=== PATIENT | female | born 1965 | race Caucasian/White ===

== ENCOUNTER → 2017-03-12 | Outpatient (CLI) | payer MEDICARE, OTHER ==
--- NOTE | 2017-03-12 10:53 | MR ---
EXAMINATION TYPE: MR brain wo con DATE OF EXAM: 03/12/2017 10:22 AM COMPARISON: NONE HISTORY: Lt side bells palsy, migraine, seizure hx FINDINGS: The ventricles, basal cisterns and sulci overlying the cerebral convexities are mildly enlarged. There is evidence of minimal periventricular white matter ischemic demyelination. Remote deep white matter insults are also noted. No acute edema is seen on diffusion weighted imaging. There is no evidence for midline shift or mass effect. Acute intracranial hemorrhage or extra-axial collection is not evident. The mastoid air cells are well-aerated. Small mucous retention cyst left ethmoid air cells. IMPRESSION: Age-related atrophic and chronic small vessel ischemic change. No acute intracranial process at this time.
== END | disposition home or self-care (01) ==
LOC: RADMRIMAIN 08:58
PROVIDERS: ATTEND Psychiatry & Neurology Neurology
DX: G31.1 Senile degeneration of brain, not elsewhere classified (principal); I67.82 Cerebral ischemia
CPT/HCPCS: 70551

== ENCOUNTER → 2017-06-10 | Outpatient (CLI) | payer MEDICARE, OTHER ==
[2017-06-10 13:16] VITALS: BP 125/81; PULSE 87; RESP 16; TEMP 98.1; BMI 20.9
--- NOTE | 2017-07-04 19:16 | P.PN ---
Progress Note - Text DATE OF SERVICE: 06/10/2017 CHIEF COMPLAINT: Bariatric assessment. HISTORY OF PRESENT ILLNESS: Jen Nobles is a 52-year-old female who had a gastric bypass by Dr. Stormy gordon in 2011. Her postoperative course was consistent with a leak following a gastric bypass given her active smoking. In the last 5 years, she has lost 154 pounds. Her initial weight was 258 pounds with a body mass index of 47.2. Today she comes in weighing 104 pounds. Her body mass index today is 21.0. She reports increase troubles with dysphagia as well swallowing in the last 6 months. She reports epigastric and left upper quadrant abdominal pain worse with deep inspiration. Again, she is still smoking. Her voice has become more hoarse. She is now trying to quit smoking as her father of lung cancer. She has developed many strokes in the past. She reports new numbness and tingling of her legs feet and hands. She had developed coldness along her feet and hands as well. She has severe constipation. She is on chronic pain medications. She reports chronic bloating as well. She is not eating much food and her protein intake is low. Her ideal body weight is 123 pounds. Body mass index is reduced from 52.2 down to 21.0. Total BMI is reduced by 31.2. PAST MEDICAL HISTORY: 1. Morbid obesity, now resolved. 2. Insulin-dependent type 2, poorly controlled, resolved. 3. Chronic pain syndrome. 4. Gastroesophageal reflux disease, resolved. 5. Hypertension. 6. Chronic pain syndrome. 7. Osteoarthritis of the lower back. 8. Hypercholesterolemia, resolved. 9. Neuropathy. 10. Chronic constipation. 11. Seizure disorder. 12. Myocardial infraction. 13. Kidney neoplasm. 14. Anxiety. 15. Depression. PAST SURGICAL HISTORY: 1. Gastric bypass. 2. Nephrectomy. 3. Cataract surgery. MEDICATIONS: 1. Clonidine. 2. Norvasc 3. Ambien. 4. Inderal 5. Nitroglycerin. 6. Morphine sulfate 7. Ciprofloxacin 8. Xanax 9. Aricept. 10. Miralax 11. Claritin 12. Brintellix. ALLERGIES: Sulfa. SOCIAL HISTORY: Lifelong tobacco user. FAMILY HISTORY: Lung cancer. REVIEW OF SYSTEMS: CONSTITUTIONAL:Her ideal body weight is 123 pounds. Body mass index is reduced from 52.2 down to 21.0. Total BMI is reduced by 31.2 points Her weight has gone down from 258 pounds to 104 pounds. HEENT: Denies any active trouble with vision or hearing. ENDOCRINE: Diabetes type 2, resolved. No reports of thyroid disorders. CARDIOVASCULAR: Hypercholesterolemia, resolved. Has heart attack and chest pain. RESPIRATORY: Sleep apnea resolved. No previous pneumonia. GASTROINTESTINAL: Had moderate to severe gastroesophageal reflux disease, resolved. Has known history of chronic constipation. MUSCULOSKELETAL: Has degenerative joint disease of the lumbar spine. NEUROLOGIC: Has multipe strokes. No seizure disorders. Has neuropathy. PSYCH: Reports of active depression or suicidal ideation. HEMATOLOGIC: Denies any easy bruising or bleeding. Denies any known family history of DVT. GENITOURINARY: Past kidney neoplasm. No current blood in urine. PHYSICAL EXAM: VITAL SIGNS: 4 feet 11 inches, 104 pounds. Body mass index 21.0 Vital Signs Temp 98.1 F 06/10/17 13:11 Pulse 87 06/10/17 13:11 Resp 16 06/10/17 13:11 BP 125/81 06/10/17 13:11 Pulse Ox GENERAL: Well-developed female in no acute distress. HEENT: No scleral icterus. Extraocular movements grossly intact. Moist buccal mucosa. Has hoarse voice. NECK: Supple without lymphadenopathy. CHEST: Nonlabored respirations with equal bilateral excursions. CARDIOVASCULAR: Regular rate and rhythm. Palpable 2+ radial pulses. ABDOMEN: Soft, nontender, distended. Active panniculitis. Palpable incisional hernia. MUSCULOSKELETAL: No clubbing, cyanosis, or edema. NEURO: No focal or lateralizing signs. Cranial nerves II through XII grossly within normal limits. PSYCH: Appropriate affect. Alert and oriented to person, place, and time. SKIN: Tips of fingers are cool and poorly perfused. LABS: Pending. ASSESSMENT: 1. Morbid obesity due to excess caloric intake, now resolved 2. Body mass index reduced from 52.1 down to 21.0 3. Dietary surveillance and counseling. 4. Chronic pain syndrome. 5. Chronic tobacco use. 6. Diabetes type 2, insulin-dependent, poorly controlled, resolved. 7. Osteoarthritis of the lower back. 8. Osteoarthritis of the knee. 9. History of kidney neoplasm. 10. Familial history of lung cancer. 11. Personal history of panniculitis. 12. Hypercholesterolemia, resolved. 13. History of neuropathy. 14. Dysphagia. 15. Chronic constipation. 16. Hypertensive heart disease. 17. Raynaud phenomenon. PLAN: 1. Recommend bariatric metabolic panel. 2. Recommend upper endoscopy with possible balloon dilatation. 3. Tobacco cessation was advised and discussed with 3-5 minutes with her risks of ulcers and chronic epigastric abdominal pain. 4. Recommend evaluation with bariatric dietitian. 5. Recommend CT of the abdomen and pelvis for further evaluation of abdominal wall hernia. 6. For her neuropathy may have thiamine deficiency. Recommend evaluation of thiamine level.
== END ==
LOC: BARWHC3 12:53
PROVIDERS: ATTEND Surgery Plastic and Reconstructive Surgery
DX: Z48.815 Encounter for surgical aftercare following surgery on the digestive system (principal); G89.4 Chronic pain syndrome; M47.816 Spondylosis without myelopathy or radiculopathy, lumbar region; M17.9 Osteoarthritis of knee, unspecified; I10 Essential (primary) hypertension; K59.00 Constipation, unspecified; I11.9 Hypertensive heart disease without heart failure; I73.00 Raynaud's syndrome without gangrene; F41.9 Anxiety disorder, unspecified; F32.9 Major depressive disorder, single episode, unspecified; E66.01 Morbid (severe) obesity due to excess calories; Z68.21 Body mass index [BMI] 21.0-21.9, adult; Z87.39 Personal history of other diseases of the musculoskeletal system and connective tissue; Z86.69 Personal history of other diseases of the nervous system and sense organs; Z85.828 Personal history of other malignant neoplasm of skin; Z72.0 Tobacco use; Z71.3 Dietary counseling and surveillance; Z88.2 Allergy status to sulfonamides; Z98.84 Bariatric surgery status
CPT/HCPCS: 99211

== ENCOUNTER → 2017-06-22 | Outpatient (CLI) | payer MEDICARE, OTHER ==
[2017-06-22 08:56] LABS: Anisocytosis Slight; CH 26.8; HDW 2.49; HGB 10.9 gm/dL (11.4-16.0); Hypochromasia Slight; MCH 27.8 pg (25.0-35.0); MCV 86.8 fL (80.0-100.0); Mean Platelet Volume 6.6; RBC 3.92 m/uL (3.80-5.40); RDW 16.5 % (11.5-15.5)
[2017-06-22 09:26] LABS: Partial Thromboplastin Time 25.2 sec (22.0-30.0); Prothrombin Time 10.5 sec (9.0-12.0)
[2017-06-22 11:21] LABS: ALT 27 U/L (9-52); AST 18 U/L (14-36); Alkaline Phosphatase 78 U/L (38-126); Anion Gap 9 mmol/L; Blood Urea Nitrogen 10 mg/dL (7-17); Calcium 8.6 mg/dL (8.4-10.2); Carbon Dioxide 28 mmol/L (22-30); Chloride 100 mmol/L (98-107); Cholesterol 142 mg/dL (<200); Glucose 87 mg/dL (74-99); HDL Cholesterol 63 mg/dL (40-60); Iron 64 ug/dL (37-170); Magnesium 2.2 mg/dL (1.6-2.3); Non-African American GFR(MDRD) >60 (>60 ml/min/1.73 sqM); Potassium 4.3 mmol/L (3.5-5.1); Sodium 137 mmol/L (137-145); Total Bilirubin 0.4 mg/dL (0.2-1.3); Total Protein 6.3 g/dL (6.3-8.2); Triglycerides 83 mg/dL (<150)
[2017-06-22 11:31] LABS: % Iron Saturation 16.1 % (20-50); Prealbumin 13 mg/dL (18-36); Total Iron Binding Capacity 397 ug/dL (265-497)
[2017-06-22 12:36] LABS: Vitamin B12 250 pg/mL (239-931)
[2017-06-22 13:19] LABS: Hemoglobin A1C 5.3 % (4.2-6.1)
== END | disposition home or self-care (01) ==
LOC: LABWHC1 08:32
PROVIDERS: ATTEND Surgery Plastic and Reconstructive Surgery
DX: E21.1 Secondary hyperparathyroidism, not elsewhere classified (principal); E89.1 Postprocedural hypoinsulinemia; D50.8 Other iron deficiency anemias; K90.9 Intestinal malabsorption, unspecified; E44.0 Moderate protein-calorie malnutrition; E55.9 Vitamin D deficiency, unspecified; K74.1 Hepatic sclerosis; N19 Unspecified kidney failure; K50.90 Crohn's disease, unspecified, without complications
CPT/HCPCS: 36415; 80053; 80061; 82306; 82525; 82607; 82728; 82746; 83036; 83540; 83550; 83735; 83970; 84100; 84134; 84255; 84425; 84443; 84590; 84630; 85027; 85610; 85730

== ENCOUNTER → 2017-06-22 | Outpatient (CLI) | payer MEDICARE, OTHER ==
--- NOTE | 2017-06-23 09:43 | MM ---
Reason for exam: screening (asymptomatic). Last mammogram was performed 6 years and 9 months ago. History: Patient is postmenopausal. Family history of breast cancer in grandmother. Physical Findings: A clinical breast exam by your physician is recommended on an annual basis and results should be correlated with mammographic findings. MG 3D Screening Mammo W/Cad Bilateral CC and MLO view(s) were taken. Prior study comparison: September 13, 2010, bilateral digital screening mammogram. There are scattered fibroglandular densities. Finding: There are a few typically benign round calcifications in both breasts. There is no discrete abnormality. ASSESSMENT: Benign, BI-RAD 2 RECOMMENDATION: Routine screening mammogram of both breasts in 1 year.
== END | disposition home or self-care (01) ==
LOC: RADMAMWWP 08:46
PROVIDERS: ATTEND Family Medicine
DX: Z12.31 Encounter for screening mammogram for malignant neoplasm of breast (principal)
CPT/HCPCS: 77063; G0202

== ENCOUNTER 2017-07-08 08:57 | Day surgery (SDC) | payer MEDICARE, OTHER ==
[2017-07-06 08:32] VITALS: BMI 21.4
--- NOTE | 2017-07-08 07:35 | P.GSHP ---
History of Present Illness H&P Date: 07/08/17 CHIEF COMPLAINT: GERD and colon screen HISTORY OF PRESENT ILLNESS: The patient is a 52-year-old female who presents reports gastroesophageal reflux disease and need for colon screen. Upper and lower endoscopy were offered for further evaluation and management. PAST MEDICAL HISTORY: Please see list. PAST SURGICAL HISTORY: Please see list. MEDICATIONS: Please see list. ALLERGIES: Please see list. SOCIAL HISTORY: No illicit drug use FAMILY HISTORY: No reports of Crohn disease or ulcerative colitis. REVIEW OF ORGAN SYSTEMS: CONSTITUTIONAL: No reports of fevers or chills. GI: Denies any blood in stools or constipation. PHYSICAL EXAM: VITAL SIGNS: Stable GENERAL: Well-developed pleasant in no acute distress. HEENT: No scleral icterus. Extraocular movements grossly intact. Moist buccal mucosa. NECK: Supple without lymphadenopathy. CHEST: Unlabored respirations. Equal bilateral excursions. CARDIOVASCULAR: Regular rate and rhythm. Distal 2+ pulses. ABDOMEN: Soft, nondistended. MUSCULOSKELETAL: No clubbing, cyanosis, or edema. ASSESSMENT: 1. Gastroesophageal reflux disease 2. Colon screen. PLAN: 1. Recommend proceeding with an upper and lower endoscopy Past Medical History Past Medical History: Chest Pain / Angina, COPD, Hypertension, Myocardial Infarction (ND), Osteoarthritis (OA), Seizure Disorder Additional Past Medical History / Comment(s): dysphagia Last Myocardial Infarction Date:: 2013 History of Any Multi-Drug Resistant Organisms: None Reported Past Surgical History: Bariatric Surgery, Joint Replacement, Tubal Ligation Additional Past Surgical History / Comment(s): calvin knee replacement, rt rotator cuff, rectal prolapse, cataracts removed calvin eyes, 2012 [facility], partial right kidney removed, reversal of tubal ligation Past Anesthesia/Blood Transfusion Reactions: Motion Sickness, Postoperative Nausea & Vomiting (PONV) Smoking Status: Current every day smoker - Past Family History Father Family Medical History: Cancer Additional Family Medical History / Comment(s): lung, AAA Medications and Allergies Home Medications Medication Instructions Recorded Confirmed Type Zolpidem [Ambien] 10 mg PO HS PRN 04/03/14 07/06/17 History Nitroglycerin Sl Tabs [Nitrostat] 0.4 mg SUBLINGUAL Q5M PRN 08/24/14 07/06/17 History Morphine Sulfate [Morphine Sulfate 15 mg PO QID 03/12/16 07/06/17 History ER] ALPRAZolam [Xanax] 1 mg PO TID 07/18/16 07/06/17 History Donepezil [Aricept] 10 mg PO HS 07/18/16 07/06/17 History Fluticasone Nasal [place] [Flonase 2 spr EA NOSTRIL DAILY 07/18/16 07/06/17 History Nasal [place]] Loratadine [Claritin] 10 mg PO DAILY 07/18/16 07/06/17 History Propranolol HCl [Inderal] 60 mg PO BID 07/18/16 07/06/17 History Vortioxetine Hydrobromide 10 mg PO HS 07/18/16 07/06/17 History [Brintellix] Albuterol Nebulized [Ventolin 2.5 mg INHALATION Q4H PRN 07/06/17 07/06/17 History Nebulized] Chantix 1 tab PO BID 07/06/17 History Dextroamphetamine/Amphetamine 20 mg PO DAILY 07/06/17 07/06/17 History [Adderall] Latuda 1 tab PO HS 07/06/17 History Allergies Allergy/AdvReac Type Severity Reaction Status Date / Time Sulfa (Sulfonamide Allergy Unknown Verified 06/10/17 13:42 Antibiotics)
[~2017-07-08 08:57] MED LIST: LIDOCAINE 1% 20 ML VIAL (10MG/ML) FOR IV START INTRADERMA PRN
[2017-07-08 09:22] VITALS: TEMP 98.6
[2017-07-08] MEDS: LACTATED RINGERS 1,000 ML IV SCH ×2 (09:26→09:28)
[2017-07-08] MEDS ORDERED: PROPOFOL 10 MG/ML 20 ML VIAL IV ONE (09:30)
[2017-07-08] MEDS ORDERED: fentaNYL (PF) 50 MCG/ML 2 ML AMP ONE (09:30)
[2017-07-08] MEDS ORDERED: MIDAZOLAM 2 MG/2 ML VIAL ONE (09:30)
--- NOTE | 2017-07-08 09:50 | P.PCN ---
Date of Procedure: 07/08/17 Preoperative Diagnosis: Postoperative Diagnosis: Procedure(s) Performed: Implants: Indications for Procedure: Operative Findings: Description of Procedure: PREOPERATIVE DIAGNOSIS: Dysphagia. s/p Darrell-en-y gastric bypass. Nausea with vomiting. Chronic tobacco use. POSTOPERATIVE DIAGNOSIS: Dysphagia. s/p Darrell-en-y gastric bypass. Nausea with vomiting. Gastrojejunal stricture with chronic ulcer without perforation Esophageal dysmotility. Chronic tobacco use. OPERATION: Esophagogastrojejunoscopy with balloon dilatation from 12 to 20 mm. Esophagogastroduodenoscopy with cold forceps biopsy. SURGEON: Gloria Wilson MD ANESTHESIA: MAC. INDICATIONS: The patient is a 52-year-old female who presents with a history of dysphagia, gastric bypass including nausea and vomiting. Benefits and risks of the procedure were described. Informed consent was obtained. DESCRIPTION: The patient was brought into the endoscopy suite and laid in the left lateral decubitus position. After a timeout was confirmed, the procedure was initiated. An Olympus gastroscope was passed along the posterior oropharynx down to the distal esophagus where the squamocolumnar junction was unremarkable. The gastric pouch was entered. A gastrojejunal stricture of 12 mm was found as the adult gastroscope was 9.5 mm in size. A Six3 balloon dilator was placed through the scope. Final insufflation up to 20 mm was performed with a total of 2 minutes. The scope was advanced up to 60 cm from the incisors into the Darrell limb. The mucosa of the gastrojejunal anastomosis was intact. However chronic gastrojejunal marginal ulcer was encountered. A long persistent blind jejunal limb a 4 cm also identified. No full-thickness injury was encountered. Cold forceps biopsies was obtained along the anastomosis including gastric pouch. The GI tract was desufflated. The patient tolerated the procedure well. FINDINGS: Squamocolumnar junction unremarkable at 36 cm. Stricture of approximately 12 mm encountered. Chronic gastrojejunal ulceration encountered. Successful balloon dilatation to 20 mm. Diaphragmatic hiatus at 40 cm. Gastric pouch 4 cm. Blind jejunal limb of 4 cm. RECOMMENDATIONS: Tobacco cessation immediately to address chronic ulcer. Start combined therapy of Carafate and omeprazole of at least 4 weeks. Plan - Discharge Summary New Discharge Prescriptions: No Action Zolpidem [Ambien] 10 mg PO HS PRN PRN Reason: Insomnia Nitroglycerin Sl Tabs [Nitrostat] 0.4 mg SUBLINGUAL Q5M PRN PRN Reason: Chest Pain Morphine Sulfate [Morphine Sulfate ER] 15 mg PO QID Donepezil [Aricept] 10 mg PO HS Propranolol HCl [Inderal] 60 mg PO BID Vortioxetine Hydrobromide [Brintellix] 10 mg PO HS Loratadine [Claritin] 10 mg PO DAILY Fluticasone Nasal [place] [Flonase Nasal [place]] 2 spr EA NOSTRIL DAILY ALPRAZolam [Xanax] 1 mg PO TID Polyethylene Glycol 3350 [Miralax] 17 gm PO BID #255 gm Dextroamphetamine/Amphetamine [Adderall] 20 mg PO DAILY Albuterol Nebulized [Ventolin Nebulized] 2.5 mg INHALATION Q4H PRN PRN Reason: Shortness Of Breath Latuda 1 tab PO HS Chantix 1 tab PO BID Discharge Medication List Zolpidem [Ambien] 10 mg PO HS PRN 04/03/14 [History] Nitroglycerin Sl Tabs [Nitrostat] 0.4 mg SUBLINGUAL Q5M PRN 08/24/14 [History] Morphine Sulfate [Morphine Sulfate ER] 15 mg PO QID 03/12/16 [History] ALPRAZolam [Xanax] 1 mg PO TID 07/18/16 [History] Donepezil [Aricept] 10 mg PO HS 07/18/16 [History] Fluticasone Nasal [place] [Flonase Nasal [place]] 2 spr EA NOSTRIL DAILY 07/18/16 [ History] Loratadine [Claritin] 10 mg PO DAILY 07/18/16 [History] Propranolol HCl [Inderal] 60 mg PO BID 07/18/16 [History] Vortioxetine Hydrobromide [Brintellix] 10 mg PO HS 07/18/16 [History] Polyethylene Glycol 3350 [Miralax] 17 gm PO BID #255 gm 06/10/17 [Rx] Albuterol Nebulized [Ventolin Nebulized] 2.5 mg INHALATION Q4H PRN 07/06/17 [ History] Chantix 1 tab PO BID 07/06/17 [History] Dextroamphetamine/Amphetamine [Adderall] 20 mg PO DAILY 07/06/17 [History] Latuda 1 tab PO HS 07/06/17 [History]
--- NOTE | 2017-07-08 10:03 | P.PCN ---
Date of Procedure: 07/08/17 Preoperative Diagnosis: Postoperative Diagnosis: Procedure(s) Performed: Implants: Indications for Procedure: Operative Findings: Description of Procedure: PREOPERATIVE DIAGNOSIS: Colonoscopy screening. POSTOPERATIVE DIAGNOSIS: Colonoscopy screening. Anal warts. Poor prep. OPERATION: Colonoscopy to the sigmoid colon secondary to severe stool burden and poor prep. SURGEON: Gloria Wilson MD. ANESTHESIA: MAC. INDICATIONS: The patient is a 52-year-old female who presents for colonoscopy screening. Benefits and risks were described and informed consent was obtained. DESCRIPTION OF PROCEDURE: The patient was brought brought into the operating room and laid in the left lateral decubitus position. After adequate intravenous sedation, the rectum was examined with 2% lidocaine jelly. Multiple anal warts were identified. The rectal tone was within normal limits. No lesions were palpated in the rectal vault. An Olympus colonoscope was advanced where moderate liquid stool was adherent to the colonic and mucosal jarvis. Moderate irrigation of 1 L was used to advance the scope to the sigmoid colon with stool brought on was severe. Given the extremely poor prep, the case was discontinued with advancement of the scope to 60 cm from the anal verge. No large tubular adenoma over centimeter was identified of the sigmoid colon. Again, secondary to the moderate stool burden, limited visualization of the mucosal folds was performed. The colon was desufflated. The patient had tolerated the procedure well. Withdrawal time was over 6 minutes. FINDINGS: Limited colonoscopy to the sigmoid colon secondary to severely poor prep. Multiple anal warts. No external prolapsed hemorrhoids. No large adenomatous polyps involving the sigmoid colon. RECOMMENDATIONS: Repeat colonoscopy in 6 months, otherwise in 2018, with 2 day prep advised.
[2017-07-08 10:15] VITALS: RESP 16
[2017-07-08 10:22] VITALS: PULSE 66
[2017-07-08 10:25] VITALS: BP 160/78
== END 2017-07-08 10:51 | disposition home or self-care (01) ==
LOC: ORWHC2ENDO 08:57
PROVIDERS: ATTEND Surgery Plastic and Reconstructive Surgery
DX: Z12.11 Encounter for screening for malignant neoplasm of colon (principal); A63.0 Anogenital (venereal) warts; K29.50 Unspecified chronic gastritis without bleeding; K31.89 Other diseases of stomach and duodenum; K25.7 Chronic gastric ulcer without hemorrhage or perforation; K22.4 Dyskinesia of esophagus; Z98.84 Bariatric surgery status; J44.9 Chronic obstructive pulmonary disease, unspecified; I10 Essential (primary) hypertension; I25.119 Atherosclerotic heart disease of native coronary artery with unspecified angina pectoris; M19.90 Unspecified osteoarthritis, unspecified site; G40.909 Epilepsy, unspecified, not intractable, without status epilepticus; F41.9 Anxiety disorder, unspecified; F32.9 Major depressive disorder, single episode, unspecified; Z98.51 Tubal ligation status; I25.2 Old myocardial infarction; F17.200 Nicotine dependence, unspecified, uncomplicated; Z79.891 Long term (current) use of opiate analgesic; Z79.899 Other long term (current) drug therapy; Z88.2 Allergy status to sulfonamides
CPT/HCPCS: 88305; 88342; 43239; 43245; J2250; J3010; J2704; C1726; G0104; 44799; 45378

== ENCOUNTER → 2017-07-29 | Outpatient (CLI) | payer MEDICARE, OTHER ==
[2017-07-29 14:05] VITALS: BP 133/99; PULSE 68; TEMP 97.9; BMI 19.5
--- NOTE | 2017-08-22 16:49 | P.PN ---
Progress Note - Text DATE OF SERVICE: 07/29/2017 CHIEF COMPLAINT: Bariatric assessment. HISTORY OF PRESENT ILLNESS: Jen Nobles is a 52-year-old female who had a gastric bypass by Dr. Stormy gordon in 2011. Her postoperative course was consistent with a leak following a gastric bypass given her active smoking. In the last 5 years, she has lost 161 pounds. Her initial weight was 258 pounds with a body mass index of 52.2. Today she comes in weighing 97 pounds. Her body mass index today is 19.6 Her ideal body weight is 123 pounds. Her percent excess weight loss is 119%. She completed both an upper and lower endoscopy. A balloon dilation was performed. She reports improvement of her dysphasia. She had severe constipation which limited her colonoscopy. She still losing weight. Since her last visit 2 months ago, she lost another 9 pounds. She still smoking however 2 cigarettes per day. PAST MEDICAL HISTORY: 1. Morbid obesity, now resolved. 2. Insulin-dependent type 2, poorly controlled, resolved. 3. Chronic pain syndrome. 4. Gastroesophageal reflux disease, resolved. 5. Hypertension. 6. Chronic pain syndrome. 7. Osteoarthritis of the lower back. 8. Hypercholesterolemia, resolved. 9. Neuropathy. 10. Chronic constipation. 11. Seizure disorder. 12. Myocardial infraction. 13. Kidney neoplasm. 14. Anxiety. 15. Depression. PAST SURGICAL HISTORY: 1. Gastric bypass. 2. Nephrectomy. 3. Cataract surgery. 4. EGD. 5. Colonoscopy. MEDICATIONS: 1. Clonidine. 2. Norvasc 3. Ambien. 4. Inderal 5. Nitroglycerin. 6. Morphine sulfate 7. Ciprofloxacin 8. Xanax 9. Aricept. 10. Miralax 11. Claritin 12. Brintellix. ALLERGIES: Sulfa. SOCIAL HISTORY: Lifelong tobacco user. FAMILY HISTORY: Lung cancer. REVIEW OF SYSTEMS: CONSTITUTIONAL:Her ideal body weight is 123 pounds. Body mass index is reduced from 52.2 down to 19.6. Her weight has gone down from 258 pounds to 97 pounds. Total weight loss of 161 pounds. Percent excess weight loss 119%. HEENT: Denies any active trouble with vision or hearing. ENDOCRINE: Diabetes type 2, resolved. No reports of thyroid disorders. CARDIOVASCULAR: Hypercholesterolemia, resolved. Has heart attack and chest pain. RESPIRATORY: Sleep apnea resolved. No previous pneumonia. GASTROINTESTINAL: Had moderate to severe gastroesophageal reflux disease, resolved. Has known history of chronic constipation. MUSCULOSKELETAL: Has degenerative joint disease of the lumbar spine. NEUROLOGIC: Has multipe strokes. No seizure disorders. Has neuropathy. PSYCH: Reports of active depression or suicidal ideation. HEMATOLOGIC: Denies any easy bruising or bleeding. Denies any known family history of DVT. GENITOURINARY: Past kidney neoplasm. No current blood in urine. PHYSICAL EXAM: VITAL SIGNS: 4 feet 11 inches, 97 pounds. Body mass index 19.6. Vital Signs Temp 97.9 F 07/29/17 14:30 Pulse 68 07/29/17 14:30 Resp BP 133/99 07/29/17 14:30 Pulse Ox GENERAL: Well-developed female in no acute distress. HEENT: No scleral icterus. Extraocular movements grossly intact. Moist buccal mucosa. Has hoarse voice. NECK: Supple without lymphadenopathy. CHEST: Nonlabored respirations with equal bilateral excursions. CARDIOVASCULAR: Regular rate and rhythm. Palpable 2+ radial pulses. ABDOMEN: Soft, nontender, mildly distended. MUSCULOSKELETAL: No clubbing, cyanosis, or edema. NEURO: No focal or lateralizing signs. Cranial nerves II through XII grossly within normal limits. PSYCH: Appropriate affect. Alert and oriented to person, place, and time. SKIN: Tips of fingers are cool and poorly perfused. LABS: Reviewed. She has vitamin A deficiency. Prealbumin was low consistent with low protein intake. Hemoglobin was less than 11. Hemoglobin A1c was normal at 5.3. EGD FINDINGS: Squamocolumnar junction unremarkable at 36 cm. Stricture of approximately 12 mm encountered. Chronic gastrojejunal ulceration encountered. Successful balloon dilatation to 20 mm. Diaphragmatic hiatus at 40 cm. Gastric pouch 4 cm. Blind jejunal limb of 4 cm. ASSESSMENT: 1. Morbid obesity due to excess caloric intake, now resolved 2. Body mass index reduced from 52.1 down to 19.6 3. Dietary surveillance and counseling. 4. Chronic pain syndrome. 5. Chronic tobacco use. 6. Diabetes type 2, insulin-dependent, poorly controlled, resolved. 7. Osteoarthritis of the lower back. 8. Osteoarthritis of the knee. 9. History of kidney neoplasm. 10. Familial history of lung cancer. 11. Personal history of panniculitis. 12. Hypercholesterolemia, resolved. 13. History of neuropathy. 14. Dysphagia. 15. Chronic constipation. 16. Hypertensive heart disease. 17. Raynaud phenomenon. 18. Chronic constipation. 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 PLAN: 1. Recommend repeat colonoscopy in one year with today liquid prep. 2. Complete tobacco cessation was advised with history of persistent ulcer. 3. She has anal condylomas and referral to dermatology is advised. 4. Correction of vitamin A deficiency advised. 5. Protein intake of at least 60 g advised. Recommend adding fats to her diet for weight gain. 6. Upper endoscopy is needed.
== END | disposition home or self-care (01) ==
LOC: BARWHC3 13:36
PROVIDERS: ATTEND Surgery Plastic and Reconstructive Surgery
DX: Z48.815 Encounter for surgical aftercare following surgery on the digestive system (principal); E66.01 Morbid (severe) obesity due to excess calories; Z68.1 Body mass index [BMI] 19.9 or less, adult; G89.4 Chronic pain syndrome; M47.816 Spondylosis without myelopathy or radiculopathy, lumbar region; M17.0 Bilateral primary osteoarthritis of knee; K59.09 Other constipation; I11.9 Hypertensive heart disease without heart failure; K25.7 Chronic gastric ulcer without hemorrhage or perforation; F32.9 Major depressive disorder, single episode, unspecified; F41.9 Anxiety disorder, unspecified; I73.00 Raynaud's syndrome without gangrene; A63.0 Anogenital (venereal) warts; Z85.528 Personal history of other malignant neoplasm of kidney; Z80.1 Family history of malignant neoplasm of trachea, bronchus and lung; Z87.39 Personal history of other diseases of the musculoskeletal system and connective tissue; Z86.69 Personal history of other diseases of the nervous system and sense organs; Z72.0 Tobacco use; Z71.3 Dietary counseling and surveillance; Z88.2 Allergy status to sulfonamides; Z79.899 Other long term (current) drug therapy; Z98.84 Bariatric surgery status
CPT/HCPCS: 99211

== ENCOUNTER → 2017-11-18 | Outpatient (CLI) | payer MEDICARE, OTHER ==
--- NOTE | 2017-11-19 10:54 | MR ---
MR abdomen with and without contrast HISTORY: Intra-abdominal and pelvic swelling, left adrenal mass, partial right nephrectomy Multiplanar multisequence and postcontrast images through the abdomen following 5.5 cc Gadavist IV Correlation to previous exam MR abdomen 02/20/2016 FINDINGS: The liver shows a stable appearance. Gallbladder is unchanged. Spleen is normal. The kidney s show a stable appearance, there is a cortical cyst at the upper pole with exophytic appearance ryan uring approximately 2.7 cm similar to prior exam. Right adrenal gland stable. The heart is enlarged. The left adrenal mass shows signal drop on out of phase imaging as on prior exam and measures approxi mately 3.7 x 2.5 x 3.7 cm, similar to prior exam and shows a similar T1, T2, postcontrast appearance to prior exam. IMPRESSION: There is no significant interval change. Findings are compatible with adrenal adenoma. Ca rdiomegaly.
== END | disposition home or self-care (01) ==
LOC: RADMRIMAIN 15:16
PROVIDERS: ATTEND Family Medicine
DX: R19.09 Other intra-abdominal and pelvic swelling, mass and lump (principal)
CPT/HCPCS: 82565; 74183; A9581

== ENCOUNTER 2018-01-25 13:23 | Inpatient (IN) | payer MEDICARE, OTHER ==
[2018-01-25] MEDS ORDERED: HYDROcodone/APAP 5-325MG 1 EACH TAB PO STA (14:27)
[2018-01-25] MEDS ORDERED: KETOROLAC 30 MG/ML 1 ML VIAL IM STA (14:27)
--- NOTE | 2018-01-25 14:58 | XR ---
EXAMINATION TYPE: XR Hip LT and AP Pelvis DATE OF EXAM: 01/25/2018 COMPARISON: Abdominal x-ray November 24, 2014 HISTORY: Pelvic and left hip pain after fall injury TECHNIQUE: A single AP view of the pelvis is obtained. Two views of the left hip are obtained. FINDINGS: There is acute intertrochanteric fracture through the left proximal femur. No hip joint di slocation is evident. There is mild to moderate axial joint space loss in both hips redemonstrated. S acroiliac joints are maintained. A few scattered pelvic phleboliths are redemonstrated. IMPRESSION: There is acute comminuted minimally displaced intertrochanteric fracture left proximal f emur. (Initial encounter closed type post traumatic fracture)
--- NOTE | 2018-01-25 15:00 | XR ---
EXAMINATION TYPE: XR ribs LT w pa chest xray DATE OF EXAM: 01/25/2018 CLINICAL HISTORY: Chest and left-sided rib pain after fall injury TECHNIQUE: Single frontal view of the chest is obtained. A frontal and oblique images the left-sided ribs are acquired. COMPARISON: Prior chest x-ray August 24, 2014 FINDINGS: There is no focal air space opacity, pleural effusion, or pneumothorax seen. The cardiac silhouette size is within normal limits. The osseous structures are intact. Surgical clips and sutu res epigastric region are redemonstrated. Dedicated images of the left-sided ribs show no acute displaced fracture. Overlying soft tissue is un remarkable. IMPRESSION: 1. No acute cardiopulmonary process. 2. No acute displaced left-sided rib fractures are seen.
--- NOTE | 2018-01-25 15:20 | ED ---
Lower Extremity Injury HPI - General Chief Complaint: Extremity Injury, Lower Stated Complaint: Fell Time Seen by Provider: 01/25/18 14:20 Source: patient Mode of arrival: wheelchair Limitations: no limitations - History of Present Illness Initial Comments: 52-year-old female patient presents to emergency department today for complaints of left hip and rib pain. Patient states that around 11 AM she had a slip and fall accident when she was stepping up onto a curb. States that she fell landing on her left side. States that she has pain radiating down the thigh. She is unable to bear weight. She denies any numbness or tingling to the leg or foot. She states she is also having some left rib pain beneath the left breast. States is very tender to the touch. States it hurts to take a deep breath. She denies any hemoptysis, shortness of breath, nausea, dizziness , or weakness. Patient denies any headache, neck pain, back pain, abdominal pain, nausea, vomiting, or difficulties with bowel movements or urination. - Related Data Previous Rx's Medication Instructions Recorded Pantoprazole [Protonix] 40 mg PO AC-BRKFST tablet. 09/18/17 Armodafinil 150 mg PO QAM #14 tablet 09/21/17 Dextroamphetamine/Amphetamine 20 mg PO DAILY #30 tablet 09/21/17 [Adderall] Escitalopram [Lexapro] 10 mg PO DAILY #14 tab 09/21/17 Metoprolol Tartrate [Lopressor] 12.5 mg PO BID #28 tab 09/21/17 Montelukast [Singulair] 10 mg PO DAILY #14 tab 09/21/17 Nicotine 14Mg/24Hr Patch [Habitrol] 1 patch TRANSDERM DAILY #14 patch 09/21/17 Pantoprazole [Protonix] 40 mg PO AC-BRKFST #14 tablet. 09/21/17 Topiramate [Topamax] 25 mg PO DAILY #14 tab 09/21/17 amLODIPine [Norvasc] 10 mg PO DAILY #14 tab 09/21/17 levETIRAcetam [Keppra] 500 mg PO Q12HR #28 tab 09/21/17 Allergies Allergy/AdvReac Type Severity Reaction Status Date / Time Sulfa (Sulfonamide Allergy Unknown Verified 01/25/18 13:44 Antibiotics) Review of Systems ROS Statement: Those systems with pertinent positive or pertinent negative responses have been documented in the HPI. ROS Other: All systems not noted in ROS Statement are negative. Past Medical History Past Medical History: Chest Pain / Angina, Hypertension, Myocardial Infarction ( [place]), Seizure Disorder Additional Past Medical History / Comment(s): arthritis Pt is now being treated for high BP. Pt stated that she had second heart attack-silent mi unk date. Ulcers. upper teeth pulled and dentures replaced 10/2015 Last Myocardial Infarction Date:: 2013 History of Any Multi-Drug Resistant Organisms: None Reported Past Surgical History: Bariatric Surgery Additional Past Surgical History / Comment(s): cataracts removed RT/Lt eyes, 2011 Darrell-en- y, rt kidney sx-"they took part of my kidney they thought is was cancer but came back not cancer" Past Anesthesia/Blood Transfusion Reactions: Previous Problems w/ Anesthesia, Motion Sickness Past Psychological History: Anxiety, Bipolar, Depression Smoking Status: Current every day smoker Past Alcohol Use History: None Reported Past Drug Use History: None Reported - Past Family History Father Family Medical History: Cancer Additional Family Medical History / Comment(s): lung, AAA Mother Family Medical History: CVA/TIA General Exam Limitations: no limitations General appearance: alert, in no apparent distress, other Eye exam: Present: normal appearance (This is a well-developed, well-nourished adult female patient in no acute distress. Vital signs upon presentation are temperature 98.2F, pulse 90, respirations 18, blood pressure 107/75, pulse ox 95% on room air.), PERRL, EOMI. Absent: scleral icterus, conjunctival injection , periorbital swelling ENT exam: Present: normal exam, normal oropharynx, mucous membranes moist Respiratory exam: Present: normal lung sounds bilaterally, chest wall tenderness (Left anterior chest wall tenderness). Absent: respiratory distress , wheezes, rales, rhonchi, stridor Cardiovascular Exam: Present: regular rate, normal rhythm, normal heart sounds. Absent: systolic murmur, diastolic murmur, rubs, gallop, clicks GI/Abdominal exam: Present: soft, normal bowel sounds. Absent: distended, tenderness, guarding, rebound, rigid Extremities exam: Present: full ROM, tenderness, normal capillary refill, other (Skin to the left lower eduction is pink, warm, and dry. Cap refills less than 3 seconds. Pedal and posttibial pulses are 2+ and equal bilaterally.). Absent : normal inspection (Left leg is shortened. ), pedal edema, joint swelling, calf tenderness Neurological exam: Present: alert, oriented X3, CN II-XII intact Psychiatric exam: Present: normal affect, normal mood Skin exam: Present: warm, dry, intact, normal color. Absent: rash Course Vital Signs 01/25/18 13:41 Temperature 98.2 F Pulse Rate 90 Respiratory 18 Rate Blood Pressure 107/75 O2 Sat by Pulse 95 Oximetry Medical Decision Making - Medical Decision Making 52-year-old female patient presents to the emergency department today for evaluation of left hip pain and left rib pain. Physical examination did reveal some shortening of the left leg. She also had some tenderness over the left lateral hip. Tenderness over the left anterior chest wall. Did perform chest x -ray with ribs, negative for any acute cardiopulmonary or osseous abnormalities at this time. Did perform an x-ray of the left hip and did show an intertrochanteric fracture of the left femur. I did discuss findings and results with the patient. She'll be admitted to orthopedic services. She will have [facility] on for medical management. - Radiology Data Radiology results: report reviewed, image reviewed Single view of the chest and multiple views of the left ribs are obtained. No focal airspace opacity, pleural effusion, or pneumothorax seen. The cardiac silhouette size is within normal limits. The osseous structures are intact. Surgical clips and sutures epigastric region redemonstrated. Dedicated images of the left-sided rib showed no acute displaced fracture. Overlying soft tissues unremarkable. Impression by Dr. Martinez chest shows no acute cardiopulmonary process. No acute displaced left rib fractures are seen. Single view of the pelvis and 2 views of the left hip Artane. There is an acute intertrochanteric fracture to the left proximal femur. No hip joint dislocation is evident. There is mild to moderate axial joint space loss in both hips redemonstrated. Sacroiliac joints are maintained. A few scattered pelvic phleboliths are redemonstrated. Impression by Dr. Martinez shows acute comminuted minimally displaced intertrochanteric fracture of the left proximal femur. Disposition Clinical Impression: Intertrochanteric fracture of left femur Disposition: ADMITTED IP TO THIS HOSP Condition: Serious Referrals: Zana Meade MD [Primary Care Provider] - 1-2 days Decision to Admit Reason: Admit from EC Decision Date: 01/25/18 Decision Time: 15:18
[2018-01-25 15:29] LABS: Anisocytosis Moderate; HCT 27.5 % (34.0-46.0); HGB 8.4 gm/dL (11.4-16.0); Hypochromasia Marked; MCH 24.8 pg (25.0-35.0); MCHC 30.5 g/dL (31.0-37.0); MCV 81.2 fL (80.0-100.0); Mean Platelet Volume 7.8; Microcytosis Slight; Platelet Count 337 k/uL (150-450); RBC 3.39 m/uL (3.80-5.40); RDW 20.4 % (11.5-15.5); WBC 11.1 k/uL (3.8-10.6)
[2018-01-25 15:41] LABS: ALT 20 U/L (9-52); AST 37 U/L (14-36); Albumin 3.4 g/dL (3.5-5.0); Alkaline Phosphatase 82 U/L (38-126); Anion Gap 6 mmol/L; Blood Urea Nitrogen 15 mg/dL (7-17); Calcium 8.3 mg/dL (8.4-10.2); Carbon Dioxide 23 mmol/L (22-30); Chloride 107 mmol/L (98-107); Glucose 72 mg/dL (74-99); Potassium 5.4 mmol/L (3.5-5.1); Sodium 136 mmol/L (137-145); Total Bilirubin 0.4 mg/dL (0.2-1.3); Total Protein 6.1 g/dL (6.3-8.2)
[2018-01-25] MEDS ORDERED: NALOXONE 0.4 MG/ML 1 ML VIAL IV PRN (16:08)
[2018-01-25] MEDS ORDERED: SODIUM CHLORIDE 0.9% 1,000 ML IV SCH (16:15)
[2018-01-25] MEDS ORDERED: CYCLOBENZAPRINE 10 MG TAB PO PRN (18:02)
[2018-01-25] MEDS: MORPHINE SULFATE 4 MG/ML SYRINGE IV PRN (18:11)
[2018-01-25] MEDS ORDERED: ERGOCALCIFEROL 50,000 UNIT CAP PO SCH (18:15)
[2018-01-25 20:01] VITALS: BMI 25.6
[2018-01-25] MEDS ORDERED: NICOTINE 21MG/24HR PATCH TRANSDERM STA (22:16)
[2018-01-25] MEDS: MONTELUKAST 10 MG TAB PO SCH (22:23)
[2018-01-25] MEDS: traZODone HCL 100 MG TAB PO SCH (22:23)
[2018-01-25] MEDS: MAGNESIUM OXIDE 400 MG TAB PO SCH (22:23)
[2018-01-25] MEDS: PROPRANOLOL 10 MG TAB PO SCH (22:23)
[2018-01-25] MEDS: PANTOPRAZOLE 40 MG TABLET PO SCH (22:24)
[2018-01-25] MEDS: levETIRAcetam 500 MG TAB PO SCH (22:24)
[2018-01-25] MEDS: ALPRAZolam 1 MG TAB PO SCH (22:24)
[2018-01-25] MEDS: TOPIRAMATE 25 MG TAB PO SCH (22:24)
[2018-01-25] MEDS: LURASIDONE 40 MG TAB PO SCH (22:24)
[2018-01-25] MEDS: PREGABALIN 50 MG CAP PO SCH (22:24)
[2018-01-25] MEDS: DOXEPIN 10 MG CAP PO SCH (22:24)
[2018-01-25] MEDS: HYDROcodone/APAP 10-325MG 1 EACH TAB PO PRN (22:33)
--- NOTE | 2018-01-26 03:20 | CONS ---
CONSULTATION DATE OF SERVICE: 01/25/18. REASON FOR CONSULTATION: Advice regarding hypertension and multiple other medical issues requested by Orthopedic surgery. HISTORY OF PRESENT ILLNESS: This 52-year-old woman with a past history of hypertension, history of seizure disorder, history of DJD, history of bariatric surgery, anxiety bipolar depression being followed by Dr. Meade in the outpatient setting. The patient apparently slipped and fell in the curb while the patient was rushing to go and the patient was complaining of left-sided chest pain and as well as some left-sided hip pain and acute comminuted minimally displaced intertrochanteric fracture of the left proximal femur was noted and the patient admitted for further evaluation and treatment. There is no history of fever, rigors or chills. No history of headache, loss of consciousness. No chest pain, palpitation at this time. PAST MEDICAL HISTORY: History of hypertension, history of seizure disorder, history of degenerative joint disease. MEDICATIONS: Prior to admission include the home medications are: 1. Lyrica 50 mg p.o. daily. 2. Omeprazole 20 mg p.o. b.i.d. 3. Myrbetriq 25 mg b.i.d. 4. Xanax 1 mg p.o. daily. 5. Magnesium oxide 400 mg b.i.d. 6. Latuda 40 mg q.h.s. 7. Hydrocodone 10 mg p.o. t.i.d. p.r.n. 8. Vitamin D2 50,000 q.7 days. 9. Aricept 20 mg p.o. 10.Desyrel 200 mg q.h.s. 11.Inderal 10 mg q.h.s. 12.Klor-Con 20 mEq b.i.d. 13.Flexeril 10 mg daily p.r.n. 14.Topamax 25 mg q.h.s. 15.Singular 10 mg q.h.s. 16.Senokot 10 mg q.h.s. 17.Keppra 500 mg p.o. b.i.d. 18.Norvasc 10 mg p.o. daily. ALLERGIES: SULFA. FAMILY HISTORY: History of cancer, lung cancer, abdominal aortic aneurysm. SOCIAL HISTORY: History of smoking. No history of alcohol intake. REVIEW OF SYSTEMS: ENT: No diminished hearing or vision. CARDIOVASCULAR: As mentioned earlier. Respirations: As mentioned earlier. GI no nausea or vomiting. : No dysuria. NERVOUS SYSTEM: No numbness or weakness. Allergy/Immunology: No asthma or hayfever. Musculoskeletal as mentioned earlier. HEMATOLOGY/ONCOLOGY: No history of anemia. ENDOCRINE: No history of diabetes or hypothyroidism. Constitutional: As mentioned earlier. Dermatology: Negative. Rheumatology: Negative. Psychiatric: As mentioned earlier. PHYSICAL EXAMINATION: Alert, oriented x3. Pulse 78, blood pressure 140/82, respiration 17, temperature 99.6, pulse ox 94% on room air. HEENT is conjunctivae normal. Oral mucosa moist. Neck is no jugular venous distention. No carotid bruit. No lymph node enlargement. Cardiovascular system: S1, S2 muffled. No S3, no S4. Respiratory: Breath sounds diminished in the bases. No rhonchi. No crackles. ABDOMEN: Soft, nontender. No mass palpable. Legs status post left hip fracture. Nervous system: Higher functions as mentioned earlier. Moves all four limbs. No focal deficits. Lymphatics: No lymph nodes palpable in the neck, axillae or groin. Skin: No ulcer, rash or bleeding. LAB STUDIES: WBC 11.2, hemoglobin is 8.2. Sodium 130, potassium 5.4. X-rays and hip x-ray noted. Rib x-rays reviewed. Chest x-ray shows no acute findings. ASSESSMENT: 1. Status post left hip fracture and fall. 2. History of hypertension. 4. History of seizure disorder. 5. History of degenerative joint disease. 6. History of bariatric surgery. 7. History of anxiety, bipolar depression. 8. History of left-sided chest pain. 9. History nicotine dependence. 10.Increased WBC. 11.Anemia normocytic. 12.Hyponatremia. 13.Mild hypokalemia. RECOMMENDATIONS AND DISCUSSION: In this 52-year-old woman who presented with multiple complex medical issues, at this time I recommend to continue current medications, management and symptomatic treatment. Recommend resume the home medications. DVT prophylaxis. The patient is medically stable at this time. The orthopedics is contemplating surgery. Patient will be cleared for surgery. Otherwise we will follow the patient closely with you. Pain management. Closely follow. Recommend close follow up in the outpatient setting. Repeat labs. We will follow the patient closely with you. Thank you for letting us participate in the care of this patient. I would also recommend urine drug screen as well. JUNGL / IJN: [id number] / GLADYS
[2018-01-26] MEDS: MORPHINE SULFATE 4 MG/ML SYRINGE IV PRN ×2 (05:20→09:43)
[2018-01-26 07:12] LABS: Anisocytosis Slight; Basophils % (A) 0 %; Eosinophils # (A) 0.2 k/uL (0-0.7); Eosinophils % (A) 3 %; HCT 23.8 % (34.0-46.0); HGB 7.1 gm/dL (11.4-16.0); Hypochromasia Marked; Lymphocytes # (A) 1.4 k/uL (1.0-4.8); Lymphocytes % (A) 21 %; MCH 24.5 pg (25.0-35.0); MCHC 29.7 g/dL (31.0-37.0); MCV 82.5 fL (80.0-100.0); Mean Platelet Volume 7.5; Microcytosis Slight; Monocytes # (A) 0.5 k/uL (0-1.0); Monocytes % (A) 7 %; Neutrophils # (A) 4.5 k/uL (1.3-7.7); Neutrophils % (A) 67 %; Platelet Count 300 k/uL (150-450); RBC 2.88 m/uL (3.80-5.40); RDW 19.8 % (11.5-15.5); WBC 6.7 k/uL (3.8-10.6)
[2018-01-26 07:32] LABS: ALT 22 U/L (9-52); AST 14 U/L (14-36); Albumin 2.7 g/dL (3.5-5.0); Alkaline Phosphatase 75 U/L (38-126); Anion Gap 6 mmol/L; Blood Urea Nitrogen 16 mg/dL (7-17); Calcium 7.8 mg/dL (8.4-10.2); Carbon Dioxide 25 mmol/L (22-30); Chloride 109 mmol/L (98-107); Glucose 78 mg/dL (74-99); Potassium 4.5 mmol/L (3.5-5.1); Sodium 140 mmol/L (137-145); Total Bilirubin <0.1 mg/dL (0.2-1.3); Total Protein 4.9 g/dL (6.3-8.2)
[2018-01-26] MEDS: HEPARIN SODIUM,PORCINE 5,000 UNIT/ML 1 ML VIAL SQ SCH ×2 (09:02→20:50)
[2018-01-26] MEDS: PANTOPRAZOLE 40 MG TABLET PO SCH ×2 (09:02→17:18)
[2018-01-26] MEDS: POTASSIUM CHLORIDE ER 20 MEQ TAB.ER PO SCH (09:03)
[2018-01-26 09:07] LABS: Appearance,Urine Clear (Clear); Bilirubin,Urine Negative (Negative); Blood,Urine Negative (Negative); Color,Urine Light Yellow; Glucose,Urine (UA) Negative (Negative); Ketones,Urine Negative (Negative); Leukocyte Esterase,Urine Negative (Negative); PH, Urine 5.5 (5.0-8.0); Protein,Urine Negative (Negative); Specific Gravity,Urine 1.006 (1.001-1.035); Urobilinogen,Urine <2.0 mg/dL (<2.0)
--- NOTE | 2018-01-26 09:16 | P.HPOR ---
History of Present Illness H&P Date: 01/26/18 Chief Complaint: Left hip fracture Patient is a 52-year-old female seen at bedside this am. She was admitted through the ED yesterday after a fall at home. Patient states that around 11 AM she had a slip and fall accident when she was stepping up onto a curb. States that she fell landing on her left side. She developed pain radiating down the thigh and unable to bear weight. She denies any numbness or tingling to the leg or foot. She states she also developed some left rib pain due to the fall with pain at times taking a deep breath. She denies other chest pain, hemoptysis, shortness of breath, nausea, dizziness, slurred speech or weakness. Patient denies any headache, neck pain, back pain, abdominal pain, nausea, vomiting, or difficulties with bowel movements or urination Review of Systems All systems: negative Constitutional: Denies chills, Denies fever Eyes: denies blurred vision, denies pain Ears, nose, mouth and throat: Denies headache, Denies sore throat Cardiovascular: Denies chest pain, Denies shortness of breath Respiratory: Denies cough Gastrointestinal: Denies abdominal pain, Denies diarrhea, Denies nausea, Denies vomiting Genitourinary: Denies dysuria, Denies hematuria Musculoskeletal: Denies myalgias Integumentary: Denies pruritus, Denies rash Neurological: Denies numbness, Denies weakness Psychiatric: Denies anxiety, Denies depression Endocrine: Denies fatigue, Denies weight change Past Medical History Past Medical History: Chest Pain / Angina, Hypertension, Myocardial Infarction ( [place]), Seizure Disorder Additional Past Medical History / Comment(s): arthritis Pt is now being treated for high BP. Pt stated that she had second heart attack-silent mi unk date. Ulcers. upper teeth pulled and dentures replaced 10/2015 Last Myocardial Infarction Date:: 2013 History of Any Multi-Drug Resistant Organisms: None Reported Past Surgical History: Bariatric Surgery Additional Past Surgical History / Comment(s): cataracts removed RT/Lt eyes, 2011 Darrell-en- y, rt kidney sx-"they took part of my kidney they thought is was cancer but came back not cancer" Past Anesthesia/Blood Transfusion Reactions: Previous Problems w/ Anesthesia, Motion Sickness Past Psychological History: Anxiety, Bipolar, Depression Additional Psychological History / Comment(s): lives with spouse and son. uses a walker when up hx of falls Smoking Status: Current every day smoker Past Alcohol Use History: None Reported Additional Past Alcohol Use History / Comment(s): Trying to quit smoking, was smoking 3ppd, down to 5 cigarettes daily. has smoked since age 10 Past Drug Use History: None Reported - Past Family History Father Family Medical History: Cancer Additional Family Medical History / Comment(s): lung, AAA Mother Family Medical History: CVA/TIA Medications and Allergies Home Medications Medication Instructions Recorded Confirmed Type amLODIPine [Norvasc] 10 mg PO DAILY #14 tab 09/21/17 01/25/18 Rx levETIRAcetam [Keppra] 500 mg PO Q12HR #28 tab 09/21/17 01/25/18 Rx ALPRAZolam [Xanax] 1 mg PO TID 01/25/18 01/25/18 History Cyclobenzaprine [Flexeril] 10 mg PO DAILY PRN 01/25/18 01/25/18 History Donepezil [Aricept] 20 mg PO DAILY 01/25/18 01/25/18 History Doxepin [SINEquan] 10 mg PO HS 01/25/18 01/25/18 History Ergocalciferol [Vitamin D2] 50,000 unit PO Q7D 01/25/18 01/25/18 History HYDROcodone/APAP 10-325MG [Marcellus 1 tab PO AC-TID PRN 01/25/18 01/25/18 History 10-325] Lurasidone [Latuda] 40 mg PO HS 01/25/18 01/25/18 History Magnesium Oxide 400 mg PO BID 01/25/18 01/25/18 History Mirabegron [Myrbetriq] 25 mg PO DAILY 01/25/18 01/25/18 History Montelukast [Singulair] 10 mg PO HS 01/25/18 01/25/18 History Omeprazole 20 mg PO BID 01/25/18 01/25/18 History Potassium Chloride [Klor-Con 20] 20 meq PO DAILY 01/25/18 01/25/18 History Pregabalin [Lyrica] 50 mg PO TID 01/25/18 01/25/18 History Propranolol [Inderal] 10 mg PO HS 01/25/18 01/25/18 History Topiramate [Topamax] 25 mg PO HS 01/25/18 01/25/18 History traZODone HCL [Desyrel] 200 mg PO HS 01/25/18 01/25/18 History Allergies Allergy/AdvReac Type Severity Reaction Status Date / Time Sulfa (Sulfonamide Allergy Unknown Verified 01/25/18 17:47 Antibiotics) Physical Examination Inspection of the left lower extremity shows no open wounds or lacerations. There is no bony deformity. Range of motion of the left hip is not tested due to the fracture. Neurovascular status is grossly intact with motor and sensation throughout the left lower extremity. Calf is soft and nontender. 2+ dorsalis pedis pulse and less than 2 second capillary refill is present. Results - Labs Labs: Abnormal Lab Results - Last 24 Hours (Table) 01/25/18 01/25/18 01/26/18 Range/Units 15:15 15:15 06:40 WBC 11.1 H (3.8-10.6) k/uL RBC 3.39 L 2.88 L (3.80-5.40) m/uL Hgb 8.4 L 7.1 L (11.4-16.0) gm/dL Hct 27.5 L 23.8 L (34.0-46.0) % MCH 24.8 L 24.5 L (25.0-35.0) pg MCHC 30.5 L 29.7 L (31.0-37.0) g/dL RDW 20.4 H 19.8 H (11.5-15.5) % Sodium 136 L (137-145) mmol/L Potassium 5.4 H (3.5-5.1) mmol/L Chloride (98-107) mmol/L Glucose 72 L (74-99) mg/dL Calcium 8.3 L (8.4-10.2) mg/dL Total Bilirubin (0.2-1.3) mg/dL AST 37 H (14-36) U/L Total Protein 6.1 L (6.3-8.2) g/dL Albumin 3.4 L (3.5-5.0) g/dL 01/26/18 Range/Units 06:40 WBC (3.8-10.6) k/uL RBC (3.80-5.40) m/uL Hgb (11.4-16.0) gm/dL Hct (34.0-46.0) % MCH (25.0-35.0) pg MCHC (31.0-37.0) g/dL RDW (11.5-15.5) % Sodium (137-145) mmol/L Potassium (3.5-5.1) mmol/L Chloride 109 H (98-107) mmol/L Glucose (74-99) mg/dL Calcium 7.8 L (8.4-10.2) mg/dL Total Bilirubin <0.1 L (0.2-1.3) mg/dL AST (14-36) U/L Total Protein 4.9 L (6.3-8.2) g/dL Albumin 2.7 L (3.5-5.0) g/dL H & H 01/25/18 01/26/18 Range/Units 15:15 06:40 Hgb 8.4 L 7.1 L (11.4-16.0) gm/dL Hct 27.5 L 23.8 L (34.0-46.0) % Coagulation 01/25/18 Range/Units 16:21 INR 1.0 (<1.2) Result Diagrams: 01/26/18 06:40 01/26/18 06:40 - Diagnostic results Hip x-ray: report reviewed, image reviewed Assessment and Plan (1) Intertrochanteric fracture of left femur Narrative/Plan: Patient has been reviewed with Dr. Quintero. She has suffered a subtrochanteric/ intertrochanteric left femur fracture. Plan is to proceed with surgical intervention this afternoon, 01/26/2018 which would include insertion and stabilization with a left gamma nail/IT nail. She has been nothing by mouth after midnight. The procedure and consent has been scheduled and boarded. Internal medicine has seen the patient and has cleared her for surgery. She is pending cardiology clearance. We will proceed if she is cleared from cardiology. She may need placement postoperatively. She'll continue with pain management, DVT prophylaxis and medical management. Current Visit: Yes Status: Acute Code(s): S72.142A - DISPLACED INTERTROCHANTERIC FRACTURE OF LEFT FEMUR, INIT SNOMED Code(s): 284946909 Time with Patient: Less than 30
[2018-01-26] MEDS: ALPRAZolam 1 MG TAB PO SCH ×4 (09:17→20:49)
[2018-01-26 09:18] LABS: Amphetamine Screen,Urine Detected (NotDetected); Barbiturate Screen,Urine Not Detected (NotDetected); Benzodiazepines Screen,Urine Detected (NotDetected); Cocaine Screen,Urine Not Detected (NotDetected); Methadone Screen, Urine Not Detected (NotDetected); Opiate Screen,Urine Detected (NotDetected); Oxycodone Screen, Urine Not Detected (NotDetected); Phencyclidine Screen,Urine Not Detected (NotDetected); Tricyclic Antidepressant,Urine Detected (NotDetected); Urn Cannabinoid Scrn Not Detected (NotDetected)
[2018-01-26] MEDS: levETIRAcetam 500 MG TAB PO SCH ×2 (09:40→20:50)
[2018-01-26] MEDS: amLODIPine 10 MG TAB PO SCH (09:40)
[2018-01-26] MEDS: DONEPEZIL 10 MG TAB PO SCH (09:40)
--- NOTE | 2018-01-26 10:43 | XR ---
EXAMINATION TYPE: XR knee complete 3 views LT, XR femur 2 views LT DATE OF EXAM: 01/26/2018 COMPARISON: 01/25/2018 HISTORY: 52-year-old female fall status post TKA, knee pain FINDINGS: Femur: Redemonstrated minimally displaced, mildly comminuted intertrochanteric fracture of the proximal left femur. Knee: There is a revision left total knee arthroplasty with femoral and tibial stem components. There is so me unusual lateral positioning of the patella which could be projectional which should be correlated for patellar dislocation. No periprosthetic fracture or significant loosening is seen. IMPRESSION: 1. Femur: Comminuted intertrochanteric fracture proximal left femur redemonstrated. 2. Knee: Revision total knee arthroplasty shows no gross complication. 3. Knee: HOWEVER, THERE MAY BE A LATERAL PATELLAR DISLOCATION. CORRELATE WITH PHYSICAL EXAM FINDINGS.
[2018-01-26] MEDS ORDERED: ONDANSETRON 4 MG/2 ML VIAL IVP ONE (11:00)
[2018-01-26] MEDS ORDERED: DEXAMETHASONE SOD PHOSPHATE 10 MG/ML 1 ML VIAL IV ONE (11:00)
[2018-01-26] MEDS ORDERED: MIDAZOLAM 2 MG/2 ML VIAL IV PRN (11:00)
[2018-01-26] MEDS ORDERED: SCOPOLAMINE 1.5MG/72HR PATCH TRANSDERM ONE (11:00)
--- NOTE | 2018-01-26 11:10 | ECHOF ---
Referral Reason:pa MEASUREMENTS -------- HEIGHT: 149.9 cm WEIGHT: 57.6 kg BP: 115/74 RVIDd: 2.9 cm (< 3.3) IVSd: 1.0 cm (0.6 - 1.1) LVIDd: 4.7 cm (3.9 - 5.3) LVPWd: 1.1 cm (0.6 - 1.1) IVSs: 1.7 cm LVIDs: 2.7 cm LVPWs: 1.6 cm LA Diam: 2.9 cm (2.7 - 3.8) LAESV Index (A-L): 16.13 ml/m Ao Diam: 3.3 cm (2.0 - 3.7) AV Cusp: 2.3 cm (1.5 - 2.6) MV EXCURSION: 18.872 mm (> 18.000) MV EF SLOPE: 41 mm/s (70 - 150) EPSS: 0.4 cm MV E Augie: 0.86 m/s MV DecT: 275 ms MV A Augie: 0.88 m/s MV E/A Ratio: 0.97 RAP: 5.00 mmHg RVSP: 22.92 mmHg FINDINGS -------- Sinus rhythm. This was a technically good study. The left ventricular size is normal. Left ventricular wall thickness is normal. Overall left vent ricular systolic function is normal with, an EF between 55 - 60 %. The right ventricle is normal in size. Normal LA size by volume 22+/-6 ml/m2. The right atrium is normal in size. The aortic valve is trileaflet and appears structurally normal. Mild mitral annular calcification present. There is trace to mild mitral regurgitation. Mild tricuspid regurgitation present. Right ventricular systolic pressure is normal at < 35 mmHg. The pulmonic valve was not well visualized. The aortic root size is normal. Normal inferior vena cava with normal inspiratory collapse consistent with estimated right atrial pre ssure of 5 mmHg. The inferior vena cava is mildly dilated. There is no pericardial effusion. CONCLUSIONS -------- 1. Sinus rhythm. 2. This was a technically good study. 3. The left ventricular size is normal. 4. Left ventricular wall thickness is normal. 5. Overall left ventricular systolic function is normal with, an EF between 55 - 60 %. 6. The right ventricle is normal in size. 7. Normal LA size by volume 22+/-6 ml/m2. 8. The right atrium is normal in size. 9. The aortic valve is trileaflet and appears structurally normal. 10. Mild mitral annular calcification present. 11. There is trace to mild mitral regurgitation. 12. Mild tricuspid regurgitation present. 13. Right ventricular systolic pressure is normal at < 35 mmHg. 14. The pulmonic valve was not well visualized. 15. The aortic root size is normal. 16. Normal inferior vena cava with normal inspiratory collapse consistent with estimated right atrial pressure of 5 mmHg. 17. The inferior vena cava is mildly dilated. 18. There is no pericardial effusion. [employer] MANAGER: Anamika Styles RDCS
--- NOTE | 2018-01-26 11:27 | P.CRDCN ---
History of Present Illness Consult date: 01/26/18 Consult reason: pre-op evaluation History of present illness: Mrs. Nobles is a pleasant 52-year-old female past medical history significant for hypertension, anxiety, depression, arthritis and chronic tobacco use. She smokes 2+ packs/day. She sees Dr. VC Wyatt in the office. We have been asked to see her in consultation s/p fall with left intertrochanteric femur fracture requiring surgical intervention. Apparently she had a trip and fall yesterday while trying to ambulate up a curb. She denies symptoms of chest pain, shortness of breath, dizziness, palpitations, nausea, vomiting or diaphoresis prior to falling. She states she was walking up the curb, lost her footing and fell backwards onto her left side. She was unable to bear weight immediately after falling and was brought to the hospital for evaluation. Surgery is planned for today. She denies any symptoms of chest pain, shortness of breath, dizziness, palpitations, nausea, vomiting or diaphoresis. She is scheduled for an outpatient stress test next week just for preventative measures. She states she does have chest pain sometimes but hasn't had any in over a year. She is, however, complaining of pain to the left thoracic region since falling. The pain is reproducible on palpation and worse with movement. She complains of pain all down her left side. Echocardiogram performed reveals preserved left ventricular systolic function with ejection fraction 55-60%, trace to mild MR and mild TR. 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 No acute ST or T-wave abnormalities. Chest xray negative for an acute cardiopulmonary process. Laboratory data reviewed, hemoglobin 7.1, platelets 300 and, potassium 4.5, creatinine 0.61. Current cardiac medications include Norvasc 10 mg daily. . Review of Systems At the time of my exam: CONSTITUTIONAL: Denies fever. Denies chills. EYES: Denies blurred vision. Denies vision changes. Denies eye pain. EARS, NOSE, MOUTH & THROAT: Denies headache. Denies sore throat. Denies ear pain. CARDIOVASCULAR: Denies chest pain. Denies shortness of breath. Denies orthopnea. Denies PND. Denies palpitations. RESPIRATORY: Denies cough. GASTROINTESTINAL: Denies abdominal pain. Denies diarrhea. Denies constipation. Denies nausea. Denies vomiting. MUSCULOSKELETAL: Complains of pain to the left leg, hip, thoracic region and shoulder. INTEGUMENTARY: Denies pruitis. Denies rash. NEUROLOGIC: Denies numbness. Denies tingling. Denies weakness. PSYCHIATRIC: Denies anxiety. Denies depression. ENDOCRINE: Denies fatigue. Denies weight change. Denies polydipsia. Denies polyurina. GENITOURINARY: Denies burning, hematuria or urgency with micturation. HEMATOLOGIC: Denies history of anemia. Denies bleeding. Past Medical History Past Medical History: Chest Pain / Angina, Hypertension, Myocardial Infarction ( [place]), Seizure Disorder Additional Past Medical History / Comment(s): arthritis Pt is now being treated for high BP. Pt stated that she had second heart attack-silent mi unk date. Ulcers. upper teeth pulled and dentures replaced 10/2015 Last Myocardial Infarction Date:: 2013 History of Any Multi-Drug Resistant Organisms: None Reported Past Surgical History: Bariatric Surgery Additional Past Surgical History / Comment(s): cataracts removed RT/Lt eyes, 2011 Darrell-en- y, rt kidney sx-"they took part of my kidney they thought is was cancer but came back not cancer" Past Anesthesia/Blood Transfusion Reactions: Previous Problems w/ Anesthesia, Motion Sickness Past Psychological History: Anxiety, Bipolar, Depression Additional Psychological History / Comment(s): lives with spouse and son. uses a walker when up hx of falls Smoking Status: Current every day smoker Past Alcohol Use History: None Reported Additional Past Alcohol Use History / Comment(s): Trying to quit smoking, was smoking 3ppd, down to 5 cigarettes daily. has smoked since age 10 Past Drug Use History: None Reported - Past Family History Father Family Medical History: Cancer Additional Family Medical History / Comment(s): lung, AAA Mother Family Medical History: CVA/TIA Medications and Allergies Home Medications Medication Instructions Recorded Confirmed Type amLODIPine [Norvasc] 10 mg PO DAILY #14 tab 09/21/17 01/25/18 Rx levETIRAcetam [Keppra] 500 mg PO Q12HR #28 tab 09/21/17 01/25/18 Rx ALPRAZolam [Xanax] 1 mg PO TID 01/25/18 01/25/18 History Cyclobenzaprine [Flexeril] 10 mg PO DAILY PRN 01/25/18 01/25/18 History Donepezil [Aricept] 20 mg PO DAILY 01/25/18 01/25/18 History Doxepin [SINEquan] 10 mg PO HS 01/25/18 01/25/18 History Ergocalciferol [Vitamin D2] 50,000 unit PO Q7D 01/25/18 01/25/18 History HYDROcodone/APAP 10-325MG [Shoals 1 tab PO AC-TID PRN 01/25/18 01/25/18 History 10-325] Lurasidone [Latuda] 40 mg PO HS 01/25/18 01/25/18 History Magnesium Oxide 400 mg PO BID 01/25/18 01/25/18 History Mirabegron [Myrbetriq] 25 mg PO DAILY 01/25/18 01/25/18 History Montelukast [Singulair] 10 mg PO HS 01/25/18 01/25/18 History Omeprazole 20 mg PO BID 01/25/18 01/25/18 History Potassium Chloride [Klor-Con 20] 20 meq PO DAILY 01/25/18 01/25/18 History Pregabalin [Lyrica] 50 mg PO TID 01/25/18 01/25/18 History Propranolol [Inderal] 10 mg PO HS 01/25/18 01/25/18 History Topiramate [Topamax] 25 mg PO HS 01/25/18 01/25/18 History traZODone HCL [Desyrel] 200 mg PO HS 01/25/18 01/25/18 History Allergies Allergy/AdvReac Type Severity Reaction Status Date / Time Sulfa (Sulfonamide Allergy Unknown Verified 01/25/18 17:47 Antibiotics) Physical Exam Vitals: Vital Signs Temp Pulse Pulse Resp BP BP Pulse Ox 01/26/18 08:41 98.7 F 80 16 111/76 94 L 01/26/18 00:57 97.9 F 81 17 115/74 95 01/26/18 00:00 17 01/25/18 20:57 98.8 F 82 16 113/79 97 01/25/18 16:31 99.6 F 78 17 122/80 95 01/25/18 13:41 98.2 F 90 18 107/75 95 Intake and Output 01/25/18 01/26/18 01/26/18 22:59 06:59 14:59 Intake Total 553 Balance 553 Intake: Intake, IV Titration 553 Amount Sodium Chloride 0.9% 1, 553 000 ml @ 20 mls/hr IV . Q24H [facility] Rx#:[id number] Other: Voiding Method Bedside Commode # Voids 2 3 1 # Bowel Movements 1 1 Weight 57.606 kg Blood pressure 111/76 heart rate 88 afebrile maintaining oxygen saturations on room air. GENERAL: This is a 52-year-old female in no apparent distress at the time of my examination. Appears older than stated age. HEENT: Head is atraumatic, normocephalic. Pupils are equal, round. Sclerae anicteric. Conjunctivae are clear. Mucous membranes of the mouth are moist. Neck is supple. There is no jugular venous distention. No carotid bruit is heard. LUNGS: Clear to auscultation no wheezes, rales or rhonchi. No chest wall tenderness is noted on palpation or with deep breathing. Diminished bilaterally. HEART: Regular rate and rhythm without murmurs, rubs or gallops. S1 and S2 heard. ABDOMEN: Soft, non-tender. Bowel sounds are heard. No organomegaly noted. EXTREMITIES: No evidence of peripheral edema and no calf tenderness noted. VASCULAR: Radial and dorsalis pedis pulses palpated, no evidence of clubbing. NEUROLOGIC: Patient is awake, alert and oriented x3. Results 01/26/18 06:40 01/26/18 06:40 Cardiac Enzymes 01/25/18 01/26/18 Range/Units 15:15 06:40 AST 37 H 14 (14-36) U/L Coagulation 01/25/18 Range/Units 16:21 PT 10.0 (9.0-12.0) sec APTT 23.0 (22.0-30.0) sec CBC 01/25/18 01/26/18 Range/Units 15:15 06:40 WBC 11.1 H 6.7 (3.8-10.6) k/uL RBC 3.39 L 2.88 L (3.80-5.40) m/uL Hgb 8.4 L 7.1 L (11.4-16.0) gm/dL Hct 27.5 L 23.8 L (34.0-46.0) % Plt Count 337 300 (150-450) k/uL Comprehensive Metabolic Panel 01/25/18 01/26/18 Range/Units 15:15 06:40 Sodium 136 L 140 (137-145) mmol/L Potassium 5.4 H 4.5 (3.5-5.1) mmol/L Chloride 107 109 H (98-107) mmol/L Carbon Dioxide 23 25 (22-30) mmol/L BUN 15 16 (7-17) mg/dL Creatinine 0.60 0.61 (0.52-1.04) mg/dL Glucose 72 L 78 (74-99) mg/dL Calcium 8.3 L 7.8 L (8.4-10.2) mg/dL AST 37 H 14 (14-36) U/L ALT 20 22 (9-52) U/L Alkaline Phosphatase 82 75 (38-126) U/L Total Protein 6.1 L 4.9 L (6.3-8.2) g/dL Albumin 3.4 L 2.7 L (3.5-5.0) g/dL Current Medications Generic Name Dose Route Start Last Admin Trade Name Freq PRN Reason Stop Dose Admin Hydrocodone Bitart/Acetaminophen 1 each 01/25/18 18:02 01/25/18 22:33 Shoals 10 PO 1 each AC-TID PRN Administration Pain Alprazolam 1 mg 01/25/18 22:00 01/26/18 10:53 Xanax PO 1 mg TID [facility] Administration Amlodipine Besylate 10 mg 01/26/18 09:00 01/26/18 09:40 Norvasc PO 10 mg DAILY [facility]I Administration Cyclobenzaprine HCl 10 mg 01/25/18 18:02 Flexeril PO DAILY PRN Pain Donepezil HCl 20 mg 01/26/18 09:00 01/26/18 09:40 Aricept PO 20 mg DAILY [facility]I Administration Doxepin HCl 10 mg 01/25/18 21:00 01/25/18 22:24 Sinequan PO 10 mg HS LANI Administration Ergocalciferol 50,000 unit 01/25/18 18:15 01/25/18 22:24 Vitamin D2 PO 50,000 unit Q7D [facility] Administration Heparin Sodium (Porcine) 5,000 unit 01/26/18 09:00 01/26/18 09:02 Heparin SQ Not Given Q12HR [facility]I Lactated Ringer's 1,000 mls @ 20 mls/hr 01/26/18 11:00 Lactated Ringers IV .Q24H [facility] Levetiracetam 500 mg 01/25/18 21:00 01/26/18 09:40 Keppra PO 500 mg Q12HR [facility] Administration Lurasidone HCl 40 mg 01/25/18 21:00 01/25/18 22:24 Latuda PO 40 mg HS LANI Administration Magnesium Oxide 400 mg 01/25/18 21:00 01/25/18 22:23 Mag-Ox PO 400 mg BID [facility]I Administration Montelukast Sodium 10 mg 01/25/18 21:00 01/25/18 22:23 Singulair PO 10 mg HS LANI Administration Morphine Sulfate 4 mg 01/25/18 16:08 01/26/18 09:43 Morphine Sulfate (Inj) IV 4 mg Q4HR PRN Administration Severe Pain Naloxone HCl 0.2 mg 01/25/18 16:08 Narcan IV Q2M PRN Opioid Reversal Myrbetriq 25mg 25 mg 01/26/18 09:00 01/26/18 09:39 PO Not Given DAILY [facility] Pantoprazole Sodium 40 mg 01/25/18 21:00 01/26/18 09:02 Protonix PO Not Given AC-BID [facility]I Potassium Chloride 20 meq 01/26/18 09:00 01/26/18 09:03 K-Dur 20 PO Not Given DAILY [facility] Pregabalin 50 mg 01/25/18 22:00 01/25/18 22:24 Lyrica PO 50 mg TID [facility]I Administration Propranolol HCl 10 mg 01/25/18 21:00 01/25/18 22:23 Inderal PO 10 mg HS LANI Administration Sodium Chloride 10 ml 01/25/18 21:00 01/26/18 09:50 Saline Flush IV 10 ml BID LANI Administration Topiramate 25 mg 01/25/18 21:00 01/25/18 22:24 Topamax PO 25 mg HS [facility]I Administration Trazodone HCl 200 mg 01/25/18 21:00 01/25/18 22:23 Desyrel PO 200 mg HS LANI Administration Intake and Output 01/25/18 01/26/18 01/26/18 22:59 06:59 14:59 Intake Total 553 Balance 553 Intake: Intake, IV Titration 553 Amount Sodium Chloride 0.9% 1, 553 000 ml @ 20 mls/hr IV . Q24H [facility] Rx#:[id number] Other: Voiding Method Bedside Commode # Voids 2 3 1 # Bowel Movements 1 1 Weight 57.606 kg 01/26/18 06:40 01/26/18 06:40 Assessment and Plan Assessment: ASSESSMENT 1. Left intertrochanteric femur fracture requiring surgical intervention 2. Hypertension 3. Normocytic, hypochromic anemia 4. Chronic tobacco use PLAN Echocardiogram has been reviewed and reveals preserved LV systolic function. There are no signs of heart failure or arrhythmia. There are no overt contraindication to surgery. We recommend maintaining optimal blood pressure intraoperatively for adequate perfusion. Smoking cessation has been discussed with the patient. She will follow up with her stress test as an outpatient once recovered from surgery. Thank you kindly for this consultation. Nurse Practitioner note has been reviewed, I agree with a documented findings and plan of care. Patient was seen and examined.
[2018-01-26] MEDS: MAGNESIUM OXIDE 400 MG TAB PO SCH ×2 (12:12→20:50)
[2018-01-26] MEDS: PREGABALIN 50 MG CAP PO SCH ×3 (12:13→20:50)
[2018-01-26] MEDS ORDERED: MORPHINE SULFATE 4 MG/ML SYRINGE IVP PRN ×2 (12:26)
[2018-01-26] MEDS ORDERED: ceFAZolin IN SWFI 2 GM/20 ML SYRINGE IVP STA (12:36)
[2018-01-26] MEDS ORDERED: MIDAZOLAM 2 MG/2 ML VIAL ONE (13:04)
[2018-01-26] MEDS ORDERED: fentaNYL (PF) 50 MCG/ML 2 ML AMP ONE (13:04)
[2018-01-26] MEDS ORDERED: SODIUM CHLORIDE 0.9% 1,000 ML IV ONE (13:04)
[2018-01-26] MEDS ORDERED: PROPOFOL 10 MG/ML 20 ML VIAL IV ONE (13:04)
--- NOTE | 2018-01-26 15:05 | XR ---
EXAMINATION TYPE: XR Hip Limited LT, FL guidance operating room DATE OF EXAM: 01/26/2018 COMPARISON: NONE HISTORY: 52 year-old female left hip ORIF FINDINGS: 2 images demonstrating dynamic hip screw fixation of the proximal left femur across the known intertr ochanteric fracture. FLUOROSCOPY Fluoroscopy time of 39 seconds was used during left intertrochanteric fracture ORIF. 2 image/s docum ent/s the procedure. IMPRESSION: Intraoperative fluoroscopy as above.
--- NOTE | 2018-01-26 15:21 | OP ---
OPERATIVE REPORT DATE OF PROCEDURE: 01/26/2018 PREOPERATIVE DIAGNOSIS: Left intertrochanteric hip fracture. POSTOPERATIVE DIAGNOSIS: Left intertrochanteric hip fracture PROCEDURE: Left dynamic hip screw fixation for left intertrochanteric hip fracture. SURGEON: Aleksandr Quintero MD. ANESTHESIA: Spinal with sedation. ESTIMATED BLOOD LOSS: 150 mL. COMPLICATIONS: None apparent. DRAINS: None. DISPOSITION: Postanesthesia care unit. INDICATIONS: Jen is a very pleasant 52-year-old female. She slipped on a curb yesterday evening and had left hip pain. She is brought to [facility] Emergency Department via ambulance. Workup including x-rays revealed a left intertrochanteric hip fracture. Of note, she has had revision left total knee arthroplasty with a long stem. She was admitted to my service. She was worked up by the medical service for preoperative clearance. She is an independent ambulator. She does live independently. The decision was made to go forward with operative fixation of her fracture. The risks of the procedure were discussed with Jen and her brother in detail. The risks include, but are not limited to risk of infection, nerve damage, bleeding, pain, failure of the hardware, failure of the fracture to heal and irritation of the hardware. There is also risk of deep vein thrombosis which could lead to fatal pulmonary embolism. The risks and benefits of the procedure were discussed with Jen. All of her questions were answered and appropriate informed consent was obtained. DESCRIPTION OF PROCEDURE: The patient identified in preoperative holding area. Surgical sites marked by both the patient myself. She was given 2 g of Ancef IV for prophylactic purposes. She was then transferred to the operative suite. She was placed supine on the operative table. Spinal anesthetic was then administered and dosed per the Anesthesia Department without apparent complication. She was then placed onto the fracture table well-padded in preparation for surgery. C-arm was then brought in. The fracture was reduced with longitudinal traction and rotation. The fracture reduced very nicely. Because she has had a longer stem revision implant, I did not feel like that I could proceed with an intramedullary hip screw fixation, so we elected to go with a dynamic hip screw fixation. The lesser trochanter was identified. An approximate 4 cm incision extending from the lesser trochanter distally in line with the shaft of the femur was then made. Dissection was carried down sharply to the tensor fascia. Tensor fascia was then incised in line with the incision. Hemostasis was achieved with electrocautery. The vastus lateralis was then split in line with its fibers. The lateral border of the femur was then cleared. Then the guide pin was then placed. The plan was for 135 degree sideplate. The guide pin was set at 135 degrees and the guide pin was placed into the center of the femoral head on both AP and lateral views. The tip apex distance was appropriate. The pin was then measured and then the reamer was set for 95 mm. This was also done under fluoroscopy. A 2 hole Nara sideplate was chosen. This was impacted over the hip screw and the plate was placed flush on the lateral cortex of the femur. I then placed 2 bicortical 5.0 mm screws. They both had excellent purchase in bone. Fluoroscopy was utilized to ensure that they were of appropriate length. The compression screw was then placed into the threaded hip screw. The fracture was compressed very nicely. At this point in time, no further work was deemed necessary. AP and lateral fluoroscopic images were taken to ensure that the plate was appropriately placed. The hip screw was placed deep in the center of the femoral head on both AP and lateral views. The tip-apex distance was appropriate. The fracture had been reduced very nicely as well. At this point time, no further work was deemed necessary. The wound was thoroughly irrigated with sterile saline solution with antibiotic added. The tensor fascia was closed with #1 Vicryl interrupted suture. The skin was closed with 2-0 Vicryl interrupted suture and the skin was closed with stainless steel elizabeth. Sterile compressive dressing was then applied. All sponge and needle counts were deemed correct prior to closure. The patient tolerated the procedure without apparent complication. She was transferred to recovery room in stable condition. MMODL / IJN: [id number] /
--- NOTE | 2018-01-26 15:33 | PN ---
PROGRESS NOTE DATE OF SERVICE: 01/26/2018 This 52-year-old woman who was admitted with left hip fracture is being closely monitored. Cardiology is also evaluating the patient. No chest pain. No palpitations. No fever. The patient is being transfused 1 unit, hemoglobin 7.1, surgery is planned today. PHYSICAL EXAM: Alert and oriented x3. The pulse is 70, blood pressure 127/60, respiration 16, temperature 97.2, pulse ox 94% on room air. HEENT: Conjunctivae normal. Oral mucosa moist. Neck: No jugular venous distention. Cardiovascular: S1, S2 muffled. Respiratory: Breath sounds diminished in the bases. ABDOMEN: Soft, nontender. Nervous system: Higher functions as mentioned earlier, moves all 4 limbs. central nervous system: No focal deficits. Legs: Status post fracture. Skin: No ulcers, rashes or bleeding. LAB STUDIES: WBC 6.9, hemoglobin 7.1. ASSESSMENT: 1. Status post left hip fracture and fall. 2. Anemia multifactorial. 3. History of hypertension. 4. History of seizure disorder. 5. History of degenerative joint disease. 6. History of bariatric surgery. 7. History of anxiety/bipolar depression. 8. History of left-sided chest pain. 9. History of silent myocardial infarction. 10.History of nicotine dependence. 11.Increased WBC. 12.Anemia normocytic. 13.Hyponatremia. 14.Mild hypokalemia. RECOMMENDATIONS AND DISCUSSION: Recommend to continue current medications and symptomatic treatment. Cardiology has evaluated the patient. The patient will be cleared for surgery. Transfusion as mentioned earlier. Repeat labs. Will closely monitor with Orthopedic surgery. Further recommendations to follow. MMODL / IJN: [id number] /
[2018-01-26] MEDS: LACTATED RINGERS 1,000 ML IV SCH ×2 (16:03→16:07)
[2018-01-26 17:06] LABS: Anisocytosis Slight; Basophils % (A) 0 %; Eosinophils # (A) 0.2 k/uL (0-0.7); Eosinophils % (A) 2 %; HGB 8.5 gm/dL (11.4-16.0); Hypochromasia Marked; Lymphocytes # (A) 1.5 k/uL (1.0-4.8); Lymphocytes % (A) 19 %; MCH 25.3 pg (25.0-35.0); MCHC 30.3 g/dL (31.0-37.0); MCV 83.6 fL (80.0-100.0); Mean Platelet Volume 7.2; Microcytosis Slight; Monocytes # (A) 0.5 k/uL (0-1.0); Monocytes % (A) 7 %; Neutrophils # (A) 5.8 k/uL (1.3-7.7); Neutrophils % (A) 72 %; Platelet Count 301 k/uL (150-450); Poikilocytosis Slight; RBC 3.34 m/uL (3.80-5.40); RDW 19.7 % (11.5-15.5); WBC 8.1 k/uL (3.8-10.6)
[2018-01-26] MEDS: HYDROcodone/APAP 10-325MG 1 EACH TAB PO PRN (17:20)
[2018-01-26] MEDS: TOPIRAMATE 25 MG TAB PO SCH (20:49)
[2018-01-26] MEDS: traZODone HCL 100 MG TAB PO SCH (20:49)
[2018-01-26] MEDS: MONTELUKAST 10 MG TAB PO SCH (20:49)
[2018-01-26] MEDS: DOXEPIN 10 MG CAP PO SCH (20:50)
[2018-01-26] MEDS: ceFAZolin IN SWFI 2 GM/20 ML SYRINGE IVP SCH (20:50)
[2018-01-26] MEDS: PROPRANOLOL 10 MG TAB PO SCH (20:50)
[2018-01-26] MEDS: LURASIDONE 40 MG TAB PO SCH (20:50)
[2018-01-26] MEDS: MORPHINE SULFATE 4 MG/ML SYRINGE IVP PRN (21:12)
[2018-01-26] MEDS: SENNOSIDES-DOCUSATE SODIUM 1 EACH TAB PO SCH (21:51)
[2018-01-26] MEDS: NICOTINE 21MG/24HR PATCH TRANSDERM SCH (23:14)
[2018-01-27] MEDS: HYDROcodone/APAP 10-325MG 1 EACH TAB PO PRN ×3 (03:16→18:07)
[2018-01-27] MEDS: ceFAZolin IN SWFI 2 GM/20 ML SYRINGE IVP SCH (03:16)
[2018-01-27] MEDS: LACTATED RINGERS 1,000 ML IV SCH ×3 (03:20→22:22)
[2018-01-27] MEDS: MORPHINE SULFATE 4 MG/ML SYRINGE IVP PRN ×2 (07:18→12:55)
[2018-01-27 07:54] LABS: Anisocytosis Slight; Basophils % (A) 0 %; Eosinophils # (A) 0.1 k/uL (0-0.7); Eosinophils % (A) 2 %; HCT 24.4 % (34.0-46.0); HGB 7.4 gm/dL (11.4-16.0); Hypochromasia Marked; Lymphocytes # (A) 1.1 k/uL (1.0-4.8); Lymphocytes % (A) 18 %; MCH 25.1 pg (25.0-35.0); MCHC 30.4 g/dL (31.0-37.0); MCV 82.6 fL (80.0-100.0); Microcytosis Slight; Monocytes # (A) 0.4 k/uL (0-1.0); Monocytes % (A) 7 %; Neutrophils # (A) 4.4 k/uL (1.3-7.7); Neutrophils % (A) 72 %; Platelet Count 267 k/uL (150-450); Poikilocytosis Slight; RBC 2.95 m/uL (3.80-5.40); RDW 19.6 % (11.5-15.5); WBC 6.1 k/uL (3.8-10.6)
[2018-01-27 08:04] LABS: Anion Gap 6 mmol/L; Blood Urea Nitrogen 9 mg/dL (7-17); Calcium 7.9 mg/dL (8.4-10.2); Carbon Dioxide 24 mmol/L (22-30); Chloride 108 mmol/L (98-107); Glucose 78 mg/dL (74-99); Potassium 4.1 mmol/L (3.5-5.1); Sodium 138 mmol/L (137-145)
[2018-01-27] MEDS: levETIRAcetam 500 MG TAB PO SCH ×2 (09:22→22:20)
[2018-01-27] MEDS: ALPRAZolam 1 MG TAB PO SCH ×3 (09:22→22:21)
[2018-01-27] MEDS: PREGABALIN 50 MG CAP PO SCH ×3 (09:22→22:21)
[2018-01-27] MEDS: POTASSIUM CHLORIDE ER 20 MEQ TAB.ER PO SCH (09:22)
[2018-01-27] MEDS: MAGNESIUM OXIDE 400 MG TAB PO SCH ×2 (09:22→22:21)
[2018-01-27] MEDS: HEPARIN SODIUM,PORCINE 5,000 UNIT/ML 1 ML VIAL SQ SCH ×2 (09:22→22:21)
[2018-01-27] MEDS: amLODIPine 10 MG TAB PO SCH (09:22)
[2018-01-27] MEDS: PANTOPRAZOLE 40 MG TABLET PO SCH ×2 (09:22→18:05)
[2018-01-27] MEDS: DONEPEZIL 10 MG TAB PO SCH (09:22)
[2018-01-27] MEDS: NICOTINE 21MG/24HR PATCH TRANSDERM SCH (10:41)
[2018-01-27] MEDS: MODAFINIL 200 MG TAB PO SCH (11:47)
[2018-01-27] MEDS: MULTIVITAMINS, THERA 1 EACH TAB PO SCH (12:52)
[2018-01-27] MEDS ORDERED: HYDROcodone/APAP 10-325MG 1 EACH TAB PO PRN (13:53)
--- NOTE | 2018-01-27 14:02 | P.PN ---
Subjective Progress Note Date: 01/27/18 Principal diagnosis: S/P ORIF left hip fracture Patient is seen at bedside this morning. She is postop day #1 from ORIF of left hip fracture with DHS and plate. She has pain at the surgical site as expected but denies any new complaints. She denies numbness, tingling or calf pain. Review of systems is negative for fever, chills, chest pain, shortness of breath or other Objective - Vital Signs Vital signs: Vital Signs Temp 99.2 F 01/27/18 07:14 Pulse 82 01/27/18 07:14 Resp 20 01/27/18 08:00 BP 106/61 01/27/18 07:14 Pulse Ox 95 01/27/18 07:14 Intake & Output 01/26/18 01/27/18 01/27/18 18:59 06:59 18:59 Intake Total 1795 104 Output Total 150 Balance 1645 104 Weight 57.606 kg Intake: IV 1050 Lactated Ringers 1,000 ml 600 @ 75 mls/hr IV .[id number] [facility] Rx#:[id number] Intake, IV Titration 104 Amount Lactated Ringers 1,000 ml 104 @ 75 mls/hr IV .[id number] [facility] Rx#:[id number] Blood Product 435 Rc Pheresis As-3 Unit 310 [id number] Other 310 Rc Pheresis As-3 Unit 310 [id number] Output: Estimated Blood Loss 150 Other: Voiding Method Indwelling Catheter Bedside Commode Bedside Commode # Voids 2 4 # Bowel Movements 1 2 - Exam Inspection reveals a benign surgical wound. There is no active bleeding or drainage. Neurovascular status is intact throughout the lower extremity with motor and sensation fully intact. Calf is soft and nontender. 2+ dorsalis pedis pulse and less than 2 second cap refill is present - Constitutional General appearance: Present: no acute distress - Psychiatric Psychiatric: Present: A&O x's 3, appropriate affect, intact judgment & insight - Labs CBC & Chem 7: 01/27/18 06:58 01/27/18 06:58 Labs: Abnormal Lab Results - Last 24 Hours (Table) 01/25/18 01/26/18 01/27/18 Range/Units 15:15 16:55 06:58 RBC 3.34 L 2.95 L (3.80-5.40) m/uL Hgb 8.5 L 7.4 L (11.4-16.0) gm/dL Hct 28.0 L 24.4 L (34.0-46.0) % MCHC 30.3 L 30.4 L (31.0-37.0) g/dL RDW 19.7 H 19.6 H (11.5-15.5) % Chloride (98-107) mmol/L Calcium (8.4-10.2) mg/dL Crossmatch See Detail 01/27/18 Range/Units 06:58 RBC (3.80-5.40) m/uL Hgb (11.4-16.0) gm/dL Hct (34.0-46.0) % MCHC (31.0-37.0) g/dL RDW (11.5-15.5) % Chloride 108 H (98-107) mmol/L Calcium 7.9 L (8.4-10.2) mg/dL Crossmatch Assessment and Plan (1) Intertrochanteric fracture of left femur Narrative/Plan: She will continue with routine postop orthopedic protocol including pain management, wound care, physical therapy, DVT prophylaxis and medical management. defer anti-coagulation therapy to IM/Cardiology. She is nonweightbearing LLE. Expect that she will transfer to rehab in the next one to two days. Current Visit: Yes Status: Acute Priority: Medium Code(s): S72.142A - DISPLACED INTERTROCHANTERIC FRACTURE OF LEFT FEMUR, INIT SNOMED Code(s): 992608261 Time with Patient: Less than 30
--- NOTE | 2018-01-27 16:09 | PN ---
PROGRESS NOTE DATE OF SERVICE: 01/27/2018 This 52-year-old woman who was admitted after left hip fracture and fall is being closely monitored. ECF rehab is being planned at this time. The patient underwent left dynamic hip screw fixation for left intertrochanteric fracture by Orthopedic surgery Dr. Quintero yesterday. No chest pain. No palpitations. No fever. PHYSICAL EXAM: Alert and oriented times three. Pulse 82, blood pressure 106/61, respiration 20, temperature 99.2, pulse ox 94% on room air. HEENT is conjunctivae normal. Oral mucosa moist. Neck is no jugular venous distention. No carotid bruit. No lymph node enlargement. Cardiovascular System: S1, S2 muffled. Respirations: Breath sounds diminished at the bases. No rhonchi and no crackles. ABDOMEN: Soft. Nontender. Legs status post surgery. Nervous system: No focal deficits. LABS: WBC 6.1, hemoglobin 7.4. UA noted. ASSESSMENT: 1. Status post left hip fracture and fall and left dynamic hip screw fixation for left intertrochanteric hip fracture. 2. Anemia, multifactorial, status post 1 unit transfusion. 3. History hypertension. 4. Seizure disorder. 5. History of degenerative joint disease. 6. History of bariatric surgery. 7. History anxiety/bipolar depression. 8. Left-sided chest pain. 9. History of silent myocardial infarction. 10.History of nicotine dependence. 11.Increased WBC. 12.Anemia normocytic. 13.Hyponatremia. 14.Mild hypokalemia. RECOMMENDATION AND DISCUSSION: Recommend to continue current medications, management and symptomatic treatment. Incentive spirometry. DVT prophylaxis. Closely follow with Orthopedic surgery. Guarded prognosis. PT, OT evaluation. Further recommendations to follow. DVT prophylaxis. MMODL / IJN: [id number] /
[2018-01-27] MEDS ORDERED: MORPHINE ORAL SOLN 10 MG/5 ML CUP PO PRN ×3 (16:40→16:41)
[2018-01-27] MEDS ORDERED: HYDROmorphone 2 MG TAB PO PRN ×2 (17:06→17:07)
[2018-01-27] MEDS ORDERED: HYDROmorphone 4 MG TABLET PO PRN (17:07)
[2018-01-27] MEDS ORDERED: NICOTINE 21MG/24HR PATCH TRANSDERM SCH (22:15)
[2018-01-27] MEDS: LURASIDONE 40 MG TAB PO SCH (22:20)
[2018-01-27] MEDS: PROPRANOLOL 10 MG TAB PO SCH (22:21)
[2018-01-27] MEDS: traZODone HCL 100 MG TAB PO SCH (22:21)
[2018-01-27] MEDS: MONTELUKAST 10 MG TAB PO SCH (22:21)
[2018-01-27] MEDS: TOPIRAMATE 25 MG TAB PO SCH (22:21)
[2018-01-27] MEDS: DOXEPIN 10 MG CAP PO SCH (22:21)
[2018-01-27] MEDS: SENNOSIDES-DOCUSATE SODIUM 1 EACH TAB PO SCH (22:22)
[2018-01-28 02:18] VITALS: RESP 16
[2018-01-28] MEDS: HYDROcodone/APAP 10-325MG 1 EACH TAB PO PRN ×2 (06:35→12:48)
[2018-01-28] MEDS: MODAFINIL 200 MG TAB PO SCH (07:39)
[2018-01-28] MEDS: PREGABALIN 50 MG CAP PO SCH (07:39)
[2018-01-28] MEDS: ALPRAZolam 1 MG TAB PO SCH (07:39)
[2018-01-28] MEDS: DONEPEZIL 10 MG TAB PO SCH (07:40)
[2018-01-28] MEDS: PANTOPRAZOLE 40 MG TABLET PO SCH (07:40)
[2018-01-28] MEDS: NICOTINE 21MG/24HR PATCH TRANSDERM SCH (07:40)
[2018-01-28] MEDS: MAGNESIUM OXIDE 400 MG TAB PO SCH (07:40)
[2018-01-28] MEDS: amLODIPine 10 MG TAB PO SCH (07:40)
[2018-01-28] MEDS: HEPARIN SODIUM,PORCINE 5,000 UNIT/ML 1 ML VIAL SQ SCH (07:41)
[2018-01-28] MEDS: POTASSIUM CHLORIDE ER 20 MEQ TAB.ER PO SCH (07:41)
[2018-01-28] MEDS: LACTATED RINGERS 1,000 ML IV SCH (07:42)
[2018-01-28] MEDS: levETIRAcetam 500 MG TAB PO SCH (07:42)
--- NOTE | 2018-01-28 09:01 | P.DS ---
Providers Date of admission: 01/25/18 16:06 Expected date of discharge: 01/28/18 Attending physician: Aleksandr Quintero Consults: 01/25/18 16:08 Consult Physician Stat Consulting Provider: [facility] Consult Reason/Comments: Medical clearance for surgery Do you want consulting provider notified?: Yes Consult Physician Stat Consulting Provider: Kike Siddiqui Consult Reason/Comments: medical management Do you want consulting provider notified?: Yes 01/26/18 01:24 Consult Physician Routine Consulting Provider: Jay Navas Consult Reason/Comments: h/o mi Do you want consulting provider notified?: Yes Primary care physician: Zana Meade - Discharge Diagnosis(es) (1) Intertrochanteric fracture of left femur Patient was admitted to the OR on 01/26/2018 to undergo ORIF left HIP IT fracture. She had fallen and was admitted through the ED on 01/25/18 after xrays showed a left intertrochanteric femur fracture. It was recommended to proceed with surgery and she was cleared medically. She underwent the above procedure which she tolerated well without complication. Postoperative hospital course has remained without complication. On day of discharge she is afebrile, vital signs stable, labs within acceptable ranges, tolerating by mouth meds and diet, voiding without difficulty, positive flatus, denies abdominal pain or calf pain , pain is controlled on oral pain medication and has no new complaints. Wound is benign, neurovascular status is intact, calf is soft and nontender, abdomen soft and nontender. Review of systems is negative for numbness, tingling, fever , chills, chest pain, shortness breath, nausea, vomiting, dizziness, headaches, slurred speech or other. Current Visit: Yes Status: Acute Priority: Medium Procedures: ORIF left hip Patient Condition at Discharge: Fair Plan - Discharge Summary New Discharge Prescriptions: New Aspirin 325 mg PO BID #60 tab Docusate [Colace] 100 mg PO BID #60 capsule HYDROcodone/APAP 10-325MG [Mabel 10-325] 1 tab PO Q4HR PRN #60 tab PRN Reason: Pain No Action amLODIPine [Norvasc] 10 mg PO DAILY #14 tab levETIRAcetam [Keppra] 500 mg PO Q12HR #28 tab Pregabalin [Lyrica] 50 mg PO TID Omeprazole 20 mg PO BID Mirabegron [Myrbetriq] 25 mg PO DAILY ALPRAZolam [Xanax] 1 mg PO TID Magnesium Oxide 400 mg PO BID Lurasidone [Latuda] 40 mg PO HS HYDROcodone/APAP 10-325MG [Mabel 10-325] 1 tab PO AC-TID PRN PRN Reason: Pain Ergocalciferol [Vitamin D2] 50,000 unit PO Q7D Donepezil [Aricept] 20 mg PO DAILY traZODone HCL [Desyrel] 200 mg PO HS Propranolol [Inderal] 10 mg PO HS Potassium Chloride [Klor-Con 20] 20 meq PO DAILY Cyclobenzaprine [Flexeril] 10 mg PO DAILY PRN PRN Reason: Pain Topiramate [Topamax] 25 mg PO HS Montelukast [Singulair] 10 mg PO HS Doxepin [SINEquan] 10 mg PO HS Discharge Medication List amLODIPine [Norvasc] 10 mg PO DAILY #14 tab 09/21/17 [Rx] levETIRAcetam [Keppra] 500 mg PO Q12HR #28 tab 09/21/17 [Rx] ALPRAZolam [Xanax] 1 mg PO TID 01/25/18 [History] Cyclobenzaprine [Flexeril] 10 mg PO DAILY PRN 01/25/18 [History] Donepezil [Aricept] 20 mg PO DAILY 01/25/18 [History] Doxepin [SINEquan] 10 mg PO HS 01/25/18 [History] Ergocalciferol [Vitamin D2] 50,000 unit PO Q7D 01/25/18 [History] HYDROcodone/APAP 10-325MG [[place]abel 10-325] 1 tab PO AC-TID PRN 01/25/18 [History] Lurasidone [Latuda] 40 mg PO HS 01/25/18 [History] Magnesium Oxide 400 mg PO BID 01/25/18 [History] Mirabegron [Myrbetriq] 25 mg PO DAILY 01/25/18 [History] Montelukast [Singulair] 10 mg PO HS 01/25/18 [History] Omeprazole 20 mg PO BID 01/25/18 [History] Potassium Chloride [Klor-Con 20] 20 meq PO DAILY 01/25/18 [History] Pregabalin [Lyrica] 50 mg PO TID 01/25/18 [History] Propranolol [Inderal] 10 mg PO HS 01/25/18 [History] Topiramate [Topamax] 25 mg PO HS 01/25/18 [History] traZODone HCL [Desyrel] 200 mg PO HS 01/25/18 [History] Aspirin 325 mg PO BID #60 tab 01/28/18 [Rx] Docusate [Colace] 100 mg PO BID #60 capsule 01/28/18 [Rx] HYDROcodone/APAP 10-325MG [Mabel 10-325] 1 tab PO Q4HR PRN #60 tab 01/28/18 [Rx] Follow up Appointment(s)/Referral(s): Zana Meade MD [Primary Care Provider] - 1-2 days Aleksandr Quintero MD [STAFF PHYSICIAN] - 2 Weeks Activity/Diet/Wound Care/Special Instructions: Keep wound clean and dry Take meds as directed Follow-up with Dr. Quintero in office Non weightbearing Discharge Disposition: TRANSFER TO SNF/ECF
[2018-01-28] MEDS: MULTIVITAMINS, THERA 1 EACH TAB PO SCH (12:48)
[2018-01-28 14:05] VITALS: BP 95/66; PULSE 96; TEMP 98.2
--- NOTE | 2018-01-30 18:25 | PN ---
PROGRESS NOTE DATE OF SERVICE: January 28, 2018. PRESENTING COMPLAINT: Left hip surgery. INTERVAL HISTORY: This patient was seen by me on January 28, 2018. Doing better. Pain is controlled. Sitting up on a chair. Did tolerate her diet. Breathing is stable. REVIEW OF SYSTEMS: Done for constitutional, cardiovascular, GI, pulmonary, musculoskeletal and relevant findings as above. CURRENT MEDICATIONS: Reviewed. EXAMINATION: Temperature 98.1, pulse 85, respiration 16, blood pressure 111/68, pulse ox 92% on room air. General appearance: Sitting up in a chair, comfortable. Eyes pupils are equal. Conjunctivae normal. HEENT external appearance of nose and ears normal. Oral cavity normal. Neck JVD not raised. Mass not palpable. Respiratory effort normal. Lungs decreased breath sounds. Cardiovascular 1st and 2nd sounds normal. No edema. ABDOMEN: Soft, nontender. Liver and spleen not palpable. Psychiatry: Alert and oriented times three. Mood and affect slightly anxious-appearing. INVESTIGATIONS: White count 6.1, hemoglobin 7.4, potassium 4.1, BUN and creatinine is normal. ASSESSMENT: 1. Left hip fracture followed by left hip intertrochanteric hip fracture. 2. Anemia multifactorial including multifactorial. 3. Essential hypertension. 4. Seizure disorder. 5. Primary osteoarthritis. 6. Peptic ulcer disease. 7. Bipolar disorder. 8. Chronic nicotine dependence, patient is an active cigarette smoker. PLAN: Continue current medication and treatment plan. Care was discussed with the patient and sister. Questions were answered. The patient will need inpatient rehab. MMODL / IJN: [id number] /
== END 2018-01-28 14:25 | DRG 482 ==
LOC: EC 13:23 → 3SUR 16:06
PROVIDERS: ADMIT Orthopaedic Surgery Sports Medicine; ATTEND Orthopaedic Surgery Sports Medicine
PROC: 30233N1 Transfusion of Nonautologous Red Blood Cells into Peripheral Vein, Percutaneous Approach (ICD-10-PCS; 2018-01-26)
PROC: 0QS734Z Reposition Left Upper Femur with Internal Fixation Device, Percutaneous Approach (ICD-10-PCS; principal; 2018-01-26 12:00)
DX: S72.142A Displaced intertrochanteric fracture of left femur, initial encounter for closed fracture (principal); D50.9 Iron deficiency anemia, unspecified; E87.6 Hypokalemia; F31.9 Bipolar disorder, unspecified; F17.210 Nicotine dependence, cigarettes, uncomplicated; F41.9 Anxiety disorder, unspecified; G40.909 Epilepsy, unspecified, not intractable, without status epilepticus; I25.2 Old myocardial infarction; I10 Essential (primary) hypertension; K27.9 Peptic ulcer, site unspecified, unspecified as acute or chronic, without hemorrhage or perforation; M19.91 Primary osteoarthritis, unspecified site; Z79.899 Other long term (current) drug therapy; Z96.652 Presence of left artificial knee joint; Z91.81 History of falling; Z98.42 Cataract extraction status, left eye; Z98.41 Cataract extraction status, right eye; Z98.84 Bariatric surgery status; Z88.2 Allergy status to sulfonamides; W01.0XXA Fall on same level from slipping, tripping and stumbling without subsequent striking against object, initial encounter
CPT/HCPCS: 36415; 73501; 73502; 80048; 80053; 80306; 81003; 85025; 85027; 85610; 85730; 86850; 86900; 86901; 86920; 93005; 93306; 96372; 99284

== ENCOUNTER → 2018-07-28 | Outpatient (CLI) | payer MEDICARE, OTHER ==
[2018-07-28 15:05] VITALS: BP 122/84; PULSE 63; TEMP 98.4; BMI 24.7
--- NOTE | 2018-07-28 15:50 | P.PN ---
Subjective Progress Note Date: 07/28/18 DATE OF SERVICE: 07/28/2018 CHIEF COMPLAINT: Bariatric assessment. HISTORY OF PRESENT ILLNESS: Jen Nobles is a 53-year-old female who had a gastric bypass by Dr. Stormy gordon in 2011. Her postoperative course was consistent with a leak following a gastric bypass given her active smoking. In the last 6 years, she has lost 136 pounds. Her initial weight was 258 pounds with a body mass index of 52.2. Today she comes in weighing 122 pounds from 97 pounds, 1 year ago. Her body mass index today is 24.8 from 19.6. Her ideal body weight is 123 pounds. Her percent excess weight loss is 100%. She has gained 26 pounds in 1 year. She is still smoking. No reports of abdominal pain as she takes omeprazole. She had broke her hip and got blood transfusions. PAST MEDICAL HISTORY: 1. Morbid obesity, now resolved, BMI 52.2 initial 2. Insulin-dependent type 2, poorly controlled, resolved. 3. Chronic pain syndrome. 4. Gastroesophageal reflux disease, resolved. 5. Hypertension. 6. Chronic pain syndrome. 7. Osteoarthritis of the lower back. 8. Hypercholesterolemia, resolved. 9. Neuropathy. 10. Chronic constipation. 11. Seizure disorder. 12. Myocardial infraction. 13. Kidney neoplasm. 14. Anxiety. 15. Depression. PAST SURGICAL HISTORY: 1. Gastric bypass. 2. Nephrectomy. 3. Cataract surgery. 4. EGD. 5. Colonoscopy. MEDICATIONS: 1. Clonidine. 2. Norvasc 3. Ambien. 4. Inderal 5. Nitroglycerin. 6. Morphine sulfate 7. Ciprofloxacin 8. Xanax 9. Aricept. 10. Miralax 11. Claritin 12. Brintellix. ALLERGIES: Sulfa. SOCIAL HISTORY: Lifelong tobacco user. FAMILY HISTORY: Lung cancer. REVIEW OF SYSTEMS: CONSTITUTIONAL:Her initial weight was 258 pounds with a body mass index of 52.2. Today she comes in weighing 122 pounds from 97 pounds, 1 year ago. Her body mass index today is 24.8 from 19.6. Her ideal body weight is 123 pounds. Her percent excess weight loss is 100%. She has gained 26 pounds in 1 year. HEENT: Denies any active trouble with vision or hearing. ENDOCRINE: Diabetes type 2, resolved. No reports of thyroid disorders. CARDIOVASCULAR: Hypercholesterolemia, resolved. Has heart attack and chest pain. RESPIRATORY: Sleep apnea resolved. No previous pneumonia. GASTROINTESTINAL: Had moderate to severe gastroesophageal reflux disease, resolved. Has known history of chronic constipation. MUSCULOSKELETAL: Has degenerative joint disease of the lumbar spine. NEUROLOGIC: Has multipe strokes. No seizure disorders. Has neuropathy. PSYCH: Reports of active depression or suicidal ideation. HEMATOLOGIC: Denies any easy bruising or bleeding. Denies any known family history of DVT. GENITOURINARY: Past kidney neoplasm. No current blood in urine. PHYSICAL EXAM: VITAL SIGNS: 4 feet 11 inches, 123 pounds. Body mass index 24.8. Vital Signs Temp 98.4 F 07/28/18 15:02 Pulse 63 07/28/18 15:02 Resp BP 122/84 07/28/18 15:02 Pulse Ox GENERAL: Well-developed female in no acute distress. HEENT: No scleral icterus. Extraocular movements grossly intact. Moist buccal mucosa. Has hoarse voice. NECK: Supple without lymphadenopathy. CHEST: Nonlabored respirations with equal bilateral excursions. CARDIOVASCULAR: Regular rate and rhythm. Palpable 2+ radial pulses. ABDOMEN: Soft, nontender, mildly distended. MUSCULOSKELETAL: No clubbing, cyanosis, or edema. NEURO: No focal or lateralizing signs. Cranial nerves II through XII grossly within normal limits. PSYCH: Appropriate affect. Alert and oriented to person, place, and time. SKIN: Good skin turgor. Warm perfused. ASSESSMENT: 1. Morbid obesity due to excess caloric intake, now resolved 2. Body mass index reduced from 52.1 down to 24.8 3. Dietary surveillance and counseling. 4. Chronic pain syndrome. 5. Chronic tobacco use. 6. Diabetes type 2, insulin-dependent, poorly controlled, resolved. 7. Osteoarthritis of the lower back. 8. Osteoarthritis of the knee. 9. History of kidney neoplasm. 10. Familial history of lung cancer. 11. Personal history of panniculitis. 12. Hypercholesterolemia, resolved. 13. History of neuropathy. 14. Dysphagia. 15. Chronic constipation. 16. Hypertensive heart disease. 17. Raynaud phenomenon. 18. Chronic constipation. 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 PLAN: 1. She has maintained her weight lost. 2. Recommend bariatric labs. 3. Recommend adjustment of her multivitamin. Laboratory Last Values WBC 6.7 k/uL (3.8-10.6) 07/28/18 16:13 RBC 3.86 m/uL (3.80-5.40) 07/28/18 16:13 Hgb 13.6 gm/dL (11.4-16.0) 07/28/18 16:13 Hct 41.2 % (34.0-46.0) 07/28/18 16:13 MCV 106.7 fL (80.0-100.0) H 07/28/18 16:13 MCH 35.2 pg (25.0-35.0) H 07/28/18 16:13 MCHC 33.0 g/dL (31.0-37.0) 07/28/18 16:13 RDW 13.5 % (11.5-15.5) 07/28/18 16:13 Plt Count 223 k/uL (150-450) 07/28/18 16:13 Macrocytosis Moderate 07/28/18 16:13 PT 9.7 sec (9.0-12.0) 07/28/18 16:13 INR 1.0 (<1.2) 07/28/18 16:13 APTT 25.5 sec (22.0-30.0) 07/28/18 16:13 Sodium 134 mmol/L (137-145) L 07/28/18 16:13 Potassium 4.9 mmol/L (3.5-5.1) 07/28/18 16:13 Chloride 101 mmol/L (98-107) 07/28/18 16:13 Carbon Dioxide 24 mmol/L (22-30) 07/28/18 16:13 Anion Gap 9 mmol/L 07/28/18 16:13 BUN 16 mg/dL (7-17) 07/28/18 16:13 Creatinine 0.74 mg/dL (0.52-1.04) 07/28/18 16:13 Est GFR (CKD-EPI)AfAm >90 (>60 ml/min/1.73 sqM) 07/28/18 16:13 Est GFR (CKD-EPI)NonAf >90 (>60 ml/min/1.73 sqM) 07/28/18 16:13 Glucose 78 mg/dL (74-99) 07/28/18 16:[address] Glu mg/dL 97 07/28/18 16:13 Hemoglobin A1c 5.0 % (4.0-6.0) 07/28/18 16:13 Calcium 8.6 mg/dL (8.4-10.2) 07/28/18 16:13 Phosphorus 5.9 mg/dL (2.5-4.5) H 07/28/18 16:13 Magnesium 2.0 mg/dL (1.6-2.3) 07/28/18 16:13 Iron 38 ug/dL (50-170) L 07/28/18 16:13 TIBC 319 ug/dL (228-460) 07/28/18 16:13 Iron Saturation 11.91 (12.00-45.00) L 07/28/18 16:13 Ferritin 59.9 ng/mL (10.0-291.0) 07/28/18 16:13 Total Bilirubin 0.2 mg/dL (0.2-1.3) 07/28/18 16:13 AST 19 U/L (14-36) 07/28/18 16:13 ALT 28 U/L (9-52) 07/28/18 16:13 Alkaline Phosphatase 115 U/L (38-126) 07/28/18 16:13 Total Protein 6.5 g/dL (6.3-8.2) 07/28/18 16:13 Albumin 3.9 g/dL (3.5-5.0) 07/28/18 16:13 Prealbumin 18.0 mg/dL (18.0-42.0) 07/28/18 16:13 Triglycerides 154 mg/dL (<150) H 07/28/18 16:13 Cholesterol 164 mg/dL (<200) 07/28/18 16:13 LDL Cholesterol, Calc 66 mg/dL (0-99) 07/28/18 16:13 HDL Cholesterol 67 mg/dL (40-60) H 07/28/18 16:13 Vitamin A 43 ug/dL (38-106) 07/28/18 16:13 Vitamin B1 92 ug/L (38-122) 07/28/18 16:13 Vitamin B12 346.0 pg/mL (200.0-944.0) 07/28/18 16:13 Vitamin D 25-Hydroxy 44.7 ng/mL (30.0-100.0) 07/28/18 16:13 Folate 7.7 ng/mL 07/28/18 16:13 TSH 0.536 mIU/L (0.465-4.680) 07/28/18 16:13 PTH Intact 73.1 pg/mL (14.0-72.0) H 07/28/18 16:13 Copper 933 ug/L (810-1990) 07/28/18 16:13 Selenium 80 mcg/L (63-160) 07/28/18 16:13 Zinc 64 ug/dL (60-130) 07/28/18 16:13 Objective - Vital Signs Vital signs: Vital Signs Temp 98.4 F 07/28/18 15:02 Pulse 63 07/28/18 15:02 Resp BP 122/84 07/28/18 15:02 Pulse Ox Intake & Output 07/27/18 07/28/18 07/28/18 18:59 06:59 18:59 Weight 55.61 kg - Labs CBC & Chem 7: 07/28/18 16:13 07/28/18 16:13
[2018-07-28 16:45] LABS: HCT 41.2 % (34.0-46.0); HGB 13.6 gm/dL (11.4-16.0); MCH 35.2 pg (25.0-35.0); MCV 106.7 fL (80.0-100.0); Macrocytosis Moderate; Mean Platelet Volume 6.5; Platelet Count 223 k/uL (150-450); RBC 3.86 m/uL (3.80-5.40); RDW 13.5 % (11.5-15.5); WBC 6.7 k/uL (3.8-10.6)
[2018-07-28 16:52] LABS: Partial Thromboplastin Time 25.5 sec (22.0-30.0); Prothrombin Time 9.7 sec (9.0-12.0)
[2018-07-28 17:09] LABS: ALT 28 U/L (9-52); AST 19 U/L (14-36); Albumin 3.9 g/dL (3.5-5.0); Alkaline Phosphatase 115 U/L (38-126); Anion Gap 9 mmol/L; Blood Urea Nitrogen 16 mg/dL (7-17); Calcium 8.6 mg/dL (8.4-10.2); Carbon Dioxide 24 mmol/L (22-30); Chloride 101 mmol/L (98-107); Cholesterol 164 mg/dL (<200); Glucose 78 mg/dL (74-99); HDL Cholesterol 67 mg/dL (40-60); LDL Cholesterol,Calculated 66 mg/dL (0-99); Phosphorus 5.9 mg/dL (2.5-4.5); Potassium 4.9 mmol/L (3.5-5.1); Sodium 134 mmol/L (137-145); Total Bilirubin 0.2 mg/dL (0.2-1.3); Total Protein 6.5 g/dL (6.3-8.2); Triglycerides 154 mg/dL (<150)
[2018-07-29 06:39] LABS: Folate, Serum 7.7 ng/mL; Iron Saturation 11.91 (12.00-45.00); Vitamin D 25 Hydroxy 44.7 ng/mL (30.0-100.0)
[2018-07-29 06:42] LABS: Parathyroid Hormone Intact 73.1 pg/mL (14.0-72.0)
[2018-07-29 13:20] LABS: Zinc, Serum 64 ug/dL (60-130)
[2018-07-30 06:05] LABS: Vitamin A 43 ug/dL (38-106)
[2018-07-30 08:04] LABS: Vitamin B1 92 ug/L (38-122)
[2018-07-30 17:19] LABS: Selenium 80 mcg/L (63-160)
== END | disposition home or self-care (01) ==
LOC: BARWHC3 13:48
PROVIDERS: ATTEND Surgery Plastic and Reconstructive Surgery
DX: Z48.815 Encounter for surgical aftercare following surgery on the digestive system (principal); G89.4 Chronic pain syndrome; M47.816 Spondylosis without myelopathy or radiculopathy, lumbar region; M17.0 Bilateral primary osteoarthritis of knee; I11.9 Hypertensive heart disease without heart failure; I73.00 Raynaud's syndrome without gangrene; K25.7 Chronic gastric ulcer without hemorrhage or perforation; A63.0 Anogenital (venereal) warts; E21.1 Secondary hyperparathyroidism, not elsewhere classified; E89.1 Postprocedural hypoinsulinemia; D50.9 Iron deficiency anemia, unspecified; K90.9 Intestinal malabsorption, unspecified; E55.9 Vitamin D deficiency, unspecified; K76.9 Liver disease, unspecified; N19 Unspecified kidney failure; K50.90 Crohn's disease, unspecified, without complications; F17.200 Nicotine dependence, unspecified, uncomplicated; Z71.3 Dietary counseling and surveillance; Z85.528 Personal history of other malignant neoplasm of kidney; Z87.2 Personal history of diseases of the skin and subcutaneous tissue; Z86.69 Personal history of other diseases of the nervous system and sense organs; Z88.2 Allergy status to sulfonamides; Z79.899 Other long term (current) drug therapy; Z79.891 Long term (current) use of opiate analgesic; Z98.84 Bariatric surgery status; Z90.5 Acquired absence of kidney; Z98.49 Cataract extraction status, unspecified eye; Z98.890 Other specified postprocedural states
CPT/HCPCS: 84255; 84134; 84425; 80061; 80053; 82607; 82728; 82525; 82746; 83540; 83550; 83735; 84100; 84443; 84590; 84630; 85027; 85610; 85730; 82306; 83970; 83036; 36415; G0463; 99211

== ENCOUNTER 2019-04-30 20:38 | Observation (INO) | payer MEDICARE, OTHER ==
[2019-04-30] MEDS ORDERED: diphenhydrAMINE 50 MG/ML 1 ML VIAL IVP STA ×2 (21:22→23:44)
[2019-04-30] MEDS ORDERED: methylPREDNISolone SOD SUCCI 125 MG/2 ML VIAL IV STA (21:22)
[2019-04-30] MEDS ORDERED: HYDROmorphone 1 MG/ML 1 ML SYRINGE IVP STA ×2 (21:22→23:44)
[2019-04-30] MEDS ORDERED: FAMOTIDINE 20 MG/2 ML VIAL IV STA ×2 (21:22→23:44)
[2019-04-30 22:05] LABS: Appearance,Urine Clear (Clear); Bilirubin,Urine Negative (Negative); Blood,Urine Negative (Negative); Color,Urine Colorless; Glucose,Urine (UA) Negative (Negative); Ketones,Urine Negative (Negative); Leukocyte Esterase,Urine Negative (Negative); Nitrite,Urine Negative (Negative); Protein,Urine Negative (Negative); Specific Gravity,Urine 1.003 (1.001-1.035); Urobilinogen,Urine <2.0 mg/dL (<2.0)
--- NOTE | 2019-04-30 22:11 | ED ---
Allergic Reaction HPI - General Chief complaint: Allergic Reaction Stated complaint: Allergic reaction Time Seen by Provider: 04/30/19 21:11 Source: patient, RN notes reviewed Mode of arrival: ambulatory Limitations: no limitations - History of Present Illness Initial Comments: This is a 53-year-old female who thought she was coming down with a urinary tract infection which she took this overdose antibiotics which she was offered. He was not aware that it was sulfa. She took only one dose he started developing erythema and bruising to the palms of both hands also a to the medial aspect of the right thigh also left medial foot with some ecchymosis. This is identical to her last reaction. MD Complaint: allergic reaction - Related Data Home Medications Medication Instructions Recorded Confirmed Cyclobenzaprine [Flexeril] 10 mg PO HS 01/25/18 04/30/19 Ergocalciferol [Vitamin D2 50,000 unit PO TU 01/25/18 04/30/19 (DRISDOL)] Lurasidone [Latuda] 40 mg PO HS 01/25/18 04/30/19 Omeprazole 20 mg PO BID 01/25/18 04/30/19 ALPRAZolam [Xanax] 1 mg PO TID PRN 04/30/19 04/30/19 Dextroamphetamine/Amphetamine 20 mg PO DAILY 04/30/19 04/30/19 [Adderall] Doxepin [SINEquan] 10 mg PO HS 04/30/19 04/30/19 Ferrous Sulfate [Feosol] 325 mg PO TID 04/30/19 04/30/19 HYDROcodone/APAP 10-325MG [[place] 1 tab PO TID PRN 04/30/19 04/30/19 10-325] Pregabalin [Lyrica] 50 mg PO TID 04/30/19 04/30/19 Vortioxetine Hydrobromide 20 mg PO HS 04/30/19 04/30/19 [Trintellix] Zolpidem [Ambien] 5 mg PO HS 04/30/19 04/30/19 rOPINIRole HCL [Requip] 0.5 mg PO HS 04/30/19 04/30/19 traZODone HCL 200 mg PO HS 04/30/19 04/30/19 Allergies Allergy/AdvReac Type Severity Reaction Status Date / Time Sulfa (Sulfonamide Allergy Unknown Verified 04/30/19 21:34 Antibiotics) Review of Systems ROS Statement: Those systems with pertinent positive or pertinent negative responses have been documented in the HPI. ROS Other: All systems not noted in ROS Statement are negative. Past Medical History Past Medical History: Chest Pain / Angina, Hypertension, Myocardial Infarction (HI), Seizure Disorder Additional Past Medical History / Comment(s): arthritis Pt is now being treated for high BP. Pt stated that she had second heart attack-silent mi unk date. Ulcers. upper teeth pulled and dentures replaced 10/2015 Last Myocardial Infarction Date:: 2013 History of Any Multi-Drug Resistant Organisms: None Reported Past Surgical History: Bariatric Surgery Additional Past Surgical History / Comment(s): cataracts removed RT/Lt eyes, 2011 Darrell-en- y, rt kidney sx-"they took part of my kidney they thought is was cancer but came back not cancer" Past Anesthesia/Blood Transfusion Reactions: Previous Problems w/ Anesthesia, Motion Sickness Past Psychological History: Anxiety, Bipolar, Depression Smoking Status: Current every day smoker Past Alcohol Use History: None Reported Past Drug Use History: None Reported - Past Family History Father Family Medical History: Cancer Additional Family Medical History / Comment(s): lung, AAA Mother Family Medical History: CVA/TIA General Exam - General Exam Comments Initial Comments: This is a well-developed asthenic female who is awake alert oriented 3 Limitations: no limitations General appearance: alert, in no apparent distress Head exam: Present: atraumatic, normocephalic, normal inspection Eye exam: Present: normal appearance, PERRL, EOMI. Absent: scleral icterus, conjunctival injection, periorbital swelling ENT exam: Present: mucous membranes dry Neck exam: Present: normal inspection. Absent: tenderness, meningismus, lymphadenopathy Respiratory exam: Present: normal lung sounds bilaterally. Absent: respiratory distress, wheezes, rales, rhonchi, stridor Cardiovascular Exam: Present: regular rate, normal rhythm, normal heart sounds. Absent: systolic murmur, diastolic murmur, rubs, gallop, clicks GI/Abdominal exam: Present: soft, normal bowel sounds. Absent: distended, tenderness, guarding, rebound, rigid Extremities exam: Present: normal inspection, full ROM, normal capillary refill. Absent: tenderness, pedal edema, joint swelling, calf tenderness Back exam: Present: normal inspection Neurological exam: Present: alert, oriented X3, CN II-XII intact Psychiatric exam: Present: normal affect, normal mood Skin exam: Present: warm, dry, intact. Absent: normal color (With some erythema additionally the described area of ecchymosis seen over the right medial mid thigh and over the foot. Also the right second toe demonstrates similar findings.), rash Course Vital Signs 04/30/19 04/30/19 05/01/19 21:00 23:02 00:04 Temperature 98.7 F Pulse Rate 82 76 74 Respiratory 18 18 16 Rate Blood Pressure 161/92 152/93 156/92 O2 Sat by Pulse 95 95 92 L Oximetry Medical Decision Making - Medical Decision Making I did reevaluate the patient multiple occasions he feels that in some respects she is getting better but the areas involved are improving is facets she believes that should be. She again reiterates that this is identical to her previous encounter with salt blood. Mentation consistent with a vasculitis. Patient will be admitted for continued IV medication treatment fluids. Dr. Siddiqui disease main physician - Lab Data Result diagrams: 04/30/19 21:40 Lab Results 04/30/19 04/30/19 04/30/19 Range/Units 21:40 21:40 21:40 Sodium 136 L (137-145) mmol/L Potassium 4.3 (3.5-5.1) mmol/L Chloride 104 (98-107) mmol/L Carbon Dioxide 25 (22-30) mmol/L Anion Gap 7 mmol/L BUN 10 (7-17) mg/dL Creatinine 0.66 (0.52-1.04) mg/dL Est GFR (CKD-EPI)AfAm >90 (>60 ml/min/1.73 sqM) Est GFR (CKD-EPI)NonAf >90 (>60 ml/min/1.73 sqM) Glucose 85 (74-99) mg/dL Calcium 8.7 (8.4-10.2) mg/dL Total Bilirubin 0.6 (0.2-1.3) mg/dL AST 17 (14-36) U/L ALT 13 (9-52) U/L Alkaline Phosphatase 74 (38-126) U/L Total Creatine Kinase 49 (30-135) U/L CK-MB (CK-2) 0.4 (0.0-2.4) ng/mL CK-MB (CK-2) Rel Index 0.8 Total Protein 6.5 (6.3-8.2) g/dL Albumin 4.2 (3.5-5.0) g/dL Urine Color Colorless Urine Appearance Clear (Clear) Urine pH 7.0 (5.0-8.0) Ur Specific [place] 1.003 (1.001-1.035) Urine Protein Negative (Negative) Urine Glucose (UA) Negative (Negative) Urine Ketones Negative (Negative) Urine Blood Negative (Negative) Urine Nitrite Negative (Negative) Urine Bilirubin Negative (Negative) Urine Urobilinogen <2.0 (<2.0) mg/dL Ur Leukocyte Esterase Negative (Negative) Disposition Clinical Impression: Allergic reaction, Adverse reaction to drug, Vasculitis 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
[2019-04-30 22:13] LABS: ALT 13 U/L (9-52); AST 17 U/L (14-36); African American GFR (CKD) >90 (>60 ml/min/1.73 sqM); Albumin 4.2 g/dL (3.5-5.0); Alkaline Phosphatase 74 U/L (38-126); Anion Gap 7 mmol/L; Blood Urea Nitrogen 10 mg/dL (7-17); Calcium 8.7 mg/dL (8.4-10.2); Carbon Dioxide 25 mmol/L (22-30); Chloride 104 mmol/L (98-107); Glucose 85 mg/dL (74-99); Potassium 4.3 mmol/L (3.5-5.1); Sodium 136 mmol/L (137-145); Total Bilirubin 0.6 mg/dL (0.2-1.3); Total Protein 6.5 g/dL (6.3-8.2)
[2019-04-30 22:22] LABS: Creatine Kinase MB 0.4 ng/mL (0.0-2.4)
[2019-05-01] MEDS ORDERED: NALOXONE 0.4 MG/ML 1 ML VIAL IV PRN (00:56)
[2019-05-01] MEDS ORDERED: ACETAMINOPHEN TAB 325 MG TAB PO PRN (00:56)
[2019-05-01 01:08] LABS: Basophils % (A) 0 %; Eosinophils # (A) 0.1 k/uL (0-0.7); Eosinophils % (A) 2 %; HCT 43.2 % (34.0-46.0); HGB 14.4 gm/dL (11.4-16.0); Lymphocytes # (A) 0.9 k/uL (1.0-4.8); Lymphocytes % (A) 12 %; MCHC 33.3 g/dL (31.0-37.0); Mean Platelet Volume 7.6; Monocytes # (A) 0.3 k/uL (0-1.0); Monocytes % (A) 4 %; Neutrophils # (A) 6.2 k/uL (1.3-7.7); Neutrophils % (A) 81 %; Platelet Count 179 k/uL (150-450); RBC 4.51 m/uL (3.80-5.40); RDW 13.8 % (11.5-15.5); WBC 7.6 k/uL (3.8-10.6)
[2019-05-01 01:17] LABS: C Reactive Protein 14.5 mg/L (<10.0)
[2019-05-01 02:52] VITALS: BMI 27.2
[2019-05-01] MEDS: SODIUM CHLORIDE 0.9% 1,000 ML IV SCH ×2 (02:59→12:50)
[2019-05-01] MEDS: LURASIDONE 40 MG TAB PO SCH ×2 (02:59→20:22)
[2019-05-01] MEDS: CYCLOBENZAPRINE 10 MG TAB PO SCH ×2 (02:59→20:22)
[2019-05-01] MEDS: VORTIOXETINE HYDROBROMIDE 20 MG TABLET PO SCH ×2 (03:00→20:22)
[2019-05-01] MEDS: ZOLPIDEM 5 MG TAB PO SCH ×2 (03:00→21:21)
[2019-05-01] MEDS: ALPRAZolam 1 MG TAB PO PRN (03:04)
[2019-05-01] MEDS: PREGABALIN 50 MG CAP PO SCH ×4 (03:07→21:21)
[2019-05-01] MEDS: methylPREDNISolone SOD SUCCI 125 MG/2 ML VIAL IV SCH ×2 (06:10→12:51)
[2019-05-01] MEDS: diphenhydrAMINE 25 MG CAP PO SCH ×2 (06:11→12:51)
[2019-05-01] MEDS: HYDROmorphone 0.5 MG/0.5 ML SYRINGE IVP PRN ×3 (06:11→12:54)
[2019-05-01] MEDS ORDERED: HEPARIN SODIUM,PORCINE 5,000 UNIT/ML 1 ML VIAL SQ SCH (08:00)
[2019-05-01] MEDS ORDERED: FAMOTIDINE 20 MG TAB PO SCH (09:00)
[2019-05-01] MEDS ORDERED: PREGABALIN 50 MG CAP PO SCH (09:00)
[2019-05-01] MEDS: FERROUS SULFATE 325 MG TAB PO SCH ×3 (09:41→21:21)
[2019-05-01] MEDS: PANTOPRAZOLE 40 MG TABLET PO SCH (09:41)
[2019-05-01] MEDS: AMPHETAMINE PO SCH (09:42)
[2019-05-01] MEDS: DEXTROAMPHETAMINE PO SCH (09:42)
--- NOTE | 2019-05-01 14:48 | HP ---
HISTORY AND PHYSICAL DATE OF ADMISSION: May 01, 2019. DATE OF SERVICE: May 01, 2019. PRESENTING COMPLAINT: Allergic reaction. HISTORY OF PRESENTING COMPLAINT: This is a pleasant 53-year-old patient who follows with Dr. Meade. Chronic stable medical conditions include hypertension, coronary artery disease with prior ID, seizure disorder, arthritis, peptic ulcer disease, fibromyalgia, osteoporosis. The patient is an active smoker. The patient has Known Allergies To Sulfa. Has been worked up by Dr. Valentino in the past. She was told never to take sulfur again. The patient, for last 4 days, was having urinary frequency. No dysuria. No obvious fevers, decided to take a family members Bactrim DS 1 tablet. Developed purple lesions both in the hands and feet that were painful. Also one on the thigh and one below the breast came in. The patient is started on IV Solu-Medrol, Pepcid and Benadryl. These purple lesions were swollen and by this afternoon, they have spread, but actually less swollen. There is no bronchospasm. No trouble in breathing. The patient's sister at the bedside. REVIEW OF SYSTEMS: CONSTITUTIONAL: None. HEENT: None. RESPIRATORY: None. GASTROINTESTINAL none. GENITOURINARY as above. MUSCULOSKELETAL some pain in joints. DERMATOLOGICAL: As above. LYMPHATICS none. PSYCHIATRY a bit anxious. NEUROLOGICAL none. PAST MEDICAL HISTORY: Of hypertension, coronary artery disease with sudden ID, seizure disorder, arthritis, ulcers, fibromyalgia, osteoporosis, bipolar disorder. PAST SURGICAL HISTORY: Bariatric surgery, cataract removed in the right and left eye 2011, Darrell-en-Y gastric bypass surgery, partial nephrectomy bilateral knee replacement, prolapsed rectum repair. PSYCH HISTORY: Bipolar. SOCIAL HISTORY: . Smoking a few cigarettes a day. Smoked up to 3 packs a day, smoking for over 40 years. The patient does take prescribed morphine for pain. She had a fibromyalgia. FAMILY HISTORY: Lung cancer and AAA. HOME MEDICATIONS: 1. Vitamin D2 36785 units on Thursday. 2. Xanax 1 mg p.o. t.i.d. p.r.n. 3. Lyrica 50 mg t.i.d. 4. [place] 10 1 tablet t.i.d. p.r.n. 5. Iron 325 p.o. t.i.d. 6. Trent[place] X 20 mg q.h.s. 7. Omeprazole 20 mg b.i.d. 8. Requip 0.5 mg q.h.s. 9. Latuda 40. 10.Inderal 20 mg p.o. daily. 11.Ambien 5 mg q.h.s. 12.Flexeril 10 mg p.o. q.h.s. ALLERGIES: SULFA. PHYSICAL EXAMINATION: VITAL SIGNS: Vital signs on presentation: Temperature 98.7, pulse 72, respiratory 18, blood pressure 116/92, pulse ox 95% on room air. GENERAL APPEARANCE: Average built, sitting up, awake. EYES: Pupils are equal. Conjunctivae normal. HEENT: External appearance of nose and ears normal. Oral cavity normal. NECK JVD not raised. Mass not palpable. RESPIRATORY effort normal. LUNGS fair entry. CARDIOVASCULAR: First and second sounds no edema. ABDOMEN: Soft, nontender. Liver and spleen not palpable. LYMPHATICS: No lymph nodes palpable in the neck and axilla. PSYCHIATRY: Alert and oriented x3. Mood and affect a bit anxious. NEUROLOGICAL: Pupils equal. Cranial nerves grossly intact. Power and sensation grossly intact. DERMATOLOGICAL: There are purple patches both on the palmar surface of the hand and also some on the feet. There is also purple patch in the right upper thigh and one below the right breast, fairly circumscribed and mainly macular. There are no splinter hemorrhages. Oral cavity does not show any lesions. LABORATORY DATA: White count 7.6, hemoglobin 14.4, lymphocytes 0.9, potassium 4.3 BUN creatinine is normal. UA is negative. ASSESSMENT: 1. ALLERGIC REACTION TO SULFA for which the patient has known prior allergy tested by networking engineer, Dr. Valentino. This is the same site as before. This could be a fixed drug reaction, expected to settle down. 2. Essential hypertension. 3. Coronary artery disease, prior myocardial infarction. 4. Primary osteoarthritis. 5. Peptic ulcer disease. 6. Bipolar disorder. 7. Chronic nicotine dependence, patient is a cigarette smoker. PLAN: The patient will be kept on IV Solu-Medrol, IV Benadryl and also will put the patient on p.o. Pepcid. Watch for at least another 24 hours. DVT prophylaxis. Other home medications are resumed. Care was discussed with the patient's sister at the bedside. Questions were answered. Copy to Dr. Meade. MMODL / IJN: [id number] /
[2019-05-01] MEDS: NICOTINE 7MG/24HR PATCH TRANSDERM SCH (15:08)
[2019-05-01] MEDS: diphenhydrAMINE 50 MG/ML 1 ML VIAL IVP SCH ×2 (15:09→17:42)
[2019-05-01] MEDS: HYDROcodone/APAP 10-325MG 1 EACH TAB PO PRN (15:41)
[2019-05-01] MEDS ORDERED: methylPREDNISolone SOD SUCCI 40 MG/ML 1 ML VIAL IV SCH (16:00)
[2019-05-01] MEDS: methylPREDNISolone SOD SUCCI 40 MG/ML 1 ML VIAL IV SCH (20:22)
[2019-05-01] MEDS ORDERED: ENOXAPARIN 40 MG/0.4 ML SYRINGE SQ SCH (21:00)
[2019-05-01] MEDS ORDERED: LURASIDONE 40 MG TAB PO SCH (21:00)
[2019-05-01] MEDS ORDERED: CYCLOBENZAPRINE 10 MG TAB PO SCH (21:00)
[2019-05-01] MEDS ORDERED: DOXEPIN 10 MG CAP PO SCH (21:00)
[2019-05-01] MEDS ORDERED: ZOLPIDEM 5 MG TAB PO SCH (21:00)
[2019-05-01] MEDS ORDERED: traZODone HCL 100 MG TAB PO SCH (21:00)
[2019-05-01] MEDS ORDERED: VORTIOXETINE HYDROBROMIDE 20 MG TABLET PO SCH (21:00)
[2019-05-02] MEDS: diphenhydrAMINE 50 MG/ML 1 ML VIAL IVP SCH ×3 (00:15→11:10)
[2019-05-02] MEDS: ALPRAZolam 1 MG TAB PO PRN ×2 (00:34→08:42)
[2019-05-02] MEDS: HYDROcodone/APAP 10-325MG 1 EACH TAB PO PRN ×2 (00:35→08:46)
[2019-05-02] MEDS: methylPREDNISolone SOD SUCCI 40 MG/ML 1 ML VIAL IV SCH ×2 (04:23→11:10)
[2019-05-02] MEDS: PANTOPRAZOLE 40 MG TABLET PO SCH (06:50)
[2019-05-02] MEDS: PREGABALIN 50 MG CAP PO SCH (08:42)
[2019-05-02] MEDS: AMPHETAMINE PO SCH (08:42)
[2019-05-02] MEDS: FERROUS SULFATE 325 MG TAB PO SCH (08:42)
[2019-05-02] MEDS: DEXTROAMPHETAMINE PO SCH (08:42)
[2019-05-02] MEDS: NICOTINE 7MG/24HR PATCH TRANSDERM SCH (08:43)
[2019-05-02 08:49] VITALS: RESP 16
[2019-05-02 12:24] VITALS: BP 163/97; PULSE 64; TEMP 98.4
[2019-05-03] MEDS ORDERED: ERGOCALCIFEROL 50,000 UNIT CAP PO SCH (09:00)
--- NOTE | 2019-05-05 16:10 | DS ---
DISCHARGE SUMMARY DATE OF ADMISSION: 05/01/2019 DATE OF DISCHARGE: 05/02/2019 FINAL DIAGNOSES: 1. 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 2. Essential hypertension. 3. Coronary artery disease, prior myocardial infarction. 4. Primary osteoarthritis. 5. Peptic ulcer disease. 6. Bipolar disorder. 7. Chronic nicotine dependence, patient is a cigarette smoker. HOSPITAL COURSE: This patient who had some urine symptoms decided to take the daughter's Bactrim. Within a few hours she developed round purple lesions both in the hands and feet that became painful and somewhat swollen. The patient was admitted to the hospital, given steroids, H2 blockers and H1 will. By the following day lesions were improved, became more macular. I did explain to her that these will eventually settled down. I advised her not to do this in the future. The patient has had a fixed drug eruption in the past and did follow with Dr. Valentino and she was told not to take sulfur but she did not know that when she took her daughter's tablet it contained sulfur. On examination, temperature 98.4, pulse 64, respirations 16, blood pressure 134/87, pulse ox 95% on room air. Purple macular patches on hands and feet, nontender, improving. A couple on the torso, improving. DISCHARGE MEDICATIONS: 1. Flexeril 10 mg q.h.s. 2. Vitamin D2 50,000 units on Thursday. 3. Latuda 40 mg p.o. q.h.s. 4. Omeprazole 20 mg b.i.d. 5. Xanax 1 mg p.o. t.i.d. p.r.n. 6. Adderall 20 mg p.o. daily. 7. Iron 325 mg p.o. t.i.d. 8. [place] 10, 1 tablet p.o. t.i.d. p.r.n. 9. Lyrica 50 mg t.i.d. 10.Trintellix 20 mg q.h.s. 11.Ambien 5 mg p.o. q.h.s. 12.Requip 0.5 mg q.h.s. 13.Nicotine 7 mg patch. 14.Benadryl short taper. 15.Prednisone taper. FOLLOWUP: Follow up with Dr. Valentino on 2018. Follow up with Dr. Zana Meade in [place] on 05/05/2019. MMODL / IJN: [id number] /
== END 2019-05-02 15:32 | disposition home or self-care (01) ==
LOC: EC 20:38 → 6PED 05-01 00:56 → UNDOADMIN 05-01 00:56
PROVIDERS: ADMIT Hospitalist; ATTEND Hospitalist
DX: L27.0 Generalized skin eruption due to drugs and medicaments taken internally (principal); L95.9 Vasculitis limited to the skin, unspecified; I25.10 Atherosclerotic heart disease of native coronary artery without angina pectoris; I25.2 Old myocardial infarction; M19.91 Primary osteoarthritis, unspecified site; K27.9 Peptic ulcer, site unspecified, unspecified as acute or chronic, without hemorrhage or perforation; F31.9 Bipolar disorder, unspecified; F41.9 Anxiety disorder, unspecified; F17.210 Nicotine dependence, cigarettes, uncomplicated; I10 Essential (primary) hypertension; M81.0 Age-related osteoporosis without current pathological fracture; M79.7 Fibromyalgia; G40.909 Epilepsy, unspecified, not intractable, without status epilepticus; R35.0 Frequency of micturition; Z98.84 Bariatric surgery status; Z98.0 Intestinal bypass and anastomosis status; Z90.5 Acquired absence of kidney; Z79.899 Other long term (current) drug therapy; Z79.891 Long term (current) use of opiate analgesic; Z88.2 Allergy status to sulfonamides; Z80.1 Family history of malignant neoplasm of trachea, bronchus and lung; Z82.49 Family history of ischemic heart disease and other diseases of the circulatory system; Z82.3 Family history of stroke
CPT/HCPCS: 36415; 80053; 81003; 82550; 82553; 85025; 86140; 96361; 96372; 96374; 96375; 96376; 99284

== ENCOUNTER 2019-06-08 15:40 | Inpatient (IN) | payer MEDICARE, OTHER ==
--- NOTE | 2019-06-08 15:51 | ED ---
Abdominal Pain HPI - General Source: EMS Mode of arrival: EMS Limitations: no limitations <DanielcarolynArdendina Tang - Last Filed: 06/08/19 15:50> <Jovan Farooq - Last Filed: 06/08/19 17:33> - General Chief Complaint: Abdominal Pain Stated Complaint: Abdominal Pain Time Seen by Provider: 06/08/19 15:47 - History of Present Illness Initial Comments: Dictation was produced using [employer] dictation software. please excuse any grammatical, word or spelling errors. Chief Complaint: 54-year-old female presents with acute onset abdominal pain. History of Present Illness: Patient's 54-year-old female she is brought in by EMS for acute onset abdominal pain. Patient's history of area checked surgery several years ago. States that approximately 11 AM she began having acute intense diffuse abdominal pain. Patient states that it reminds her of when she had a perforated peptic ulcer. Patient had bariatric surgery several years ago which was complicated by a perforated ulcer couple days later. Patient states she woke this morning in her usual state of health. Patient reports that this pain is very intense causing her to sweat. Patient denies any nausea or vomiting. The ROS documented in this emergency department record has been reviewed and confirmed by me. Those systems with pertinent positive or negative responses have been documented in the HPI. All other systems are other negative and/or noncontributory. PHYSICAL EXAM: General Impression: Alert and oriented x3, acute distress secondary to pain, pale HEENT: Normocephalic atraumatic, extra-ocular movements intact, pupils equal and reactive to light bilaterally, mucous membranes moist. Cardiovascular: Heart regular rate and rhythm, S1&S2 audible, no murmurs, rubs or gallops Chest: Lungs clear to auscultation bilaterally, no rhonchi, no wheeze, no rales Abdomen: Bowel sounds present, abdomen soft, diffusely tender exquisitely, mildly distended, no organomegaly Musculoskeletal: Pulses present and equal in all extremities, no peripheral edema Motor: no focal deficits noted Neurological: CN II-XII grossly intact, no focal motor or sensory deficits noted Skin: Intact with no visualized rashes Psych: Normal affect and mood ED course: 54-year-old female presents with acute abdominal pain. Patient has c omplex abdominal history including bariatric surgery and history of perforated peptic ulcer. Signs upon arrival are within acceptable limits. Return evaluation obtained. Mild leukocytosis of 11.1, coag panel unremarkable. Metabolic panel shows potassium 3.3. Patient also has some mild hyperglycemia 1:15. Rest of labs are grossly unremarkable. Computed tomography scan of the abdomen and pelvis shows pneumoperitoneum and intravenous abdominal fluid. There is also on isn't inflammation at the jejunum. Given clinical presentation and there is concern for perforated viscus organ. General surgery was contacted immediately. Recommended patient be nothing by mouth for morning in the operat ing room. She is continued on Zosyn. Patient given IV analgesia. Patient disposition to operating room. EKG interpretation: Ventricular rate 76, normal sinus rhythm, NV interval 114, QS 82, QTc 454. No NV prolongation, no QTC prolongation, no ST or T-wave changes noted. EKG compared to 01/25/2018 showing no changes. Overall, this EKG is unremarkable (Jovan Farooq) - Related Data Home Medications Medication Instructions Recorded Confirmed Cyclobenzaprine [Flexeril] 10 mg PO HS 01/25/18 06/08/19 Ergocalciferol [Vitamin D2 50,000 unit PO TU 01/25/18 06/08/19 (DRISDOL)] Lurasidone [Latuda] 40 mg PO HS 01/25/18 06/08/19 Omeprazole 20 mg PO BID 01/25/18 06/08/19 ALPRAZolam [Xanax] 1 mg PO TID PRN 04/30/19 06/08/19 Dextroamphetamine/Amphetamine 20 mg PO DAILY 04/30/19 06/08/19 [Adderall] HYDROcodone/APAP 10-325MG [[place] 1 tab PO TID PRN 04/30/19 06/08/19 10-325] Pregabalin [Lyrica] 50 mg PO TID 04/30/19 06/08/19 Vortioxetine Hydrobromide 20 mg PO HS 04/30/19 06/08/19 [Trintellix] Zolpidem [Ambien] 5 mg PO HS 04/30/19 06/08/19 rOPINIRole HCL [Requip] 0.5 mg PO HS 04/30/19 06/08/19 Alendronate Sodium [Fosamax] 70 mg PO TU 05/25/19 06/08/19 Donepezil [Aricept] 20 mg PO HS 05/25/19 06/08/19 Montelukast [Singulair] 10 mg PO DAILY 05/25/19 06/08/19 Prochlorperazine [Compazine] 10 mg PO TID 05/25/19 06/08/19 Allergies Allergy/AdvReac Type Severity Reaction Status Date / Time Sulfa (Sulfonamide Allergy Unknown Verified 06/08/19 16:44 Antibiotics) sulfamethoxazole Allergy vasculitis, Verified 06/08/19 16:44 [From Bactrim] swelling trimethoprim [From Bactrim] Allergy vasculitis, Verified 06/08/19 16:44 swelling Review of Systems ROS Other: All systems not noted in ROS Statement are negative. <Jose D Jay - Last Filed: 06/08/19 15:50> ROS Other: All systems not noted in ROS Statement are negative. <Jovan Farooq - Last Filed: 06/08/19 17:33> ROS Statement: Those systems with pertinent positive or pertinent negative responses have been documented in the HPI. Past Medical History Past Medical History: Chest Pain / Angina, Hypertension, Myocardial Infarction (ME), Seizure Disorder Additional Past Medical History / Comment(s): arthritis Pt is now being treated for high BP. Pt stated that she had second heart attack-silent mi unk date. Ulcers. upper teeth pulled and dentures replaced 10/2015, fibromyalgia. ost eoporosis Last Myocardial Infarction Date:: 2013 History of Any Multi-Drug Resistant Organisms: None Reported Past Surgical History: Bariatric Surgery Additional Past Surgical History / Comment(s): cataracts removed RT/Lt eyes, 2011 Darrell-en- y, rt kidney sx-"they took part of my kidney they thought is was cancer but came back not cancer", bilateral knee replacements prolapsed rectum repair Past Anesthesia/Blood Transfusion Reactions: Previous Problems w/ Anesthesia, Motion Sickness Past Psychological History: Anxiety, Bipolar, Depression Smoking Status: Current every day smoker Past Alcohol Use History: None Reported Past Drug Use History: None Reported - Past Family History Father Family Medical History: Cancer Additional Family Medical History / Comment(s): lung, AAA Mother Family Medical History: CVA/TIA <Jose D Jay - Last Filed: 06/08/19 15:50> General Exam Limitations: no limitations <Jose D Jay - Last Filed: 06/08/19 15:50> Course Vital Signs 06/08/19 15:44 Temperature 97.7 F Pulse Rate 76 Respiratory 22 Rate Blood Pressure 119/88 O2 Sat by Pulse 97 Oximetry Medical Decision Making - Lab Data Result diagrams: 06/08/19 16:00 06/08/19 16:00 <Jovan Farooq - Last Filed: 06/08/19 17:33> - Lab Data Lab Results 06/08/19 06/08/19 06/08/19 Range/Units 15:55 16:00 16:00 WBC 11.1 H (3.8-10.6) k/uL RBC 4.41 (3.80-5.40) m/uL Hgb 14.7 (11.4-16.0) gm/dL Hct 43.6 (34.0-46.0) % MCV 98.9 (80.0-100.0) fL MCH 33.3 (25.0-35.0) pg MCHC 33.6 (31.0-37.0) g/dL RDW 14.8 (11.5-15.5) % Plt Count 388 D (150-450) k/uL PT (9.0-12.0) sec INR (<1.2) APTT (22.0-30.0) sec Sodium 140 (137-145) mmol/L Potassium 3.3 L (3.5-5.1) mmol/L Chloride 111 H (98-107) mmol/L Carbon Dioxide 22 (22-30) mmol/L Anion Gap 7 mmol/L BUN 24 H (7-17) mg/dL Creatinine 0.92 (0.52-1.04) mg/dL Est GFR (CKD-EPI)AfAm 82 (>60 ml/min/1.73 sqM) Est GFR (CKD-EPI)NonAf 71 (>60 ml/min/1.73 sqM) Glucose 115 H (74-99) mg/dL POC Glucose (mg/dL) 115 H (75-99) mg/dL POC Glu [employer] Worker ID Jeanne Levin Plasma Lactic Acid Edil (0.7-2.0) mmol/L Calcium 8.5 (8.4-10.2) mg/dL Total Bilirubin 0.5 (0.2-1.3) mg/dL AST 13 L (14-36) U/L ALT 14 (9-52) U/L Alkaline Phosphatase 63 (38-126) U/L Creatine Kinase <20 L (30-135) U/L Troponin I (0.000-0.034) ng/mL Total Protein 5.5 L (6.3-8.2) g/dL Albumin 3.2 L (3.5-5.0) g/dL Lipase 25 (23-300) U/L 06/08/19 06/08/19 06/08/19 Range/Units 16:00 16:00 16:00 WBC (3.8-10.6) k/uL RBC (3.80-5.40) m/uL Hgb (11.4-16.0) gm/dL Hct (34.0-46.0) % MCV (80.0-100.0) fL MCH (25.0-35.0) pg MCHC (31.0-37.0) g/dL RDW (11.5-15.5) % Plt Count (150-450) k/uL PT 10.2 (9.0-12.0) sec INR 0.9 (<1.2) APTT 22.2 (22.0-30.0) sec Sodium (137-145) mmol/L Potassium (3.5-5.1) mmol/L Chloride (98-107) mmol/L Carbon Dioxide (22-30) mmol/L Anion Gap mmol/L BUN (7-17) mg/dL Creatinine (0.52-1.04) mg/dL Est GFR (CKD-EPI)AfAm (>60 ml/min/1.73 sqM) Est GFR (CKD-EPI)NonAf (>60 ml/min/1.73 sqM) Glucose (74-99) mg/dL POC Glucose (mg/dL) (75-99) mg/dL POC Glu [employer] Maintenance Worker ID Plasma Lactic Acid Edil 1.8 (0.7-2.0) mmol/L Calcium (8.4-10.2) mg/dL Total Bilirubin (0.2-1.3) mg/dL AST (14-36) U/L ALT (9-52) U/L Alkaline Phosphatase (38-126) U/L Creatine Kinase (30-135) U/L Troponin I <0.012 (0.000-0.034) ng/mL Total Protein (6.3-8.2) g/dL Albumin (3.5-5.0) g/dL Lipase (23-300) U/L Disposition <Jose D Jay - Last Filed: 06/08/19 15:50> Decision Time: 17:33 <Jovan Farooq - Last Filed: 06/08/19 17:33> Clinical Impression: Perforated bowel Disposition: ADMITTED IP TO THIS HOSP Condition: Critical Referrals: Zana Meade MD [Primary Care Provider] - 1-2 days
[2019-06-08] MEDS ORDERED: PANTOPRAZOLE 40 MG/10 ML VIAL IVP STA (15:52)
[2019-06-08] MEDS ORDERED: MORPHINE SULFATE 4 MG/ML SYRINGE IV STA (15:52)
[2019-06-08] MEDS ORDERED: SODIUM CHLORIDE 0.9% 1,000 ML IV STA (15:52)
[2019-06-08 16:15] LABS: Glucose,Whole Blood 115 mg/dL (75-99)
--- NOTE | 2019-06-08 16:22 | XR ---
EXAMINATION TYPE: XR abdomen acute w cxr DATE OF EXAM: 06/08/2019 COMPARISON: NONE HISTORY: Pain TECHNIQUE: Single view of the chest and 2 views of the abdomen are submitted. FINDINGS: Single view of the chest fails demonstrate evidence for acute pulmonary disease. There is no evidence for pneumoperitoneum. The bowel gas pattern is unremarkable as there is air throughout nondilated small and large bowel. P ostoperative changes about the region of the stomach. No sizeable air fluid levels.No mass effects are seen. No unusual calcifications. IMPRESSION: 1. Unremarkable study.
[2019-06-08 16:23] LABS: ALT 14 U/L (9-52); AST 13 U/L (14-36); African American GFR (CKD) 82 (>60 ml/min/1.73 sqM); Albumin 3.2 g/dL (3.5-5.0); Alkaline Phosphatase 63 U/L (38-126); Anion Gap 7 mmol/L; Blood Urea Nitrogen 24 mg/dL (7-17); Calcium 8.5 mg/dL (8.4-10.2); Carbon Dioxide 22 mmol/L (22-30); Chloride 111 mmol/L (98-107); Creatine Kinase <20 U/L (30-135); Glucose 115 mg/dL (74-99); INR 0.9 (<1.2); Non-African American GFR(CKD) 71 (>60 ml/min/1.73 sqM); Partial Thromboplastin Time 22.2 sec (22.0-30.0); Potassium 3.3 mmol/L (3.5-5.1); Prothrombin Time 10.2 sec (9.0-12.0); Sodium 140 mmol/L (137-145); Total Bilirubin 0.5 mg/dL (0.2-1.3); Total Protein 5.5 g/dL (6.3-8.2)
[2019-06-08 16:29] LABS: HCT 43.6 % (34.0-46.0); HGB 14.7 gm/dL (11.4-16.0); MCH 33.3 pg (25.0-35.0); MCHC 33.6 g/dL (31.0-37.0); MCV 98.9 fL (80.0-100.0); Mean Platelet Volume 6.9; RBC 4.41 m/uL (3.80-5.40); RDW 14.8 % (11.5-15.5); WBC 11.1 k/uL (3.8-10.6)
[2019-06-08 16:35] LABS: Platelet Count 388 k/uL (150-450)
[2019-06-08] MEDS ORDERED: PIPERACILLIN-TAZOBACTAM 3.375 GM in SODIUM CHLORIDE 0.9% 100 ML IVPB STA (16:42)
--- NOTE | 2019-06-08 17:19 | CT ---
EXAMINATION TYPE: CT abdomen pelvis w con DATE OF EXAM: 06/08/2019 COMPARISON: 06/04/2012 HISTORY: epigastric pain CT DLP: 643.4 mGycm Automated exposure control for dose reduction was used. TECHNIQUE: Helical acquisition of images was performed from the lung bases through the pelvis. CONTRAST: Performed without Oral Contrast and with IV Contrast, patient injected with 100 mL of Isovue 300. FINDINGS: Lung bases are clear. There is no pleural effusion. Heart is enlarged. There is no pericardial effusi on. There is hiatal hernia. There are surgical clips on the stomach with gastrojejunal bypass. Gallbl adder is mildly dilated. Gallbladder measures 3.7 cm. There is mild dilation of the pancreatic duct t hat measures 5 mm. There is no evidence of pancreatic mass. There is a left hip nailing. Bladder distends smoothly. There is no inguinal hernia. Kidneys show sat isfactory contrast opacification. There is no hydronephrosis. There is 2 cm cortical cyst upper pole left kidney. There is bilateral enlarged adrenal glands. The left side measures 3.5 x 2.2 cm with low -attenuation consistent with myelolipoma. There is wall thickening of multiple loops of small bowel in the upper abdomen. There is no evidence of a bowel obstruction.. There is mild pneumoperitoneum. There is ascites fluid in the paracolic gutters. There is mild compre ssion fracture of L3 and L2 likely related to osteoporosis. There is small linear channel defect in the anterior wall of the stomach best seen on axial image 18. IMPRESSION: THERE IS PNEUMOPERITONEUM. THERE IS MILD ASCITES. THERE IS PROBABLY PERFORATION OF THE ANTERIOR WALL OF THE RESIDUAL STOMACH SUPERIOR TO THE GASTROJEJUNAL BYPASS. There are multiple thick-walled loops of proximal small bowel there is nonspecific and consistent wit h gastroenteritis. Mildly dilated biliary tree and enlarged gallbladder. No obstructing mass seen. Mildly enlarged pancr eatic duct. Low-density adrenal masses consistent with benign disease. Multiple abnormalities appear new compared to old exam. Mild compression fractures of L2 and L3 appear new compared to old exam. This exam was discussed with ER physician at 5:15 PM.
[2019-06-08] MEDS ORDERED: MORPHINE SULFATE 4 MG/ML SYRINGE IVP PRN (17:30)
[2019-06-08] MEDS ORDERED: NALOXONE 0.4 MG/ML 1 ML VIAL IV PRN ×2 (17:30→19:48)
[2019-06-08 17:31] LABS: Band Neutrophils % 19 %; Lymphocytes # (M) 0.89 k/uL (1.0-4.8); Monocytes # (M) 0.56 k/uL (0-1.0); Neutrophils % (M) 69 %; Nucleated Red Blood Cells 0 /100 WBC (0-0); Total Cells Counted 200; Toxic Vacuolation Present
[2019-06-08 17:32] LABS: Large Platelets Present; Toxic Granulation Present
[2019-06-08] MEDS ORDERED: SUCCINYLCHOLINE CHLORIDE 100 MG/5 ML SYR IV ONE (17:37)
[2019-06-08] MEDS ORDERED: GLYCOPYRROLATE 0.2 MG/ML 2 ML VIAL ONE (17:37)
[2019-06-08] MEDS ORDERED: LIDOCAINE 1% INJ 10MG/ML (20 ML MDV) ONE (17:37)
[2019-06-08] MEDS ORDERED: NEOSTIGMINE 1 MG/ML 10 ML VIAL ONE (17:37)
[2019-06-08] MEDS ORDERED: ELECTROLYTE-R (PH 7.4) 1,000 ML IV.SOLN IV ONE (17:37)
[2019-06-08] MEDS ORDERED: PROPOFOL 10 MG/ML 20 ML VIAL IV ONE (17:37)
--- NOTE | 2019-06-08 18:31 | P.GSHP ---
History of Present Illness H&P Date: 06/08/19 DATE OF SERVICE: 06/08/2019 CHIEF COMPLAINT: Perforated gastric ulcer HISTORY OF PRESENT ILLNESS: Jen Nobles is a 54-year-old female who presents with 2 day history of acute onset abdominal pain with abdominal distention. She reports also having ongoing lumbar radicular pain and assumed that it was chronic back pain. She has personal history of similar event 7 years ago. 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 She has history of gastric bypass by Dr. Stormy gordon in 2011 where her postoperative course was consistent with a leak following a gastric bypass given her active smoking. Despite persistent medical education and counseling for complete tob acco cessation including risk for ulcer perforation, she persisted to smoke. "I have a lot of stress in my life and have to smoke." She now presents with free air including acute abdomen from perforated ulcer per computed tomography scan. She has gained 14 pounds since her last visit in the bariatric center over 1 year ago. In the last 7 years, she has lost 121 pounds. Her initial weight was 258 pounds with a body mass index of 52.2. Today she comes in weighing 137 pounds. Her body mass index today is 27.7. Her ideal body weight is 123 pounds. Her lifetime percent excess weight loss is 90%. She has gained from 97 pounds to 137 pounds in 2 years. PAST MEDICAL HISTORY: 1. Morbid obesity, now resolved, BMI 52.2 initial 2. Insulin-dependent type 2, poorly controlled, resolved. 3. Chronic pain syndrome. 4. Gastroesophageal reflux disease, resolved. 5. Hypertension. 6. Chronic pain syndrome. 7. Osteoarthritis of the lower back. 8. Hypercholesterolemia, resolved. 9. Neuropathy. 10. Chronic constipation. 11. Seizure disorder. 12. Myocardial infraction. 13. Kidney neoplasm. 14. Anxiety. 15. Depression. PAST SURGICAL HISTORY: 1. Gastric bypass. 2. Nephrectomy. 3. Cataract surgery. 4. EGD. 5. Colonoscopy. MEDICATIONS: [place] ALLERGIES: Sulfa. SOCIAL HISTORY: Lifelong tobacco user. FAMILY HISTORY: Lung cancer. REVIEW OF SYSTEMS: CONSTITUTIONAL:Her initial weight was 258 pounds with a body mass index of 52.2. Her ideal body weight is 123 pounds. Lowest weight of 97 pounds. HEENT: Denies any active trouble with vision or hearing. ENDOCRINE: Diabetes type 2, resolved. No reports of thyroid disorders. CARDIOVASCULAR: Hypercholesterolemia, resolved. Has heart attack and chest pain. RESPIRATORY: Sleep apnea resolved. No previous pneumonia. GASTROINTESTINAL: History of chronic gastrojejunal ulcer with smoking and history of chronic constipation MUSCULOSKELETAL: Has degenerative joint disease of the lumbar spine. NEUROLOGIC: Has multipe strokes. No seizure disorders. Has neuropathy. PSYCH: Reports of active depression or suicidal ideation. HEMATOLOGIC: Denies any easy bruising or bleeding. Denies any known family history of DVT. GENITOURINARY: Past kidney neoplasm. No current blood in urine. SKIN: No skin cancer or rash. PHYSICAL EXAM: VITAL SIGNS: 4 feet 11 inches, 137 pounds. Body mass index 27.7 Vital Signs Temp 97.7 F 06/08/19 15:44 Pulse 76 06/08/19 15:44 Resp 22 06/08/19 15:44 BP 119/88 06/08/19 15:44 Pulse Ox 97 06/08/19 15:44 Intake & Output 06/07/19 06/08/19 06/08/19 18:59 06:59 18:59 Weight 62.142 kg GENERAL: Well-developed female in no acute distress. HEENT: No scleral icterus. Extraocular movements grossly intact. Moist buccal mucosa. Has hoarse voice. NECK: Supple without lymphadenopathy. CHEST: Nonlabored respirations with equal bilateral excursions. CARDIOVASCULAR: Regular rate and rhythm. Palpable 2+ radial pulses. ABDOMEN: Soft, distended. Peritonitis on exam. MUSCULOSKELETAL: No clubbing, cyanosis, or edema. NEURO: No focal or lateralizing signs. Cranial nerves II through XII grossly within normal limits. PSYCH: Appropriate affect. Alert and oriented to person, place, and time. SKIN: Good skin turgor. Warm perfused. LABS: White blood cell elevated 11,000 RADIOLOGICAL REPORT: CT of the abdomen reviewed with free air underneath the diaphragm MEDICAL REPORT: Upper endoscopy report from 2017 demonstrated acute on chronic gastrojejunal ulcer STUDIES: I personally reviewed her computed tomography scan with free air air about her gastric pouch ASSESSMENT: 1. Perforated acute on chronic gastrojejunal ulceration with peritonitis 2. Noncompliance to bariatric medical care 3. Tobacco abuse 4. Tobacco cessation and counseling 5. Morbid obesity due to excess caloric intake, now resolved 6. Diabetes type 2, insulin-dependent, poorly controlled, resolved. 7. Osteoarthritis of the lower back. 8. Osteoarthritis of the knee. 9. History of kidney neoplasm. 10. Familial history of lung cancer. 11. Personal history of panniculitis. 12. Hypercholesterolemia, resolved. 13. History of neuropathy. 14. Dysphagia. 15. Chronic constipation. 16. Hypertensive heart disease. 17. Raynaud phenomenon. 18. Chronic constipation. 19. Chronic pain syndrome. 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 21. Body mass index reduced from 52.1 down to 27.7 PLAN: 1. Exploratory laparotomy with placement of nasogastric tube, potential gastrostomy tube were described in detail 2. Inpatient hospitalization described. As patient is in critical condition, intensive care unit admission advised 3. IV fluid hydration 4. Broad-spectrum antibiotics 5. Tobacco cessation and counseling 6. Medical management per hospitalist 7. DVT prophylaxis Critical care time 34 minutes Past Medical History Past Medical History: Chest Pain / Angina, Hypertension, Myocardial Infarction ([place]), Seizure Disorder Additional Past Medical History / Comment(s): arthritis Pt is now being treated for high BP. Pt stated that she had second heart attack-silent mi unk date. Ulcers. upper teeth pulled and dentures replaced 10/2015, fibromyalgia. osteoporosis Last Myocardial Infarction Date:: 2013 History of Any Multi-Drug Resistant Organisms: None Reported Past Surgical History: Bariatric Surgery Additional Past Surgical History / Comment(s): cataracts removed RT/Lt eyes, 2011 Darrell-en- y, rt kidney sx-"they took part of my kidney they thought is was cancer but came back not cancer", bilateral knee replacements prolapsed rectum repair Past Anesthesia/Blood Transfusion Reactions: Previous Problems w/ Anesthesia, Motion Sickness Past Psychological History: Anxiety, Bipolar, Depression Smoking Status: Current every day smoker Past Alcohol Use History: None Reported Past Drug Use History: None Reported - Past Family History Father Family Medical History: Cancer Additional Family Medical History / Comment(s): lung, AAA Mother Family Medical History: CVA/TIA Medications and Allergies Home Medications Medication Instructions Recorded Confirmed Type Cyclobenzaprine [Flexeril] 10 mg PO HS 01/25/18 06/08/19 History Ergocalciferol [Vitamin D2 50,000 unit PO TU 01/25/18 06/08/19 History (DRISDOL)] Lurasidone [Latuda] 40 mg PO HS 01/25/18 06/08/19 History Omeprazole 20 mg PO BID 01/25/18 06/08/19 History ALPRAZolam [Xanax] 1 mg PO TID PRN 04/30/19 06/08/19 History Dextroamphetamine/Amphetamine 20 mg PO DAILY 04/30/19 06/08/19 History [Adderall] HYDROcodone/APAP 10-325MG [Lee 1 tab PO TID PRN 04/30/19 06/08/19 History 10-325] Pregabalin [Lyrica] 50 mg PO TID 04/30/19 06/08/19 History Vortioxetine Hydrobromide 20 mg PO HS 04/30/19 06/08/19 History [Trintellix] Zolpidem [Ambien] 5 mg PO HS 04/30/19 06/08/19 History rOPINIRole HCL [Requip] 0.5 mg PO HS 04/30/19 06/08/19 History Alendronate Sodium [Fosamax] 70 mg PO TU 05/25/19 06/08/19 History Donepezil [Aricept] 20 mg PO HS 05/25/19 06/08/19 History Montelukast [Singulair] 10 mg PO DAILY 05/25/19 06/08/19 History Prochlorperazine [Compazine] 10 mg PO TID 05/25/19 06/08/19 History Allergies Allergy/AdvReac Type Severity Reaction Status Date / Time Sulfa (Sulfonamide Allergy Unknown Verified 06/08/19 16:44 Antibiotics) sulfamethoxazole Allergy vasculitis, Verified 06/08/19 16:44 [From Bactrim] swelling trimethoprim [From Bactrim] Allergy vasculitis, Verified 06/08/19 16:44 swelling Surgical - Exam Vital Signs Temp Pulse Resp BP Pulse Ox 97.7 F 76 22 119/88 97 06/08/19 15:44 06/08/19 15:44 06/08/19 15:44 06/08/19 15:44 06/08/19 15:44 Results - Labs 06/08/19 16:00 06/08/19 16:00 Abnormal Lab Results - Last 24 Hours (Table) 06/08/19 06/08/19 06/08/19 Range/Units 15:55 16:00 16:00 WBC 11.1 H (3.8-10.6) k/uL Neutrophils # (Manual) 9.70 H (1.3-7.7) k/uL Lymphocytes # (Manual) 0.89 L (1.0-4.8) k/uL Potassium 3.3 L (3.5-5.1) mmol/L Chloride 111 H (98-107) mmol/L BUN 24 H (7-17) mg/dL Glucose 115 H (74-99) mg/dL POC Glucose (mg/dL) 115 H (75-99) mg/dL AST 13 L (14-36) U/L Creatine Kinase <20 L (30-135) U/L Total Protein 5.5 L (6.3-8.2) g/dL Albumin 3.2 L (3.5-5.0) g/dL Diabetes panel 06/08/19 Range/Units 16:00 Sodium 140 (137-145) mmol/L Potassium 3.3 L (3.5-5.1) mmol/L Chloride 111 H (98-107) mmol/L Carbon Dioxide 22 (22-30) mmol/L BUN 24 H (7-17) mg/dL Creatinine 0.92 (0.52-1.04) mg/dL Glucose 115 H (74-99) mg/dL Calcium 8.5 (8.4-10.2) mg/dL AST 13 L (14-36) U/L ALT 14 (9-52) U/L Alkaline Phosphatase 63 (38-126) U/L Total Protein 5.5 L (6.3-8.2) g/dL Albumin 3.2 L (3.5-5.0) g/dL Calcium panel 06/08/19 Range/Units 16:00 Calcium 8.5 (8.4-10.2) mg/dL Albumin 3.2 L (3.5-5.0) g/dL Pituitary panel 06/08/19 Range/Units 16:00 Sodium 140 (137-145) mmol/L Potassium 3.3 L (3.5-5.1) mmol/L Chloride 111 H (98-107) mmol/L Carbon Dioxide 22 (22-30) mmol/L BUN 24 H (7-17) mg/dL Creatinine 0.92 (0.52-1.04) mg/dL Glucose 115 H (74-99) mg/dL Calcium 8.5 (8.4-10.2) mg/dL Adrenal panel 06/08/19 Range/Units 16:00 Sodium 140 (137-145) mmol/L Potassium 3.3 L (3.5-5.1) mmol/L Chloride 111 H (98-107) mmol/L Carbon Dioxide 22 (22-30) mmol/L BUN 24 H (7-17) mg/dL Creatinine 0.92 (0.52-1.04) mg/dL Glucose 115 H (74-99) mg/dL Calcium 8.5 (8.4-10.2) mg/dL Total Bilirubin 0.5 (0.2-1.3) mg/dL AST 13 L (14-36) U/L ALT 14 (9-52) U/L Alkaline Phosphatase 63 (38-126) U/L Total Protein 5.5 L (6.3-8.2) g/dL Albumin 3.2 L (3.5-5.0) g/dL - Imaging CT scan - abdomen: report reviewed, image reviewed (Free air at gastric pouch with free fluid identified) CT scan - pelvis: report reviewed, image reviewed Assessment and Plan (1) Tobacco abuse disorder Current Visit: Yes Status: Acute Code(s): Z72.0 - TOBACCO USE SNOMED Code(s): 734202122 (2) Tobacco abuse counseling Current Visit: Yes Status: Acute Code(s): Z71.6 - TOBACCO ABUSE COUNSELING SNOMED Code(s): 204495957 (3) Gastrojejunal ulcer with perforation Current Visit: Yes Status: Acute Code(s): K28.5 - CHRONIC OR UNSPECIFIED GASTROJEJUNAL ULCER WITH PERFORATION SNOMED Code(s): 41261820 (4) H/O noncompliance with medical treatment, presenting hazards to health Current Visit: Yes Status: Acute Code(s): Z91.19 - PATIENT'S NONCOMPLIANCE W OTH MEDICAL TREATMENT AND REGIMEN SNOMED Code(s): 634553605 (5) Peritonitis (acute) generalized Current Visit: Yes Status: Acute Code(s): K65.0 - GENERALIZED (ACUTE) PERITONITIS SNOMED Code(s): 45889828 (6) Perforated bowel Current Visit: Yes Status: Acute Code(s): K63.1 - PERFORATION OF INTESTINE (NONTRAUMATIC) SNOMED Code(s): 14727065 (7) Chronic pain disorder Current Visit: Yes Status: Acute Code(s): G89.4 - CHRONIC PAIN SYNDROME SNOMED Code(s): 748484949
[2019-06-08] MEDS ORDERED: HEPARIN SODIUM,PORCINE 5,000 UNIT/ML 1 ML VIAL SQ STA (18:33)
[2019-06-08] MEDS ORDERED: SODIUM CHLORIDE 0.9% 1,000 ML IV ONE (18:33)
[2019-06-08] MEDS ORDERED: MORPHINE SULFATE 4 MG/ML SYRINGE IV PRN (18:34)
[2019-06-08] MEDS ORDERED: LORazepam 2 MG/ML INJ IV PRN (18:34)
[2019-06-08] MEDS ORDERED: SODIUM CHLORIDE 0.9% 1,000 ML BAG ONE (19:37)
[2019-06-08] MEDS ORDERED: SODIUM CHLORIDE 0.9% 50 ML BAG ONE (19:37)
[2019-06-08] MEDS ORDERED: diphenhydrAMINE 50 MG/ML 1 ML VIAL IVP PRN (19:48)
[2019-06-08] MEDS ORDERED: LACTATED RINGERS 1,000 ML BAG IV ONE ×2 (21:04→21:23)
[2019-06-08] MEDS ORDERED: ONDANSETRON 4 MG/2 ML VIAL ONE (22:10)
[2019-06-08] MEDS ORDERED: PROMETHAZINE INJ 25 MG/ML 1 ML VIAL ONE (22:17)
[2019-06-08] MEDS ORDERED: BISACODYL 10 MG SUPP RECTAL PRN (22:31)
--- NOTE | 2019-06-08 22:31 | P.OP ---
Date of Procedure: 06/08/19 Description of Procedure: SURGEON: GLEN MARQUEZ MD SIGHT MOUNTER: NONE. PREOPERATIVE DIAGNOSIS: 1. 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 Diffuse peritonitis, generalized 3. Abnormal computed tomography scan with intra-abdominal fluid 4. History of gastric bypass 5. Medical noncompliance to post-bariatric care with recurrent tobacco abuse 6. Tobacco abuse 7. Tobacco cessation and counseling 8. Depressive disorder 9. Chronic pain syndrome 10. Fibromyalgia 11. Chronic constipation 12. Massive weight loss over 120 pounds following gastric bypass 7 years ago 13. Generalized anxiety disorder 14. History of myocardial infarction 15. Hypertensive heart disease 16. Bipolar disorder 17. History of seizure disorder 18. Angina POSTOPERATIVE DIAGNOSIS: 1. 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 Diffuse peritonitis, generalized with intra-abdominal abscess, diffuse 3. Abnormal computed tomography scan with intra-abdominal fluid 4. History of gastric bypass 5. Medical noncompliance to post-bariatric care with recurrent tobacco abuse 6. Tobacco abuse 7. Tobacco cessation and counseling 8. Depressive disorder 9. Chronic pain syndrome 10. Fibromyalgia 11. Chronic constipation 12. Massive weight loss over 120 pounds following gastric bypass 7 years ago 13. Generalized anxiety disorder 14. History of myocardial infarction 15. Hypertensive heart disease 16. Bipolar disorder 17. History of seizure disorder 18. Angina OPERATION: 1. Open repair of perforated gastrojejunal ulcer 2. Application of lesser omental Michel patch 3. Intraoperative esophagogastroduodenoscopy 4. Peritoneal lavage 7 L normal saline 5. Application of 20 cm PREVENA incisional wound VAC system ANESTHESIA: General with epidural. ESTIMATED BLOOD LOSS: 20 mL SPECIMENS REMOVED: Aerobic and anaerobic culture peritoneal fluid CONDITION: Stable. DISPOSITION: To the Floor. COMPLICATIONS: None. OPERATIVE FINDINGS: 1. Diffuse intra-abdominal abscess from perforated gastrojejunal ulcer 2. Large defect gastrojejunal ulcer 1 cm oversewn in 2 layers 3. Omental patch placed to reinforce 2 layer repair 4. Intraoperative esophagogastroduodenoscopy with leak test negative for leaks 5. Upper endoscopy performed into Darrell limb 60 cm 6. Repair completely sealed and confirmed with negative leak test 7. MICHELLE drain placed anterior to repair of gastrojejunal ulcer, left MICHELLE 8. Right MICHELLE drain, right lower abdomen and pelvis to facilitate drainage of irrigation fluid 9. At end of the case turbid peritoneal fluid was very clear irrigation fluid INDICATIONS: The patient is a 54-year-old female who presented 2 days after acute onset abdominal pain with abdominal distention. CT of the abdomen pelvis demonstrated perforated viscus. She has prior perforation 7 years ago for similar finding of leak following her gastric bypass. She has personal history of pre-existing gastrojejunal ulcer where she has been medically noncompliant for strict tobacco cessation despite warnings and risks of perforation. Emergent surgical intervention was advised with exploratory laparotomy, repair of her gastrojejunal ulcer, placement of drain, including possibility of open gastrostomy tube and nasogastric tube. Benefits and risks of the procedures we re discussed. Informed consent was obtained. DESCRIPTION: The patient was brought to the operating room. An epidural was placed per anesthesia. After general induction, a Merchant catheter was placed. The abdomen was prepped and draped in standard sterile fashion. Ioban draping was also placed. Prior to incision, a timeout protocol was confirmed with surgical team regarding patient's name including procedures to be performed. Preoperative medications were confirmed. A #10 blade was used to enter along the epigastrium and extended down to the pubis. Carefully the abdomen was entered using electro- Bovie cautery. Immediate foamy intra-abdominal purulence was aspirated from the abdomen over 100 mL. Fibrinous exudate was found throughout the small bowel especially of the upper abdomen. To further explore the abdomen, the abdomen was irrigated with 4 L of warm normal saline solution until the aspirant was clear. Aerobic and anaerobic cultures were obtained of the peritoneal fluid prior to irrigation and sent for cultures. The small bowel was decompressed. The cecum was redundant with the appendix intact and extended deep into her pelvis. The entire colon was full of soft stool with exception of hard stool in the rectum palpated. The gallbladder was distended. No internal hernia such as Nathan defect or jejunojejunostomy defect were identified. Next, the Darrell limb was followed to the gastrojejunal anastomosis were along the left lateral posterior aspect, 1 cm defect was found with enteric content emanating from the perforation. No signs of peritoneal studding was identified or sign of malignancy. The mucosa within the gastric pouch was found emanating through the ulcer as well. The ulcer was oversewn using 3-0 Polysorb with imbrication. A 2 layer closure was performed with serosa to serosa bites. A lesser omental patch was placed to reinforce the closure and incorporated into the suture line. The repair was submerged in normal saline. I went to the head of bed to perform intraoperative esophagogastroduodenoscopy. Olympus gastroscope was passed along the posterior oropharynx into the distal esophagus and into the gastric pouch with insufflation. The Darrell limb was intubated at 60 cm from the gum line. Intraoperative endoscopy pictures were obtained confirming complete closure of the perforated gastrojejunal ulcer. No air bubbles or leak was identified confirming complete closure of the defect. I re-scrubbed into case. Additional 3 L normal saline was used to completely irrigate the abdomen until the aspirant was clear. #19 MICHELLE drain was placed anterior to the repair of gastrojejunal anastomosis. The MICHELLE drain exited via the left upper quadrant and sewn in using 2-0 nylon. A separate drain was place into the pelvis and exited via the right lower quadrant and also tacked using 2- 0 nylon. MICHELLE bulbs were attached to negative suction. Hemostasis was excellent throughout the case. The abdomen was closed using double stranded 0 PDS. The skin was cleansed using dilute hydrogen peroxide. A 20-cm PREVENA incisional wound VAC dressing was placed with intact seal. At the end of the procedure, needle, sponge, and instrument count had been verified correct by the operating room surgical technician. The patient was sent to the postanesthesia care unit extubated and in stable condition. Intraoperative findings were discussed with her daughter Tania over the telephone including repair of her perforated ulcer, placement of drains, and extubation. She was overall pleased with level of care.
[2019-06-08] MEDS: ROPIVACAINE 250 MG, HYDROMORPHONE (PF) 5 MG in SODIUM CHLORIDE 0.9% 200 ML EPIDURAL PRN (23:22)
[2019-06-08 23:23] LABS: Glucose,Whole Blood 85 mg/dL (75-99)
[2019-06-09] MEDS: SODIUM CHLORIDE 0.9% 1,000 ML IV SCH ×2 (00:18→05:00)
[2019-06-09] MEDS: metroNIDAZOLE-NS PMX 500 MG in SALINE 1 100ML.BAG IVPB SCH ×5 (00:19→23:58)
[2019-06-09] MEDS: PANTOPRAZOLE 40 MG/10 ML VIAL IVP SCH ×3 (00:19→21:44)
[2019-06-09] MEDS: HYDROmorphone 1 MG/ML 1 ML SYRINGE IVP PRN ×5 (00:19→20:10)
[2019-06-09] MEDS: PIPERACILLIN-TAZOBACTAM 3.375 GM in SODIUM CHLORIDE 0.9% 100 ML IVPB SCH ×4 (01:50→23:57)
[2019-06-09 05:01] LABS: HCT 41.4 % (34.0-46.0); HGB 13.2 gm/dL (11.4-16.0); MCH 32.4 pg (25.0-35.0); MCHC 31.8 g/dL (31.0-37.0); MCV 101.9 fL (80.0-100.0); Macrocytosis Slight; Mean Platelet Volume 7.1; Platelet Count 292 k/uL (150-450); RBC 4.06 m/uL (3.80-5.40); RDW 14.6 % (11.5-15.5)
[2019-06-09 05:11] LABS: African American GFR (CKD) >90 (>60 ml/min/1.73 sqM); Anion Gap 6 mmol/L; Blood Urea Nitrogen 25 mg/dL (7-17); Calcium 6.8 mg/dL (8.4-10.2); Carbon Dioxide 18 mmol/L (22-30); Chloride 115 mmol/L (98-107); Glucose 80 mg/dL (74-99); Magnesium 1.5 mg/dL (1.6-2.3); Non-African American GFR(CKD) 79 (>60 ml/min/1.73 sqM); Phosphorus 5.2 mg/dL (2.5-4.5); Potassium 3.6 mmol/L (3.5-5.1); Sodium 139 mmol/L (137-145)
[2019-06-09 05:19] LABS: Band Neutrophils % 11 %; Lymphocytes # (M) 0.55 k/uL (1.0-4.8); Monocytes # (M) 0.44 k/uL (0-1.0); Neutrophils % (M) 81 %; Nucleated Red Blood Cells 0 /100 WBC (0-0); Total Cells Counted 200
[2019-06-09 06:06] LABS: Appearance,Urine Clear (Clear); Bilirubin,Urine Negative (Negative); Blood,Urine Trace (Negative); Color,Urine Yellow; Glucose,Urine (UA) Negative (Negative); Ketones,Urine Trace (Negative); Leukocyte Esterase,Urine Negative (Negative); Mucus,Urine Rare /hpf; Nitrite,Urine Negative (Negative); PH, Urine 5.5 (5.0-8.0); Protein,Urine 1+ (Negative); RBC,Urine 2 /hpf (0-5); Squamous Epithelial Cell,Urine <1 /hpf (0-4); Urobilinogen,Urine <2.0 mg/dL (<2.0); WBC,Urine 9 /hpf (0-5)
[2019-06-09] MEDS: MAGNESIUM SULFATE-D5W PMX 1 GM in DEXTROSE/WATER 1 100ML.BAG IVPB SCH ×2 (06:33→09:55)
[2019-06-09 07:08] LABS: Glucose,Whole Blood 79 mg/dL (75-99)
[2019-06-09] MEDS ORDERED: MAGNESIUM SULFATE-D5W PMX 1 GM in DEXTROSE/WATER 1 100ML.BAG IVPB SCH (09:00)
[2019-06-09] MEDS ORDERED: SODIUM CHLORIDE 0.9% 1,000 ML IV ONE (09:01)
[2019-06-09] MEDS: METOCLOPRAMIDE 5 MG/ML 2 ML VIAL IVP PRN (09:49)
[2019-06-09] MEDS: HEPARIN SODIUM,PORCINE 5,000 UNIT/ML 1 ML VIAL SQ SCH ×2 (09:54→21:44)
[2019-06-09] MEDS: FLUCONAZOLE IN NACL,ISO-OSM 100 MG in SALINE 1 50ML.BAG IVPB SCH (09:56)
--- NOTE | 2019-06-09 10:54 | P.PN ---
Progress Note - Text Progress Note Date: 06/09/19 Postoperative day # status post explaratory laparotomy/epidural catheter placed for postoperative analgesia, patient doing well epidural site okay, patient currently on combination of epidural infusion solution of Ropivacaine 0.0625% and Dilaudid 20 g per mL the infusion rate at 8 ml per hour , patient had no motor deficit epidural site okay , vital signs stable ,VAS 3/10 , Assessment and plan= post operative day # 1 patient doing well ,pain well controlled , there is no anesthesia related complications, would continue current management
--- NOTE | 2019-06-09 11:32 | P.PN ---
<Robyn Guillermo Rachana - Last Filed: 06/09/19 13:22> Subjective Progress Note Date: 06/09/19 CHIEF COMPLAINT: abdominal pain HISTORY OF PRESENT ILLNESS: 54-year-old female who is status post open repair of perforated gastrojejunal ulcer. POD #1. Patient examined this morning at the bedside. She reports her pain is tolerable if she is not moving around. Epidural infusing at 8cc/hr. She denies passing flatus. Merchant with lindsey urine. nurse reports marginal urine output.MICHELLE x 2. Incentive spirometer not at bedside. IS obtained and placed at bedside. Encouraged patient to use 10 times an hour. WBC 11.0. Hemoglobin 13.2. Vital signs stable. She is afebrile. PHYSICAL EXAM: VITAL SIGNS: Currently stable. GENERAL: Well-developed in no acute distress. HEENT: No sclera icterus. Extraocular movements grossly intact. Moist buccal mucosa. Head is atraumatic, normocephalic. Hears conversational speech. No nasal drainage. NECK: Supple without lymphadenopathy. CHEST: Non-labored respirations and equal bilateral excursions. CARDIOVASCULAR: Regular rate with regular rhythm. Palpable 2+ radial pulses. ABDOMEN: Soft. Nondistended. PREVENA wound system intact. Minimal bowel sounds. MICHELLE x2. Left abdomen MICHELLE more serous drainage. Right MICHELLE with purulent drainage. MUSCULOSKELETAL: No clubbing, cyanosis or edema. NEUROLOGIC: No focal or lateralizing signs. Cranial nerves II through XII grossly intact. PSYCH: Appropriate affect. Alert and oriented to person, place and time. SKIN: Well perfused. Good skin turgor. ASSESSMENT: 1. 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 Diffuse peritonitis, generalized with intra-abdominal abscess, diffuse 3. Abnormal computed tomography scan with intra-abdominal fluid 4. History of gastric bypass 5. Medical noncompliance to post-bariatric care with recurrent tobacco abuse 6. Tobacco abuse 7. Tobacco cessation and counseling 8. Depressive disorder 9. Chronic pain syndrome 10. Fibromyalgia 11. Chronic constipation 12. Massive weight loss over 120 pounds following gastric bypass 7 years ago 13. Generalized anxiety disorder 14. History of myocardial infarction 15. Hypertensive heart disease 16. Bipolar disorder 17. History of seizure disorder 18. Angina 19. Hypomagnesemia 20. Hypokalemia PLAN: #1. NPO. Will perform leak test tomorrow at bedside. If normal, will start clear liquids #2. Continue IV fluids #3. Add potassium to maintenance IV fluids #4. Replace magnesium #5. Continue epidural for pain control. Anticipate removal of epidural tomorrow #6. Continue Merchant catheter will epidural is in place. #7. 1 L 0.9 bolus secondary to marginal urine output #8. Encourage use of incentive spirometry 10 times per hour #9. Reinforced importance of smoking cessation #10. Activity as tolerated #11. Infectious disease consulted for peritonitis. Antibiotics per Dr. Beavers. #12. NO nicotine patch at this time to ensure healing Nurse practitioner note has been reviewed by physician. Signing provider agrees with the documented findings, assessment, and plan of care. Objective - Vital Signs Vital signs: Vital Signs Temp 98.1 F 06/09/19 00:00 Pulse 100 06/09/19 07:00 Resp 12 06/09/19 07:00 BP 128/80 06/09/19 07:00 Pulse Ox 94 L 06/09/19 07:00 Intake & Output 06/08/19 06/09/19 06/09/19 18:59 06:59 18:59 Intake Total 3450 200 Output Total 835 110 Balance 2615 90 Weight 62.142 kg Intake: IV 3450 200 Magnesium Sulfate-D5w Pmx 100 1 gm In Dextrose/Water 1 100ml.bag @ 100 mls/hr IVPB Q1H [facility] Rx#: [id number] Piperacillin-Tazobactam 3 100 .375 gm In Sodium Chloride 0.9% 100 ml @ 25 mls/hr IVPB Q8HR [facility] Rx# :[id number] Sodium Chloride 0.9% 1, 700 100 000 ml @ 100 mls/hr IV . Q10H [facility] Rx#:[id number] metroNIDAZOLE-NS PMX 500 100 mg In Saline 1 100ml.bag @ 100 mls/hr IVPB Q8HR [facility] Rx#:[id number] Output: Drainage 150 80 Left Abdomen MICHELLE 60 30 Right Abdomen MICHELLE 90 50 Urine 665 30 Estimated Blood Loss 20 Other: Voiding Method Indwelling Catheter Indwelling Catheter - Labs CBC & Chem 7: 06/09/19 04:39 06/09/19 04:39 Labs: Abnormal Lab Results - Last 24 Hours (Table) 06/08/19 06/08/19 06/08/19 Range/Units 15:55 16:00 16:00 WBC 11.1 H (3.8-10.6) k/uL MCV (80.0-100.0) fL Neutrophils # (Manual) 9.70 H (1.3-7.7) k/uL Lymphocytes # (Manual) 0.89 L (1.0-4.8) k/uL Potassium 3.3 L (3.5-5.1) mmol/L Chloride 111 H (98-107) mmol/L Carbon Dioxide (22-30) mmol/L BUN 24 H (7-17) mg/dL Glucose 115 H (74-99) mg/dL POC Glucose (mg/dL) 115 H (75-99) mg/dL Calcium (8.4-10.2) mg/dL Phosphorus (2.5-4.5) mg/dL Magnesium (1.6-2.3) mg/dL AST 13 L (14-36) U/L Creatine Kinase <20 L (30-135) U/L Total Protein 5.5 L (6.3-8.2) g/dL Albumin 3.2 L (3.5-5.0) g/dL Ur Specific [place] (1.001-1.035) Urine Protein (Negative) Urine Ketones (Negative) Urine Blood (Negative) Urine WBC (0-5) /hpf Urine Mucus (None) /hpf 06/09/19 06/09/19 06/09/19 Range/Units 04:39 04:39 06:00 WBC 11.0 H (3.8-10.6) k/uL MCV 101.9 H (80.0-100.0) fL Neutrophils # (Manual) 10.10 H (1.3-7.7) k/uL Lymphocytes # (Manual) 0.55 L (1.0-4.8) k/uL Potassium (3.5-5.1) mmol/L Chloride 115 H (98-107) mmol/L Carbon Dioxide 18 L (22-30) mmol/L BUN 25 H (7-17) mg/dL Glucose (74-99) mg/dL POC Glucose (mg/dL) (75-99) mg/dL Calcium 6.8 L (8.4-10.2) mg/dL Phosphorus 5.2 H (2.5-4.5) mg/dL Magnesium 1.5 L (1.6-2.3) mg/dL AST (14-36) U/L Creatine Kinase (30-135) U/L Total Protein (6.3-8.2) g/dL Albumin (3.5-5.0) g/dL Ur Specific [place] 1.040 H (1.001-1.035) Urine Protein 1+ H (Negative) Urine Ketones Trace H (Negative) Urine Blood Trace H (Negative) Urine WBC 9 H (0-5) /hpf Urine Mucus Rare H (None) /hpf Microbiology - Last 24 Hours (Table) 06/09/19 06:00 Urine Culture - Preliminary Urine,Catheterized 06/08/19 21:45 Gram Stain - Preliminary Back Wound Culture - Preliminary 06/08/19 21:45 Anaerobic Culture - Preliminary Peritoneal Fluid 06/08/19 21:45 Fungal Culture - Preliminary Peritoneal Fluid Assessment and Plan (1) Chronic pain disorder Current Visit: Yes Status: Acute Code(s): G89.4 - CHRONIC PAIN SYNDROME SNOMED Code(s): 740029585 (2) Gastrojejunal ulcer with perforation Current Visit: Yes Status: Acute Code(s): K28.5 - CHRONIC OR UNSPECIFIED GASTROJEJUNAL ULCER WITH PERFORATION SNOMED Code(s): 51519529 (3) H/O noncompliance with medical treatment, presenting hazards to health Current Visit: Yes Status: Acute Code(s): Z91.19 - PATIENT'S NONCOMPLIANCE W OTH MEDICAL TREATMENT AND REGIMEN SNOMED Code(s): 484354229 (4) Perforated bowel Current Visit: Yes Status: Acute Code(s): K63.1 - PERFORATION OF INTESTINE (NONTRAUMATIC) SNOMED Code(s): 47606592 (5) Peritonitis (acute) generalized Current Visit: Yes Status: Acute Code(s): K65.0 - GENERALIZED (ACUTE) PERITONITIS SNOMED Code(s): 84016592 (6) Tobacco abuse counseling Current Visit: Yes Status: Acute Code(s): Z71.6 - TOBACCO ABUSE COUNSELING SNOMED Code(s): 431857560 (7) Tobacco abuse disorder Current Visit: Yes Status: Acute Code(s): Z72.0 - TOBACCO USE SNOMED Code(s): 848636571 <Gloria Wilson N - Last Filed: 06/09/19 23:54> Subjective Appreciate infectious disease and medicine consultation. Patient has history of noncompliance to medical care including with tobacco. Will need to avoid all nicotine products as nicotine increases ischemia and compromises overall recovery. May need a PICC line in the future for TPN and IV antibiotics as nothing by mouth status anticipated for at least 1 week with MICHELLE drains Objective - Vital Signs Vital signs: Vital Signs Temp 97.6 F 06/09/19 20:00 Pulse 84 06/09/19 20:00 Resp 16 06/09/19 20:00 BP 131/69 06/09/19 20:00 Pulse Ox 96 06/09/19 20:00 Intake & Output 06/09/19 06/09/19 06/10/19 06:59 18:59 06:59 Intake Total 3450 625 800 Output Total 835 825 395 Balance 2615 -200 405 Intake: IV 3450 625 800 0.9% NaCl with KCl 20 Meq 100 800 /l 1,000 ml @ 100 mls/hr IV .Q10H [facility] Rx#: [id number] Magnesium Sulfate-D5w Pmx 200 1 gm In Dextrose/Water 1 100ml.bag @ 100 mls/hr IVPB Q1H [facility] Rx#: [id number] Piperacillin-Tazobactam 3 100 25 .375 gm In Sodium Chloride 0.9% 100 ml @ 25 mls/hr IVPB Q8HR [facility] Rx# :[id number] Sodium Chloride 0.9% 1, 700 200 000 ml @ 100 mls/hr IV . Q10H [facility] Rx#:[id number] metroNIDAZOLE-NS PMX 500 100 100 mg In Saline 1 100ml.bag @ 100 mls/hr IVPB Q8HR [facility] Rx#:[id number] Output: Drainage 150 420 50 Left Abdomen MICHELLE 60 160 20 Right Abdomen MICHELLE 90 260 30 Urine 665 405 345 Estimated Blood Loss 20 Other: Voiding Method Indwelling Catheter Indwelling Catheter Indwelling Catheter - Labs CBC & Chem 7: 06/09/19 04:39 06/09/19 04:39 Labs: Abnormal Lab Results - Last 24 Hours (Table) 06/09/19 06/09/19 06/09/19 Range/Units 04:39 04:39 06:00 WBC 11.0 H (3.8-10.6) k/uL MCV 101.9 H (80.0-100.0) fL Neutrophils # (Manual) 10.10 H (1.3-7.7) k/uL Lymphocytes # (Manual) 0.55 L (1.0-4.8) k/uL Chloride 115 H (98-107) mmol/L Carbon Dioxide 18 L (22-30) mmol/L BUN 25 H (7-17) mg/dL Calcium 6.8 L (8.4-10.2) mg/dL Phosphorus 5.2 H (2.5-4.5) mg/dL Magnesium 1.5 L (1.6-2.3) mg/dL Ur Specific [place] 1.040 H (1.001-1.035) Urine Protein 1+ H (Negative) Urine Ketones Trace H (Negative) Urine Blood Trace H (Negative) Urine WBC 9 H (0-5) /hpf Urine Mucus Rare H (None) /hpf Microbiology - Last 24 Hours (Table) 06/08/19 16:00 Blood Culture - Preliminary Blood No Growth after 24 hours 06/09/19 06:00 Urine Culture - Preliminary Urine,Catheterized 06/08/19 21:45 Gram Stain - Preliminary Back Wound Culture - Preliminary 06/08/19 21:45 Anaerobic Culture - Preliminary Peritoneal Fluid 06/08/19 21:45 Fungal Culture - Preliminary Peritoneal Fluid Assessment and Plan (1) Tobacco abuse disorder Current Visit: Yes Status: Acute Code(s): Z72.0 - TOBACCO USE SNOMED Code(s): 090336198 (2) Tobacco abuse counseling Current Visit: Yes Status: Acute Code(s): Z71.6 - TOBACCO ABUSE COUNSELING SNOMED Code(s): 006023794 (3) Gastrojejunal ulcer with perforation Current Visit: Yes Status: Acute Code(s): K28.5 - CHRONIC OR UNSPECIFIED GASTROJEJUNAL ULCER WITH PERFORATION SNOMED Code(s): 79419720 (4) H/O noncompliance with medical treatment, presenting hazards to health Current Visit: Yes Status: Acute Code(s): Z91.19 - PATIENT'S NONCOMPLIANCE W OTH MEDICAL TREATMENT AND REGIMEN SNOMED Code(s): 012965773 (5) Peritonitis (acute) generalized Current Visit: Yes Status: Acute Code(s): K65.0 - GENERALIZED (ACUTE) PERITONITIS SNOMED Code(s): 24836592 (6) Perforated bowel Current Visit: Yes Status: Acute Code(s): K63.1 - PERFORATION OF INTESTINE (NONTRAUMATIC) SNOMED Code(s): 76966078 (7) Chronic pain disorder Current Visit: Yes Status: Acute Code(s): G89.4 - CHRONIC PAIN SYNDROME SNOMED Code(s): 986625873
[2019-06-09 11:48] LABS: Glucose,Whole Blood 84 mg/dL (75-99)
[2019-06-09] MEDS ORDERED: MAGNESIUM SULFATE-D5W PMX 1 GM in DEXTROSE/WATER 1 100ML.BAG IVPB ONE (13:45)
[2019-06-09] MEDS: 0.9% NACL WITH KCL 20 MEQ/L 1,000 ML IV SCH ×2 (15:00→23:57)
[2019-06-09] MEDS ORDERED: NICOTINE POLACRILEX 2 MG GUM BUCCAL PRN (15:47)
[2019-06-09] MEDS ORDERED: NICOTINE 21MG/24HR PATCH TRANSDERM SCH (16:00)
--- NOTE | 2019-06-09 17:13 | P.CONS ---
History of Present Illness - Reason for Consult Consult date: 06/09/19 Medical management requested by Dr. Barnard Requesting physician: Gloria Wilson - Chief Complaint Abdominal pain - History of Present Illness History of presenting complaint: This is a pleasant 54-year-old patient follows with Dr. beaver out of [place]. Chronic stable medical conditions include hypertension, coronary artery disease with prior SC, seizure disorder, arthritis, peptic ulcer disease, fibromyalgia, osteoporosis. Patient was recently in the hospital with episode of severe sulfa ALLERGY. Patient about a 1 week ago took a fall and suffered lumbar vertebra fracture. Was having pain in that area and also down pain. Decided to come down to the hospital for the same. Patient did have a computed tomography scan of the abdomen and pelvis was found to have free air. Patient was taken to the operating room was found to have perforated gastrojejunal ulcer and intra-abdominal soiling. Intraperitoneal lavage was carried out. Patient now has 2 MICHELLE drains and a wound VAC in place. Patient was extubated after procedure. Then placed in the ICU for close observation. Patient's awake and also questions is on 2 L of nasal cannula. Telemetry shows sinus rhythm. Laying in bed. That has been minimal output through the MICHELLE drains. Good urine output. Review of systems: GEN.: Tired EYES: None HEENT: None NECK: None RESPIRATORY: [Baseline some shortness of breath and wheezing CARDIOVASCULAR: None GASTROINTESTINAL: As above GENITOURINARY: None MUSCULOSKELETAL: Pain in the joints LYMPHATICS: None HEMATOLOGICAL: None PSYCHIATRY: Anxiety NEUROLOGICAL: None Past medical history: Hypertension, coronary artery disease with SC, seizure disorder, arthritis, gastrojejunal ulcer, fibromyalgia, osteoporosis, bipolar disorder Psych history bipolar Social history: , smoking cigarettes was smoking up to 3 packs a day for close to 40 years and above. Fibromyalgia Family history Lung cancer and AAA Physical examination: VITAL SIGNS: 98.3, 86, 14, 151/84, 96% 2 L GENERAL: BMI 27.7, laying in bed, awake not in distress. EYES: Pupils equal. Conjunctiva normal. HEENT: External appearance of nose and ears normal, oral cavity grossly normal, nasal cannula in place. NECK: JVD not raised; masses not palpable. HEART: First and second heart sounds are normal; no edema. LUNGS: Respiratory rate increased, decreased breath sounds minimal wheezing. ABDOMEN: Soft, tender, wound VAC in place, [address],, liver spleen n ot palpable, no masses palpable. PSYCH: Alert and oriented x3; mood and affect normal. NEUROLOGICAL: Cranial nerves grossly intact; no facial asymmetry, power and sensation grossly intact. LYMPHATICS: No lymph nodes palpable in the axilla and neck INVESTIGATIONS, reviewed in the clinical context: White count 11 hemoglobin 13.2 potassium 3.6 creatinine 0.84 EKG tracing personally reviewed by me shows normal sinus rhythm Computed tomography scan abdomen and pelvis-pneumopericardium multiple thick- walled loops of proximal small bowel compression fracture of L2 and L3 Assessment: -Acute perforation of gastrojejunal ulcer, followed by surgical repair including a patch -Intra-abdominal fecal soiling, due to perforated ulcer with secondary peritonitis -Essential hypertension -Coronary artery disease with prior SC -Chronic seizure disorder -Primary osteoarthritis -Chronic fibromyalgia -Bipolar disorder -Chronic nicotine dependence, patient cigarette smoker Plan: Patient is currently on oxygen. IV antibiotics including IV Diflucan, IV Flagyl, IV Zosyn. Patient also got epidural place. IV fluids in place. Being followed closely hemodynamically. Care was discussed the patient. Patient is currently nothing by mouth with ice chips. Resume home medications when okay with surgery. Thank you Dr. Barnard, will follow with you Smoke cessation counseling: This was done with the patient. Patient stating that she disorder patch cigarette again. Agreeable to take a nicotine patch and nicotine gum. More than 3 minutes was spent with this aspect of the case Past Medical History Past Medical History: Chest Pain / Angina, Hypertension, Myocardial Infarction (SC), Seizure Disorder Additional Past Medical History / Comment(s): arthritis Pt is now being treated for high BP. Pt stated that she had second heart attack-silent mi unk date. Ulcers. upper teeth pulled and dentures replaced 10/2015, fibromyalgia. osteoporosis Last Myocardial Infarction Date:: 2013 History of Any Multi-Drug Resistant Organisms: None Reported Past Surgical History: Bariatric Surgery Additional Past Surgical History / Comment(s): cataracts removed RT/Lt eyes, 2011 Darrell-en- y, rt kidney sx-"they took part of my kidney they thought is was cancer but came back not cancer", bilateral knee replacements prolapsed rectum repair Past Anesthesia/Blood Transfusion Reactions: Previous Problems w/ Anesthesia, Motion Sickness Past Psychological History: Anxiety, Bipolar, Depression Smoking Status: Current every day smoker Past Alcohol Use History: None Reported Past Drug Use History: None Reported - Past Family History Father Family Medical History: Cancer Additional Family Medical History / Comment(s): lung, AAA Mother Family Medical History: CVA/TIA Medications and Allergies Home Medications Medication Instructions Recorded Confirmed Type Cyclobenzaprine [Flexeril] 10 mg PO HS 01/25/18 06/08/19 History Ergocalciferol [Vitamin D2 50,000 unit PO 01/25/18 06/08/19 History (ANDRE)] Lurasidone [Latuda] 40 mg PO HS 01/25/18 06/08/19 History ALPRAZolam [Xanax] 1 mg PO TID PRN 04/30/19 06/08/19 History Dextroamphetamine/Amphetamine 20 mg PO DAILY 04/30/19 06/08/19 History [Adderall] HYDROcodone/APAP 10-325MG [Woodman 1 tab PO TID PRN 04/30/19 06/08/19 History 10-325] Pregabalin [Lyrica] 50 mg PO TID 04/30/19 06/08/19 History Vortioxetine Hydrobromide 20 mg PO HS 04/30/19 06/08/19 History [Trintellix] Zolpidem [Ambien] 5 mg PO HS 04/30/19 06/08/19 History rOPINIRole HCL [Requip] 0.5 mg PO HS 04/30/19 06/08/19 History Donepezil [Aricept] 20 mg PO HS 05/25/19 06/08/19 History Montelukast [Singulair] 10 mg PO DAILY 05/25/19 06/08/19 History Prochlorperazine [Compazine] 10 mg PO TID 05/25/19 06/08/19 History Pantoprazole [Protonix] 40 mg PO BID #60 tablet. 06/09/19 Rx Allergies Allergy/AdvReac Type Severity Reaction Status Date / Time Sulfa (Sulfonamide Allergy Unknown Verified 06/08/19 16:44 Antibiotics) sulfamethoxazole Allergy vasculitis, Verified 06/08/19 16:44 [From Bactrim] swelling trimethoprim [From Bactrim] Allergy vasculitis, Verified 06/08/19 16:44 swelling Physical Exam Vitals: Vital Signs Temp Pulse Pulse Resp BP BP Pulse Ox 06/09/19 11:00 90 15 151/88 06/09/19 10:00 98 16 149/87 06/09/19 09:00 88 14 148/90 06/09/19 08:00 98.1 F 95 14 139/78 96 06/09/19 07:00 100 12 128/80 94 L 06/09/19 06:00 95 12 128/79 96 06/09/19 05:00 102 H 15 113/82 96 06/09/19 04:00 101 H 12 126/83 96 06/09/19 03:00 108 H 12 124/89 96 06/09/19 02:00 109 H 12 118/84 96 06/09/19 01:00 112 H 14 132/83 96 06/09/19 00:00 98.1 F 104 H 12 139/96 98 06/08/19 23:36 101 H 14 98 06/08/19 23:30 98.1 F 95 12 139/96 98 06/08/19 22:56 95 14 139/83 99 06/08/19 22:40 94 16 136/93 99 06/08/19 22:26 91 16 119/90 100 06/08/19 22:05 99 F 80 16 123/80 98 06/08/19 19:01 98.9 F 81 22 143/99 96 06/08/19 15:44 97.7 F 76 22 119/88 97 Intake and Output 06/08/19 06/09/19 06/09/19 22:59 06:59 14:59 Intake Total 2550 900 200 Output Total 420 415 110 Balance 2130 485 90 Intake: IV 2550 900 200 Magnesium Sulfate-D5w Pmx 100 1 gm In Dextrose/Water 1 100ml.bag @ 100 mls/hr IVPB Q1H [facility] Rx#: [id number] Piperacillin-Tazobactam 3 100 .375 gm In Sodium Chloride 0.9% 100 ml @ 25 mls/hr IVPB Q8HR [facility] Rx# :[id number] Sodium Chloride 0.9% 1, 700 100 000 ml @ 100 mls/hr IV . Q10H [facility] Rx#:[id number] metroNIDAZOLE-NS PMX 500 100 mg In Saline 1 100ml.bag @ 100 mls/hr IVPB Q8HR [facility] Rx#:[id number] Output: Drainage 150 80 Left Abdomen MICHELLE 60 30 Right Abdomen MICHELLE 90 50 Urine 400 265 30 Estimated Blood Loss 20 Other: Voiding Method Indwelling Catheter Indwelling Catheter Weight 62.142 kg Results CBC & Chem 7: 06/09/19 04:39 06/09/19 04:39 Labs: Abnormal Lab Results - Last 24 Hours (Table) 06/08/19 06/08/19 06/08/19 Range/Units 15:55 16:00 16:00 WBC 11.1 H (3.8-10.6) k/uL MCV (80.0-100.0) fL Neutrophils # (Manual) 9.70 H (1.3-7.7) k/uL Lymphocytes # (Manual) 0.89 L (1.0-4.8) k/uL Potassium 3.3 L (3.5-5.1) mmol/L Chloride 111 H (98-107) mmol/L Carbon Dioxide (22-30) mmol/L BUN 24 H (7-17) mg/dL Glucose 115 H (74-99) mg/dL POC Glucose (mg/dL) 115 H (75-99) mg/dL Calcium (8.4-10.2) mg/dL Phosphorus (2.5-4.5) mg/dL Magnesium (1.6-2.3) mg/dL AST 13 L (14-36) U/L Creatine Kinase <20 L (30-135) U/L Total Protein 5.5 L (6.3-8.2) g/dL Albumin 3.2 L (3.5-5.0) g/dL Ur Specific [place] (1.001-1.035) Urine Protein (Negative) Urine Ketones (Negative) Urine Blood (Negative) Urine WBC (0-5) /hpf Urine Mucus (None) /hpf 06/09/19 06/09/19 06/09/19 Range/Units 04:39 04:39 06:00 WBC 11.0 H (3.8-10.6) k/uL MCV 101.9 H (80.0-100.0) fL Neutrophils # (Manual) 10.10 H (1.3-7.7) k/uL Lymphocytes # (Manual) 0.55 L (1.0-4.8) k/uL Potassium (3.5-5.1) mmol/L Chloride 115 H (98-107) mmol/L Carbon Dioxide 18 L (22-30) mmol/L BUN 25 H (7-17) mg/dL Glucose (74-99) mg/dL POC Glucose (mg/dL) (75-99) mg/dL Calcium 6.8 L (8.4-10.2) mg/dL Phosphorus 5.2 H (2.5-4.5) mg/dL Magnesium 1.5 L (1.6-2.3) mg/dL AST (14-36) U/L Creatine Kinase (30-135) U/L Total Protein (6.3-8.2) g/dL Albumin (3.5-5.0) g/dL Ur Specific [place] 1.040 H (1.001-1.035) Urine Protein 1+ H (Negative) Urine Ketones Trace H (Negative) Urine Blood Trace H (Negative) Urine WBC 9 H (0-5) /hpf Urine Mucus Rare H (None) /hpf Microbiology - Last 24 Hours (Table) 06/09/19 06:00 Urine Culture - Preliminary Urine,Catheterized 06/08/19 21:45 Gram Stain - Preliminary Back Wound Culture - Preliminary 06/08/19 21:45 Anaerobic Culture - Preliminary Peritoneal Fluid 06/08/19 21:45 Fungal Culture - Preliminary Peritoneal Fluid
[2019-06-09 20:58] LABS: Glucose,Whole Blood 91 mg/dL (75-99)
--- NOTE | 2019-06-09 23:13 | P.CONS ---
History of Present Illness - Reason for Consult Consult date: 06/09/19 Secondary peritonitis and abdominal abscess Requesting physician: Gloria Wilson - Chief Complaint Abdominal pain 2 days - History of Present Illness Patient is a 54-year-old female presenting to the hospital at [facility] as she complains of abdominal pain going on for about 2 days patient has been mostly in the upper abdominal area Kiran the pain to be sharp with intensity of almost 7-8 out of 10 by the time she presented to hospital with as sociated nausea but no vomiting and no diarrhea the patient was evaluated by the ER physician had patient did have a CT of abdominal pelvis obtained with evidence of pneumoperitoneum and possible perforation of the gastrojejunal wall patient subsequently was evaluated by general surgery and has been taken to the OR and laparotomy she was noticed to have perforated gastrojejunal ulcer with diffuse peritonitis and abdominal abscess status post repair of the ulcer culture has been obtained and the patient be started on Zosyn and Diflucan infectious disease was consulted for further recommendation regarding antibiotics Patient is currently afebrile patient is breathing Comfortably abdominal pain has decreased intensity still has some nausea with it and she but no vomiting and has not passed any bowel movement since surgery Review of Systems Positive points has been mentioned in HPI rest of the systems are negative Past Medical History Past Medical History: Chest Pain / Angina, Hypertension, Myocardial Infarction ([place]), Seizure Disorder Additional Past Medical History / Comment(s): arthritis Pt is now being treated for high BP. Pt stated that she had second heart attack-silent mi unk date. [facility] ers. upper teeth pulled and dentures replaced 10/2015, fibromyalgia. osteoporosis Last Myocardial Infarction Date:: 2013 History of Any Multi-Drug Resistant Organisms: None Reported Past Surgical History: Bariatric Surgery Additional Past Surgical History / Comment(s): cataracts removed RT/Lt eyes, 2011 Darrell-en- y, rt kidney sx-"they took part of my kidney they thought is was cancer but came back not cancer", bilateral knee replacements prolapsed rectum repair Past Anesthesia/Blood Transfusion Reactions: Previous Problems w/ Anesthesia, Motion Sickness Past Psychological History: Anxiety, Bipolar, Depression Smoking Status: Current every day smoker Past Alcohol Use History: None Reported Past Drug Use History: None Reported - Past Family History Father Family Medical History: Cancer Additional Family Medical History / Comment(s): lung, AAA Mother Family Medical History: CVA/TIA Medications and Allergies Home Medications Medication Instructions Recorded Confirmed Type Cyclobenzaprine [Flexeril] 10 mg PO HS 01/25/18 06/08/19 History Ergocalciferol [Vitamin D2 50,000 unit PO TU 01/25/18 06/08/19 History (ANDRE)] Lurasidone [Latuda] 40 mg PO HS 01/25/18 06/08/19 History ALPRAZolam [Xanax] 1 mg PO TID PRN 04/30/19 06/08/19 History Dextroamphetamine/Amphetamine 20 mg PO DAILY 04/30/19 06/08/19 History [Adderall] HYDROcodone/APAP 10-325MG [Dalzell 1 tab PO TID PRN 04/30/19 06/08/19 History 10-325] Pregabalin [Lyrica] 50 mg PO TID 04/30/19 06/08/19 History Vortioxetine Hydrobromide 20 mg PO HS 04/30/19 06/08/19 History [Trintellix] Zolpidem [Ambien] 5 mg PO HS 04/30/19 06/08/19 History rOPINIRole HCL [Requip] 0.5 mg PO HS 04/30/19 06/08/19 History Donepezil [Aricept] 20 mg PO HS 05/25/19 06/08/19 History Montelukast [Singulair] 10 mg PO DAILY 05/25/19 06/08/19 History Prochlorperazine [Compazine] 10 mg PO TID 05/25/19 06/08/19 History Pantoprazole [Protonix] 40 mg PO BID #60 tablet. 06/09/19 Rx Allergies Allergy/AdvReac Type Severity Reaction Status Date / Time Sulfa (Sulfonamide Allergy Unknown Verified 06/08/19 16:44 Antibiotics) sulfamethoxazole Allergy vasculitis, Verified 06/08/19 16:44 [From Bactrim] swelling trimethoprim [From Bactrim] Allergy vasculitis, Verified 06/08/19 16:44 swelling Physical Exam Vitals: Vital Signs Temp Pulse Pulse Resp BP BP Pulse Ox 06/09/19 14:00 87 12 144/81 96 06/09/19 13:00 97 14 153/90 96 06/09/19 12:00 98.3 F 86 14 151/84 96 06/09/19 11:00 90 15 151/88 06/09/19 10:00 98 16 149/87 06/09/19 09:00 88 14 148/90 06/09/19 08:00 98.1 F 95 14 139/78 96 06/09/19 07:00 100 12 128/80 94 L 06/09/19 06:00 95 12 128/79 96 06/09/19 05:00 102 H 15 113/82 96 06/09/19 04:00 101 H 12 126/83 96 06/09/19 03:00 108 H 12 124/89 96 06/09/19 02:00 109 H 12 118/84 96 06/09/19 01:00 112 H 14 132/83 96 06/09/19 00:00 98.1 F 104 H 12 139/96 98 06/08/19 23:36 101 H 14 98 06/08/19 23:30 98.1 F 95 12 139/96 98 06/08/19 22:56 95 14 139/83 99 06/08/19 22:40 94 16 136/93 99 06/08/19 22:26 91 16 119/90 100 06/08/19 22:05 99 F 80 16 123/80 98 06/08/19 19:01 98.9 F 81 22 143/99 96 06/08/19 15:44 97.7 F 76 22 119/88 97 Intake and Output 06/09/19 06/09/19 06/09/19 06:59 14:59 22:59 Intake Total 900 400 Output Total 415 645 Balance 485 -245 Intake: IV 900 400 Magnesium Sulfate-D5w Pmx 200 1 gm In Dextrose/Water 1 100ml.bag @ 100 mls/hr IVPB Q1H [facility] Rx#: [id number] Piperacillin-Tazobactam 3 100 .375 gm In Sodium Chloride 0.9% 100 ml @ 25 mls/hr IVPB Q8HR [facility] Rx# :[id number] Sodium Chloride 0.9% 1, 700 200 000 ml @ 100 mls/hr IV . Q10H [facility] Rx#:[id number] metroNIDAZOLE-NS PMX 500 100 mg In Saline 1 100ml.bag @ 100 mls/hr IVPB Q8HR [facility] Rx#:[id number] Output: Drainage 150 240 Left Abdomen MICHELLE 60 90 Right Abdomen MICHELLE 90 150 Urine 265 405 Other: Voiding Method Indwelling Catheter Indwelling Catheter GENERAL DESCRIPTION: Middle-aged female lying in bed, no distress. No tachypnea or accessory muscle of respiration use. HEENT: Shows Pallor , no scleral icterus. Oral mucous membrane is dry. No pharyngeal erythema or thrush NECK: Trachea central, no thyromegaly. LUNGS: Unlabored breathing. Decreased breath sound the bases. No wheeze or crackle. HEART: S1, S2, regular rate and rhythm. No loud murmur ABDOMEN: Soft, mild epigastric tenderness , no guarding or rigidity, no organomegaly EXTREMITIES: No edema of feet. SKIN: No rash, no masses palpable. NEUROLOGICAL: The patient is awake, alert, oriented x3, mood and affect normal. Results CBC & Chem 7: 06/09/19 04:39 06/09/19 04:39 Labs: Abnormal Lab Results - Last 24 Hours (Table) 06/08/19 06/08/19 06/08/19 Range/Units 15:55 16:00 16:00 WBC 11.1 H (3.8-10.6) k/uL MCV (80.0-100.0) fL Neutrophils # (Manual) 9.70 H (1.3-7.7) k/uL Lymphocytes # (Manual) 0.89 L (1.0-4.8) k/uL Potassium 3.3 L (3.5-5.1) mmol/L Chloride 111 H (98-107) mmol/L Carbon Dioxide (22-30) mmol/L BUN 24 H (7-17) mg/dL Glucose 115 H (74-99) mg/dL POC Glucose (mg/dL) 115 H (75-99) mg/dL Calcium (8.4-10.2) mg/dL Phosphorus (2.5-4.5) mg/dL Magnesium (1.6-2.3) mg/dL AST 13 L (14-36) U/L Creatine Kinase <20 L (30-135) U/L Total Protein 5.5 L (6.3-8.2) g/dL Albumin 3.2 L (3.5-5.0) g/dL Ur Specific [place] (1.001-1.035) Urine Protein (Negative) Urine Ketones (Negative) Urine Blood (Negative) Urine WBC (0-5) /hpf Urine Mucus (None) /hpf 06/09/19 06/09/19 06/09/19 Range/Units 04:39 04:39 06:00 WBC 11.0 H (3.8-10.6) k/uL MCV 101.9 H (80.0-100.0) fL Neutrophils # (Manual) 10.10 H (1.3-7.7) k/uL Lymphocytes # (Manual) 0.55 L (1.0-4.8) k/uL Potassium (3.5-5.1) mmol/L Chloride 115 H (98-107) mmol/L Carbon Dioxide 18 L (22-30) mmol/L BUN 25 H (7-17) mg/dL Glucose (74-99) mg/dL POC Glucose (mg/dL) (75-99) mg/dL Calcium 6.8 L (8.4-10.2) mg/dL Phosphorus 5.2 H (2.5-4.5) mg/dL Magnesium 1.5 L (1.6-2.3) mg/dL AST (14-36) U/L Creatine Kinase (30-135) U/L Total Protein (6.3-8.2) g/dL Albumin (3.5-5.0) g/dL Ur Specific [place] 1.040 H (1.001-1.035) Urine Protein 1+ H (Negative) Urine Ketones Trace H (Negative) Urine Blood Trace H (Negative) Urine WBC 9 H (0-5) /hpf Urine Mucus Rare H (None) /hpf Microbiology - Last 24 Hours (Table) 06/09/19 06:00 Urine Culture - Preliminary Urine,Catheterized 06/08/19 21:45 Gram Stain - Preliminary Back Wound Culture - Preliminary 06/08/19 21:45 Anaerobic Culture - Preliminary Peritoneal Fluid 06/08/19 21:45 Fungal Culture - Preliminary Peritoneal Fluid Assessment and Plan Assessment: 1-patient with diffuse peritonitis and abdominal abscess from perforated nela rojejunal ulcer status post laparotomy and repair of the same and drainage of the abscess fluid has been sent for the culture will need to cover for enteric gram-negative both aerobes and anaerobes in addition to Naina 2-Patient with multiple antibiotics ALLERGIES that will limit the number of ant ibiotic safe to use Plan: 1-Zosyn 3.375 g every 8 hours and Diflucan 200 IV daily we'll provide antibiotic coverage for underlying peritonitis and abdominal abscess following waiting for the cultures to finalize 2-gentle IV fluid we will follow on clinical condition and culture to further adjust medication if needed Thank you for this consultation will follow this patient along with you Time with Patient: Greater than 30
[2019-06-10] MEDS: ROPIVACAINE 250 MG, HYDROMORPHONE (PF) 5 MG in SODIUM CHLORIDE 0.9% 200 ML EPIDURAL PRN (00:25)
[2019-06-10] MEDS: HYDROmorphone 1 MG/ML 1 ML SYRINGE IVP PRN ×6 (00:29→22:46)
[2019-06-10] MEDS: METOCLOPRAMIDE 5 MG/ML 2 ML VIAL IVP PRN (01:17)
[2019-06-10 06:05] LABS: Basophils % (A) 0 %; Eosinophils # (A) 0.1 k/uL (0-0.7); Eosinophils % (A) 1 %; HCT 35.9 % (34.0-46.0); HGB 11.3 gm/dL (11.4-16.0); Lymphocytes # (A) 0.7 k/uL (1.0-4.8); Lymphocytes % (A) 7 %; MCH 31.8 pg (25.0-35.0); MCHC 31.5 g/dL (31.0-37.0); Macrocytosis Slight; Mean Platelet Volume 7.3; Monocytes # (A) 0.2 k/uL (0-1.0); Monocytes % (A) 2 %; Neutrophils # (A) 8.8 k/uL (1.3-7.7); Neutrophils % (A) 90 %; Platelet Count 291 k/uL (150-450); RBC 3.56 m/uL (3.80-5.40); RDW 14.7 % (11.5-15.5); WBC 9.8 k/uL (3.8-10.6)
[2019-06-10 06:16] LABS: African American GFR (CKD) >90 (>60 ml/min/1.73 sqM); Anion Gap 5 mmol/L; Blood Urea Nitrogen 17 mg/dL (7-17); Carbon Dioxide 20 mmol/L (22-30); Chloride 114 mmol/L (98-107); Glucose 62 mg/dL (74-99); Magnesium 2.9 mg/dL (1.6-2.3); Non-African American GFR(CKD) >90 (>60 ml/min/1.73 sqM); Potassium 4.3 mmol/L (3.5-5.1); Sodium 139 mmol/L (137-145)
[2019-06-10 06:26] LABS: Calcium 6.2 mg/dL (8.4-10.2)
--- NOTE | 2019-06-10 06:26 | P.PN ---
Progress Note - Text Progress Note Date: 06/10/19 54 yo female s/p exploratory laparotimy, POD #2. No complaints overnight. Adequate pain control at a rate of 8 cc/hr. VAS=0 at rest, 2-3/10 upon movement. No itching, no headache, no sensory or motor deficit. Catheter in place, without redness.
[2019-06-10] MEDS: ONDANSETRON 4 MG/2 ML VIAL IVP PRN (06:57)
[2019-06-10] MEDS ORDERED: DEXTROSE 10 % IN WATER 250 ML BAG IV STA (07:49)
[2019-06-10] MEDS ORDERED: METHYLENE BLUE 10 MG/ML (10 ML VIAL) IV ONE (07:50)
[2019-06-10] MEDS ORDERED: DEXTROSE 10 % IN WATER 250 ML IV ONE (07:53)
[2019-06-10 07:58] LABS: Glucose,Whole Blood 66 mg/dL (75-99)
[2019-06-10] MEDS ORDERED: CALCIUM GLUCONATE 1 GM in SODIUM CHLORIDE 0.9% 100 ML IVPB ONE (08:02)
[2019-06-10 08:58] LABS: Glucose,Whole Blood 93 mg/dL (75-99)
[2019-06-10] MEDS: PIPERACILLIN-TAZOBACTAM 3.375 GM in SODIUM CHLORIDE 0.9% 100 ML IVPB SCH ×2 (09:06→16:28)
[2019-06-10] MEDS: PANTOPRAZOLE 40 MG/10 ML VIAL IVP SCH ×2 (09:06→22:46)
[2019-06-10] MEDS: HEPARIN SODIUM,PORCINE 5,000 UNIT/ML 1 ML VIAL SQ SCH ×2 (09:13→22:45)
[2019-06-10] MEDS: FLUCONAZOLE IN NACL,ISO-OSM 100 MG in SALINE 1 50ML.BAG IVPB SCH (09:14)
[2019-06-10] MEDS: 0.9% NACL WITH KCL 20 MEQ/L 1,000 ML IV SCH ×2 (09:14→18:49)
[2019-06-10 09:57] VITALS: BMI 27.6
[2019-06-10] MEDS: metroNIDAZOLE-NS PMX 500 MG in SALINE 1 100ML.BAG IVPB SCH ×2 (10:26→16:29)
[2019-06-10 11:39] LABS: Glucose,Whole Blood 85 mg/dL (75-99)
--- NOTE | 2019-06-10 12:12 | FL ---
Single contrast upper GI EXAMINATION TYPE: FL UGI w esophagus DATE OF EXAM: 06/10/2019 11:29 AM CLINICAL HISTORY: repair perforated gastrojejunal ulcer COMPARISON: NONE Contrast: 50 mL Isovue 370 used. 52 seconds fluoroscopic time and 12 images submitted. The patient ingested contrast without difficulty or delay. There is evidence of gastroesophageal jeju nostomy. There is flow into the meaning gastric remnant and into the jejunum without difficulty or de lay. No evidence for leak or obstruction. Drainage catheters are demonstrated. IMPRESSION: No evidence for postoperative leak or obstruction.
[2019-06-10] MEDS ORDERED: LIDOCAINE 1% INJ 10MG/ML (20 ML MDV) SQ ONE (13:38)
--- NOTE | 2019-06-10 14:06 | PN ---
PROGRESS NOTE DATE OF SERVICE: 06/10/2019 REASON FOR FOLLOWUP: Secondary peritonitis abdominal abscess from perforated peptic ulcer disease. INTERVAL HISTORY: The patient is currently afebrile. Patient abdominal pain is currently controlled. Denies having any chest pain, shortness of breath or cough. No nausea, vomiting. PHYSICAL EXAMINATION: Blood pressure is 138/79, pulse of 84, temperature 98.4, she is 95% on 2 L nasal cannula. General description is a middle-aged female, lying in bed in no distress. RESPIRATORY SYSTEM: Unlabored breathing, clear to auscultation anteriorly. HEART: S1, S2. Regular rate and rhythm. ABDOMEN: Soft, no tenderness. LABS: Hemoglobin 11.8, white count 9.8. BUN of 17, creatinine 0.64. Abdominal cultures currently pending. DIAGNOSTIC IMPRESSION AND PLAN: Patient with abdominal abscess secondary peritonitis, perforated peptic ulcer disease status post laparotomy and drainage of the abscess. Patient at this time continue on Zosyn and Diflucan while waiting for the culture to finalize. Continue supportive care. MMODL / IJN: [id number] / GLADYS
--- NOTE | 2019-06-10 14:37 | P.PN ---
<Robyn Guillermo A - Last Filed: 06/10/19 14:28> Subjective Progress Note Date: 06/10/19 CHIEF COMPLAINT: abdominal pain HISTORY OF PRESENT ILLNESS: Patient examined at the bedside. She reports her pain is tolerable. Epidural infusing. She denies passing flatus. Flores with clear yellow urine. Incentive spirometry at bedside and encouraged use. WBC 9.8. Hemoglobin 11.3. Potassium 4.3. Magnesium 2.9. Vital signs stable. She is afebrile. Upper GI completed negative for leak or obstruction. PHYSICAL EXAM: VITAL SIGNS: Currently stable. GENERAL: Well-developed in no acute distress. HEENT: No sclera icterus. Extraocular movements grossly intact. Moist buccal mucosa. Head is atraumatic, normocephalic. Hears conversational speech. No nasal dr ainage. NECK: Supple without lymphadenopathy. CHEST: Non-labored respirations and equal bilateral excursions. CARDIOVASCULAR: Regular rate with regular rhythm. Palpable 2+ radial pulses. ABDOMEN: Soft. Nondistended. PREVENA wound system intact. Minimal bowel sounds. MIHCELLE x2. Left abdomen MICHELLE more serosanguineous drainage. Right MICHELLE with purulent drainage. MUSCULOSKELETAL: No clubbing, cyanosis or edema. NEUROLOGIC: No focal or lateralizing signs. Cranial nerves II through XII grossly intact. PSYCH: Appropriate affect. Alert and oriented to person, place and time. SKIN: Well perfused. Good skin turgor. ASSESSMENT: 1. 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 Diffuse peritonitis, generalized with intra-abdominal abscess, diffuse 3. Abnormal computed tomography scan with intra-abdominal fluid 4. History of gastric bypass 5. Medical noncompliance to post-bariatric care with recurrent tobacco abuse 6. Tobacco abuse 7. Tobacco cessation and counseling 8. Depressive disorder 9. Chronic pain syndrome 10. Fibromyalgia 11. Chronic constipation 12. Massive weight loss over 120 pounds following gastric bypass 7 years ago 13. Generalized anxiety disorder 14. History of myocardial infarction 15. Hypertensive heart disease 16. Bipolar disorder 17. History of seizure disorder 18. Angina 19. Hypomagnesemia 20. Hypokalemia PLAN: 1. NPO. Patient may have ice chips only!! NO ORAL MEDICATIONS 2. Earliest patient may begin clear liquid diet is THURSDAY 3. Discontinue epidural 4. Discontinue flores 5. PICC line scheduled to be inserted today 6. Consultation placed to dietitian for TPN 7. Encourage use of incentive spirometry 10 times per hour 8. Activity as tolerated 9. NO nicotine patch at this time to ensure healing 10. Infectious disease consulted for peritonitis. Antibiotics per Dr. Beavers. Possible IV antibiotics at discharge. 11. Social work consulted as patient will be discharged to subacute rehab Nurse practitioner note has been reviewed by physician. Signing provider agrees with the documented findings, assessment, and plan of care. Objective - Vital Signs Vital signs: Vital Signs Temp 98.4 F 06/10/19 08:00 Pulse 84 06/10/19 08:00 Resp 18 06/10/19 08:00 BP 138/79 06/10/19 08:00 Pulse Ox 95 06/10/19 08:00 Intake & Output 06/09/19 06/10/19 06/10/19 18:59 06:59 18:59 Intake Total 625 1800.4 350 Output Total 825 975 270 Balance -200 825.4 80 Weight 62.142 kg Intake: IV 625 1600 300 0.9% NaCl with KCl 20 Meq 100 1600 200 /l 1,000 ml @ 100 mls/hr IV .Q10H [facility] Rx#: [id number] Magnesium Sulfate-D5w Pmx 200 1 gm In Dextrose/Water 1 100ml.bag @ 100 mls/hr IVPB Q1H [facility] Rx#: [id number] Piperacillin-Tazobactam 3 25 100 .375 gm In Sodium Chloride 0.9% 100 ml @ 25 mls/hr IVPB Q8HR [facility] Rx# :[id number] Sodium Chloride 0.9% 1, 200 000 ml @ 100 mls/hr IV . Q10H [facility] Rx#:[id number] metroNIDAZOLE-NS PMX 500 100 mg In Saline 1 100ml.bag @ 100 mls/hr IVPB Q8HR [facility] Rx#:[id number] Intake, IV Titration 200.4 50 Amount Fluconazole in NaCl,Iso- 50 Osm 100 mg In Saline 1 50ml.bag @ 50 mls/hr IVPB DAILY [facility] Rx#:[id number] Ropivacaine 250 mg 200.4 Hydromorphone (Pf) 5 mg In Sodium Chloride 0.9% 200 ml @ Per Protocol EPIDURAL .Q0M PRN Rx#: [id number] Output: Drainage 420 50 120 Left Abdomen MICHELLE 160 20 60 Right Abdomen MICHELLE 260 30 60 Urine 405 925 150 Other: Voiding Method Indwelling Catheter Indwelling Catheter Indwelling Catheter - Labs CBC & Chem 7: 06/10/19 05:48 06/10/19 05:48 Labs: Abnormal Lab Results - Last 24 Hours (Table) 06/10/19 06/10/19 06/10/19 Range/Units 05:48 05:48 07:47 RBC 3.56 L (3.80-5.40) m/uL Hgb 11.3 L (11.4-16.0) gm/dL MCV 101.0 H (80.0-100.0) fL Neutrophils # 8.8 H (1.3-7.7) k/uL Lymphocytes # 0.7 L (1.0-4.8) k/uL Chloride 114 H (98-107) mmol/L Carbon Dioxide 20 L (22-30) mmol/L Glucose 62 L (74-99) mg/dL POC Glucose (mg/dL) 66 L (75-99) mg/dL Calcium 6.2 L* (8.4-10.2) mg/dL Magnesium 2.9 H (1.6-2.3) mg/dL Microbiology - Last 24 Hours (Table) 06/09/19 06:00 Urine Culture - Final Urine,Catheterized 06/08/19 16:00 Blood Culture - Preliminary Blood No Growth after 24 hours Assessment and Plan (1) Chronic pain disorder Current Visit: Yes Status: Acute Code(s): G89.4 - CHRONIC PAIN SYNDROME SNOMED Code(s): 801397693 (2) Gastrojejunal ulcer with perforation Current Visit: Yes Status: Acute Code(s): K28.5 - CHRONIC OR UNSPECIFIED GASTROJEJUNAL ULCER WITH PERFORATION SNOMED Code(s): 90041176 (3) H/O noncompliance with medical treatment, presenting hazards to health Current Visit: Yes Status: Acute Code(s): Z91.19 - PATIENT'S NONCOMPLIANCE W OTH MEDICAL TREATMENT AND REGIMEN SNOMED Code(s): 086305065 (4) Perforated bowel Current Visit: Yes Status: Acute Code(s): K63.1 - PERFORATION OF INTESTINE (NONTRAUMATIC) SNOMED Code(s): 90185739 (5) Peritonitis (acute) generalized Current Visit: Yes Status: Acute Code(s): K65.0 - GENERALIZED (ACUTE) PERITONITIS SNOMED Code(s): 55057619 (6) Tobacco abuse counseling Current Visit: Yes Status: Acute Code(s): Z71.6 - TOBACCO ABUSE COUNSELING SNOMED Code(s): 381014453 (7) Tobacco abuse disorder Current Visit: Yes Status: Acute Code(s): Z72.0 - TOBACCO USE SNOMED Code(s): 106836686 <Gloria Wilson - Last Filed: 06/10/19 17:26> Subjective All studies reviewed with upper GI confirming no leaks. However, patient high risk for recurrence. Recommend one week of strict nothing by mouth status with the exception of ice chips. TPN continued. PICC line for IV antibiotics as well. Earliest resumption of LIQUID DIET TO START IN 7 DAYS, JUNE 16. NO ORAL MEDICATIONS NO NICOTINE PRODUCTS REMOVE PREVENA WOUND VAC, May. Recommend rehab assessment prior to discharge for goal June 16 when medically stable Objective - Vital Signs Vital signs: Vital Signs Temp 98.6 F 06/10/19 15:00 Pulse 86 06/10/19 15:00 Resp 16 06/10/19 15:00 BP 134/76 06/10/19 15:00 Pulse Ox 94 L 06/10/19 15:51 Intake & Output 06/09/19 06/10/19 06/10/19 18:59 06:59 18:59 Intake Total 625 1800.4 350 Output Total 825 975 380 Balance -200 825.4 -30 Weight 62.142 kg Intake: IV 625 1600 300 0.9% NaCl with KCl 20 Meq 100 1600 200 /l 1,000 ml @ 100 mls/hr IV .Q10H [facility] Rx#: [id number] Magnesium Sulfate-D5w Pmx 200 1 gm In Dextrose/Water 1 100ml.bag @ 100 mls/hr IVPB Q1H [facility] Rx#: [id number] Piperacillin-Tazobactam 3 25 100 .375 gm In Sodium Chloride 0.9% 100 ml @ 25 mls/hr IVPB Q8HR [facility] Rx# :[id number] Sodium Chloride 0.9% 1, 200 000 ml @ 100 mls/hr IV . Q10H [facility] Rx#:[id number] metroNIDAZOLE-NS PMX 500 100 mg In Saline 1 100ml.bag @ 100 mls/hr IVPB Q8HR [facility] Rx#:[id number] Intake, IV Titration 200.4 50 Amount Fluconazole in NaCl,Iso- 50 Osm 100 mg In Saline 1 50ml.bag @ 50 mls/hr IVPB DAILY [facility] Rx#:[id number] Ropivacaine 250 mg 200.4 Hydromorphone (Pf) 5 mg In Sodium Chloride 0.9% 200 ml @ Per Protocol EPIDURAL .Q0M PRN Rx#: [id number] Output: Drainage 420 50 230 Left Abdomen MICHELLE 160 20 120 Right Abdomen MICHELLE 260 30 110 Urine 405 925 150 Other: Voiding Method Indwelling Catheter Indwelling Catheter Indwelling Catheter - Labs CBC & Chem 7: 06/10/19 05:48 06/10/19 05:48 Labs: Abnormal Lab Results - Last 24 Hours (Table) 06/10/19 06/10/19 06/10/19 Range/Units 05:48 05:48 07:47 RBC 3.56 L (3.80-5.40) m/uL Hgb 11.3 L (11.4-16.0) gm/dL MCV 101.0 H (80.0-100.0) fL Neutrophils # 8.8 H (1.3-7.7) k/uL Lymphocytes # 0.7 L (1.0-4.8) k/uL Chloride 114 H (98-107) mmol/L Carbon Dioxide 20 L (22-30) mmol/L Glucose 62 L (74-99) mg/dL POC Glucose (mg/dL) 66 L (75-99) mg/dL Calcium 6.2 L* (8.4-10.2) mg/dL Magnesium 2.9 H (1.6-2.3) mg/dL 06/10/19 Range/Units 16:42 RBC (3.80-5.40) m/uL Hgb (11.4-16.0) gm/dL MCV (80.0-100.0) fL Neutrophils # (1.3-7.7) k/uL Lymphocytes # (1.0-4.8) k/uL Chloride (98-107) mmol/L Carbon Dioxide (22-30) mmol/L Glucose (74-99) mg/dL POC Glucose (mg/dL) 72 L (75-99) mg/dL Calcium (8.4-10.2) mg/dL Magnesium (1.6-2.3) mg/dL Microbiology - Last 24 Hours (Table) 06/09/19 06:00 Urine Culture - Final Urine,Catheterized 06/08/19 16:00 Blood Culture - Preliminary Blood No Growth after 24 hours Assessment and Plan (1) Tobacco abuse disorder Current Visit: Yes Status: Acute Code(s): Z72.0 - TOBACCO USE SNOMED Code(s): 460449553 (2) Tobacco abuse counseling Current Visit: Yes Status: Acute Code(s): Z71.6 - TOBACCO ABUSE COUNSELING SNOMED Code(s): 235012772 (3) Gastrojejunal ulcer with perforation Current Visit: Yes Status: Acute Code(s): K28.5 - CHRONIC OR UNSPECIFIED GASTROJEJUNAL ULCER WITH PERFORATION SNOMED Code(s): 24554981 (4) H/O noncompliance with medical treatment, presenting hazards to health Current Visit: Yes Status: Acute Code(s): Z91.19 - PATIENT'S NONCOMPLIANCE W OTH MEDICAL TREATMENT AND REGIMEN SNOMED Code(s): 017411377 (5) Peritonitis (acute) generalized Current Visit: Yes Status: Acute Code(s): K65.0 - GENERALIZED (ACUTE) PERITONITIS SNOMED Code(s): 73668509 (6) Perforated bowel Current Visit: Yes Status: Acute Code(s): K63.1 - PERFORATION OF INTESTINE (NONTRAUMATIC) SNOMED Code(s): 28538508 (7) Chronic pain disorder Current Visit: Yes Status: Acute Code(s): G89.4 - CHRONIC PAIN SYNDROME SNOMED Code(s): 504579829
[2019-06-10 15:43] LABS: Phosphorus 2.9 mg/dL (2.5-4.5)
[2019-06-10 16:44] LABS: Glucose,Whole Blood 72 mg/dL (75-99)
--- NOTE | 2019-06-10 17:26 | P.PN ---
Progress Note - Text Progress Note Date: 06/10/19 All studies reviewed with upper GI confirming no leaks. However, patient high risk for recurrence. Recommend one week of strict nothing by mouth status with the exception of ice chips. TPN continued. PICC line for IV antibiotics as well. Earliest resumption of LIQUID DIET TO START IN 7 DAYS, JUNE 16. NO ORAL MEDICATIONS NO NICOTINE PRODUCTS REMOVE PREVENA WOUND VAC, May. Recommend rehab assessment prior to discharge for goal June 16 when medically stable
[2019-06-10] MEDS ORDERED: MVI, ADULT NO.4 WITH VIT K 10 ML, TRACE (CONC-1ML/DOSE) 1 ML, CALCIUM GLUCONATE 1 GM, S... IV SCH ×6 (19:00)
[2019-06-10 20:09] LABS: Glucose,Whole Blood 60 mg/dL (75-99)
[2019-06-10] MEDS: FAT EMULSION 20% 250 ML in EMPTY BAG 1 BAG IV SCH (20:15)
[2019-06-11] MEDS: metroNIDAZOLE-NS PMX 500 MG in SALINE 1 100ML.BAG IVPB SCH ×4 (00:25→23:16)
--- NOTE | 2019-06-11 00:55 | P.PN ---
Progress Note - Text Progress Note Date: 06/10/19 - Chief Complaint Abdominal pain Interval history: This is a pleasant 54-year-old patient follows with Dr. beaver out of [place]. Chronic stable medical conditions include hypertension, coronary artery disease with prior [place], seizure disorder, arthritis, peptic ulcer disease, fibromyalgia, osteoporosis. Patient was recently in the hospital with episode of severe sulfa ALLERGY. Patient about a 1 week ago took a fall and suffered lumbar vertebra fracture. Was having pain in that area and also down pain. Decided to come down to the hospital for the same. Patient did have a computed tomography scan of the abdomen and pelvis was found to have free air. Patient was taken to the operating room was found to have perforated gastrojejunal ulcer and intra-abdominal soiling. Intraperitoneal lavage was carried out. Patient now has 2 MICHELLE drains and a wound VAC in place. Patient was extubated after procedure. Then placed in the ICU for close observation. Today-moved out of the ICU. Has been nothing by mouth. Minimal flatus. MICHELLE drains remain in place. No nausea vomiting. Some pain is present. Review of systems: Was done for constitutional, cardiovascular, GI, pulmonary. relevant finding as above Current medications reviewed that include: IV Diflucan, IV Flagyl, IV Zosyn, and PPN Physical examination: VITAL SIGNS: 98.6, 86, 16, 134/76, 95% on 1.5 L GENERAL: Laying in bed, awake. EYES: Pupils equal. Conjunctiva normal. HEENT: External appearance of nose and ears normal, oral cavity grossly normal, nasal cannula in place. NECK: JVD not raised; masses not palpable. HEART: First and second heart sounds are normal; no edema. LUNGS: Respiratory rate increased, decreased breath sounds minimal wheezing. ABDOMEN: Soft, tender, abdominal binder, wound VAC in place, [address],, liver spleen not palpable, no masses palpable. PSYCH: Alert and oriented x3; mood and affect normal. INVESTIGATIONS, reviewed in the clinical context: White count 9.8 hemoglobin 11.3 platelets 221 potassium 4.3 creatinine 0.64 Prior studies: EKG tracing personally reviewed by me shows normal sinus rhythm Computed tomography scan abdomen and pelvis-pneumopericardium multiple thick- walled loops of proximal small bowel compression fracture of L2 and L3 Assessment: -Acute perforation of gastrojejunal ulcer, followed by surgical repair including a patch -Intra-abdominal fecal soiling, due to perforated ulcer with secondary peritonitis -Essential hypertension -Coronary artery disease with prior [place] -Chronic seizure disorder -Primary osteoarthritis -Chronic fibromyalgia -Bipolar disorder -Chronic nicotine dependence, patient cigarette smoker Plan: Continue with IV antibiotics including IV Diflucan, IV Zosyn, IV Flagyl. Patient remains nothing by mouth. TPN has been started. Patient will need a PICC line. Thank you Dr. Barnard, will follow with you
[2019-06-11] MEDS: PIPERACILLIN-TAZOBACTAM 3.375 GM in SODIUM CHLORIDE 0.9% 100 ML IVPB SCH ×4 (02:02→23:16)
[2019-06-11] MEDS: HYDROmorphone 1 MG/ML 1 ML SYRINGE IVP PRN ×7 (02:03→22:16)
[2019-06-11] MEDS: 0.9% NACL WITH KCL 20 MEQ/L 1,000 ML IV SCH ×2 (03:11→13:41)
[2019-06-11 07:02] LABS: Glucose,Whole Blood 120 mg/dL (75-99)
[2019-06-11 08:24] LABS: Basophils % (A) 0 %; Eosinophils # (A) 0.3 k/uL (0-0.7); Eosinophils % (A) 3 %; HGB 10.5 gm/dL (11.4-16.0); Lymphocytes # (A) 0.6 k/uL (1.0-4.8); Lymphocytes % (A) 6 %; MCH 33.3 pg (25.0-35.0); MCHC 32.7 g/dL (31.0-37.0); MCV 101.9 fL (80.0-100.0); Macrocytosis Slight; Monocytes # (A) 0.3 k/uL (0-1.0); Monocytes % (A) 3 %; Neutrophils # (A) 8.1 k/uL (1.3-7.7); Neutrophils % (A) 88 %; Platelet Count 314 k/uL (150-450); RBC 3.14 m/uL (3.80-5.40); RDW 14.5 % (11.5-15.5); WBC 9.2 k/uL (3.8-10.6)
[2019-06-11 08:33] LABS: African American GFR (CKD) >90 (>60 ml/min/1.73 sqM); Anion Gap 4 mmol/L; Blood Urea Nitrogen 9 mg/dL (7-17); Calcium 7.2 mg/dL (8.4-10.2); Carbon Dioxide 22 mmol/L (22-30); Chloride 111 mmol/L (98-107); Glucose 115 mg/dL (74-99); Non-African American GFR(CKD) >90 (>60 ml/min/1.73 sqM); Phosphorus 1.6 mg/dL (2.5-4.5); Potassium 3.1 mmol/L (3.5-5.1); Sodium 137 mmol/L (137-145)
[2019-06-11] MEDS: PANTOPRAZOLE 40 MG/10 ML VIAL IVP SCH ×2 (08:41→20:27)
[2019-06-11] MEDS: HEPARIN SODIUM,PORCINE 5,000 UNIT/ML 1 ML VIAL SQ SCH ×2 (08:41→20:27)
[2019-06-11 08:44] LABS: Ionized Calcium 4.9 mg/dL (4.5-5.3)
[2019-06-11] MEDS ORDERED: Phosphorus Replacement Protoco 1 EACH MISC MISCELLANE PRN (09:56)
--- NOTE | 2019-06-11 10:41 | P.PN ---
Progress Note - Text Progress Note Date: 06/11/19 The patient is resting in her bed. She states she has some abdominal pain. On exam her vital signs are stable. Her abdomen soft. There is a wound care system in place. Status post repair of marginal ulcer. Patient will remain nothing by mouth on TPN.
[2019-06-11] MEDS: FLUCONAZOLE IN NACL,ISO-OSM 100 MG in SALINE 1 50ML.BAG IVPB SCH (10:48)
[2019-06-11 11:25] LABS: Glucose,Whole Blood 135 mg/dL (75-99)
[2019-06-11] MEDS: POTASSIUM PHOSPHATE 10 MMOL in SODIUM CHLORIDE 0.9% 100 ML IV SCH ×2 (12:27→13:51)
[2019-06-11] MEDS: METOCLOPRAMIDE 5 MG/ML 2 ML VIAL IVP PRN (16:21)
--- NOTE | 2019-06-11 16:56 | P.PN ---
Progress Note - Text Progress Note Date: 06/11/19 - Chief Complaint Abdominal pain Interval history: This is a pleasant 54-year-old patient follows with Dr. beaver out of [place]. Chronic stable medical conditions include hypertension, coronary artery disease with prior [place], seizure disorder, arthritis, peptic ulcer disease, fibromyalgia, osteoporosis. Patient was recently in the hospital with episode of severe sulfa ALLERGY. Patient about a 1 week ago took a fall and suffered lumbar vertebra fracture. Was having pain in that area and also down pain. Decided to come down to the hospital for the same. Patient did have a computed tomography scan of the abdomen and pelvis was found to have free air. Patient was taken to the operating room was found to have perforated gastrojejunal ulcer and intra-abdominal soiling. Intraperitoneal lavage was carried out. Patient now has 2 MICHELLE drains and a wound VAC in place. Patient was extubated after procedure. Then placed in the ICU for close observation. Today-laying in bed. Remains nothing by mouth. No flatus. No nausea vomiting. Has some dirty yellow drainage from the MICHELLE drain. Also [place]. Review of systems: Was done for constitutional, cardiovascular, GI, pulmonary. relevant finding as above Active Medications Alprazolam (Xanax) 1 mg PO TID PRN PRN Reason: Anxiety Bisacodyl (Dulcolax) 10 mg RECTAL DAILY PRN PRN Reason: Constipation Diphenhydramine HCl (Benadryl) 25 mg IVP Q6HR PRN PRN Reason: Itching Last Admin: 06/09/19 21:44 Dose: 25 mg Documented by: Heparin Sodium (Porcine) (Heparin) 5,000 unit SQ Q12HR [facility] Last Admin: 06/11/19 08:41 Dose: 5,000 unit Documented by: Hydromorphone HCl (Dilaudid) 1 mg IVP Q3HR PRN PRN Reason: Moderate to Severe Pain Last Admin: 06/11/19 16:01 Dose: 1 mg Documented by: Metronidazole 500 mg/ IV (Solution) 100 mls @ 100 mls/hr IVPB Q8HR [facility] Last Admin: 06/11/19 16:02 Dose: 100 mls/hr Documented by: Piperacillin Sod/Tazobactam (Sod 3.375 gm/ Sodium Chloride) 100 mls @ 25 mls/hr IVPB Q8HR [facility] Last Admin: 06/11/19 16:02 Dose: 25 mls/hr Documented by: Ropivacaine 250 mg/Hydromorphone HCl 5 mg/ Sodium Chloride 250 mls @ 0 mls/hr EPIDURAL .Q0M PRN; Protocol PRN Reason: Pain Control Last Admin: 06/10/19 00:25 Dose: 8 mls/hr Documented by: Fluconazole/Sodium Chloride (100 mg/ IV Solution) 50 mls @ 50 mls/hr IVPB DAILY [facility] Last Admin: 06/11/19 10:48 Dose: 50 mls/hr Documented by: Potassium Chloride/Sodium Chloride (Ns-Kcl 20 Meq/L Iv Solution) 1,000 mls @ 100 mls/hr IV .Q10H [facility] Last Admin: 06/11/19 13:41 Dose: Not Given Documented by: Parenteral Vitamin Supplement 10 ml/ Chromium/Copper/Manganese/Seleni/Zn 1 ml/C alcium Gluconate 1 gm/ Sodium Acetate 30 meq/ Potassium Phosphate 15 mmol/ Amino Acids /Dextrose 1,041 mls @ 30 mls/hr IV .Q24H [facility] Stop: 06/11/19 18:59 Last Admin: 06/10/19 20:16 Dose: 30 mls/hr Documented by: Parenteral Vitamin Supplement 10 ml/ Chromium/Copper/Manganese/Seleni/Zn 1 ml/Calcium Gluconate 1 gm/ Sodium Acetate 30 meq/ Potassium Phosphate 15 mmol/ Amino Acids /Dextrose 1,041 mls @ 65 mls/hr IV .BY DURATION [facility] Calcium Gluconate 1 gm/ Sodium Acetate 30 meq/ Potassium Phosphate 15 mmol/ Amino Acids /Dextrose 1,030 mls @ 65 mls/hr IV .BY DURATION [facility] Fat Emulsion Intravenous 250 (ml/ IV Solution) 250 mls @ 21 mls/hr IV [id number] [facility] Last Admin: 06/10/19 20:15 Dose: 21 mls/hr Documented by: Lorazepam (Ativan) 0.5 mg IV Q6HR PRN PRN Reason: Anxiety Metoclopramide HCl (Reglan) 10 mg IVP Q6H PRN PRN Reason: Nausea And Vomiting Last Admin: 06/11/19 16:21 Dose: 10 mg Documented by: Miscellaneous Information (Phosphorus Per Protocol) 1 each MISCELLANE DAILY PRN; Protocol PRN Reason: Per Protocol Morphine Sulfate (Morphine Sulfate (Inj)) 4 mg IV Q4HR PRN PRN Reason: Severe Pain Naloxone HCl (Narcan) 0.2 mg IV Q2M PRN PRN Reason: Opioid Reversal Ondansetron HCl (Zofran) 4 mg IVP Q8HR PRN PRN Reason: Nausea And Vomiting Last Admin: 06/10/19 06:57 Dose: 4 mg Documented by: Pantoprazole Sodium (Protonix) 40 mg IVP BID [facility] Last Admin: 06/11/19 08:41 Dose: 40 mg Documented by: Physical examination: VITAL SIGNS: 98.4, 60, 15, 145/84, 97% on 1.5 L GENERAL: Laying in bed, not in distress EYES: Pupils equal. Conjunctiva normal. HEENT: External appearance of nose and ears normal, oral cavity grossly normal, nasal cannula in place. NECK: JVD not raised; masses not palpable. HEART: First and second heart sounds are normal; no edema. LUNGS: Respiratory rate increased, decreased breath sounds minimal wheezing. ABDOMEN: Soft, tender, abdominal binder, wound VAC in place, [address],, liver spleen not palpable, no masses palpable. No bowel sounds PSYCH: Alert and oriented x3; mood and affect normal. INVESTIGATIONS, reviewed in the clinical context: White count 9.2 hemoglobin 10.5 potassium 3.1 crit 0.47 Accu-Cheks 135 Prior studies: EKG tracing personally reviewed by me shows normal sinus rhythm Computed tomography scan abdomen and pelvis-pneumopericardium multiple thick- walled loops of proximal small bowel compression fracture of L2 and L3 Assessment: -Acute perforation of gastrojejunal ulcer, followed by surgical repair including a patch -Intra-abdominal fecal soiling, due to perforated ulcer with secondary peritonitis -Essential hypertension -Coronary artery disease with prior [place] -Chronic seizure disorder -Primary osteoarthritis -Chronic fibromyalgia -Bipolar disorder -Chronic nicotine dependence, patient cigarette smoker -Hypokalemia and hypophosphatemia Plan: Continue with current antibiotics. Patient remains nothing by mouth. Getting PPN. Care was discussed with the patient. Follow electrolytes.
[2019-06-11 17:05] LABS: Glucose,Whole Blood 140 mg/dL (75-99)
--- NOTE | 2019-06-11 17:25 | PN ---
PROGRESS NOTE DATE OF SERVICE: 06/11/2019. REASON FOR FOLLOW UP: Secondary peritonitis and abscess from perforated peptic ulcer disease. INTERVAL HISTORY: The patient is currently afebrile. The patient abdominal pain is currently controlled. No worsening. Denies having any chest pain. No shortness or cough. PHYSICAL EXAMINATION: Blood pressure is 153/88 with a pulse of 74, temperature 98.5. She is 92% on room air. General description is a middle aged female, lying in bed in no distress. Respiratory system: Unlabored breathing. Clear to auscultation anteriorly. Heart S1, S2. Regular rate and rhythm. ABDOMEN: Soft. The incision is currently covered with wound VAC. Extremities: No extremities of the feet. Examination the back currently the patient has no wound. LABS: Hemoglobin is 10.5, white count 9.2 with a BUN of 9, creatinine 0.47. Cultures: Abdominal culture currently pending. There is a culture mentioned on the back, which is presumptive Staph aureus. However, the patient with no back wound. DIAGNOSTIC IMPRESSION AND PLAN: Patient with abdominal abscess from a perforated peptic ulcer disease status post laparotomy and repair of the same and cultures currently with Staph aureus, possible MSSA. The patient seems to be clinically responding to Zosyn to continue along with Diflucan as the patient currently has no back wound. Monitor clinical course closely. MMODL / IJN: [id number] / GLADYS
[2019-06-11 20:25] LABS: Glucose,Whole Blood 150 mg/dL (75-99)
[2019-06-12] MEDS: 1: MVI, ADULT NO.4 WITH VIT K 10 ML, TRACE (CONC-1ML/DOSE) 1 ML, CALCIUM GLUCONATE 1 GM, IV SCH ×12 (00:28→15:45)
[2019-06-12] MEDS: 0.9% NACL WITH KCL 20 MEQ/L 1,000 ML IV SCH ×3 (00:32→22:46)
[2019-06-12] MEDS: HYDROmorphone 1 MG/ML 1 ML SYRINGE IVP PRN ×7 (01:52→22:02)
[2019-06-12 07:02] LABS: Glucose,Whole Blood 194 mg/dL (75-99)
[2019-06-12 07:50] LABS: African American GFR (CKD) >90 (>60 ml/min/1.73 sqM); Anion Gap 6 mmol/L; Blood Urea Nitrogen 7 mg/dL (7-17); Calcium 7.6 mg/dL (8.4-10.2); Carbon Dioxide 28 mmol/L (22-30); Chloride 104 mmol/L (98-107); Glucose 160 mg/dL (74-99); Magnesium 1.4 mg/dL (1.6-2.3); Non-African American GFR(CKD) >90 (>60 ml/min/1.73 sqM); Phosphorus 1.9 mg/dL (2.5-4.5); Sodium 138 mmol/L (137-145)
[2019-06-12 08:04] LABS: Potassium 2.7 mmol/L (3.5-5.1)
[2019-06-12] MEDS ORDERED: Potassium Replacement Protocol 1 EACH MISC MISCELLANE PRN (08:22)
[2019-06-12] MEDS ORDERED: Phosphorus Replacement Protoco 1 EACH MISC MISCELLANE PRN (08:35)
[2019-06-12] MEDS: POTASSIUM CHLORIDE 20 MEQ in WATER FOR INJECTION 1 100ML.BAG IVPB SCH ×3 (09:00→14:35)
[2019-06-12] MEDS: PANTOPRAZOLE 40 MG/10 ML VIAL IVP SCH ×2 (09:01→20:53)
[2019-06-12] MEDS: HEPARIN SODIUM,PORCINE 5,000 UNIT/ML 1 ML VIAL SQ SCH ×2 (09:01→20:53)
[2019-06-12] MEDS: PIPERACILLIN-TAZOBACTAM 3.375 GM in SODIUM CHLORIDE 0.9% 100 ML IVPB SCH (09:01)
[2019-06-12] MEDS: metroNIDAZOLE-NS PMX 500 MG in SALINE 1 100ML.BAG IVPB SCH ×2 (09:05→15:36)
[2019-06-12] MEDS: METOCLOPRAMIDE 5 MG/ML 2 ML VIAL IVP PRN ×2 (09:11→15:57)
[2019-06-12] MEDS: FLUCONAZOLE IN NACL,ISO-OSM 100 MG in SALINE 1 50ML.BAG IVPB SCH (11:18)
[2019-06-12 11:55] LABS: Glucose,Whole Blood 176 mg/dL (75-99)
--- NOTE | 2019-06-12 12:51 | P.PN ---
Progress Note - Text Progress Note Date: 06/12/19 Patient still has complaints of incisional pain. On exam her vital signs are stable. Her abdomen soft. Incisions clean dry tach. Status post repair of perforated marginal ulcer. Patient remained nothing by mouth. She'll start oral feedings later this week.
[2019-06-12] MEDS: ONDANSETRON 4 MG/2 ML VIAL IVP PRN (14:40)
--- NOTE | 2019-06-12 15:24 | P.PN ---
Progress Note - Text Progress Note Date: 06/12/19 - Chief Complaint Abdominal pain Interval history: This is a pleasant 54-year-old patient follows with Dr. beaver out of [place]. Chronic stable medical conditions include hypertension, coronary artery disease with prior [place], seizure disorder, arthritis, peptic ulcer disease, fibromyalgia, osteoporosis. Patient was recently in the hospital with episode of severe sulfa ALLERGY. Patient about a 1 week ago took a fall and suffered lumbar vertebra fracture. Was having pain in that area and also down pain. Decided to come down to the hospital for the same. Patient did have a computed tomography scan of the abdomen and pelvis was found to have free air. Patient was taken to the operating room was found to have perforated gastrojejunal ulcer and intra-abdominal soiling. Intraperitoneal lavage was carried out. Patient now has 2 MICHELLE drains and a wound VAC in place. Patient was extubated after procedure. Then placed in the ICU for close observation. Today-laying in bed. Feels better. Did walk a bit today. Did pass some flatus. Remains nothing by mouth. Both the MICHELLE drains are putting out anywhere from 40-60 mL per shift Review of systems: Was done for constitutional, cardiovascular, GI, pulmonary. relevant finding as above Active Medications Alprazolam (Xanax) 1 mg PO TID PRN PRN Reason: Anxiety Bisacodyl (Dulcolax) 10 mg RECTAL DAILY PRN PRN Reason: Constipation Diphenhydramine HCl (Benadryl) 25 mg IVP Q6HR PRN PRN Reason: Itching Last Admin: 06/09/19 21:44 Dose: 25 mg Documented by: Heparin Sodium (Porcine) (Heparin) 5,000 unit SQ Q12HR [facility] Last Admin: 06/12/19 09:01 Dose: 5,000 unit Documented by: Hydromorphone HCl (Dilaudid) 1 mg IVP Q3HR PRN PRN Reason: Moderate to Severe Pain Last Admin: 06/12/19 12:11 Dose: 1 mg Documented by: Metronidazole 500 mg/ IV (Solution) 100 mls @ 100 mls/hr IVPB Q8HR [facility] Last Admin: 06/12/19 09:05 Dose: 100 mls/hr Documented by: Piperacillin Sod/Tazobactam (Sod 3.375 gm/ Sodium Chloride) 100 mls @ 25 mls/hr IVPB Q8HR [facility] Last Admin: 06/12/19 09:01 Dose: 25 mls/hr Documented by: Ropivacaine 250 mg/Hydromorphone HCl 5 mg/ Sodium Chloride 250 mls @ 0 mls/hr EPIDURAL .Q0M PRN; Protocol PRN Reason: Pain Control Last Admin: 06/10/19 00:25 Dose: 8 mls/hr Documented by: Fluconazole/Sodium Chloride (100 mg/ IV Solution) 50 mls @ 50 mls/hr IVPB DAILY [facility] Last Admin: 06/12/19 11:18 Dose: 50 mls/hr Documented by: Potassium Chloride/Sodium Chloride (Ns-Kcl 20 Meq/L Iv Solution) 1,000 mls @ 100 mls/hr IV .Q10H [facility] Last Admin: 06/12/19 10:02 Dose: Not Given Documented by: Fat Emulsion Intravenous 250 (ml/ IV Solution) 250 mls @ 21 mls/hr IV [id number] [facility] Last Admin: 06/10/19 20:15 Dose: 21 mls/hr Documented by: Amino Ac/Electrol/Dextrose/Calcium (Clinimix E 5%-D15% Solution) 1,000 mls @ 65 mls/hr IV .BY DURATION [facility] Parenteral Vitamin Supplement 10 ml/ Chromium/Copper/Manganese/Seleni/Zn 1 ml/Amino Ac/Electrol/Dextrose/Calcium 1,011 mls @ 65 mls/hr IV .BY DURATION [facility] Potassium Phosphate 10 mmol/ (Sodium Chloride) 103.3333 mls @ 50 mls/hr IV Q2H [facility] Stop: 06/12/19 15:59 Lorazepam (Ativan) 0.5 mg IV Q6HR PRN PRN Reason: Anxiety Metoclopramide HCl (Reglan) 10 mg IVP Q6H PRN PRN Reason: Nausea And Vomiting Last Admin: 06/12/19 09:11 Dose: 10 mg Documented by: Miscellaneous Information (Potassium Per Protocol) 1 each MISCELLANE DAILY PRN; Protocol PRN Reason: Per Protocol Miscellaneous Information (Phosphorus Per Protocol) 1 each MISCELLANE DAILY PRN; Protocol PRN Reason: Per Protocol Morphine Sulfate (Morphine Sulfate (Inj)) 4 mg IV Q4HR PRN PRN Reason: Severe Pain Naloxone HCl (Narcan) 0.2 mg IV Q2M PRN PRN Reason: Opioid Reversal Ondansetron HCl (Zofran) 4 mg IVP Q8HR PRN PRN Reason: Nausea And Vomiting Last Admin: 06/12/19 14:40 Dose: 4 mg Documented by: Pantoprazole Sodium (Protonix) 40 mg IVP BID [facility] Last Admin: 06/12/19 09:01 Dose: 40 mg Documented by: Physical examination: VITAL SIGNS: 98.7, 66, 14, 160 per 95, 94% room air GENERAL: Laying in bed, appears more comfortable today EYES: Pupils equal. Conjunctiva normal. HEENT: External appearance of nose and ears normal, oral cavity grossly normal, nasal cannula in place. NECK: JVD not raised; masses not palpable. HEART: First and second heart sounds are normal; no edema. LUNGS: Respiratory rate increased, decreased breath sounds minimal wheezing. ABDOMEN: Soft, tender, abdominal binder, wound VAC in place, [address],, liver spleen not palpable, no masses palpable. No bowel sounds PSYCH: Alert and oriented x3; mood and affect normal. INVESTIGATIONS, reviewed in the clinical context: Potassium 2.7 creatinine 0.41 Accu-Cheks 176 phosphorus 1.9 magnesium 1.4 Prior studies: EKG tracing personally reviewed by me shows normal sinus rhythm Computed tomography scan abdomen and pelvis-pneumopericardium multiple thick- walled loops of proximal small bowel compression fracture of L2 and L3 Assessment: -Acute perforation of gastrojejunal ulcer, followed by surgical repair including a patch -Intra-abdominal fecal soiling, due to perforated ulcer with secondary peritonitis -Essential hypertension -Coronary artery disease with prior [place] -Chronic seizure disorder -Primary osteoarthritis -Chronic fibromyalgia -Bipolar disorder -Chronic nicotine dependence, patient cigarette smoker -Severe Hypokalemia and hypophosphatemia, hypomagnesemia Plan: Electrolytes are being corrected antibiotics and to continue care was discussed with the patient. Also encouraged to sit up in a chair; started to ambulate. Follow
[2019-06-12] MEDS: 1: AMINO ACID 5%-D15W+LYTES*E* 1,000 ML 2: MVI, ADULT NO.4 WITH VIT K 10 ML, TRACE (CON IV SCH ×3 (15:36)
[2019-06-12] MEDS: POTASSIUM PHOSPHATE 10 MMOL in SODIUM CHLORIDE 0.9% 100 ML IV SCH ×2 (16:51→19:08)
[2019-06-12 17:06] LABS: Glucose,Whole Blood 155 mg/dL (75-99)
--- NOTE | 2019-06-12 20:24 | PN ---
PROGRESS NOTE DATE OF SERVICE: 06/12/2019. REASON FOR FOLLOWUP: Abdominal abscess. INTERVAL HISTORY: The patient is currently afebrile. The patient denies having any chest pain or shortness of breath or cough. Some abdominal discomfort. No nausea, no vomiting. Has not been passing any gas. PHYSICAL EXAMINATION: Her blood pressure is 156/95 with a pulse of 75, temperature 98.4. She is 95% on room air. General description is a middle aged female, lying in bed in no distress. Respiratory system: Unlabored breathing. Clear to auscultation anteriorly. Heart S1, S2. Regular rate and rhythm. Abdomen soft. No tenderness. LABS: BUN of 7, creatinine 0.41. DIAGNOSTIC IMPRESSION AND PLAN: Patient with abdominal abscess status post operative repair of the same. Culture positive for strep. Antibiotic was switched to Unasyn 3 g every 6 hours. Continue with Diflucan. Monitor clinical course closely. Continue supportive care. MMODL / IJN: [id number] / MTDD
[2019-06-12 21:07] LABS: Glucose,Whole Blood 166 mg/dL (75-99)
[2019-06-12] MEDS: AMPICILLIN-SULBACTAM 3 GM in SODIUM CHLORIDE 0.9% 100 ML IVPB SCH (21:48)
[2019-06-13] MEDS: AMPICILLIN-SULBACTAM 3 GM in SODIUM CHLORIDE 0.9% 100 ML IVPB SCH ×4 (00:10→20:48)
[2019-06-13] MEDS: HYDROmorphone 1 MG/ML 1 ML SYRINGE IVP PRN ×7 (00:48→20:36)
[2019-06-13] MEDS: POTASSIUM CHLORIDE 10 MEQ in WATER FOR INJECTION 1 100ML.BAG IVPB SCH ×4 (00:48→03:51)
[2019-06-13] MEDS: ONDANSETRON 4 MG/2 ML VIAL IVP PRN ×2 (03:58→20:36)
[2019-06-13] MEDS: 0.9% NACL WITH KCL 20 MEQ/L 1,000 ML IV SCH ×2 (05:02→16:16)
[2019-06-13] MEDS: 1: AMINO ACID 5%-D15W+LYTES*E* 1,000 ML 2: MVI, ADULT NO.4 WITH VIT K 10 ML, TRACE (CON IV SCH ×6 (05:06→18:29)
[2019-06-13] MEDS: PANTOPRAZOLE 40 MG/10 ML VIAL IVP SCH ×2 (07:11→20:36)
[2019-06-13] MEDS: HEPARIN SODIUM,PORCINE 5,000 UNIT/ML 1 ML VIAL SQ SCH ×2 (07:11→20:36)
[2019-06-13 07:27] LABS: Glucose,Whole Blood 126 mg/dL (75-99)
[2019-06-13 08:41] LABS: African American GFR (CKD) >90 (>60 ml/min/1.73 sqM); Anion Gap 5 mmol/L; Blood Urea Nitrogen 8 mg/dL (7-17); Calcium 7.6 mg/dL (8.4-10.2); Carbon Dioxide 33 mmol/L (22-30); Chloride 99 mmol/L (98-107); Glucose 125 mg/dL (74-99); Magnesium 1.3 mg/dL (1.6-2.3); Non-African American GFR(CKD) >90 (>60 ml/min/1.73 sqM); Phosphorus 2.9 mg/dL (2.5-4.5); Potassium 3.5 mmol/L (3.5-5.1); Sodium 137 mmol/L (137-145)
[2019-06-13] MEDS: FLUCONAZOLE IN NACL,ISO-OSM 100 MG in SALINE 1 50ML.BAG IVPB SCH (08:41)
[2019-06-13 08:45] LABS: Basophils % (A) 0 %; Eosinophils # (A) 0.3 k/uL (0-0.7); Eosinophils % (A) 3 %; HCT 34.6 % (34.0-46.0); HGB 11.5 gm/dL (11.4-16.0); Lymphocytes # (A) 0.8 k/uL (1.0-4.8); Lymphocytes % (A) 9 %; MCH 32.6 pg (25.0-35.0); MCHC 33.1 g/dL (31.0-37.0); MCV 98.3 fL (80.0-100.0); Mean Platelet Volume 6.8; Monocytes # (A) 0.5 k/uL (0-1.0); Monocytes % (A) 6 %; Neutrophils # (A) 6.5 k/uL (1.3-7.7); Neutrophils % (A) 80 %; Platelet Count 345 k/uL (150-450); RBC 3.52 m/uL (3.80-5.40); RDW 13.7 % (11.5-15.5); WBC 8.2 k/uL (3.8-10.6)
[2019-06-13] MEDS: MAGNESIUM SULFATE-D5W PMX 1 GM in DEXTROSE/WATER 1 100ML.BAG IVPB SCH ×2 (09:45→10:53)
--- NOTE | 2019-06-13 11:39 | P.PN ---
Subjective Progress Note Date: 06/13/19 CHIEF COMPLAINT: abdominal pain HISTORY OF PRESENT ILLNESS: Patient examined at the bedside. She reports her pain is tolerable. Reports passing flatus. Denies BM. Remains NPO. TPN infusing. MICHELLE x2 with serous drainage. WBC 8.2. Hemoglobin 11.5. PHYSICAL EXAM: VITAL SIGNS: Currently stable. GENERAL: Well-developed in no acute distress. HEENT: No sclera icterus. Extraocular movements grossly intact. Moist buccal mucosa. Head is atraumatic, normocephalic. Hears conversational speech. No nasal drainage. NECK: Supple without lymphadenopathy. CHEST: Non-labored respirations and equal bilateral excursions. CARDIOVASCULAR: Regular rate with regular rhythm. Palpable 2+ radial pulses. ABDOMEN: Soft. Nondistended. PREVENA wound system intact. hypoactive bowel sounds. MICHELLE drain 2 with serous drainage MUSCULOSKELETAL: No clubbing, cyanosis or edema. NEUROLOGIC: No focal or lateralizing signs. Cranial nerves II through XII gr ossly intact. PSYCH: Appropriate affect. Alert and oriented to person, place and time. SKIN: Well perfused. Good skin turgor. ASSESSMENT: 1. 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 Diffuse peritonitis, generalized with intra-abdominal abscess, diffuse 3. Abnormal computed tomography scan with intra-abdominal fluid 4. History of gastric bypass 5. Medical noncompliance to post-bariatric care with recurrent tobacco abuse 6. Tobacco abuse 7. Tobacco cessation and counseling 8. Depressive disorder 9. Chronic pain syndrome 10. Fibromyalgia 11. Chronic constipation 12. Massive weight loss over 120 pounds following gastric bypass 7 years ago 13. Generalized anxiety disorder 14. History of myocardial infarction 15. Hypertensive heart disease 16. Bipolar disorder 17. History of seizure disorder 18. Angina 19. Hypomagnesemia 20. Hypokalemia PLAN: 1. NPO. Patient may have ice chips only!! NO ORAL MEDICATIONS 2. Earliest patient may begin clear liquid diet is THURSDAY 3. Continue TPN 4. No nicotine patch at this time to ensure healing 5. Infectious disease on consult. Antibiotics per Dr. Beavers 6. We'll discontinue PREVENA on Thursday, June 15 2019 7. Encourage use of incentive spirometry 10 times per hour 8. Activity as tolerated 9. Social work on consult for subacute rehab at discharge Nurse practitioner note has been reviewed by physician. Signing provider agrees with the documented findings, assessment, and plan of care. Objective - Vital Signs Vital signs: Vital Signs Temp 98.7 F 06/13/19 07:43 Pulse 75 06/13/19 07:43 Resp 16 06/13/19 07:43 BP 160/92 06/13/19 07:43 Pulse Ox 94 L 06/13/19 07:43 Intake & Output 06/12/19 06/13/19 06/13/19 18:59 06:59 18:59 Intake Total 1055 Output Total 110 60 120 Balance -110 995 -120 Intake: Intake, IV Titration 1055 Amount Amino Acid 5%-D15w+Lytes* 455 E* 1,000 ml @ 65 mls/hr IV .BY DURATION [facility] Rx#: [id number] Ampicillin-Sulbactam 3 gm 200 In Sodium Chloride 0.9% 100 ml @ 200 mls/hr IVPB Q6HR [facility] Rx#:[id number] Potassium Chloride 10 meq 400 In Water For Injection 1 100ml.bag @ 100 mls/hr IVPB Q1HR [facility] Rx#: [id number] Output: Drainage 110 60 120 Left Abdomen MICHELLE 50 30 50 Right Abdomen MICHELLE 60 30 70 Other: Voiding Method Toilet Toilet Toilet # Voids 4 5 1 - Labs CBC & Chem 7: 06/13/19 07:23 06/13/19 07:23 Labs: Abnormal Lab Results - Last 24 Hours (Table) 06/12/19 06/12/19 06/12/19 Range/Units 11:43 16:54 20:56 RBC (3.80-5.40) m/uL Lymphocytes # (1.0-4.8) k/uL Potassium (3.5-5.1) mmol/L Carbon Dioxide (22-30) mmol/L Creatinine (0.52-1.04) mg/dL Glucose (74-99) mg/dL POC Glucose (mg/dL) 176 H 155 H 166 H (75-99) mg/dL Calcium (8.4-10.2) mg/dL Magnesium (1.6-2.3) mg/dL 06/12/19 06/13/19 06/13/19 Range/Units 23:10 07:09 07:23 RBC (3.80-5.40) m/uL Lymphocytes # (1.0-4.8) k/uL Potassium 3.1 L (3.5-5.1) mmol/L Carbon Dioxide 33 H (22-30) mmol/L Creatinine 0.39 L (0.52-1.04) mg/dL Glucose 125 H (74-99) mg/dL POC Glucose (mg/dL) 126 H (75-99) mg/dL Calcium 7.6 L (8.4-10.2) mg/dL Magnesium 1.3 L (1.6-2.3) mg/dL 06/13/19 Range/Units 07:23 RBC 3.52 L (3.80-5.40) m/uL Lymphocytes # 0.8 L (1.0-4.8) k/uL Potassium (3.5-5.1) mmol/L Carbon Dioxide (22-30) mmol/L Creatinine (0.52-1.04) mg/dL Glucose (74-99) mg/dL POC Glucose (mg/dL) (75-99) mg/dL Calcium (8.4-10.2) mg/dL Magnesium (1.6-2.3) mg/dL Microbiology - Last 24 Hours (Table) 06/08/19 21:45 Fungal Culture - Preliminary Peritoneal Fluid Naina albicans 06/08/19 21:45 Anaerobic Culture - Final Peritoneal Fluid Naina glabrata Anaerobic Gm Negative Bacilli 06/08/19 16:00 Blood Culture - Preliminary Blood No Growth after 96 hours Assessment and Plan (1) Chronic pain disorder Current Visit: Yes Status: Acute Code(s): G89.4 - CHRONIC PAIN SYNDROME SNOMED Code(s): 614007396 (2) Gastrojejunal ulcer with perforation Current Visit: Yes Status: Acute Code(s): K28.5 - CHRONIC OR UNSPECIFIED GASTROJEJUNAL ULCER WITH PERFORATION SNOMED Code(s): 07317057 (3) H/O noncompliance with medical treatment, presenting hazards to health Current Visit: Yes Status: Acute Code(s): Z91.19 - PATIENT'S NONCOMPLIANCE W OTH MEDICAL TREATMENT AND REGIMEN SNOMED Code(s): 338577253 (4) Perforated bowel Current Visit: Yes Status: Acute Code(s): K63.1 - PERFORATION OF INTESTINE (NONTRAUMATIC) SNOMED Code(s): 21054664 (5) Peritonitis (acute) generalized Current Visit: Yes Status: Acute Code(s): K65.0 - GENERALIZED (ACUTE) PERITONITIS SNOMED Code(s): 99028011 (6) Tobacco abuse counseling Current Visit: Yes Status: Acute Code(s): Z71.6 - TOBACCO ABUSE COUNSELING SNOMED Code(s): 826587302 (7) Tobacco abuse disorder Current Visit: Yes Status: Acute Code(s): Z72.0 - TOBACCO USE SNOMED Code(s): 267129933
[2019-06-13] MEDS ORDERED: MAGNESIUM SULFATE-D5W PMX 1 GM in DEXTROSE/WATER 1 100ML.BAG IVPB ONE (12:00)
[2019-06-13 12:15] LABS: Glucose,Whole Blood 180 mg/dL (75-99)
--- NOTE | 2019-06-13 12:18 | P.PN ---
Subjective On-call hospitalist covering for Dr. cordoba This is a pleasant 54 years old female with past medical history of hypertension, coronary artery disease, seizure disorder, fibromyalgia and osteoporosis. She presents with diffuse peritonitis secondary to acute perforated gastrojejunal ulcer. Patient status post exploratory laparotomy with repair of perforated gastrojejunal ulcer on 06/08/2019. Patient awake, denies chest pain or dyspnea. She still nothing by mouth including no oral medication. Vitas looks stable, blood pressure 160/92. Labs reviewed showing no leukocytosis with WBC 8.2K, creatinine 0.3, magnesium 1.3, replaced. Blood culture was positive for naina and gram-negative bacilli, Infectious disease team are also following the patient and currently she is on Unasyn, also she is on fluconazole. She is on normal sinus 100 mL/h and Protonix twice a day. She has negative barium swallow on 06/10/2019 with no evidence of postoperative leak or obstruction. Objective - Vital Signs Vital signs: Vital Signs Temp 98.7 F 06/13/19 07:43 Pulse 75 06/13/19 07:43 Resp 16 06/13/19 07:43 BP 160/92 06/13/19 07:43 Pulse Ox 94 L 06/13/19 07:43 Intake & Output 06/12/19 06/13/19 06/13/19 18:59 06:59 18:59 Intake Total 1055 Output Total 110 60 120 Balance -110 995 -120 Intake: Intake, IV Titration 1055 Amount Amino Acid 5%-D15w+Lytes* 455 E* 1,000 ml @ 65 mls/hr IV .BY DURATION [facility] Rx#: [id number] Ampicillin-Sulbactam 3 gm 200 In Sodium Chloride 0.9% 100 ml @ 200 mls/hr IVPB Q6HR [facility] Rx#:[id number] Potassium Chloride 10 meq 400 In Water For Injection 1 100ml.bag @ 100 mls/hr IVPB Q1HR [facility] Rx#: [id number] Output: Drainage 110 60 120 Left Abdomen MICHELLE 50 30 50 Right Abdomen MICHELLE 60 30 70 Other: Voiding Method Toilet Toilet Toilet # Voids 4 5 1 - Exam GENERAL: The patient is alert and oriented x3, not in any acute distress. Well developed, well nourished. HEENT: Pupils are round and equally reacting to light. EOMI. No scleral icterus. No conjunctival pallor. Normocephalic, atraumatic. No pharyngeal erythema. No thyromegaly. CARDIOVASCULAR: S1 and S2 present. No murmurs, rubs, or gallops. PULMONARY: Chest is clear to auscultation, no wheezing or crackles. -ABDOMEN: Soft, nontender, nondistended, normoactive bowel sounds. No palpable organomegaly. Surgical incision is closed with dressing is placed, wound vac is in a Place, [address] as well. no surrounding cellulitis MUSCULOSKELETAL: No joint swelling or deformity. EXTREMITIES: No cyanosis, clubbing, or pedal edema. NEUROLOGICAL: Gross neurological examination did not reveal any focal deficits. SKIN: No rashes. - Labs CBC & Chem 7: 06/13/19 07:06/13/19 07: Labs: Abnormal Lab Results - Last 24 Hours (Table) 06/12/19 06/12/19 06/12/19 Range/Units 16:54 20:56 23:10 RBC (3.80-5.40) m/uL Lymphocytes # (1.0-4.8) k/uL Potassium 3.1 L (3.5-5.1) mmol/L Carbon Dioxide (22-30) mmol/L Creatinine (0.52-1.04) mg/dL Glucose (74-99) mg/dL POC Glucose (mg/dL) 155 H 166 H (75-99) mg/dL Calcium (8.4-10.2) mg/dL Magnesium (1.6-2.3) mg/dL 06/13/19 06/13/19 06/13/19 Range/Units 07:09 07:23 07:23 RBC 3.52 L (3.80-5.40) m/uL Lymphocytes # 0.8 L (1.0-4.8) k/uL Potassium (3.5-5.1) mmol/L Carbon Dioxide 33 H (22-30) mmol/L Creatinine 0.39 L (0.52-1.04) mg/dL Glucose 125 H (74-99) mg/dL POC Glucose (mg/dL) 126 H (75-99) mg/dL Calcium 7.6 L (8.4-10.2) mg/dL Magnesium 1.3 L (1.6-2.3) mg/dL Microbiology - Last 24 Hours (Table) 06/08/19 21:45 Fungal Culture - Preliminary Peritoneal Fluid Naina albicans 06/08/19 21:45 Anaerobic Culture - Final Peritoneal Fluid Naina glabrata Anaerobic Gm Negative Bacilli 06/08/19 16:00 Blood Culture - Preliminary Blood No Growth after 96 hours Assessment and Plan Assessment: Left upper pole kidney cyst Bilateral large adrenal glands, left side consistent with mild low lipoma Mild compression fracture of L3 and L2, related to osteoporosis History of osteoporosis Plan: This is a pleasant 54 years old female who presents with perforated bowel status post exploratory laparotomy and repair of the gastrojejunal ulcer. She'll continue to be nothing by mouth, possible start diet by the end of the week. Primary surgical team are following the patient closely for postoperative care. Continue with antibiotics as per infectious disease recommendation. Continue with Protonix twice daily. Continue with IV hydration.Labs and medication were reviewed.. Continue same treatment. Continue with symptomatic treatment. Resume home medication. Monitor lytes and vitals. DVT and GI prophylaxis. Further recommendations of the clinical course of the patient DVT prophylaxis: Subcutaneous heparin GI Prophylaxis: Protonix Thank you for consulting us
[2019-06-13] MEDS: POTASSIUM CHLORIDE 20 MEQ in WATER FOR INJECTION 1 100ML.BAG IVPB SCH ×2 (14:10→16:10)
[2019-06-13] MEDS ORDERED: ANIDULAFUNGIN 200 MG in SODIUM CHLORIDE 0.9% 200 ML IVPB ONE (14:19)
--- NOTE | 2019-06-13 15:40 | PN ---
PROGRESS NOTE DATE OF SERVICE: 06/13/2019 REASON FOR FOLLOWUP: Abdominal and secondary peritonitis from perforated peptic ulcer disease. INTERVAL HISTORY: The patient is currently afebrile. Patient has been breathing comfortably. Patient abdominal discomfort is slightly decreased. No nausea, no vomiting, no chest pain, no shortness of breath or cough. PHYSICAL EXAMINATION: Blood pressure is 151/79 with a pulse of 71, temperature 98.7, she is 92% on room air. General description is a middle-aged female lying in bed. RESPIRATORY SYSTEM: Unlabored breathing with decreased breath sounds at the base. HEART: S1, S2, regular rate and rhythm. ABDOMEN: Soft. LABS: Hemoglobin 11.5, white count 8.2, BUN of 8, creatinine 0.39. DIAGNOSTIC IMPRESSION AND PLAN: Patient with abdominal abscess with peritonitis from a ruptured perforated peptic ulcer disease. Abdominal culture positive for MSSA anaerobic gram-negative bacilli and Naina glabrata. The patient is currently on Unasyn. Will discontinue the Diflucan, start the patient on Eraxis for the Naina glabrata and monitor clinical course slowly. Continue supportive care. MMODL / IJN: [id number] / MTDD
[2019-06-13 17:05] LABS: Glucose,Whole Blood 128 mg/dL (75-99)
[2019-06-13] MEDS: FAT EMULSION 20% 250 ML in EMPTY BAG 1 BAG IV SCH (18:30)
[2019-06-13 20:23] LABS: Glucose,Whole Blood 146 mg/dL (75-99)
[2019-06-14] MEDS: HYDROmorphone 1 MG/ML 1 ML SYRINGE IVP PRN ×8 (00:15→21:27)
[2019-06-14] MEDS: AMPICILLIN-SULBACTAM 3 GM in SODIUM CHLORIDE 0.9% 100 ML IVPB SCH ×4 (00:22→18:02)
[2019-06-14] MEDS: 0.9% NACL WITH KCL 20 MEQ/L 1,000 ML IV SCH ×2 (02:09→08:34)
[2019-06-14 07:00] LABS: Glucose,Whole Blood 113 mg/dL (75-99)
[2019-06-14 08:00] LABS: African American GFR (CKD) >90 (>60 ml/min/1.73 sqM); Anion Gap 4 mmol/L; Blood Urea Nitrogen 10 mg/dL (7-17); Calcium 7.7 mg/dL (8.4-10.2); Carbon Dioxide 31 mmol/L (22-30); Chloride 102 mmol/L (98-107); Glucose 88 mg/dL (74-99); Magnesium 1.8 mg/dL (1.6-2.3); Non-African American GFR(CKD) >90 (>60 ml/min/1.73 sqM); Phosphorus 3.9 mg/dL (2.5-4.5); Sodium 137 mmol/L (137-145)
[2019-06-14 08:01] LABS: Basophils % (A) 0 %; Eosinophils # (A) 0.3 k/uL (0-0.7); Eosinophils % (A) 3 %; HCT 35.7 % (34.0-46.0); HGB 11.6 gm/dL (11.4-16.0); Lymphocytes # (A) 1.1 k/uL (1.0-4.8); Lymphocytes % (A) 12 %; MCH 32.7 pg (25.0-35.0); MCHC 32.4 g/dL (31.0-37.0); MCV 100.8 fL (80.0-100.0); Macrocytosis Slight; Mean Platelet Volume 6.9; Monocytes # (A) 0.6 k/uL (0-1.0); Monocytes % (A) 7 %; Neutrophils # (A) 6.8 k/uL (1.3-7.7); Neutrophils % (A) 76 %; Platelet Count 372 k/uL (150-450); RBC 3.55 m/uL (3.80-5.40); RDW 14.1 % (11.5-15.5); WBC 9.1 k/uL (3.8-10.6)
[2019-06-14] MEDS: HEPARIN SODIUM,PORCINE 5,000 UNIT/ML 1 ML VIAL SQ SCH ×2 (08:34→21:27)
[2019-06-14] MEDS: PANTOPRAZOLE 40 MG/10 ML VIAL IVP SCH ×2 (08:34→21:27)
[2019-06-14] MEDS: MAGNESIUM SULFATE-D5W PMX 1 GM in DEXTROSE/WATER 1 100ML.BAG IVPB SCH ×2 (08:36→09:51)
[2019-06-14] MEDS: ONDANSETRON 4 MG/2 ML VIAL IVP PRN (09:19)
[2019-06-14] MEDS: 1: AMINO ACID 5%-D15W+LYTES*E* 1,000 ML 2: MVI, ADULT NO.4 WITH VIT K 10 ML, TRACE (CON IV SCH ×3 (10:27)
--- NOTE | 2019-06-14 10:52 | P.PN ---
Subjective On-call hospitalist covering for Dr. cordoba This is a pleasant 54 years old female with past medical history of hypertension, coronary artery disease, seizure disorder, fibromyalgia and osteoporosis. She presents with diffuse peritonitis secondary to acute perforated gastrojejunal ulcer. Patient status post exploratory laparotomy with repair of perforated gastrojejunal ulcer on 06/08/2019. Patient awake, denies chest pain or dyspnea. She still nothing by mouth including no oral medication. Vitas looks stable, blood pressure 160/92. Labs reviewed showing no leukocytosis with WBC 8.2K, creatinine 0.3, magnesium 1.3, replaced. Blood culture was positive for naina and gram-negative bacilli, Infectious disease team are also following the patient and currently she is on Unasyn, also she is on fluconazole. She is on normal sinus 100 mL/h and Protonix twice a day. She has negative barium swallow on 06/10/2019 with no evidence of postoperative leak or obstruction. 06/14/2019 Patient still awake, with some abdominal pain and tenderness which is expected after her surgery. Patient remains nothing by mouth and parenteral feeding is a provided. Patient has left PICC line which is intact with no surrounding infection or inflammation. Also patient is getting IV fluid. Her low magnesium is being replaced. Her magnesium today is 1.8. No other new complaint. Patient expected to work with physical therapy for the first time today. Infectious disease R following the case and they adjusted antibiotics with Unasyn and Eraxis Objective - Vital Signs Vital signs: Vital Signs Temp 98.5 F 06/14/19 07:09 Pulse 72 06/14/19 07:09 Resp 16 06/14/19 07:09 BP 158/101 06/14/19 07:09 Pulse Ox 94 L 06/14/19 07:09 Intake & Output 06/13/19 06/14/19 06/14/19 18:59 06:59 18:59 Intake Total 1000 1311 Output Total 200 Balance 800 1311 Weight 62.142 kg Intake: Intake, IV Titration 1000 1311 Amount Amino Acid 5%-D15w+Lytes* 1000 E* 1,000 ml @ 65 mls/hr IV .BY DURATION [facility] Rx#: [id number] Ampicillin-Sulbactam 3 gm 300 In Sodium Chloride 0.9% 100 ml @ 200 mls/hr IVPB Q6HR [facility] Rx#:[id number] Mvi, Adult No.4 with Vit 1011 K 10 ml Trace (Conc-1Ml/ Dose) 1 ml In Amino Acid 5%-D15w+Lytes*E* 1,000 ml @ 65 mls/hr IV .BY D[facility]ATION [facility] Rx#: [id number] Output: Drainage 200 Left Abdomen MICHELLE 90 Right Abdomen MICHELLE 110 Other: Voiding Method Toilet Indwelling Catheter # Voids 1 1 - Exam GENERAL: The patient is alert and oriented x3, not in any acute distress. Well developed, well nourished. HEENT: Pupils are round and equally reacting to light. EOMI. No scleral icterus. No conjunctival pallor. Normocephalic, atraumatic. No pharyngeal erythema. No thyromegaly. CARDIOVASCULAR: S1 and S2 present. No murmurs, rubs, or gallops. PULMONARY: Chest is clear to auscultation, no wheezing or crackles. -ABDOMEN: Soft, nontender, nondistended, normoactive bowel sounds. No palpable organomegaly. Surgical incision is closed with dressing is placed, wound vac is in a Place, [address] as well. no surrounding cellulitis MUSCULOSKELETAL: No joint swelling or deformity. EXTREMITIES: No cyanosis, clubbing, or pedal edema. NEUROLOGICAL: Gross neurological examination did not reveal any focal deficits. SKIN: No rashes. - Labs CBC & Chem 7: 06/14/19 07:14 06/14/19 07:14 Labs: Abnormal Lab Results - Last 24 Hours (Table) 06/13/19 06/13/19 06/13/19 Range/Units 12:03 16:54 20:11 RBC (3.80-5.40) m/uL MCV (80.0-100.0) fL Carbon Dioxide (22-30) mmol/L Creatinine (0.52-1.04) mg/dL POC Glucose (mg/dL) 180 H 128 H 146 H (75-99) mg/dL Calcium (8.4-10.2) mg/dL 06/14/19 06/14/19 06/14/19 Range/Units 06:48 07:14 07:14 RBC 3.55 L (3.80-5.40) m/uL MCV 100.8 H (80.0-100.0) fL Carbon Dioxide 31 H (22-30) mmol/L Creatinine 0.43 L (0.52-1.04) mg/dL POC Glucose (mg/dL) 113 H (75-99) mg/dL Calcium 7.7 L (8.4-10.2) mg/dL Microbiology - Last 24 Hours (Table) 06/08/19 16:00 Blood Culture - Preliminary Blood No Growth after 120 hours 06/08/19 21:45 Fungal Culture - Preliminary Peritoneal Fluid Naina albicans Assessment and Plan Assessment: Perforated viscus and peritonitis status post exploratory laparotomy for repair of the jejunojejunal peptic ulcer Sepsis secondary to peritonitis with culture growing MSSA SA, gram-negative bacilli and naina Left upper pole kidney cyst Bilateral large adrenal glands, left side consistent with mild low lipoma Mild compression fracture of L3 and L2, related to osteoporosis History of osteoporosis Plan: This is a pleasant 54 years old female who presents with perforated bowel status post exploratory laparotomy and repair of the gastrojejunal ulcer. She'll continue to be nothing by mouth, possible start diet by the end of the week. Primary surgical team are following the patient closely for postoperative care. Continue with antibiotics as per infectious disease recommendation. Continue with Protonix twice daily. Continue with IV hydration.Labs and medication were reviewed.. Continue same treatment. Continue with symptomatic treatment. Resume home medication. Monitor lytes and vitals. DVT and GI prophylaxis. Further recommendations of the clinical course of the patient DVT prophylaxis: Subcutaneous heparin GI Prophylaxis: Protonix Thank you for consulting us
[2019-06-14 11:48] LABS: Glucose,Whole Blood 150 mg/dL (75-99)
--- NOTE | 2019-06-14 12:58 | P.PN ---
Subjective Progress Note Date: 06/14/19 CHIEF COMPLAINT: abdominal pain HISTORY OF PRESENT ILLNESS: Patient examined at the bedside. She reports her pain is tolerable. Reports passing flatus. Denies BM. Remains NPO. TPN infusing. MICHELLE x2 with serous drainage. WBC 9.1. Hemoglobin 11.6. Potassium 4.0. M agnesium 1.8. Patient reports she is going to get out of bed today and work with physical therapy. abdominal culture positive for Naina albicans, anaerobic gram-negative bacilli, and Naina glabrata. PHYSICAL EXAM: VITAL SIGNS: Currently stable. GENERAL: Well-developed in no acute distress. HEENT: No sclera icterus. Extraocular movements grossly intact. Moist buccal mucosa. Head is atraumatic, normocephalic. Hears conversational speech. No nasal drainage. NECK: Supple without lymphadenopathy. CHEST: Non-labored respirations and equal bilateral excursions. CARDIOVASCULAR: Regular rate with regular rhythm. Palpable 2+ radial pulses. ABDOMEN: Soft. Nondistended. PREVENA wound system intact. hypoactive bowel sounds. MICHELLE drain 2 with serous drainage MUSCULOSKELETAL: No clubbing, cyanosis or edema. NEUROLOGIC: No focal or lateralizing signs. Cranial nerves II through XII grossly intact. PSYCH: Appropriate affect. Alert and oriented to person, place and time. SKIN: Well perfused. Good skin turgor. ASSESSMENT: 1. 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 Diffuse peritonitis, generalized with intra-abdominal abscess, diffuse 3. Abnormal computed tomography scan with intra-abdominal fluid 4. History of gastric bypass 5. Medical noncompliance to post-bariatric care with recurrent tobacco abuse 6. Tobacco abuse 7. Tobacco cessation and counseling 8. Depressive disorder 9. Chronic pain syndrome 10. Fibromyalgia 11. Chronic constipation 12. Massive weight loss over 120 pounds following gastric bypass 7 years ago 13. Generalized anxiety disorder 14. History of myocardial infarction 15. Hypertensive heart disease 16. Bipolar disorder 17. History of seizure disorder 18. Angina 19. Hypomagnesemia 20. Hypokalemia PLAN: 1. NPO. Patient may have ice chips only!! NO ORAL MEDICATIONS 2. Earliest patient may begin clear liquid diet is THURSDAY 3. Continue TPN 4. No nicotine patch at this time to ensure healing 5. Infectious disease on consult. Antibiotics per Dr. Beavers 6. Will discontinue PREVENA on Thursday, June 15 2019 7. Encourage use of incentive spirometry 10 times per hour 8. Activity as tolerated 9. Social work on consult for subacute rehab at discharge 10. Replace magnesium per protocol Nurse practitioner note has been reviewed by physician. Signing provider agrees with the documented findings, assessment, and plan of care. Objective - Vital Signs Vital signs: Vital Signs Temp 98.5 F 06/14/19 07:09 Pulse 72 06/14/19 07:09 Resp 16 06/14/19 07:09 BP 158/101 06/14/19 07:09 Pulse Ox 94 L 06/14/19 07:09 Intake & Output 06/13/19 06/14/19 06/14/19 18:59 06:59 18:59 Intake Total 1000 1311 Output Total 200 50 Balance 800 1311 -50 Weight 62.142 kg Intake: Intake, IV Titration 1000 1311 Amount Amino Acid 5%-D15w+Lytes* 1000 E* 1,000 ml @ 65 mls/hr IV .BY DURATION [facility] Rx#: [id number] Ampicillin-Sulbactam 3 gm 300 In Sodium Chloride 0.9% 100 ml @ 200 mls/hr IVPB Q6HR [facility] Rx#:[id number] Mvi, Adult No.4 with Vit 1011 K 10 ml Trace (Conc-1Ml/ Dose) 1 ml In Amino Acid 5%-D15w+Lytes*E* 1,000 ml @ 65 mls/hr IV .BY DURATION [facility] Rx#: [id number] Output: Drainage 200 50 Left Abdomen MICHELLE 90 10 Right Abdomen MICHELLE 110 40 Other: Voiding Method Toilet Indwelling Catheter # Voids 1 1 1 - Labs CBC & Chem 7: 06/14/19 07:14 06/14/19 07:14 Labs: Abnormal Lab Results - Last 24 Hours (Table) 06/13/19 06/13/19 06/14/19 Range/Units 16:54 20:11 06:48 RBC (3.80-5.40) m/uL MCV (80.0-100.0) fL Carbon Dioxide (22-30) mmol/L Creatinine (0.52-1.04) mg/dL POC Glucose (mg/dL) 128 H 146 H 113 H (75-99) mg/dL Calcium (8.4-10.2) mg/dL 06/14/19 06/14/1919 Range/Units 07:14 07:14 11:47 RBC 3.55 L (3.80-5.40) m/uL MCV 100.8 H (80.0-100.0) fL Carbon Dioxide 31 H (22-30) mmol/L Creatinine 0.43 L (0.52-1.04) mg/dL POC Glucose (mg/dL) 150 H (75-99) mg/dL Calcium 7.7 L (8.4-10.2) mg/dL Microbiology - Last 24 Hours (Table) 06/08/19 16:00 Blood Culture - Preliminary Blood No Growth after 120 hours 06/08/19 21:45 Fungal Culture - Preliminary Peritoneal Fluid Naina albicans Assessment and Plan (1) Chronic pain disorder Current Visit: Yes Status: Acute Code(s): G89.4 - CHRONIC PAIN SYNDROME SNOMED Code(s): 849956731 (2) Gastrojejunal ulcer with perforation Current Visit: Yes Status: Acute Code(s): K28.5 - CHRONIC OR UNSPECIFIED GASTROJEJUNAL ULCER WITH PERFORATION SNOMED Code(s): 27322721 (3) H/O noncompliance with medical treatment, presenting hazards to health Current Visit: Yes Status: Acute Code(s): Z91.19 - PATIENT'S NONCOMPLIANCE W OTH MEDICAL TREATMENT AND REGIMEN SNOMED Code(s): 478847041 (4) Perforated bowel Current Visit: Yes Status: Acute Code(s): K63.1 - PERFORATION OF INTESTINE (NONTRAUMATIC) SNOMED Code(s): 39650196 (5) Peritonitis (acute) generalized Current Visit: Yes Status: Acute Code(s): K65.0 - GENERALIZED (ACUTE) PERITONITIS SNOMED Code(s): 05165064 (6) Tobacco abuse counseling Current Visit: Yes Status: Acute Code(s): Z71.6 - TOBACCO ABUSE COUNSELING SNOMED Code(s): 042518960 (7) Tobacco abuse disorder Current Visit: Yes Status: Acute Code(s): Z72.0 - TOBACCO USE SNOMED Code(s): 422393688
[2019-06-14] MEDS: ANIDULAFUNGIN 100 MG in SODIUM CHLORIDE 0.9% 100 ML IVPB SCH (15:31)
[2019-06-14 16:56] LABS: Glucose,Whole Blood 107 mg/dL (75-99)
[2019-06-14 20:37] LABS: Glucose,Whole Blood 122 mg/dL (75-99)
--- NOTE | 2019-06-14 20:50 | PN ---
PROGRESS NOTE DATE OF SERVICE: 06/14/2019 REASON FOR FOLLOWUP: Abdominal abscess from perforated peptic ulcer disease. INTERVAL HISTORY: The patient is currently afebrile. The patient has been breathing comfortably. The patient's abdominal pain is currently controlled. The patient has been passing gas did have any bowel movement. Currently on a clear liquid diet. PHYSICAL EXAMINATION: Blood pressure 142/83 with a pulse of 71, temperature 98.3. She is 96% on room air. General description is a middle-aged female lying in bed in no distress. RESPIRATORY SYSTEM: Unlabored breathing. Clear to auscultation anteriorly. HEART: S1, S2. Regular rate and rhythm. ABDOMEN: Soft. No tenderness. LABS: Hemoglobin 11.6, white count 9.1. BUN of 10, creatinine 0.43. DIAGNOSTIC IMPRESSION AND PLAN: Patient with abdominal abscess from perforated ulcer disease, status post operative repair of the same and drainage of the abscess. Culture has been positive for MSSA and aerobic Gram-negative and Naina albicans as well as glabrata, currently covered with Unasyn and a laxative; to continue. Hopefully will be able to finish therapy with oral antibiotics. Continue supportive care. MMODL / IJN: [id number] /
[2019-06-15] MEDS: AMPICILLIN-SULBACTAM 3 GM in SODIUM CHLORIDE 0.9% 100 ML IVPB SCH ×5 (00:20→23:51)
[2019-06-15] MEDS: 0.9% NACL WITH KCL 20 MEQ/L 1,000 ML IV SCH ×2 (00:20→15:03)
[2019-06-15] MEDS: HYDROmorphone 1 MG/ML 1 ML SYRINGE IVP PRN ×8 (00:21→23:51)
[2019-06-15] MEDS: ONDANSETRON 4 MG/2 ML VIAL IVP PRN ×2 (00:24→20:47)
[2019-06-15] MEDS: 1: AMINO ACID 5%-D15W+LYTES*E* 1,000 ML 2: MVI, ADULT NO.4 WITH VIT K 10 ML, TRACE (CON IV SCH ×3 (03:43)
[2019-06-15 07:01] LABS: Glucose,Whole Blood 119 mg/dL (75-99)
[2019-06-15 09:08] LABS: Basophils % (A) 0 %; Eosinophils # (A) 0.2 k/uL (0-0.7); Eosinophils % (A) 3 %; HCT 33.4 % (34.0-46.0); HGB 11.1 gm/dL (11.4-16.0); Lymphocytes # (A) 0.9 k/uL (1.0-4.8); Lymphocytes % (A) 12 %; MCH 33.8 pg (25.0-35.0); MCHC 33.3 g/dL (31.0-37.0); MCV 101.3 fL (80.0-100.0); Macrocytosis Slight; Mean Platelet Volume 7.3; Monocytes # (A) 0.4 k/uL (0-1.0); Monocytes % (A) 6 %; Neutrophils # (A) 5.3 k/uL (1.3-7.7); Neutrophils % (A) 76 %; Platelet Count 314 k/uL (150-450); RDW 14.8 % (11.5-15.5)
[2019-06-15 09:14] LABS: African American GFR (CKD) >90 (>60 ml/min/1.73 sqM); Anion Gap 3 mmol/L; Blood Urea Nitrogen 11 mg/dL (7-17); Calcium 7.5 mg/dL (8.4-10.2); Carbon Dioxide 28 mmol/L (22-30); Chloride 104 mmol/L (98-107); Glucose 116 mg/dL (74-99); Magnesium 1.8 mg/dL (1.6-2.3); Non-African American GFR(CKD) >90 (>60 ml/min/1.73 sqM); Phosphorus 3.9 mg/dL (2.5-4.5); Potassium 4.4 mmol/L (3.5-5.1); Sodium 135 mmol/L (137-145)
[2019-06-15] MEDS: HEPARIN SODIUM,PORCINE 5,000 UNIT/ML 1 ML VIAL SQ SCH ×2 (09:38→21:09)
[2019-06-15] MEDS: PANTOPRAZOLE 40 MG/10 ML VIAL IVP SCH ×2 (09:38→20:47)
[2019-06-15 11:31] LABS: Glucose,Whole Blood 136 mg/dL (75-99)
[2019-06-15] MEDS: MAGNESIUM SULFATE-D5W PMX 1 GM in DEXTROSE/WATER 1 100ML.BAG IVPB SCH ×2 (12:09→15:03)
--- NOTE | 2019-06-15 12:49 | P.PN ---
Subjective Progress Note Date: 06/15/19 CHIEF COMPLAINT: abdominal pain HISTORY OF PRESENT ILLNESS: Patient examined at the bedside. She reports her pain is tolerable. Reports passing flatus. Denies BM. Remains NPO. TPN infusing. MICHELLE x2 with serous drainage. Patient reports she is going to get out of bed today and work with physical therapy. abdominal culture positive for Naina albicans, anaerobic gram-negative bacilli, and Naina glabrata. PHYSICAL EXAM: VITAL SIGNS: Currently stable. GENERAL: Well-developed in no acute distress. HEENT: No sclera icterus. Extraocular movements grossly intact. Moist buccal mucosa. Head is atraumatic, normocephalic. Hears conversational speech. No nasal drainage. NECK: Supple without lymphadenopathy. CHEST: Non-labored respirations and equal bilateral excursions. CARDIOVASCULAR: Regular rate with regular rhythm. Palpable 2+ radial pulses. ABDOMEN: Soft. Nondistended. PREVENA wound system intact. hypoactive bowel sounds. MICHELLE drain 2 with serous drainage MUSCULOSKELETAL: No clubbing, cyanosis or edema. NEUROLOGIC: No focal or lateralizing signs. Cranial nerves II through XII grossly intact. PSYCH: Appropriate affect. Alert and oriented to person, place and time. SKIN: Well perfused. Good skin turgor. ASSESSMENT: 1. 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 Diffuse peritonitis, generalized with intra-abdominal abscess, diffuse 3. Abnormal computed tomography scan with intra-abdominal fluid 4. History of gastric bypass 5. Medical noncompliance to post-bariatric care with recurrent tobacco abuse 6. Tobacco abuse 7. Tobacco cessation and counseling 8. Depressive disorder 9. Chronic pain syndrome 10. Fibromyalgia 11. Chronic constipation 12. Massive weight loss over 120 pounds following gastric bypass 7 years ago 13. Generalized anxiety disorder 14. History of myocardial infarction 15. Hypertensive heart disease 16. Bipolar disorder 17. History of seizure disorder 18. Angina 19. Hypomagnesemia 20. Hypokalemia PLAN: 1. NPO. Patient may have ice chips only!! NO ORAL MEDICATIONS 2. Earliest patient may begin clear liquid diet is THURSDAY 3. Continue TPN 4. No nicotine patch at this time to ensure healing 5. Infectious disease on consult. Antibiotics per Dr. Beavers 6. PREVENA discontinued at bedside 7. Encourage use of incentive spirometry 10 times per hour 8. Activity as tolerated 9. Social work on consult for subacute rehab at discharge Nurse practitioner note has been reviewed by physician. Signing provider agrees with the documented findings, assessment, and plan of care. Objective - Vital Signs Vital signs: Vital Signs Temp 98.6 F 06/15/19 07:05 Pulse 68 06/15/19 07:05 Resp 16 06/15/19 07:05 BP 149/90 06/15/19 07:05 Pulse Ox 94 L 06/15/19 07:05 Intake & Output 06/14/19 06/15/19 06/15/19 18:59 06:59 18:59 Intake Total 1000 Output Total 50 220 140 Balance 950 -220 -140 Intake: Intake, IV Titration 1000 Amount Amino Acid 5%-D15w+Lytes* 1000 E* 1,000 ml @ 65 mls/hr IV .BY DURATION [facility] Rx#: [id number] Output: Drainage 50 220 140 Left Abdomen MICHELLE 10 140 100 Right Abdomen MICHELLE 40 80 40 Other: Voiding Method Toilet Toilet Toilet # Voids 1 1 - Labs CBC & Chem 7: 06/15/19 08:45 06/15/19 08:45 Labs: Abnormal Lab Results - Last 24 Hours (Table) 06/14/19 06/14/19 06/15/19 Range/Units 16:54 20:34 06:59 RBC (3.80-5.40) m/uL Hgb (11.4-16.0) gm/dL Hct (34.0-46.0) % MCV (80.0-100.0) fL Lymphocytes # (1.0-4.8) k/uL Sodium (137-145) mmol/L Creatinine (0.52-1.04) mg/dL Glucose (74-99) mg/dL POC Glucose (mg/dL) 107 H 122 H 119 H (75-99) mg/dL Calcium (8.4-10.2) mg/dL 06/15/19 06/15/19 06/15/19 Range/Units 08:45 08:45 11:28 RBC 3.30 L (3.80-5.40) m/uL Hgb 11.1 L (11.4-16.0) gm/dL Hct 33.4 L (34.0-46.0) % MCV 101.3 H (80.0-100.0) fL Lymphocytes # 0.9 L (1.0-4.8) k/uL Sodium 135 L (137-145) mmol/L Creatinine 0.39 L (0.52-1.04) mg/dL Glucose 116 H (74-99) mg/dL POC Glucose (mg/dL) 136 H (75-99) mg/dL Calcium 7.5 L (8.4-10.2) mg/dL Microbiology - Last 24 Hours (Table) 06/08/19 16:00 Blood Culture - Final Blood No Growth after 144 hours 06/08/19 21:45 Fungal Culture - Preliminary Peritoneal Fluid Naina albicans Naina species, not albicans Assessment and Plan (1) Chronic pain disorder Current Visit: Yes Status: Acute Code(s): G89.4 - CHRONIC PAIN SYNDROME SNOMED Code(s): 412213456 (2) Gastrojejunal ulcer with perforation Current Visit: Yes Status: Acute Code(s): K28.5 - CHRONIC OR UNSPECIFIED GASTROJEJUNAL ULCER WITH PERFORATION SNOMED Code(s): 16867638 (3) H/O noncompliance with medical treatment, presenting hazards to health Current Visit: Yes Status: Acute Code(s): Z91.19 - PATIENT'S NONCOMPLIANCE W OTH MEDICAL TREATMENT AND REGIMEN SNOMED Code(s): 086965812 (4) Perforated bowel Current Visit: Yes Status: Acute Code(s): K63.1 - PERFORATION OF INTESTINE (NONTRAUMATIC) SNOMED Code(s): 90262586 (5) Peritonitis (acute) generalized Current Visit: Yes Status: Acute Code(s): K65.0 - GENERALIZED (ACUTE) PERITONITIS SNOMED Code(s): 40281609 (6) Tobacco abuse counseling Current Visit: Yes Status: Acute Code(s): Z71.6 - TOBACCO ABUSE COUNSELING SNOMED Code(s): 654968950 (7) Tobacco abuse disorder Current Visit: Yes Status: Acute Code(s): Z72.0 - TOBACCO USE SNOMED Code(s): 210980409
[2019-06-15] MEDS: ANIDULAFUNGIN 100 MG in SODIUM CHLORIDE 0.9% 100 ML IVPB SCH (16:41)
[2019-06-15 16:56] LABS: Glucose,Whole Blood 156 mg/dL (75-99)
--- NOTE | 2019-06-15 17:18 | PN ---
PROGRESS NOTE DATE OF SERVICE: 06/15/2019 REASON FOR FOLLOWUP: Abdominal abscess from a perforated peptic ulcer disease. INTERVAL HISTORY: The patient is currently afebrile. The patient has been breathing comfortably. Denies having any chest pain or cough. Abdominal pain has improved. No nausea, no vomiting. Did have bowel movement. PHYSICAL EXAMINATION: Blood pressure is 165/86, pulse of 94, temperature 97.4. She is 95% on room air. General description is a middle-aged female lying in bed in no distress. RESPIRATORY SYSTEM: Unlabored breathing. Clear to auscultation anteriorly. HEART: S1, S2. Regular rate and rhythm. ABDOMEN: Soft. No tenderness. LABS: Reviewed DIAGNOSTIC IMPRESSION AND PLAN: Patient with abdominal abscess from perforated peptic ulcer disease. The patient culture has been positive for MSSA and anaerobic gram-negative and Naina glabrata. The patient is currently covered with Unasyn 3 g q.6h and Eraxis to continue for another 7-10 days to finish course of therapy. Continue supportive care. MMODL / IJN: [id number] / [id number]
--- NOTE | 2019-06-15 18:39 | P.PN ---
Subjective On-call hospitalist covering for Dr. cordoba This is a pleasant 54 years old female with past medical history of hypertension, coronary artery disease, seizure disorder, fibromyalgia and osteoporosis. She presents with diffuse peritonitis secondary to acute perforated gastrojejunal ulcer. Patient status post exploratory laparotomy with repair of perforated gastrojejunal ulcer on 06/08/2019. Patient awake, denies chest pain or dyspnea. She still nothing by mouth including no oral medication. Vitas looks stable, blood pressure 160/92. Labs reviewed showing no leukocytosis with WBC 8.2K, creatinine 0.3, magnesium 1.3, replaced. Blood culture was positive for naina and gram-negative bacilli, Infectious disease team are also following the patient and currently she is on Unasyn, also she is on fluconazole. She is on normal sinus 100 mL/h and Protonix twice a day. She has negative barium swallow on 06/10/2019 with no evidence of postoperative leak or obstruction. 06/14/2019 Patient still awake, with some abdominal pain and tenderness which is expected after her surgery. Patient remains nothing by mouth and parenteral feeding is a provided. Patient has left PICC line which is intact with no surrounding infection or inflammation. Also patient is getting IV fluid. Her low magnesium is being replaced. Her magnesium today is 1.8. No other new complaint. Patient expected to work with physical therapy for the first time today. Infectious disease R following the case and they adjusted antibiotics with Unasyn and Eraxis 06/15/2019 pt is clinically the same, she is still NPO on parental feeding , and fluids, no n/v, abd pain is stable, she did well with physical therapy yesterday , she is still has drains in her abd that is expected to be removed by surgery team soon. she is still on Unasyn and Eraxis by ID team for her Abd abdominal abscess and positive culture Objective - Vital Signs Vital signs: Vital Signs Temp 97.4 F L 06/15/19 14:42 Pulse 65 06/15/19 14:47 Resp 13 06/15/19 14:47 BP 165/86 06/15/19 14:42 Pulse Ox 95 06/15/19 14:42 Intake & Output 06/14/19 06/15/19 06/15/19 18:59 06:59 18:59 Intake Total 1000 Output Total 50 220 140 Balance 950 -220 -140 Weight 62.142 kg Intake: Intake, IV Titration 1000 Amount Amino Acid 5%-D15w+Lytes* 1000 E* 1,000 ml @ 65 mls/hr IV .BY DURATION [facility] Rx#: [id number] Output: Drainage 50 220 140 Left Abdomen MICHELLE 10 140 100 Right Abdomen MICHELLE 40 80 40 Other: Voiding Method Toilet Toilet Toilet # Voids 1 1 1 - Exam GENERAL: The patient is alert and oriented x3, not in any acute distress. Well developed, well nourished. HEENT: Pupils are round and equally reacting to light. EOMI. No scleral icterus. No conjunctival pallor. Normocephalic, atraumatic. No pharyngeal erythema. No thyromegaly. CARDIOVASCULAR: S1 and S2 present. No murmurs, rubs, or gallops. PULMONARY: Chest is clear to auscultation, no wheezing or crackles. -ABDOMEN: Soft, nontender, nondistended, normoactive bowel sounds. No palpable organomegaly. Surgical incision is closed with dressing is placed, wound vac is in a Place, [address] as well. no surrounding cellulitis MUSCULOSKELETAL: No joint swelling or deformity. EXTREMITIES: No cyanosis, clubbing, or pedal edema. NEUROLOGICAL: Gross neurological examination did not reveal any focal deficits. SKIN: No rashes. - Labs CBC & Chem 7: 06/15/19 08:45 06/15/19 08:45 Labs: Abnormal Lab Results - Last 24 Hours (Table) 06/14/19 06/15/19 06/15/19 Range/Units 20:34 06:59 08:45 RBC (3.80-5.40) m/uL Hgb (11.4-16.0) gm/dL Hct (34.0-46.0) % MCV (80.0-100.0) fL Lymphocytes # (1.0-4.8) k/uL Sodium 135 L (137-145) mmol/L Creatinine 0.39 L (0.52-1.04) mg/dL Glucose 116 H (74-99) mg/dL POC Glucose (mg/dL) 122 H 119 H (75-99) mg/dL Calcium 7.5 L (8.4-10.2) mg/dL 06/15/19 06/15/19 06/15/19 Range/Units 08:45 11:28 16:53 RBC 3.30 L (3.80-5.40) m/uL Hgb 11.1 L (11.4-16.0) gm/dL Hct 33.4 L (34.0-46.0) % MCV 101.3 H (80.0-100.0) fL Lymphocytes # 0.9 L (1.0-4.8) k/uL Sodium (137-145) mmol/L Creatinine (0.52-1.04) mg/dL Glucose (74-99) mg/dL POC Glucose (mg/dL) 136 H 156 H (75-99) mg/dL Calcium (8.4-10.2) mg/dL Microbiology - Last 24 Hours (Table) 06/08/19 16:00 Blood Culture - Final Blood No Growth after 144 hours 06/08/19 21:45 Fungal Culture - Preliminary Peritoneal Fluid Naina albicans Naina species, not albicans Assessment and Plan Assessment: Perforated viscus and peritonitis status post exploratory laparotomy for repair of the jejunojejunal peptic ulcer Sepsis secondary to peritonitis with culture growing MSSA SA, gram-negative bacilli and naina Left upper pole kidney cyst Bilateral large adrenal glands, left side consistent with mild low lipoma Mild compression fracture of L3 and L2, related to osteoporosis History of osteoporosis Plan: This is a pleasant 54 years old female who presents with perforated bowel status post exploratory laparotomy and repair of the gastrojejunal ulcer. She'll continue to be nothing by mouth, possible start diet by the end of the week. Primary surgical team are following the patient closely for postoperative care. Continue with antibiotics as per infectious disease recommendation. Continue with Protonix twice daily. Continue with IV hydration.Labs and medication were reviewed.. Continue same treatment. Continue with symptomatic treatment. Resume home medication. Monitor lytes and vitals. DVT and GI prophylaxis. Further recommendations of the clinical course of the patient DVT prophylaxis: Subcutaneous heparin GI Prophylaxis: Protonix Thank you for consulting us
[2019-06-15] MEDS: [UNRECOGNIZED DRUG - REMARK] IV SCH ×4 (19:09)
[2019-06-15] MEDS: FAT EMULSION 20% 250 ML in EMPTY BAG 1 BAG IV SCH (19:10)
[2019-06-16] MEDS: 0.9% NACL WITH KCL 20 MEQ/L 1,000 ML IV SCH ×2 (02:37→10:42)
[2019-06-16] MEDS: HYDROmorphone 1 MG/ML 1 ML SYRINGE IVP PRN ×5 (03:38→20:04)
[2019-06-16] MEDS: AMPICILLIN-SULBACTAM 3 GM in SODIUM CHLORIDE 0.9% 100 ML IVPB SCH ×4 (06:08→23:59)
[2019-06-16 07:02] LABS: Glucose,Whole Blood 110 mg/dL (75-99)
[2019-06-16 08:53] LABS: Basophils % (A) 0 %; Eosinophils # (A) 0.2 k/uL (0-0.7); Eosinophils % (A) 3 %; HGB 11.1 gm/dL (11.4-16.0); Lymphocytes # (A) 0.8 k/uL (1.0-4.8); Lymphocytes % (A) 12 %; MCH 31.7 pg (25.0-35.0); MCHC 31.6 g/dL (31.0-37.0); MCV 100.4 fL (80.0-100.0); Macrocytosis Slight; Mean Platelet Volume 6.8; Monocytes # (A) 0.4 k/uL (0-1.0); Monocytes % (A) 6 %; Neutrophils # (A) 4.9 k/uL (1.3-7.7); Neutrophils % (A) 76 %; Platelet Count 369 k/uL (150-450); RBC 3.49 m/uL (3.80-5.40); WBC 6.4 k/uL (3.8-10.6)
[2019-06-16 08:57] LABS: African American GFR (CKD) >90 (>60 ml/min/1.73 sqM); Anion Gap 6 mmol/L; Blood Urea Nitrogen 13 mg/dL (7-17); Carbon Dioxide 28 mmol/L (22-30); Chloride 101 mmol/L (98-107); Glucose 100 mg/dL (74-99); Magnesium 2.1 mg/dL (1.6-2.3); Non-African American GFR(CKD) >90 (>60 ml/min/1.73 sqM); Phosphorus 4.4 mg/dL (2.5-4.5); Potassium 4.6 mmol/L (3.5-5.1); Sodium 135 mmol/L (137-145)
--- NOTE | 2019-06-16 09:39 | P.PN ---
Subjective On-call hospitalist covering for Dr. cordoba This is a pleasant 54 years old female with past medical history of hypertension, coronary artery disease, seizure disorder, fibromyalgia and osteoporosis. She presents with diffuse peritonitis secondary to acute perforated gastrojejunal ulcer. Patient status post exploratory laparotomy with repair of perforated gastrojejunal ulcer on 06/08/2019. Patient awake, denies chest pain or dyspnea. She still nothing by mouth including no oral medication. Vitas looks stable, blood pressure 160/92. Labs reviewed showing no leukocytosis with WBC 8.2K, creatinine 0.3, magnesium 1.3, replaced. Blood culture was positive for christopher and gram-negative bacilli, Infectious disease team are also following the patient and currently she is on Unasyn, also she is on fluconazole. She is on normal sinus 100 mL/h and Protonix twice a day. She has negative barium swallow on 06/10/2019 with no evidence of postoperative leak or obstruction. 06/14/2019 Patient still awake, with some abdominal pain and tenderness which is expected after her surgery. Patient remains nothing by mouth and parenteral feeding is a provided. Patient has left PICC line which is intact with no surrounding infection or inflammation. Also patient is getting IV fluid. Her low magnesium is being replaced. Her magnesium today is 1.8. No other new complaint. Patient expected to work with physical therapy for the first time today. Infectious disease R following the case and they adjusted antibiotics with Unasyn and Eraxis 06/15/2019 pt is clinically the same, she is still NPO on parental feeding , and fluids, no n/v, abd pain is stable, she did well with physical therapy yesterday , she is still has drains in her abd that is expected to be removed by surgery team soon. she is still on Unasyn and Eraxis by ID team for her Abd abdominal abscess and positive culture 06/16/2019 Patient is awake and looks the same. Yesterday her wound VAC has been taken off, however abdominal just still there. This morning patient was started on liquid diet and she tolerated her Jell-O with no problems. No more abdominal pain or nausea vomiting. Vitas looks stable and labs aren't remarkable. Patient remains on parenteral fluid and feeding, however we will lower her heart rate of fluid from 75 down to 50 L/h. No other new complaints. No chest pain or dyspnea. Objective - Vital Signs Vital signs: Vital Signs Temp 98.3 F 06/16/19 06:50 Pulse 71 06/16/19 06:50 Resp 14 06/16/19 06:50 BP 146/84 06/16/19 06:50 Pulse Ox 94 L 06/16/19 06:50 Intake & Output 06/15/19 06/16/19 06/16/19 18:59 06:59 18:59 Intake Total 300 240 Output Total 140 200 Balance -140 100 240 Weight 62.142 kg Intake: Intake, IV Titration 300 Amount Ampicillin-Sulbactam 3 gm 200 In Sodium Chloride 0.9% 100 ml @ 200 mls/hr IVPB Q6HR [facility] Rx#:[id number] Mvi, Adult No.4 with Vit 100 K 10 ml Trace (Conc-1Ml/ Dose) 1 ml Magnesium Sulfate gm 1 gm In Amino Acid 5%-D15w+Lytes*E* 1, 000 ml @ 65 mls/hr IV .BY DURATION [facility] Rx#: [id number] Oral 240 Output: Gastric Drainage 100 Drainage 140 100 Left Abdomen MICHELLE 100 25 Right Abdomen MICHELLE 40 75 Other: Voiding Method Toilet Toilet # Voids 1 1 - Exam GENERAL: The patient is alert and oriented x3, not in any acute distress. Well developed, well nourished. HEENT: Pupils are round and equally reacting to light. EOMI. No scleral icterus. No conjunctival pallor. Normocephalic, atraumatic. No pharyngeal erythema. No thyromegaly. CARDIOVASCULAR: S1 and S2 present. No murmurs, rubs, or gallops. PULMONARY: Chest is clear to auscultation, no wheezing or crackles. -ABDOMEN: Soft, nontender, nondistended, normoactive bowel sounds. No palpable organomegaly. Surgical incision is closed with dressing is placed, wound vac is in a Place, [address] as well. no surrounding cellulitis MUSCULOSKELETAL: No joint swelling or deformity. EXTREMITIES: No cyanosis, clubbing, or pedal edema. NEUROLOGICAL: Gross neurological examination did not reveal any focal deficits. SKIN: No rashes. - Labs CBC & Chem 7: 06/16/19 08:08 06/16/19 08:08 Labs: Abnormal Lab Results - Last 24 Hours (Table) 06/15/19 06/15/19 06/16/19 Range/Units 11:28 16:53 07:00 RBC (3.80-5.40) m/uL Hgb (11.4-16.0) gm/dL MCV (80.0-100.0) fL Lymphocytes # (1.0-4.8) k/uL Sodium (137-145) mmol/L Creatinine (0.52-1.04) mg/dL Glucose (74-99) mg/dL POC Glucose (mg/dL) 136 H 156 H 110 H (75-99) mg/dL Calcium (8.4-10.2) mg/dL 06/16/19 06/16/19 Range/Units 08:08 08:08 RBC 3.49 L (3.80-5.40) m/uL Hgb 11.1 L (11.4-16.0) gm/dL MCV 100.4 H (80.0-100.0) fL Lymphocytes # 0.8 L (1.0-4.8) k/uL Sodium 135 L (137-145) mmol/L Creatinine 0.42 L (0.52-1.04) mg/dL Glucose 100 H (74-99) mg/dL POC Glucose (mg/dL) (75-99) mg/dL Calcium 8.0 L (8.4-10.2) mg/dL Assessment and Plan Assessment: Perforated viscus and peritonitis status post exploratory laparotomy for repair of the jejunojejunal peptic ulcer Sepsis secondary to peritonitis with culture growing MSSA SA, gram-negative bacilli and christopher Left upper pole kidney cyst Bilateral large adrenal glands, left side consistent with mild low lipoma Mild compression fracture of L3 and L2, related to osteoporosis History of osteoporosis Plan: This is a pleasant 54 years old female who presents with perforated bowel status post exploratory laparotomy and repair of the gastrojejunal ulcer. She'll rei nue to be nothing by mouth, possible start diet by the end of the week. Primary surgical team are following the patient closely for postoperative care. Continue with antibiotics as per infectious disease recommendation. Continue with Protonix twice daily. Continue with IV hydration.Labs and medication were reviewed.. Continue same treatment. Continue with symptomatic treatment. Resume home medication. Monitor lytes and vitals. DVT and GI prophylaxis. Further recommendations of the clinical course of the patient DVT prophylaxis: Subcutaneous heparin GI Prophylaxis: Protonix Thank you for consulting us
[2019-06-16] MEDS: PANTOPRAZOLE 40 MG/10 ML VIAL IVP SCH ×2 (09:44→20:04)
[2019-06-16] MEDS: HEPARIN SODIUM,PORCINE 5,000 UNIT/ML 1 ML VIAL SQ SCH ×2 (09:44→20:04)
[2019-06-16] MEDS: ONDANSETRON 4 MG/2 ML VIAL IVP PRN ×2 (09:48→22:28)
[2019-06-16] MEDS: [UNRECOGNIZED DRUG - REMARK] IV SCH ×4 (10:41)
[2019-06-16 11:35] LABS: Glucose,Whole Blood 115 mg/dL (75-99)
--- NOTE | 2019-06-16 13:39 | P.PN ---
Subjective Progress Note Date: 06/16/19 CHIEF COMPLAINT: abdominal pain HISTORY OF PRESENT ILLNESS: Patient examined at the bedside. She reports her pain is tolerable. Reports passing flatus. Denies BM. patient began clear liquid diet this morning. She is tolerating well. Denies nausea or vomiting. TPN infusing. MICHELLE drains 2 with serous drainage. PHYSICAL EXAM: VITAL SIGNS: Currently stable. GENERAL: Well-developed in no acute distress. HEENT: No sclera icterus. Extraocular movements grossly intact. Moist buccal mucosa. Head is atraumatic, normocephalic. Hears conversational speech. No nasal drainage. ABDOMEN: Soft. Nondistended. MICHELLE drain 2 with serous drainage NEUROLOGIC: No focal or lateralizing signs. Cranial nerves II through XII grossly intact. PSYCH: Appropriate affect. Alert and oriented to person, place and time. SKIN: Well perfused. Good skin turgor. ASSESSMENT: 1. 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 Diffuse peritonitis, generalized with intra-abdominal abscess, diffuse 3. Abnormal computed tomography scan with intra-abdominal fluid 4. History of gastric bypass 5. Medical noncompliance to post-bariatric care with recurrent tobacco abuse 6. Tobacco abuse 7. Tobacco cessation and counseling 8. Depressive disorder 9. Chronic pain syndrome 10. Fibromyalgia 11. Chronic constipation 12. Massive weight loss over 120 pounds following gastric bypass 7 years ago 13. Generalized anxiety disorder 14. History of myocardial infarction 15. Hypertensive heart disease 16. Bipolar disorder 17. History of seizure disorder 18. Angina 19. Hypomagnesemia 20. Hypokalemia PLAN: 1. Continue clear liquid diet. possible advancement to full liquid diet tomorrow if patient continues to tolerate liquids. patient will be discharged on full liquid diet for 2 weeks 2. Continue TPN. Anticipate discontinuation tomorrow if patient continues to tolerate clear liquids 3. Okay to resume oral medications. Will defer to medicine team 4. No nicotine patch at this time to ensure healing 5. Infectious disease on consult. Antibiotics per Dr. Beavers. Discussed with Dr. Beavers. Patient will require 1 week of IV antibiotics at discharge. 6. Encourage use of incentive spirometry 10 times per hour 7. Activity as tolerated 8. MICHELLE drains to remain in place until follow up appointment with Dr. Wilson 9. Possible discharge tomorrow to subacute rehab. Patient requesting [facility]. Social work notified. Nurse practitioner note has been reviewed by physician. Signing provider agrees with the documented findings, assessment, and plan of care. Objective - Vital Signs Vital signs: Vital Signs Temp 98.3 F 06/16/19 06:50 Pulse 71 06/16/19 06:50 Resp 14 06/16/19 06:50 BP 146/84 06/16/19 06:50 Pulse Ox 94 L 06/16/19 06:50 Intake & Output 06/15/19 06/16/19 06/16/19 18:59 06:59 18:59 Intake Total 300 240 Output Total 140 200 Balance -140 100 240 Weight 62.142 kg Intake: Intake, IV Titration 300 Amount Ampicillin-Sulbactam 3 gm 200 In Sodium Chloride 0.9% 100 ml @ 200 mls/hr IVPB Q6HR [facility] Rx#:[id number] Mvi, Adult No.4 with Vit 100 K 10 ml Trace (Conc-1Ml/ Dose) 1 ml Magnesium Sulfate gm 1 gm In Amino Acid 5%-D15w+Lytes*E* 1, 000 ml @ 65 mls/hr IV .BY DURATION [facility] Rx#: [id number] Oral 240 Output: Gastric Drainage 100 Drainage 140 100 Left Abdomen MICHELLE 100 25 Right Abdomen MICHELLE 40 75 Other: Voiding Method Toilet Toilet Toilet # Voids 1 1 1 - Labs CBC & Chem 7: 06/16/19 08:08 06/16/19 08:08 Labs: Abnormal Lab Results - Last 24 Hours (Table) 06/15/19 06/16/19 06/16/19 Range/Units 16:53 07:00 08:08 RBC (3.80-5.40) m/uL Hgb (11.4-16.0) gm/dL MCV (80.0-100.0) fL Lymphocytes # (1.0-4.8) k/uL Sodium 135 L (137-145) mmol/L Creatinine 0.42 L (0.52-1.04) mg/dL Glucose 100 H (74-99) mg/dL POC Glucose (mg/dL) 156 H 110 H (75-99) mg/dL Calcium 8.0 L (8.4-10.2) mg/dL 06/16/19 06/16/19 Range/Units 08:08 11:34 RBC 3.49 L (3.80-5.40) m/uL Hgb 11.1 L (11.4-16.0) gm/dL MCV 100.4 H (80.0-100.0) fL Lymphocytes # 0.8 L (1.0-4.8) k/uL Sodium (137-145) mmol/L Creatinine (0.52-1.04) mg/dL Glucose (74-99) mg/dL POC Glucose (mg/dL) 115 H (75-99) mg/dL Calcium (8.4-10.2) mg/dL Assessment and Plan (1) Chronic pain disorder Current Visit: Yes Status: Acute Code(s): G89.4 - CHRONIC PAIN SYNDROME SNOMED Code(s): 596578752 (2) Gastrojejunal ulcer with perforation Current Visit: Yes Status: Acute Code(s): K28.5 - CHRONIC OR UNSPECIFIED GASTROJEJUNAL ULCER WITH PERFORATION SNOMED Code(s): 74235020 (3) H/O noncompliance with medical treatment, presenting hazards to health Current Visit: Yes Status: Acute Code(s): Z91.19 - PATIENT'S NONCOMPLIANCE W OTH MEDICAL TREATMENT AND REGIMEN SNOMED Code(s): 797306005 (4) Perforated bowel Current Visit: Yes Status: Acute Code(s): K63.1 - PERFORATION OF INTESTINE (NONTRAUMATIC) SNOMED Code(s): 40337043 (5) Peritonitis (acute) generalized Current Visit: Yes Status: Acute Code(s): K65.0 - GENERALIZED (ACUTE) PERITONITIS SNOMED Code(s): 75366775 (6) Tobacco abuse counseling Current Visit: Yes Status: Acute Code(s): Z71.6 - TOBACCO ABUSE COUNSELING SNOMED Code(s): 850055045 (7) Tobacco abuse disorder Current Visit: Yes Status: Acute Code(s): Z72.0 - TOBACCO USE SNOMED Code(s): 681484715
[2019-06-16] MEDS: ANIDULAFUNGIN 100 MG in SODIUM CHLORIDE 0.9% 100 ML IVPB SCH (14:45)
[2019-06-16] MEDS: HYDROcodone/APAP 5-325MG 1 EACH TAB PO PRN ×3 (14:50→22:26)
[2019-06-16] MEDS: ALPRAZolam 1 MG TAB PO PRN (15:18)
[2019-06-16 16:33] LABS: Glucose,Whole Blood 117 mg/dL (75-99)
[2019-06-16 20:05] LABS: Glucose,Whole Blood 110 mg/dL (75-99)
--- NOTE | 2019-06-16 21:43 | PN ---
PROGRESS NOTE DATE OF SERVICE: 06/16/2019. REASON FOR FOLLOWUP: Abdominal abscess perforated peptic ulcer disease. INTERVAL HISTORY: The patient is currently afebrile. Patient has been breathing comfortably. Denies having any chest pain. No shortness of breath. No cough. No nausea, vomiting, or abdominal pain. PHYSICAL EXAMINATION: Blood pressure 144/80 with a pulse of 69, temperature 98.3. She is 94% on room air. General description is a middle-aged female lying in bed in no distress. Respiratory system: Unlabored breathing. Clear to auscultation anteriorly. Heart S1, S2. Regular rate and rhythm. Abdomen soft. No tenderness. LABS: Hemoglobin 11.1, white count 6.4, BUN of 13, creatinine 0.42. DIAGNOSTIC IMPRESSION AND PLAN: Patient with abdominal abscess from perforated peptic ulcer disease. The patient culture has been positive for MSSA and anaerobic gram-negative and Naina glabrata. The patient is currently covered with Unasyn 3 g q.6h and Eraxis to continue for another 7-10 days to finish course of therapy. Continue supportive care. MMODL / IJN: [id number] /
[2019-06-17] MEDS: ALPRAZolam 1 MG TAB PO PRN ×3 (00:01→22:58)
[2019-06-17] MEDS: [UNRECOGNIZED DRUG - REMARK] IV SCH ×4 (01:58)
[2019-06-17] MEDS: HYDROmorphone 1 MG/ML 1 ML SYRINGE IVP PRN (02:07)
[2019-06-17] MEDS: AMPICILLIN-SULBACTAM 3 GM in SODIUM CHLORIDE 0.9% 100 ML IVPB SCH ×4 (05:54→22:58)
[2019-06-17] MEDS: HYDROcodone/APAP 5-325MG 1 EACH TAB PO PRN ×4 (05:54→19:43)
[2019-06-17 06:59] LABS: Glucose,Whole Blood 98 mg/dL (75-99)
[2019-06-17 08:04] LABS: African American GFR (CKD) >90 (>60 ml/min/1.73 sqM); Anion Gap 6 mmol/L; Blood Urea Nitrogen 14 mg/dL (7-17); Calcium 7.9 mg/dL (8.4-10.2); Carbon Dioxide 25 mmol/L (22-30); Chloride 104 mmol/L (98-107); Glucose 97 mg/dL (74-99); Non-African American GFR(CKD) >90 (>60 ml/min/1.73 sqM); Phosphorus 4.9 mg/dL (2.5-4.5); Potassium 4.8 mmol/L (3.5-5.1); Sodium 135 mmol/L (137-145)
[2019-06-17] MEDS: HEPARIN SODIUM,PORCINE 5,000 UNIT/ML 1 ML VIAL SQ SCH ×2 (08:04→20:07)
[2019-06-17] MEDS: PANTOPRAZOLE 40 MG/10 ML VIAL IVP SCH ×2 (08:04→20:07)
--- NOTE | 2019-06-17 08:54 | P.PN ---
Subjective On-call hospitalist covering for Dr. cordoba This is a pleasant 54 years old female with past medical history of hypertension, coronary artery disease, seizure disorder, fibromyalgia and osteoporosis. She presents with diffuse peritonitis secondary to acute perforated gastrojejunal ulcer. Patient status post exploratory laparotomy with repair of perforated gastrojejunal ulcer on 06/08/2019. Patient awake, denies chest pain or dyspnea. She still nothing by mouth including no oral medication. Vitas looks stable, blood pressure 160/92. Labs reviewed showing no leukocytosis with WBC 8.2K, creatinine 0.3, magnesium 1.3, replaced. Blood culture was positive for christopher and gram-negative bacilli, Infectious disease team are also following the patient and currently she is on Unasyn, also she is on fluconazole. She is on normal sinus 100 mL/h and Protonix twice a day. She has negative barium swallow on 06/10/2019 with no evidence of postoperative leak or obstruction. 06/14/2019 Patient still awake, with some abdominal pain and tenderness which is expected after her surgery. Patient remains nothing by mouth and parenteral feeding is a provided. Patient has left PICC line which is intact with no surrounding infection or inflammation. Also patient is getting IV fluid. Her low magnesium is being replaced. Her magnesium today is 1.8. No other new complaint. Patient expected to work with physical therapy for the first time today. Infectious disease R following the case and they adjusted antibiotics with Unasyn and Eraxis 06/15/2019 pt is clinically the same, she is still NPO on parental feeding , and fluids, no n/v, abd pain is stable, she did well with physical therapy yesterday , she is still has drains in her abd that is expected to be removed by surgery team soon. she is still on Unasyn and Eraxis by ID team for her Abd abdominal abscess and positive culture 06/16/2019 Patient is awake and looks the same. Yesterday her wound VAC has been taken off, however abdominal just still there. This morning patient was started on liquid diet and she tolerated her jello with no problems. No more abdominal p ain or nausea vomiting. Vitas looks stable and labs aren't remarkable. Patient remains on parenteral fluid and feeding, however we will lower her heart rate of fluid from 75 down to 50 L/h. No other new complaints. No chest pain or dyspnea. 06/17/2019 Patient is awake and alert. She denies chest pain or dyspnea. Abdominal pain is controlled and is improving gradually. Patient is on liquid diet with recommendation to continue for 2 more weeks. Vitals are stable and patient is afebrile. Labs reviewed and looks stable. Patient continued to be on Unasyn with recommendation to continue with that for 1 more week. Patient might be discharged to ECF soon Objective - Vital Signs Vital signs: Vital Signs Temp 97.8 F 06/17/19 07:00 Pulse 63 06/17/19 07:00 Resp 14 06/17/19 07:00 BP 148/91 06/17/19 07:00 Pulse Ox 97 06/17/19 07:00 Intake & Output 06/16/19 06/17/19 06/17/19 18:59 06:59 18:59 Intake Total 1543 Output Total 60 86 Balance 1483 -86 Intake: Intake, IV Titration 1013 Amount Mvi, Adult No.4 with Vit 1013 K 10 ml Trace (Conc-1Ml/ Dose) 1 ml Magnesium Sulfate gm 1 gm In Amino Acid 5%-D15w+Lytes*E* 1, 000 ml @ 65 mls/hr IV .BY DURATION LANI Rx#: [id number] Oral 530 Output: Drainage 60 85 Left Abdomen MICHELLE 20 50 Right Abdomen MICHELLE 40 35 Urine 1 Other: Voiding Method Toilet # Voids 1 0 - Exam GENERAL: The patient is alert and oriented x3, not in any acute distress. Well developed, well nourished. HEENT: Pupils are round and equally reacting to light. EOMI. No scleral icterus. No conjunctival pallor. Normocephalic, atraumatic. No pharyngeal erythema. No thyromegaly. CARDIOVASCULAR: S1 and S2 present. No murmurs, rubs, or gallops. PULMONARY: Chest is clear to auscultation, no wheezing or crackles. -ABDOMEN: Soft, nontender, nondistended, normoactive bowel sounds. No palpable organomegaly. Surgical incision is closed with dressing is placed, wound vac is in a Place, [address] as well. no surrounding cellulitis MUSCULOSKELETAL: No joint swelling or deformity. EXTREMITIES: No cyanosis, clubbing, or pedal edema. NEUROLOGICAL: Gross neurological examination did not reveal any focal deficits. SKIN: No rashes. - Labs CBC & Chem 7: 07/25/19 08:08 06/17/19 07:14 Labs: Abnormal Lab Results - Last 24 Hours (Table) 06/16/19 06/16/19 06/16/19 Range/Units 08:08 08:08 11:34 RBC 3.49 L (3.80-5.40) m/uL Hgb 11.1 L (11.4-16.0) gm/dL MCV 100.4 H (80.0-100.0) fL Lymphocytes # 0.8 L (1.0-4.8) k/uL Sodium 135 L (137-145) mmol/L Creatinine 0.42 L (0.52-1.04) mg/dL Glucose 100 H (74-99) mg/dL POC Glucose (mg/dL) 115 H (75-99) mg/dL Calcium 8.0 L (8.4-10.2) mg/dL Phosphorus (2.5-4.5) mg/dL 06/16/19 06/16/19 06/17/19 Range/Units 16:31 20:02 07:14 RBC (3.80-5.40) m/uL Hgb (11.4-16.0) gm/dL MCV (80.0-100.0) fL Lymphocytes # (1.0-4.8) k/uL Sodium 135 L (137-145) mmol/L Creatinine 0.45 L (0.52-1.04) mg/dL Glucose (74-99) mg/dL POC Glucose (mg/dL) 117 H 110 H (75-99) mg/dL Calcium 7.9 L (8.4-10.2) mg/dL Phosphorus 4.9 H (2.5-4.5) mg/dL Assessment and Plan Assessment: Perforated viscus and peritonitis status post exploratory laparotomy for repair of the jejunojejunal peptic ulcer Sepsis secondary to peritonitis with culture growing MSSA SA, gram-negative bacilli and christopher Left upper pole kidney cyst Bilateral large adrenal glands, left side consistent with mild low lipoma Mild compression fracture of L3 and L2, related to osteoporosis History of osteoporosis Plan: This is a pleasant 54 years old female who presents with perforated bowel status post exploratory laparotomy and repair of the gastrojejunal ulcer. She'll continue to be nothing by mouth, possible start diet by the end of the week. Primary surgical team are following the patient closely for postoperative care. Continue with antibiotics as per infectious disease recommendation. Continue with Protonix twice daily. Continue with IV hydration.Labs and medication were reviewed.. Continue same treatment. Continue with symptomatic treatment. Resume home medication. Monitor lytes and vitals. DVT and GI prophylaxis. Further recommendations of the clinical course of the patient DVT prophylaxis: Subcutaneous heparin GI Prophylaxis: Protonix Thank you for consulting us
[2019-06-17] MEDS: 0.9% NACL WITH KCL 20 MEQ/L 1,000 ML IV SCH (10:16)
[2019-06-17 11:43] LABS: Glucose,Whole Blood 92 mg/dL (75-99)
--- NOTE | 2019-06-17 12:34 | P.PN ---
<Robyn Guillermo A - Last Filed: 06/17/19 12:31> Subjective Progress Note Date: 06/17/19 CHIEF COMPLAINT: abdominal pain HISTORY OF PRESENT ILLNESS: Patient examined at the bedside. She reports her pain is tolerable. Reports passing flatus. Denies BM. Patient tolerating clear liquid diet. Denies nausea or vomiting. TPN infusing. MICHELLE drains 2 with serous drainage. PHYSICAL EXAM: VITAL SIGNS: Currently stable. GENERAL: Well-developed in no acute distress. HEENT: No sclera icterus. Extraocular movements grossly intact. Moist buccal mucosa. Head is atraumatic, normocephalic. Hears conversational speech. No nasal drainage. ABDOMEN: Soft. Nondistended. MICHELLE drain 2 with serous drainage NEUROLOGIC: No focal or lateralizing signs. Cranial nerves II through XII grossly intact. PSYCH: Appropriate affect. Alert and oriented to person, place and time. SKIN: Well perfused. Good skin turgor. ASSESSMENT: 1. 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 Diffuse peritonitis, generalized with intra-abdominal abscess, diffuse 3. Abnormal computed tomography scan with intra-abdominal fluid 4. History of gastric bypass 5. Medical noncompliance to post-bariatric care with recurrent tobacco abuse 6. Tobacco abuse 7. Tobacco cessation and counseling 8. Depressive disorder 9. Chronic pain syndrome 10. Fibromyalgia 11. Chronic constipation 12. Massive weight loss over 120 pounds following gastric bypass 7 years ago 13. Generalized anxiety disorder 14. History of myocardial infarction 15. Hypertensive heart disease 16. Bipolar disorder 17. History of seizure disorder 18. Angina 19. Hypomagnesemia 20. Hypokalemia PLAN: 1. Advance diet to full liquids. Patient will be discharged on full liquid diet for 2 weeks 2. Wean off TPN 3. No nicotine patch at this time to ensure healing 4. Infectious disease on consult. Antibiotics per Dr. Beavers. Discussed with Dr. Beavers. Patient will require 1 week of IV antibiotics at discharge. 5. Encourage use of incentive spirometry 10 times per hour 6. Activity as tolerated 7. MICHELLE drains to remain in place until follow up appointment with Dr. Wilson 8. Anticipate discharge tomorrow to subacute rehab. Patient requesting [facility]. Social work notified. Nurse practitioner note has been reviewed by physician. Signing provider agrees with the documented findings, assessment, and plan of care. Objective - Vital Signs Vital signs: Vital Signs Temp 97.8 F 06/17/19 07:00 Pulse 63 06/17/19 07:00 Resp 14 06/17/19 07:00 BP 148/91 06/17/19 07:00 Pulse Ox 97 06/17/19 07:00 Intake & Output 06/16/19 06/17/19 06/17/19 18:59 06:59 18:59 Intake Total 1543 200 Output Total 60 86 Balance 1483 -86 200 Intake: Intake, IV Titration 1013 Amount Mvi, Adult No.4 with Vit 1013 K 10 ml Trace (Conc-1Ml/ Dose) 1 ml Magnesium Sulfate gm 1 gm In Amino Acid 5%-D15w+Lytes*E* 1, 000 ml @ 65 mls/hr IV .BY DURATION LANI Rx#: [id number] Oral 530 200 Output: Drainage 60 85 Left Abdomen MICHELLE 20 50 Right Abdomen MICHELLE 40 35 Urine 1 Other: Voiding Method Toilet Toilet # Voids 1 0 - Labs CBC & Chem 7: 06/16/19 08:08 06/17/19 07:14 Labs: Abnormal Lab Results - Last 24 Hours (Table) 06/16/19 06/16/19 06/17/19 Range/Units 16:31 20:02 07:14 Sodium 135 L (137-145) mmol/L Creatinine 0.45 L (0.52-1.04) mg/dL POC Glucose (mg/dL) 117 H 110 H (75-99) mg/dL Calcium 7.9 L (8.4-10.2) mg/dL Phosphorus 4.9 H (2.5-4.5) mg/dL Assessment and Plan (1) Chronic pain disorder Current Visit: Yes Status: Acute Code(s): G89.4 - CHRONIC PAIN SYNDROME SNOMED Code(s): 722183621 (2) Gastrojejunal ulcer with perforation Current Visit: Yes Status: Acute Code(s): K28.5 - CHRONIC OR UNSPECIFIED GASTROJEJUNAL ULCER WITH PERFORATION SNOMED Code(s): 84088060 (3) H/O noncompliance with medical treatment, presenting hazards to health Current Visit: Yes Status: Acute Code(s): Z91.19 - PATIENT'S NONCOMPLIANCE W OTH MEDICAL TREATMENT AND REGIMEN SNOMED Code(s): 783030489 (4) Perforated bowel Current Visit: Yes Status: Acute Code(s): K63.1 - PERFORATION OF INTESTINE (NONTRAUMATIC) SNOMED Code(s): 66987153 (5) Peritonitis (acute) generalized Current Visit: Yes Status: Acute Code(s): K65.0 - GENERALIZED (ACUTE) PERITONITIS SNOMED Code(s): 87015601 (6) Tobacco abuse counseling Current Visit: Yes Status: Acute Code(s): Z71.6 - TOBACCO ABUSE COUNSELING SNOMED Code(s): 126690481 (7) Tobacco abuse disorder Current Visit: Yes Status: Acute Code(s): Z72.0 - TOBACCO USE SNOMED Code(s): 954432471 <Elías Edmond - Last Filed: 06/17/19 16:21> Subjective As above. Patient doing well. Tolerating full liquid diet. MICHELLE drains are serous. Probable discharge to rehab tomorrow. Objective - Vital Signs Vital signs: Vital Signs Temp 98.5 F 06/17/19 15:00 Pulse 71 06/17/19 15:00 Resp 15 06/17/19 15:00 BP 127/74 06/17/19 15:00 Pulse Ox 95 06/17/19 15:00 Intake & Output 06/16/19 06/17/19 06/17/19 18:59 06:59 18:59 Intake Total 1543 440 Output Total 60 86 Balance 1483 -86 440 Intake: Intake, IV Titration 1013 Amount Mvi, Adult No.4 with Vit 1013 K 10 ml Trace (Conc-1Ml/ Dose) 1 ml Magnesium Sulfate gm 1 gm In Amino Acid 5%-D15w+Lytes*E* 1, 000 ml @ 65 mls/hr IV .BY DURATION LANI Rx#: [id number] Oral 530 440 Output: Drainage 60 85 Left Abdomen MICHELLE 20 50 Right Abdomen MICHELLE 40 35 Urine 1 Other: Voiding Method Toilet Toilet # Voids 1 0 3 - Labs CBC & Chem 7: 06/16/19 08:08 06/17/19 07:14 Labs: Abnormal Lab Results - Last 24 Hours (Table) 06/16/19 06/16/19 06/17/19 Range/Units 16:31 20:02 07:14 Sodium 135 L (137-145) mmol/L Creatinine 0.45 L (0.52-1.04) mg/dL POC Glucose (mg/dL) 117 H 110 H (75-99) mg/dL Calcium 7.9 L (8.4-10.2) mg/dL Phosphorus 4.9 H (2.5-4.5) mg/dL
[2019-06-17] MEDS: ANIDULAFUNGIN 100 MG in SODIUM CHLORIDE 0.9% 100 ML IVPB SCH (15:29)
[2019-06-17 17:05] LABS: Glucose,Whole Blood 85 mg/dL (75-99)
--- NOTE | 2019-06-17 19:23 | PN ---
PROGRESS NOTE DATE OF SERVICE: 06/17/2019. REASON FOR FOLLOWUP VISIT: Abdominal abscess from perforated peptic ulcer disease. INTERVAL HISTORY: The patient is currently afebrile. Patient has been breathing comfortably. Denies having any chest pain, shortness of breath or cough. No nausea, vomiting, or any diarrhea. PHYSICAL EXAMINATION: Blood pressure 127/74 with a pulse of 71, temperature 98.5, she is 95% on room air. General description is a middle aged female lying in bed in no distress. Respiratory system: Unlabored breathing. Clear to auscultation anteriorly. Heart S1, S2. Regular rate and rhythm. Abdomen soft. No tenderness. LABORATORY DATA: Hemoglobin is 14, creatinine 0.45. DIAGNOSTIC IMPRESSION AND PLAN: Patient with abdominal abscess from perforated peptic ulcer disease. Abdominal culture positive for MSSA, Naina albicans and anaerobic gram-negative pathogen. The patient antibiotic will be transitioned to Rocephin 2 g daily, oral Flagyl and Eraxis for another week to finish course of therapy with close outpatient followup. MMODL / IJN: [id number] / GLADYS
[2019-06-17] MEDS ORDERED: ZOLPIDEM 5 MG TAB PO SCH (21:00)
[2019-06-17] MEDS ORDERED: CYCLOBENZAPRINE 10 MG TAB PO SCH (21:00)
[2019-06-17 21:22] LABS: Glucose,Whole Blood 76 mg/dL (75-99)
[2019-06-18] MEDS: HYDROcodone/APAP 5-325MG 1 EACH TAB PO PRN ×3 (00:23→09:47)
[2019-06-18] MEDS: 0.9% NACL WITH KCL 20 MEQ/L 1,000 ML IV SCH (00:23)
[2019-06-18 01:20] VITALS: PULSE 68
[2019-06-18] MEDS: AMPICILLIN-SULBACTAM 3 GM in SODIUM CHLORIDE 0.9% 100 ML IVPB SCH ×2 (05:41→11:58)
[2019-06-18 07:39] VITALS: BP 133/83; RESP 16; TEMP 98.2
[2019-06-18 08:44] LABS: African American GFR (CKD) >90 (>60 ml/min/1.73 sqM); Anion Gap 8 mmol/L; Blood Urea Nitrogen 11 mg/dL (7-17); Carbon Dioxide 25 mmol/L (22-30); Chloride 103 mmol/L (98-107); Glucose 117 mg/dL (74-99); Magnesium 1.8 mg/dL (1.6-2.3); Non-African American GFR(CKD) >90 (>60 ml/min/1.73 sqM); Phosphorus 4.2 mg/dL (2.5-4.5); Potassium 4.6 mmol/L (3.5-5.1); Sodium 136 mmol/L (137-145)
[2019-06-18] MEDS: ALPRAZolam 1 MG TAB PO PRN (09:47)
[2019-06-18] MEDS: HEPARIN SODIUM,PORCINE 5,000 UNIT/ML 1 ML VIAL SQ SCH (09:47)
[2019-06-18] MEDS: PANTOPRAZOLE 40 MG/10 ML VIAL IVP SCH (09:47)
--- NOTE | 2019-06-18 10:17 | P.DS ---
Providers Date of admission: 06/08/19 17:30 Expected date of discharge: 06/18/19 Attending physician: Gloria Wilson Consults: 06/08/19 18:38 Consult Physician Urgent Consulting Provider: Kike Siddiqui Consult Reason/Comments: Medical management Do you want consulting provider notified?: Yes 06/08/19 22:34 Consult Physician Routine Consulting Provider: Caridad Beavers Consult Reason/Comments: Peritonitis Do you want consulting provider notified?: Yes, Notify in am Primary care physician: Zana Meade [facility] Course: Patient was admitted after she was found to have a perforated marginal ulcer. Patient with history of previous gastric bypass. Patient was taken to the operating room with surgical repair. Postoperative issues done well. She is been followed by the hospitalist service as well. Currently tolerating full liquids nicely. [address] and her serous in nature. Plans are underway for the patient to be discharged tomorrow with today. Denies pain at this time. She is afebrile. We'll plan transfer. Outpatient follow-up with Dr. Barnard within the week. Patient Condition at Discharge: Critical Plan - Discharge Summary Discharge Rx Participant: Yes New Discharge Prescriptions: New Pantoprazole [Protonix] 40 mg PO BID #60 tablet. Voriconazole 200 mg PO BID #14 tablet metroNIDAZOLE [Flagyl] 500 mg PO TID #21 tab cefTRIAXone [Rocephin] 2 gm IVPB Q24H #7 bag Continue Lurasidone [Latuda] 40 mg PO HS Ergocalciferol [Vitamin D2 (DRISDOL)] 50,000 unit PO TU Cyclobenzaprine [Flexeril] 10 mg PO HS Pregabalin [Lyrica] 50 mg PO TID HYDROcodone/APAP 10-325MG [[place] 10-325] 1 tab PO TID PRN PRN Reason: Pain Vortioxetine Hydrobromide [Trintellix] 20 mg PO HS rOPINIRole HCL [Requip] 0.5 mg PO HS Dextroamphetamine/Amphetamine [Adderall] 20 mg PO DAILY Zolpidem [Ambien] 5 mg PO HS ALPRAZolam [Xanax] 1 mg PO TID PRN PRN Reason: Anxiety Prochlorperazine [Compazine] 10 mg PO TID Montelukast [Singulair] 10 mg PO DAILY Donepezil [Aricept] 20 mg PO HS Discontinued Omeprazole 20 mg PO BID Alendronate Sodium [Fosamax] 70 mg PO TU Discharge Medication List Cyclobenzaprine [Flexeril] 10 mg PO HS 01/25/18 [History] Ergocalciferol [Vitamin D2 (DRISDOL)] 50,000 unit PO TU 01/25/18 [History] Lurasidone [Latuda] 40 mg PO HS 01/25/18 [History] ALPRAZolam [Xanax] 1 mg PO TID PRN 04/30/19 [History] Dextroamphetamine/Amphetamine [Adderall] 20 mg PO DAILY 04/30/19 [History] HYDROcodone/APAP 10-325MG [[place] 10-325] 1 tab PO TID PRN 04/30/19 [History] Pregabalin [Lyrica] 50 mg PO TID 04/30/19 [History] Vortioxetine Hydrobromide [Trintellix] 20 mg PO HS 04/30/19 [History] Zolpidem [Ambien] 5 mg PO HS 04/30/19 [History] rOPINIRole HCL [Requip] 0.5 mg PO HS 04/30/19 [History] Donepezil [Aricept] 20 mg PO HS 05/25/19 [History] Montelukast [Singulair] 10 mg PO DAILY 05/25/19 [History] Prochlorperazine [Compazine] 10 mg PO TID 05/25/19 [History] Pantoprazole [Protonix] 40 mg PO BID #60 tablet. 06/09/19 [Rx] Voriconazole 200 mg PO BID #14 tablet 06/17/19 [Rx] cefTRIAXone [Rocephin] 2 gm IVPB Q24H #7 bag 06/17/19 [Rx] metroNIDAZOLE [Flagyl] 500 mg PO TID #21 tab 06/17/19 [Rx] Follow up Appointment(s)/Referral(s): Gloria Wilson MD [STAFF PHYSICIAN] - 06/28/19 Zana Meade MD [Primary Care Provider] - 1-2 days Caridad Beavers MD [STAFF PHYSICIAN] - 1 Week Patient Instructions/Handouts: How to Stop Smoking (DC), Peptic Ulcer (DC), Bo-Avery Drain Care (ED) Activity/Diet/Wound Care/Special Instructions: LIQUID DIET FOR TWO WEEKS. NO SMOKING!!!! PATIENT IS NOT ALLOWED NICOTINE PATCHES OR GUM AT THIS TIME No lifting greater than 4 pounds for 4 weeks, July 10March resume fosamax after one month. MICHELLE drains to remove by surgeon in the office in 3 weeks, Jun 28 Discharge Disposition: TRANSFER TO SNF/ECF
--- NOTE | 2019-06-18 11:52 | P.PN ---
Subjective On-call hospitalist covering for Dr. cordoba This is a pleasant 54 years old female with past medical history of hypertension, coronary artery disease, seizure disorder, fibromyalgia and osteoporosis. She presents with diffuse peritonitis secondary to acute perforated gastrojejunal ulcer. Patient status post exploratory laparotomy with repair of perforated gastrojejunal ulcer on 06/08/2019. Patient awake, denies chest pain or dyspnea. She still nothing by mouth including no oral medication. Vitas looks stable, blood pressure 160/92. Labs reviewed showing no leukocytosis with WBC 8.2K, creatinine 0.3, magnesium 1.3, replaced. Blood culture was positive for christopher and gram-negative bacilli, Infectious disease team are also following the patient and currently she is on Unasyn, also she is on fluconazole. She is on normal sinus 100 mL/h and Protonix twice a day. She has negative barium swallow on 06/10/2019 with no evidence of postoperative leak or obstruction. 06/14/2019 Patient still awake, with some abdominal pain and tenderness which is expected after her surgery. Patient remains nothing by mouth and parenteral feeding is a provided. Patient has left PICC line which is intact with no surrounding infection or inflammation. Also patient is getting IV fluid. Her low magnesium is being replaced. Her magnesium today is 1.8. No other new complaint. Patient expected to work with physical therapy for the first time today. Infectious disease R following the case and they adjusted antibiotics with Unasyn and Eraxis 06/15/2019 pt is clinically the same, she is still NPO on parental feeding , and fluids, no n/v, abd pain is stable, she did well with physical therapy yesterday , she is still has drains in her abd that is expected to be removed by surgery team soon. she is still on Unasyn and Eraxis by ID team for her Abd abdominal abscess and positive culture 06/16/2019 Patient is awake and looks the same. Yesterday her wound VAC has been taken off, however abdominal just still there. This morning patient was started on liquid diet and she tolerated her jello with no problems. No more abdominal p ain or nausea vomiting. Vitas looks stable and labs aren't remarkable. Patient remains on parenteral fluid and feeding, however we will lower her heart rate of fluid from 75 down to 50 L/h. No other new complaints. No chest pain or dyspnea. 06/17/2019 Patient is awake and alert. She denies chest pain or dyspnea. Abdominal pain is controlled and is improving gradually. Patient is on liquid diet with recommendation to continue for 2 more weeks. Vitals are stable and patient is afebrile. Labs reviewed and looks stable. Patient continued to be on Unasyn with recommendation to continue with that for 1 more week. Patient might be discharged to [facility] soon 06/18/2019 Patient is fully awake and oriented, no chest pain or dyspnea, she is tolerating her liquid diet well, she didn't have bowel movements but she passing gases. No nausea vomiting. Her wound VAC has already been discontinued and there are 2 MICHELLE drains still there. Abdominal tenderness is expected and is improving every d ay. She is going to be discharged also on IV and oral antibiotics as per infectious disease recommendation. She has no other complaints. She confirms to me she takes latuda, Requip Xanax and Trintellix and want her medication back which are resumed. Objective - Vital Signs Vital signs: Vital Signs Temp 98.2 F 06/18/19 07:38 Pulse 68 06/18/19 07:38 Resp 16 06/18/19 07:38 BP 133/83 06/18/19 07:38 Pulse Ox 97 06/18/19 07:38 Intake & Output 06/17/19 06/18/19 06/18/19 18:59 06:59 18:59 Intake Total 440 0 Output Total 100 20 Balance 440 -100 -20 Intake: Oral 440 0 Output: Drainage 100 20 Left Abdomen MCIHELLE 50 10 Right Abdomen MICHELLE 50 10 Other: Voiding Method Toilet # Voids 3 - Exam GENERAL: The patient is alert and oriented x3, not in any acute distress. Well developed, well nourished. HEENT: Pupils are round and equally reacting to light. EOMI. No scleral icterus. No conjunctival pallor. Normocephalic, atraumatic. No pharyngeal erythema. No thyromegaly. CARDIOVASCULAR: S1 and S2 present. No murmurs, rubs, or gallops. PULMONARY: Chest is clear to auscultation, no wheezing or crackles. -ABDOMEN: Soft, nontender, nondistended, normoactive bowel sounds. No palpable organomegaly. Surgical incision is closed with dressing is placed, wound vac is in a Place, [address] as well. no surrounding cellulitis MUSCULOSKELETAL: No joint swelling or deformity. EXTREMITIES: No cyanosis, clubbing, or pedal edema. NEUROLOGICAL: Gross neurological examination did not reveal any focal deficits. SKIN: No rashes. - Labs CBC & Chem 7: 06/16/19 08:08 06/18/19 07:30 Labs: Abnormal Lab Results - Last 24 Hours (Table) 06/18/19 Range/Units 07:30 Sodium 136 L (137-145) mmol/L Glucose 117 H (74-99) mg/dL Calcium 8.0 L (8.4-10.2) mg/dL Assessment and Plan Assessment: Perforated viscus and peritonitis status post exploratory laparotomy for repair of the jejunojejunal peptic ulcer Sepsis secondary to peritonitis with culture growing MSSA SA, gram-negative bacilli and christopher Left upper pole kidney cyst Bilateral large adrenal glands, left side consistent with mild low lipoma Mild compression fracture of L3 and L2, related to osteoporosis History of osteoporosis Plan: This is a pleasant 54 years old female who presents with perforated bowel status post exploratory laparotomy and repair of the gastrojejunal ulcer. Continue with liquid diet for 2 weeks as per surgical recommendation. Continue with antibiotics for 1 more week as per ID recommendation. Continue with GI and DVT prophylaxis. Land for the patient to be discharged to rehab today. Patient is medically stable for discharge from our standpoint however patient needs follow- up as an outpatient DVT prophylaxis: Subcutaneous heparin GI Prophylaxis: Protonix Recommend patient to follow-up with her PCP in one week. Patient instructed with this and she agrees. Thank you for consulting us
--- NOTE | 2019-06-28 10:32 | IR ---
PICC LINE PLACEMENT: HISTORY: Infection requiring long-term antibiotic therapy PROCEDURE: Ultrasound and fluoroscopic guidance of PICC line placement. COMPLICATIONS: None ANESTHESIA: 1. 1% Lidocaine locally. FINDINGS/TECHNIQUE: The procedure was explained to the patient. The risks, complications, benefits and alternatives were discussed and any questions were answered. Informed consent was obtained. The patient was placed supine on the fluoroscopic table and prepped and draped in the usual sterile fash ion. Utilizing a 21 gauge needle and sonographic and fluoroscopic guidance, access in the left basi lic vein was achieved and there is placement of a 0.018 guidewire. The vein is patent. A 4-F sheath was placed over the guidewire. The guidewire and dilator were removed and a 4-F. PICC line was plac ed through the sheath with the tip at the level of the SVC. The sheath was removed, the catheter was flushed and sutured into position. The patient was stable throughout the procedure and remained sta ble upon discharge from the Department of Radiology. The vein puncture was patent under ultrasound. A summers scale image was obtained to document patency of the vein punctured. All elements of the maximal barrier technique were utilized. FLUOROSCOPY TIME: 0.1 minutes and one image submitted IMPRESSION: Successful PICC line placement under ultrasound and fluoroscopic guidance.
== END 2019-06-18 13:37 | DRG 853 ==
LOC: EC 15:40 → 2SICU 17:30 → 4SSUR 06-10 10:44
PROVIDERS: ADMIT Surgery Plastic and Reconstructive Surgery; ATTEND Surgery Plastic and Reconstructive Surgery
PROC: 0DJ08ZZ Inspection of Upper Intestinal Tract, Via Natural or Artificial Opening Endoscopic (ICD-10-PCS; principal; 2019-06-08 20:00)
PROC: 0DU907Z Supplement Duodenum with Autologous Tissue Substitute, Open Approach (ICD-10-PCS; principal; 2019-06-08 20:00)
PROC: 2W13X6Z Compression of Abdominal Wall using Pressure Dressing (ICD-10-PCS; principal; 2019-06-08 20:00)
PROC: 3E1M38Z Irrigation of Peritoneal Cavity using Irrigating Substance, Percutaneous Approach (ICD-10-PCS; principal; 2019-06-08 20:00)
PROC: B51V1ZA Fluoroscopy of Other Veins using Low Osmolar Contrast, Guidance (ICD-10-PCS; 2019-06-10)
PROC: 05HY33Z Insertion of Infusion Device into Upper Vein, Percutaneous Approach (ICD-10-PCS; 2019-06-10)
DX: A41.50 Gram-negative sepsis, unspecified (principal); K28.5 Chronic or unspecified gastrojejunal ulcer with perforation; K65.1 Peritoneal abscess; K65.2 Spontaneous bacterial peritonitis; K25.5 Chronic or unspecified gastric ulcer with perforation; M48.56XA Collapsed vertebra, not elsewhere classified, lumbar region, initial encounter for fracture; Z91.19 Patient's noncompliance with other medical treatment and regimen; F17.200 Nicotine dependence, unspecified, uncomplicated; G89.4 Chronic pain syndrome; M79.7 Fibromyalgia; K59.09 Other constipation; F41.1 Generalized anxiety disorder; I11.9 Hypertensive heart disease without heart failure; F31.9 Bipolar disorder, unspecified; G40.909 Epilepsy, unspecified, not intractable, without status epilepticus; M54.16 Radiculopathy, lumbar region; K21.9 Gastro-esophageal reflux disease without esophagitis; M47.9 Spondylosis, unspecified; E78.00 Pure hypercholesterolemia, unspecified; G62.9 Polyneuropathy, unspecified; E11.65 Type 2 diabetes mellitus with hyperglycemia; M17.10 Unilateral primary osteoarthritis, unspecified knee; R13.10 Dysphagia, unspecified; I73.00 Raynaud's syndrome without gangrene; E83.42 Hypomagnesemia; E87.6 Hypokalemia; M81.0 Age-related osteoporosis without current pathological fracture; I25.119 Atherosclerotic heart disease of native coronary artery with unspecified angina pectoris; Z96.653 Presence of artificial knee joint, bilateral; B95.61 Methicillin susceptible Staphylococcus aureus infection as the cause of diseases classified elsewhere; B96.89 Other specified bacterial agents as the cause of diseases classified elsewhere; F17.210 Nicotine dependence, cigarettes, uncomplicated; E83.39 Other disorders of phosphorus metabolism; Z98.84 Bariatric surgery status; I25.2 Old myocardial infarction; Z87.11 Personal history of peptic ulcer disease; Z79.4 Long term (current) use of insulin; Z90.5 Acquired absence of kidney; Z80.1 Family history of malignant neoplasm of trachea, bronchus and lung; Z88.2 Allergy status to sulfonamides; Z79.899 Other long term (current) drug therapy; Z98.890 Other specified postprocedural states; Z98.42 Cataract extraction status, left eye; Z98.41 Cataract extraction status, right eye; Z79.83 Long term (current) use of bisphosphonates
CPT/HCPCS: 36415; 36573; 74022; 74177; 74240; 80048; 80053; 81001; 82330; 82550; 83605; 83690; 83735; 84100; 84132; 84478; 84484; 85025; 85610; 85730; 87040; 87070; 87075; 87077; 87086; 87102; 87186; 87205; 93005; 94760; 96361; 96365; 96372; 96375; 96376; 99285

== ENCOUNTER 2019-07-01 20:10 | Emergency (ER) | payer MEDICARE, OTHER ==
[2019-07-01 20:18] VITALS: TEMP 98
[2019-07-01] MEDS ORDERED: LORazepam 2 MG/ML INJ IV STA (20:36)
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
[2019-07-01 20:53] LABS: ALT 15 U/L (9-52); AST 20 U/L (14-36); African American GFR (CKD) >90 (>60 ml/min/1.73 sqM); Albumin 3.8 g/dL (3.5-5.0); Alkaline Phosphatase 100 U/L (38-126); Blood Urea Nitrogen 6 mg/dL (7-17); Calcium 8.4 mg/dL (8.4-10.2); Carbon Dioxide 25 mmol/L (22-30); Glucose 121 mg/dL (74-99); Non-African American GFR(CKD) >90 (>60 ml/min/1.73 sqM); Total Bilirubin 0.3 mg/dL (0.2-1.3); Total Protein 6.8 g/dL (6.3-8.2)
[2019-07-01 20:54] LABS: Anion Gap 8 mmol/L; Chloride 105 mmol/L (98-107); Potassium 3.9 mmol/L (3.5-5.1); Sodium 138 mmol/L (137-145)
[2019-07-01 20:59] LABS: INR 0.9 (<1.2); Partial Thromboplastin Time 24.6 sec (22.0-30.0); Prothrombin Time 9.7 sec (9.0-12.0)
[2019-07-01 21:01] LABS: Basophils # (A) 0.1 k/uL (0-0.2); Basophils % (A) 1 %; Eosinophils # (A) 0.2 k/uL (0-0.7); Eosinophils % (A) 2 %; HGB 12.7 gm/dL (11.4-16.0); Lymphocytes % (A) 23 %; MCH 32.7 pg (25.0-35.0); MCHC 31.8 g/dL (31.0-37.0); Macrocytosis Slight; Mean Platelet Volume 6.9; Monocytes # (A) 0.5 k/uL (0-1.0); Monocytes % (A) 6 %; Neutrophils # (A) 5.8 k/uL (1.3-7.7); Neutrophils % (A) 66 %; Platelet Count 474 k/uL (150-450); RBC 3.88 m/uL (3.80-5.40); RDW 14.8 % (11.5-15.5); WBC 8.7 k/uL (3.8-10.6)
[2019-07-01 21:08] LABS: D-Dimer 1.47 mg/L FEU (<0.60)
--- NOTE | 2019-07-01 21:21 | XR ---
EXAMINATION TYPE: XR chest 2V DATE OF EXAM: 07/01/2019 COMPARISON: 06/08/2019 HISTORY: Short of breath TECHNIQUE: Frontal and lateral views of the chest are obtained. FINDINGS: There is no heart failure nor confluent pneumonic infiltrate. Costophrenic angles are bhumika r. There are chest leads. IMPRESSION: No active cardiopulmonary disease. No change.
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
[2019-07-01 23:00] VITALS: RESP 20
[2019-07-01 23:01] VITALS: BP 146/87; PULSE 82
== END 2019-07-01 23:38 | disposition home or self-care (01) ==
LOC: EC 20:10
DX: R06.02 Shortness of breath (principal); R00.0 Tachycardia, unspecified; I10 Essential (primary) hypertension; M19.90 Unspecified osteoarthritis, unspecified site; F32.9 Major depressive disorder, single episode, unspecified; F17.200 Nicotine dependence, unspecified, uncomplicated; Z88.2 Allergy status to sulfonamides; Z79.899 Other long term (current) drug therapy; Z96.653 Presence of artificial knee joint, bilateral; Z80.1 Family history of malignant neoplasm of trachea, bronchus and lung; Z82.49 Family history of ischemic heart disease and other diseases of the circulatory system
CPT/HCPCS: 36415; 93005; 85379; 80053; 83735; 84484; 85025; 85610; 85730; 71046; 71275; 99285; 96374; J2060; Q9967

== ENCOUNTER 2019-07-06 21:15 | Emergency (ER) | payer MEDICARE, OTHER ==
[2019-07-06 21:26] VITALS: RESP 18
[2019-07-06] MEDS ORDERED: LORazepam 2 MG/ML INJ IV STA ×2 (21:41)
[2019-07-06] MEDS ORDERED: SODIUM CHLORIDE 0.9% 500 ML 500 ML IV STA (21:46)
[2019-07-06 22:18] LABS: Basophils % (A) 0 %; Eosinophils # (A) 0.1 k/uL (0-0.7); Eosinophils % (A) 1 %; HCT 38.2 % (34.0-46.0); HGB 12.2 gm/dL (11.4-16.0); Lymphocytes # (A) 0.5 k/uL (1.0-4.8); Lymphocytes % (A) 5 %; MCH 32.8 pg (25.0-35.0); MCHC 31.9 g/dL (31.0-37.0); MCV 102.8 fL (80.0-100.0); Macrocytosis Slight; Mean Platelet Volume 7.3; Monocytes # (A) 0.3 k/uL (0-1.0); Monocytes % (A) 3 %; Neutrophils # (A) 7.9 k/uL (1.3-7.7); Neutrophils % (A) 90 %; Platelet Count 289 k/uL (150-450); RBC 3.72 m/uL (3.80-5.40); RDW 14.2 % (11.5-15.5); WBC 8.8 k/uL (3.8-10.6)
[2019-07-06 22:33] LABS: African American GFR (CKD) >90 (>60 ml/min/1.73 sqM); Albumin 3.5 g/dL (3.5-5.0); Anion Gap 11 mmol/L; Calcium 8.1 mg/dL (8.4-10.2); Carbon Dioxide 20 mmol/L (22-30); Chloride 109 mmol/L (98-107); Glucose 137 mg/dL (74-99); Sodium 140 mmol/L (137-145); Total Bilirubin 0.4 mg/dL (0.2-1.3); Total Protein 6.6 g/dL (6.3-8.2)
[2019-07-06 22:37] LABS: ALT 10 U/L (9-52); AST 30 U/L (14-36); Alkaline Phosphatase 59 U/L (38-126); Blood Urea Nitrogen 15 mg/dL (7-17); Potassium 4.3 mmol/L (3.5-5.1)
[2019-07-06 22:44] LABS: Amphetamine Screen,Urine Not Detected (NotDetected); Barbiturate Screen,Urine Not Detected (NotDetected); Benzodiazepines Screen,Urine Not Detected (NotDetected); Cocaine Screen,Urine Not Detected (NotDetected); Methadone Screen, Urine Not Detected (NotDetected); Opiate Screen,Urine Not Detected (NotDetected); Oxycodone Screen, Urine Not Detected (NotDetected); Phencyclidine Screen,Urine Not Detected (NotDetected); Tricyclic Antidepressant,Urine Detected (NotDetected); Urn Cannabinoid Scrn Detected (NotDetected)
[2019-07-06 22:48] LABS: Appearance,Urine Clear (Clear); Bilirubin,Urine Negative (Negative); Blood,Urine Negative (Negative); Color,Urine Yellow; Glucose,Urine (UA) Negative (Negative); Hyaline Casts,Urine 6 /lpf (0-2); Ketones,Urine Trace (Negative); Leukocyte Esterase,Urine Negative (Negative); Mucus,Urine Occasional /hpf; Nitrite,Urine Negative (Negative); PH, Urine 5.5 (5.0-8.0); Protein,Urine 1+ (Negative); RBC,Urine 2 /hpf (0-5); Specific Gravity,Urine 1.044 (1.001-1.035); Urobilinogen,Urine <2.0 mg/dL (<2.0); WBC,Urine 6 /hpf (0-5)
--- NOTE | 2019-07-06 23:08 | CT ---
EXAM: CT Head Without Intravenous Contrast CLINICAL HISTORY: ITS.REASON CT Reason: Pain TECHNIQUE: Axial computed tomography images of the head/brain without intravenous contrast. CTDI is 49.27 mGy and DLP is 1103.4 mGy-cm. This CT exam was performed using one or more of the following dose reduction techniques: automated exposure control, adjustment of the mA and/or kV according to patient size, and/or use of iterative reconstruction technique. COMPARISON: CT head 09/12/2017. FINDINGS: Brain: Unremarkable. No hemorrhage. No significant white matter disease. No edema. Ventricles: Unremarkable. No ventriculomegaly. Bones/joints: Unremarkable. No acute fracture. Soft tissues: Unremarkable. Sinuses: Unremarkable as visualized. No acute sinusitis. Mastoid air cells: Unremarkable as visualized. No mastoid effusion. IMPRESSION: No intracranial hemorrhage or other acute intracranial abnormality.
[2019-07-07] MEDS ORDERED: HYDROcodone/APAP 10-325MG 1 EACH TAB PO ONE (00:06)
[2019-07-07] MEDS ORDERED: levETIRAcetam IV 1,000 MG in SALINE 1 100ML.BAG IVPB STA (00:06)
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
[2019-07-07 00:24] VITALS: BP 135/90; PULSE 78; TEMP 98.9
== END 2019-07-07 00:52 | disposition home or self-care (01) ==
LOC: EC 21:15
DX: G40.909 Epilepsy, unspecified, not intractable, without status epilepticus (principal); I10 Essential (primary) hypertension; M19.90 Unspecified osteoarthritis, unspecified site; F31.9 Bipolar disorder, unspecified; F41.9 Anxiety disorder, unspecified; F17.200 Nicotine dependence, unspecified, uncomplicated; Z88.2 Allergy status to sulfonamides; Z79.899 Other long term (current) drug therapy; Z96.653 Presence of artificial knee joint, bilateral; Z91.14 Patient's other noncompliance with medication regimen; Z53.8 Procedure and treatment not carried out for other reasons; W19.XXXA Unspecified fall, initial encounter; Y92.009 Unspecified place in unspecified non-institutional (private) residence as the place of occurrence of the external cause
CPT/HCPCS: 36415; 93005; 80053; 85025; 81001; 80306; 70450; 99284; 51701; 96365; 96375; 96361 ×2; J2060; J1953

== ENCOUNTER → 2019-08-05 | Outpatient (CLI) | payer MEDICARE, OTHER ==
[2019-08-05 14:20] LABS: INR 0.9 (<1.2); Partial Thromboplastin Time 27.3 sec (22.0-30.0); Prothrombin Time 10.1 sec (9.0-12.0)
[2019-08-05 19:17] LABS: Chol/HDL Ratio 1.9; Phosphorus 4.4 mg/dL (2.4-5.1)
[2019-08-05 19:19] LABS: Iron Saturation 20.9 (12.00-45.00)
[2019-08-05 19:28] LABS: Vitamin D 25 Hydroxy 66.9 ng/mL (30.0-100.0)
[2019-08-05 19:29] LABS: Ferritin 103.3 ng/mL (10.0-291.0); Folate, Serum 8.4 ng/mL
[2019-08-05 20:46] LABS: Hemoglobin A1C 4.5 % (4.0-6.0)
[2019-08-08 12:11] LABS: Zinc, Serum 67 ug/dL (60-130)
[2019-08-09 06:39] LABS: Vitamin A 51 ug/dL (38-106)
[2019-08-10 07:50] LABS: Vit B1(Thiamine) 74 ug/L (38-122)
[2019-08-10 12:54] LABS: Selenium 70 mcg/L (63-160)
== END | disposition home or self-care (01) ==
LOC: LABWHC1 12:50
PROVIDERS: ATTEND Surgery Plastic and Reconstructive Surgery
DX: E21.1 Secondary hyperparathyroidism, not elsewhere classified (principal); E89.1 Postprocedural hypoinsulinemia; D50.9 Iron deficiency anemia, unspecified; K90.9 Intestinal malabsorption, unspecified; E55.9 Vitamin D deficiency, unspecified; K74.1 Hepatic sclerosis; N19 Unspecified kidney failure; K50.90 Crohn's disease, unspecified, without complications; E66.01 Morbid (severe) obesity due to excess calories
CPT/HCPCS: 36415; 80061; 82306; 82525; 82607; 82728; 82746; 83036; 83540; 83550; 83735; 83970; 84100; 84134; 84255; 84425; 84443; 84590; 84630; 85610; 85730

== ENCOUNTER 2019-09-22 12:20 | Emergency (ER) | payer MEDICARE, OTHER ==
[2019-09-22 12:33] VITALS: PULSE 71; RESP 18; TEMP 98.5
[2019-09-22] MEDS ORDERED: KETOROLAC 60 MG/2 ML VIAL IVP STA (12:33)
--- NOTE | 2019-09-22 12:36 | ED ---
General Adult HPI - General Chief complaint: Fall Stated complaint: Hip fx Time Seen by Provider: 09/22/19 12:20 Source: patient, RN notes reviewed Mode of arrival: EMS Limitations: no limitations - History of Present Illness Initial comments: This is a 54-year-old female presents emergency department stating that for over a year now she has been having problems with falling and she has been following up with Elsa. and neurologist for this. Patient states today she was in the kitchen went to step backwards and lost her balance and fell she states she hurt her left shoulder and her right hip. Patient does appear to have full range of motion of both but it is somewhat painful to move either. Patient states she bumped her head slightly but there was no loss of consciousness she was not dazed she does not have a headache and there was no bump or lump or laceration. Patient denies any neck pain. Patient denies any numbness or weakness. Patient denies any upper back pain or chest pain. Patient does complain of a little lower back pain or lumbar region. Patient denies any extremity pain of the right upper or left lower - Related Data Home Medications Medication Instructions Recorded Confirmed Cyclobenzaprine [Flexeril] 10 mg PO HS 01/25/18 07/01/19 Ergocalciferol [Vitamin D2 50,000 unit PO TU 01/25/18 07/01/19 (DRISDOL)] ALPRAZolam [Xanax] 1 mg PO TID PRN 04/30/19 07/01/19 Dextroamphetamine/Amphetamine 20 mg PO DAILY 04/30/19 07/01/19 [Adderall] HYDROcodone/APAP 10-325MG [[place] 1 tab PO TID PRN 04/30/19 07/01/19 10-325] Vortioxetine Hydrobromide 20 mg PO HS 04/30/19 07/01/19 [Trintellix] Zolpidem [Ambien] 5 mg PO HS 04/30/19 07/01/19 rOPINIRole HCL [Requip] 0.5 mg PO HS 04/30/19 07/01/19 Donepezil [Aricept] 20 mg PO HS 05/25/19 07/01/19 Montelukast [Singulair] 10 mg PO DAILY 05/25/19 07/01/19 diphenhydrAMINE HCL [Benadryl] 50 mg PO ONCE PRN 07/01/19 07/01/19 Previous Rx's Medication Instructions Recorded Pantoprazole [Protonix] 40 mg PO BID #60 tablet. 06/09/19 Bisacodyl [Dulcolax] 10 mg RECTAL DAILY PRN supp 06/18/19 Lurasidone [Latuda] 40 mg PO HS #2 tab 06/18/19 ALPRAZolam [Xanax] 0.25 mg PO DAILY PRN #2 tab 07/01/19 levETIRAcetam [Keppra] 500 mg PO BID #60 tab 07/07/19 Allergies Allergy/AdvReac Type Severity Reaction Status Date / Time Sulfa (Sulfonamide Allergy blisters Verified 09/22/19 13:57 Antibiotics) over body sulfamethoxazole Allergy vasculitis, Verified 09/22/19 13:57 [From Bactrim] swelling trimethoprim [From Bactrim] Allergy vasculitis, Verified 09/22/19 13:57 swelling Review of Systems ROS Statement: Those systems with pertinent positive or pertinent negative responses have been documented in the HPI. ROS Other: All systems not noted in ROS Statement are negative. Past Medical History Past Medical History: Chest Pain / Angina, Hypertension, Myocardial Infarction ([place]), Seizure Disorder Additional Past Medical History / Comment(s): arthritis Pt is now being treated for high BP. Pt stated that she had second heart attack-silent mi unk date. Ulcers. upper teeth pulled and dentures replaced 10/2015, fibromyalgia. osteoporosis Last Myocardial Infarction Date:: 2013 History of Any Multi-Drug Resistant Organisms: None Reported Past Surgical History: Bariatric Surgery Additional Past Surgical History / Comment(s): abdominal perforation 06/08/19 cataracts removed RT/Lt eyes, 2011 Darrell-en- y, rt kidney sx-"they took part of my kidney they thought is was cancer but came back not cancer", bilateral knee replacements prolapsed rectum repair Past Anesthesia/Blood Transfusion Reactions: Previous Problems w/ Anesthesia, Motion Sickness Past Psychological History: Anxiety, Bipolar, Depression Smoking Status: Current every day smoker Past Alcohol Use History: None Reported Past Drug Use History: None Reported - Past Family History Father Family Medical History: Cancer Additional Family Medical History / Comment(s): lung, AAA Mother Family Medical History: CVA/TIA General Exam - General Exam Comments Initial Comments: GENERAL: Patient is well-developed and well-nourished. Patient is nontoxic and well- hydrated and is in mild distress. ENT: Neck is soft and supple. No significant lymphadenopathy is noted. Oropharynx is clear. Moist mucous membranes. Neck has full range of motion without eliciting any pain. EYES: The sclera were anicteric and conjunctiva were pink and moist. Extraocular movements were intact and pupils were equal round and reactive to light. Eyelids were unremarkable. PULMONARY: Unlabored respirations. Good breath sounds bilaterally. No audible rales rhonchi or wheezing was noted. CARDIOVASCULAR: There is a regular rate and rhythm without any murmurs gallops or rubs. ABDOMEN: Soft and nontender with normal bowel sounds. SKIN: Skin is clear with no lesions or rashes and otherwise unremarkable. NEUROLOGIC: Patient is alert and oriented x3. Cranial nerves II through XII are grossly intact. Motor and sensory are also intact. Normal speech, volume and content. Symmetrical smile. MUSCULOSKELETAL: Normal extremities with adequate strength and full range of motion. Patient does have some lateral right hip tenderness and some pain with external rotation. Patient has some posterior left shoulder pain. No lower extremity swelling or edema. No calf tenderness. LYMPHATICS: No significant lymphadenopathy is noted PSYCHIATRIC: Normal psychiatric evaluation. Limitations: no limitations Course Vital Signs 09/22/19 12:27 Temperature 98.5 F Pulse Rate 71 Respiratory 18 Rate O2 Sat by Pulse 95 Oximetry Medical Decision Making - Medical Decision Making Shoulder x-ray shows no acute abnormality. X-ray of the hip shows no acute abnormality. X-ray of the lumbar spine shows old compression fractures in no acute fractures. I went back to the room the patient was able to ambulate and felt comfortable going home. Patient did state she has a walker and she plans on using it. Patient will follow-up for these falling episodes with her neurologist as she has been for the last year. Disposition Clinical Impression: Shoulder contusion, Contusion, hip, Lumbar strain, Fall Disposition: HOME SELF-CARE Condition: Good Instructions (If sedation given, give patient instructions): Fall Prevention for Older Adults (ED) Is patient prescribed a controlled substance at d/c from ED?: No Referrals: Zana Meade MD [Primary Care Provider] - 1-2 days Time of Disposition: 14:34
--- NOTE | 2019-09-22 14:01 | XR ---
EXAMINATION TYPE: XR shoulder complete 3 views LT, XR lumbar spine 3V, XR Hip Complete 2 views RT DATE OF EXAM: 09/22/2019 COMPARISON: Lumbar spine 09/22/[address] 06/08/2019 HISTORY: 54-year-old female pain after fall FINDINGS: Left shoulder: Widely at the AC joint posttraumatic or postsurgical. Postsurgical etiology is favored. Suture anchor s at the greater tuberosity from prior rotator cuff repair. No acute fracture, subluxation, or disloc ation seen. Lumbar spine: Rightward truncal shift. Osteopenia. Superior endplate compression deformity of L3 is increased from 05/25/2019 but relatively similar to 06/08/2019. Mild anterior wedging of L2 also noted, unchanged from 05/25/2019. No new vertebral compression collapse. Facet arthropathy mid to lower lumbar spine. Trace g rade 1 anterolisthesis L4-L5. Right hip: Mild marginal spurring at the right hip. Suggestion of some degenerative spurring at the SI joint. No acute fracture, subluxation, dislocation. IMPRESSION: 1. Left shoulder: Suspect postsurgical rather than posttraumatic widening at the AC joint. Clinically correlate. Prior rotator cuff repair. No acute osseous anomaly seen. 2. Lumbar spine: Superior endplate fracture of L3 similar to 06/08/2019. Mild anterior wedging of L2 i s also chronic. No new compression deformity. Facet arthropathy mid to lower lumbar spine with stable grade 1 anterolisthesis at L4-L5. 3. Right hip: Mild degenerative change without acute osseous abnormality seen.
[2019-09-22 14:56] VITALS: BP 150/83
== END 2019-09-22 14:50 | disposition home or self-care (01) ==
LOC: EC 12:20
DX: S40.012A Contusion of left shoulder, initial encounter (principal); S70.01XA Contusion of right hip, initial encounter; S39.012A Strain of muscle, fascia and tendon of lower back, initial encounter; F41.9 Anxiety disorder, unspecified; F31.9 Bipolar disorder, unspecified; I25.2 Old myocardial infarction; I10 Essential (primary) hypertension; M81.0 Age-related osteoporosis without current pathological fracture; G40.909 Epilepsy, unspecified, not intractable, without status epilepticus; M79.7 Fibromyalgia; F17.200 Nicotine dependence, unspecified, uncomplicated; Z98.84 Bariatric surgery status; Z98.41 Cataract extraction status, right eye; Z98.42 Cataract extraction status, left eye; Z79.899 Other long term (current) drug therapy; Z88.2 Allergy status to sulfonamides; Z97.2 Presence of dental prosthetic device (complete) (partial); Z96.653 Presence of artificial knee joint, bilateral; W01.10XA Fall on same level from slipping, tripping and stumbling with subsequent striking against unspecified object, initial encounter; Y92.000 Kitchen of unspecified non-institutional (private) residence as the place of occurrence of the external cause
CPT/HCPCS: 72100; 73030; 73502; 96374; 99284; J1885

== ENCOUNTER 2020-03-09 19:49 | Emergency (ER) | payer MEDICARE, OTHER ==
[2020-03-09 19:59] VITALS: RESP 16; TEMP 98.7
[2020-03-09] MEDS ORDERED: HYDROcodone/APAP 10-325MG 1 EACH TAB PO STA (20:16)
--- NOTE | 2020-03-09 20:41 | ED ---
General Adult HPI - General Chief complaint: Fall Stated complaint: Fall Time Seen by Provider: 03/09/20 19:59 Source: patient, RN notes reviewed Mode of arrival: EMS Limitations: no limitations - History of Present Illness Initial comments: 54-year-old female with a past medical history of hypertension, [place], seizure disorder presents to the emergency determine for chief complaint of left ankle injury. Patient states that she was leaving the house when she tripped on his bed and twisted her left ankle. Patient states she has pain in the left ankle and the top of the left foot. She states that she did walk on her ankle prior to arrival. Patient did not hit her head or sustain any other injuries. She reports she does not take blood thinners.Patient has no other complaints at this time including shortness of breath, chest pain, abdominal pain, nausea or vomiting, headache, or visual changes. - Related Data Home Medications Medication Instructions Recorded Confirmed Cyclobenzaprine [Flexeril] 10 mg PO HS 01/25/18 07/01/19 Ergocalciferol [Vitamin D2 50,000 unit PO TU 01/25/18 07/01/19 (DRISDNATALIA)] ALPRAZolam [Xanax] 1 mg PO TID PRN 04/30/19 07/01/19 Dextroamphetamine/Amphetamine 20 mg PO DAILY 04/30/19 07/01/19 [Adderall] HYDROcodone/APAP 10-325MG [[place] 1 tab PO TID PRN 04/30/19 07/01/19 10-325] Vortioxetine Hydrobromide 20 mg PO HS 04/30/19 07/01/19 [Trintellix] Zolpidem [Ambien] 5 mg PO HS 04/30/19 07/01/19 rOPINIRole HCL [Requip] 0.5 mg PO HS 04/30/19 07/01/19 Donepezil [Aricept] 20 mg PO HS 05/25/19 07/01/19 Montelukast [Singulair] 10 mg PO DAILY 05/25/19 07/01/19 diphenhydrAMINE HCL [Benadryl] 50 mg PO ONCE PRN 07/01/19 07/01/19 Previous Rx's Medication Instructions Recorded Pantoprazole [Protonix] 40 mg PO BID #60 tablet. 06/09/19 Bisacodyl [Dulcolax] 10 mg RECTAL DAILY PRN supp 06/18/19 Lurasidone [Latuda] 40 mg PO HS #2 tab 06/18/19 ALPRAZolam [Xanax] 0.25 mg PO DAILY PRN #2 tab 07/01/19 levETIRAcetam [Keppra] 500 mg PO BID #60 tab 07/07/19 levETIRAcetam [Keppra] 750 mg PO Q12HR #14 tab 01/14/20 Allergies Allergy/AdvReac Type Severity Reaction Status Date / Time Sulfa (Sulfonamide Allergy blisters Verified 09/22/19 13:57 Antibiotics) over body sulfamethoxazole Allergy vasculitis, Verified 09/22/19 13:57 [From Bactrim] swelling trimethoprim [From Bactrim] Allergy vasculitis, Verified 09/22/19 13:57 swelling Review of Systems ROS Statement: Those systems with pertinent positive or pertinent negative responses have been documented in the HPI. ROS Other: All systems not noted in ROS Statement are negative. Past Medical History Past Medical History: Chest Pain / Angina, Hypertension, Myocardial Infarction ([place]), Seizure Disorder Additional Past Medical History / Comment(s): arthritis Pt is now being treated for high BP. Pt stated that she had second heart attack-silent mi unk date. Ulcers. upper teeth pulled and dentures replaced 10/2015, fibromyalgia. osteoporosis Last Myocardial Infarction Date:: 2013 History of Any Multi-Drug Resistant Organisms: None Reported Past Surgical History: Bariatric Surgery Additional Past Surgical History / Comment(s): abdominal perforation 06/08/19 cataracts removed RT/Lt eyes, 2011 Darrell-en- y, rt kidney sx-"they took part of my kidney they thought is was cancer but came back not cancer", bilateral knee replacements prolapsed rectum repair Past Anesthesia/Blood Transfusion Reactions: Previous Problems w/ Anesthesia, Motion Sickness Past Psychological History: Anxiety, Bipolar, Depression Smoking Status: Current every day smoker Past Alcohol Use History: None Reported Past Drug Use History: None Reported - Past Family History Father Family Medical History: Cancer Additional Family Medical History / Comment(s): lung, AAA Mother Family Medical History: CVA/TIA General Exam Limitations: no limitations General appearance: alert, in no apparent distress Head exam: Present: atraumatic, normocephalic, normal inspection Eye exam: Present: normal appearance, PERRL, EOMI. Absent: scleral icterus, conjunctival injection, periorbital swelling ENT exam: Present: normal exam, mucous membranes moist Neck exam: Present: normal inspection, full ROM. Absent: tenderness, meningismus, lymphadenopathy Respiratory exam: Present: normal lung sounds bilaterally. Absent: respiratory distress, wheezes, rales, rhonchi, stridor Cardiovascular Exam: Present: regular rate, normal rhythm, normal heart sounds. Absent: systolic murmur, diastolic murmur, rubs, gallop, clicks GI/Abdominal exam: Present: soft, normal bowel sounds. Absent: distended, tenderness, guarding, rebound, rigid Extremities exam: Present: tenderness (Tenderness noted to the fifth and fourth dorsal metatarsals of the left foot. No significant ankle tenderness.), normal capillary refill (DP pulse 2+, cap refill < 2 seconds in LLE.), joint swelling (Patient does have some lateral left foot edema as well as lateral malleoli or edema). Absent: full ROM (Patient has pain with passive dorsiflexion. ), pedal edema, calf tenderness Course Vital Signs 03/09/20 19:55 Temperature 98.7 F Pulse Rate 73 Respiratory 16 Rate Blood Pressure 152/87 O2 Sat by Pulse 98 Oximetry Procedures - Orthopedic Splinting/Casting Injury #1 Side: left Lower Extremity Injury Location: short leg Lower Extremity Immobilizer: posterior splint Additional Comments: Neurovascular status intact after splint applied with a capillary refill less than 2 seconds. Medical Decision Making - Medical Decision Making HPI physical exam as documented. X-ray of the left ankle shows soft tissue swelling. No ankle fracture seen. Fifth metatarsal base fracture is noted. Patient was placed in a posterior splint. I did instruct her to remain nonweightbearing with crutches as this could be a Lea fracture. I recommend she follow up with orthopedics on Thursday. [facility] so I will give her a referral to [facility] for this began. She will return if she has any worsening symptoms . Patient takes Deeth at home for pain. Disposition Clinical Impression: Fracture of 5th metatarsal Disposition: HOME SELF-CARE Condition: Good Instructions (If sedation given, give patient instructions): Foot Fracture in Adults (ED) Additional Instructions: Please do not airway on the left foot. Use crutches. Keep the splint dry. Follow-up with orthopedics on Thursday. Take Tylenol for pain. Rest ice and e levate the left foot. If you have any worsening symptoms return to the emergency department. Is patient prescribed a controlled substance at d/c from ED?: No Referrals: Zana Meade MD [Primary Care Provider] - 1-2 days Sheldon Huitron MD [STAFF PHYSICIAN] - 1-2 days Time of Disposition: 21:23
--- NOTE | 2020-03-09 20:45 | XR ---
EXAMINATION TYPE: XR foot complete LT DATE OF EXAM: 03/09/2020 COMPARISON: NONE HISTORY: Pain TECHNIQUE: 3 views FINDINGS: There is nondisplaced transverse fracture across the base of the fifth metatarsal. Fracture appears acute. There are plantar and Achilles calcaneal spurs. There are no erosions. There is no piña bluxation. IMPRESSION: Acute nondisplaced fracture of the fifth metatarsal.
--- NOTE | 2020-03-09 20:46 | XR ---
EXAMINATION TYPE: XR ankle complete LT DATE OF EXAM: 03/09/2020 COMPARISON: NONE HISTORY: Pain TECHNIQUE: 3 views FINDINGS: Ankle mortise is anatomic. There is soft tissue swelling over the lateral malleolus. There is nondisplaced fracture at the base of the fifth metatarsal. There is calcaneal spur formation. Ankl e joint spaces are fairly normal. IMPRESSION: Soft tissue swelling. No ankle fracture seen. Fifth metatarsal base fracture.
[2020-03-09 21:51] VITALS: BP 161/90; PULSE 72
== END 2020-03-09 21:55 | disposition home or self-care (01) ==
LOC: EC 19:49
DX: S92.355A Nondisplaced fracture of fifth metatarsal bone, left foot, initial encounter for closed fracture (principal); M79.7 Fibromyalgia; M19.90 Unspecified osteoarthritis, unspecified site; M81.0 Age-related osteoporosis without current pathological fracture; F41.9 Anxiety disorder, unspecified; F31.9 Bipolar disorder, unspecified; G40.909 Epilepsy, unspecified, not intractable, without status epilepticus; I10 Essential (primary) hypertension; I25.2 Old myocardial infarction; F17.200 Nicotine dependence, unspecified, uncomplicated; Z79.899 Other long term (current) drug therapy; Z88.2 Allergy status to sulfonamides; Z88.1 Allergy status to other antibiotic agents; Z96.653 Presence of artificial knee joint, bilateral; W18.49XA Other slipping, tripping and stumbling without falling, initial encounter; Y92.003 Bedroom of unspecified non-institutional (private) residence as the place of occurrence of the external cause
CPT/HCPCS: 29515; 99283

== ENCOUNTER 2020-05-12 22:14 | Emergency (ER) | payer MEDICARE, OTHER ==
[2020-05-12] MEDS ORDERED: NALOXONE 0.4 MG/ML 1 ML VIAL IV STA ×2 (22:50→22:54)
[2020-05-12] MEDS ORDERED: NALOXONE 0.4 MG/ML 10 ML VIAL IVP STA (22:54)
[2020-05-12 23:02] LABS: Glucose,Whole Blood 123 mg/dL (75-99)
[2020-05-12 23:09] LABS: Anisocytosis Slight; Basophils % (A) 0 %; Eosinophils # (A) 0.1 k/uL (0-0.7); Eosinophils % (A) 1 %; HCT 37.6 % (34.0-46.0); HGB 13.6 gm/dL (11.4-16.0); Lymphocytes # (A) 0.4 k/uL (1.0-4.8); Lymphocytes % (A) 3 %; MCH 36.1 pg (25.0-35.0); MCHC 36.1 g/dL (31.0-37.0); MCV 99.9 fL (80.0-100.0); Macrocytosis Moderate; Mean Platelet Volume 7.6; Monocytes # (A) 0.5 k/uL (0-1.0); Monocytes % (A) 4 %; Neutrophils # (A) 12.6 k/uL (1.3-7.7); Neutrophils % (A) 91 %; Platelet Count 268 k/uL (150-450); Poikilocytosis Slight; RBC 3.76 m/uL (3.80-5.40); RDW 19.7 % (11.5-15.5); WBC 13.8 k/uL (3.8-10.6)
[2020-05-12 23:14] LABS: Partial Thromboplastin Time 31.7 sec (22.0-30.0); Prothrombin Time 10.6 sec (9.0-12.0)
[2020-05-12 23:15] LABS: ALT 8 U/L (4-34); AST 29 U/L (14-36); African American GFR (CKD) 13 (>60 ml/min/1.73 sqM); Albumin 2.9 g/dL (3.5-5.0); Alkaline Phosphatase 134 U/L (38-126); Blood Urea Nitrogen 67 mg/dL (7-17); Chloride 99 mmol/L (98-107); Glucose 115 mg/dL (74-99); Non-African American GFR(CKD) 11 (>60 ml/min/1.73 sqM); Potassium 3.6 mmol/L (3.5-5.1); Sodium 129 mmol/L (137-145); Total Bilirubin 0.3 mg/dL (0.2-1.3); Total Protein 5.7 g/dL (6.3-8.2)
[2020-05-12 23:21] LABS: Calcium 5.5 mg/dL (8.4-10.2); Carbon Dioxide <5 mmol/L (22-30)
--- NOTE | 2020-05-12 23:21 | ED ---
General Adult HPI <Costa Sethi - Last Filed: 05/13/20 02:11> - General Source: patient Mode of arrival: ambulatory Limitations: no limitations <Jovan Farooq - Last Filed: 05/13/20 20:52> - General Chief complaint: Altered Mental Status Stated complaint: Poss stroke Time Seen by Provider: 05/12/20 22:38 - History of Present Illness Initial comments: Dictation was produced using [employer] dictation software. please excuse any grammatical, word or spelling errors. This patient was cared for during a federal and state declared state of emergency secondary to Covid 19 Chief Complaint: 54-year-old female presents with altered mental status since yesterday. History of Present Illness: Patient is a 54-year-old female presents today with her son who noted that she has been acting strangely since yesterday. She was last seen normal at 10 PM last night. Patient has multiple comorbidities including hypertension, seizures, myocardial infarction. Patient has been unresponsive all day. She was finally brought to the emergency department. Patient unable to provide HPI at this time. Unavailable to obtain secondary to mental status. PHYSICAL EXAM: General Impression: Unresponsive, pale in appearance, diminished gag reflex HEENT: Normocephalic atraumatic, pinpoint pupils bilaterally Cardiovascular: Heart regular rate and rhythm Chest: Bilateral breath sounds Abdomen: abdomen soft, non-tender, non-distended, no organomegaly Musculoskeletal: Pulses present and equal in all extremities, no peripheral edema Neurological: Pinpoint pupils, moves extremities to painful stimuli Skin: Mottled distal extremities ED course: 54-year-old female presents with altered mental status. No signs upon arrival are within acceptable limits. Patient is unresponsive and appears to be significantly ill. Code stroke page. Discussed patient case with Dr. Lantigua who requests that CT and CT angio head and neck ordered. Patient care is signed out to Dr. Sethi. (Jovan Farooq) - Related Data Home Medications Medication Instructions Recorded Confirmed Cyclobenzaprine [Flexeril] 10 mg PO HS 01/25/18 07/01/19 Ergocalciferol [Vitamin D2 50,000 unit PO TU 01/25/18 07/01/19 (DRISDOL)] ALPRAZolam [Xanax] 1 mg PO TID PRN 04/30/19 07/01/19 Dextroamphetamine/Amphetamine 20 mg PO DAILY 04/30/19 07/01/19 [Adderall] HYDROcodone/APAP 10-325MG [[place] 1 tab PO TID PRN 04/30/19 07/01/19 10-325] Vortioxetine Hydrobromide 20 mg PO HS 04/30/19 07/01/19 [Trintellix] Zolpidem [Ambien] 5 mg PO HS 04/30/19 07/01/19 rOPINIRole HCL [Requip] 0.5 mg PO HS 04/30/19 07/01/19 Donepezil [Aricept] 20 mg PO HS 05/25/19 07/01/19 Montelukast [Singulair] 10 mg PO DAILY 05/25/19 07/01/19 diphenhydrAMINE HCL [Benadryl] 50 mg PO ONCE PRN 07/01/19 07/01/19 Previous Rx's Medication Instructions Recorded Pantoprazole [Protonix] 40 mg PO BID #60 tablet. 06/09/19 Bisacodyl [Dulcolax] 10 mg RECTAL DAILY PRN supp 06/18/19 Lurasidone [Latuda] 40 mg PO HS #2 tab 06/18/19 ALPRAZolam [Xanax] 0.25 mg PO DAILY PRN #2 tab 07/01/19 levETIRAcetam [Keppra] 500 mg PO BID #60 tab 07/07/19 levETIRAcetam [Keppra] 750 mg PO Q12HR #14 tab 01/14/20 Allergies Allergy/AdvReac Type Severity Reaction Status Date / Time Sulfa (Sulfonamide Allergy blisters Verified 05/12/20 22:20 Antibiotics) over body sulfamethoxazole Allergy vasculitis, Verified 05/12/20 22:20 [From Bactrim] swelling trimethoprim [From Bactrim] Allergy vasculitis, Verified 05/12/20 22:20 swelling Review of Systems ROS Other: All systems not noted in ROS Statement are negative. <Costa Sethi - Last Filed: 05/13/20 02:11> ROS Other: All systems not noted in ROS Statement are negative. <Jovan Farooq - Last Filed: 05/13/20 20:52> ROS Statement: Those systems with pertinent positive or pertinent negative responses have been documented in the HPI. Past Medical History Past Medical History: Chest Pain / Angina, Hypertension, Myocardial Infarction (OR), Seizure Disorder Additional Past Medical History / Comment(s): arthritis Pt is now being treated for high BP. Pt stated that she had second heart attack-silent mi unk date. Ulcers. upper teeth pulled and dentures replaced 10/2015, fibromyalgia. osteoporosis, hernia Last Myocardial Infarction Date:: 2013 History of Any Multi-Drug Resistant Organisms: None Reported Past Surgical History: Bariatric Surgery Additional Past Surgical History / Comment(s): abdominal perforation 06/08/19 cataracts removed RT/Lt eyes, 2011 Darrell-en- y, rt kidney sx-"they took part of my kidney they thought is was cancer but came back not cancer", bilateral knee replacements prolapsed rectum repair Past Anesthesia/Blood Transfusion Reactions: Previous Problems w/ Anesthesia, Motion Sickness Past Psychological History: Anxiety, Bipolar, Depression Smoking Status: Current every day smoker Past Alcohol Use History: None Reported Past Drug Use History: None Reported - Past Family History Father Family Medical History: Cancer Additional Family Medical History / Comment(s): lung, AAA Mother Family Medical History: CVA/TIA <Jovan Farooq - Last Filed: 05/13/20 20:52> General Exam Limitations: no limitations <Jovan Farooq - Last Filed: 05/13/20 20:52> Course Vital Signs 05/12/20 05/12/20 05/12/20 22:15 22:32 22:34 Temperature 97 F L 98 F Pulse Rate 70 66 66 Respiratory 16 18 18 Rate Blood Pressure 138/81 171/87 171/87 O2 Sat by Pulse 98 100 100 Oximetry 05/12/20 05/12/20 05/13/20 22:51 22:54 00:04 Temperature 97.6 F Pulse Rate 70 Respiratory 14 14 20 Rate Blood Pressure 162/86 O2 Sat by Pulse 99 Oximetry 05/13/20 05/13/20 00:50 01:57 Temperature 98 F 97.5 F L Pulse Rate 71 70 Respiratory 18 18 Rate Blood Pressure 157/84 151/81 O2 Sat by Pulse 98 99 Oximetry Medical Decision Making - Lab Data Result diagrams: 05/12/20 22:45 05/12/20 22:45 <Costa Sethi - Last Filed: 05/13/20 02:11> - Lab Data Result diagrams: 05/12/20 22:45 05/12/20 22:45 <OseasJovan D - Last Filed: 05/13/20 20:52> - Medical Decision Making This patient is a 54-year-old woman presenting for altered mental status. I assumed care from Dr. Alvarez whose shift was ending. I was able to obtain additional history from the patient's who is now at the bedside. He states that she does have history of seizure disorder and is prescribed Keppra that that she has been noncompliant for a long period, perhaps weeks. In addition, she had a similar presentation approximately 3 years ago when she was delirious with altered mental status nearly unresponsive and was admitted here and it was felt to be probably related to abuse of prescription pain medication and/or sedatives. The patient has not believed to have accessed medications this time. She has been getting more and more delirious and less responsive over the course of the past 24-48 hours. She was sleeping on the couch in using a bedside commode and as of this morning she was not able to even get to the commode and urinated on the floor. By the evening she was not responsive and adrián musa had her brought here by ambulance. They did not note any tonic-clonic activity. The patient had initially been worked up as a code stroke. The CTs do not show any apparent stroke. Her clinical presentation is more consistent with what the workup is showing which is severe metabolic acidosis. I suspect the patient is septic due to possibly a left-sided pneumonia from the chest x-ray and in addition there is urinary tract infection. I discussed patient with the admitting physicians here, and there is concern that there may be a component of status epilepticus though clinically the patient is not having any tonic-clonic movements, she has been noncompliant with her seizure medication. The patient has had fluid resuscitation, antibiotics, and is given a loading dose of her seizure medication, Keppra. As there is no neurology coverage I discussed with family and patient has been agrees to transfer to [facility]. I discussed case with the damage prevention coordinator and with Dr. Andres, in the emergency department will accept transfer. (Costa Sethi) - Lab Data Lab Results 05/12/20 05/12/20 05/12/20 Range/Units 22:43 22:45 22:45 WBC 13.8 H (3.8-10.6) k/uL RBC 3.76 L (3.80-5.40) m/uL Hgb 13.6 (11.4-16.0) gm/dL Hct 37.6 (34.0-46.0) % MCV 99.9 (80.0-100.0) fL MCH 36.1 H (25.0-35.0) pg MCHC 36.1 (31.0-37.0) g/dL RDW 19.7 H (11.5-15.5) % Plt Count 268 (150-450) k/uL Neutrophils % 91 % Lymphocytes % 3 % Monocytes % 4 % Eosinophils % 1 % Basophils % 0 % Neutrophils # 12.6 H (1.3-7.7) k/uL Lymphocytes # 0.4 L (1.0-4.8) k/uL Monocytes # 0.5 (0-1.0) k/uL Eosinophils # 0.1 (0-0.7) k/uL Basophils # 0.0 (0-0.2) k/uL Poikilocytosis Slight Anisocytosis Slight Macrocytosis Moderate PT 10.6 (9.0-12.0) sec INR 1.0 (<1.2) APTT 31.7 H (22.0-30.0) sec VBG pH (7.31-7.41) VBG pCO2 (37-51) mmHg VBG HCO3 (24-28) mmol/L Sodium (137-145) mmol/L Potassium (3.5-5.1) mmol/L Chloride (98-107) mmol/L Carbon Dioxide (22-30) mmol/L Anion Gap mmol/L BUN (7-17) mg/dL Creatinine (0.52-1.04) mg/dL Est GFR (CKD-EPI)AfAm (>60 ml/min/1.73 sqM) Est GFR (CKD-EPI)NonAf (>60 ml/min/1.73 sqM) Glucose (74-99) mg/dL POC Glucose (mg/dL) 123 H (75-99) mg/dL POC Glu Acid Operator ID Eri Beyer Osmolality (280-301) mosm/kg Plasma Lactic Acid Edil (0.7-2.0) mmol/L Calcium (8.4-10.2) mg/dL Total Bilirubin (0.2-1.3) mg/dL AST (14-36) U/L ALT (4-34) U/L Alkaline Phosphatase (38-126) U/L Ammonia (<30) umol/L Troponin I (0.000-0.034) ng/mL Total Protein (6.3-8.2) g/dL Albumin (3.5-5.0) g/dL TSH (0.465-4.680) mIU/L Urine Color Urine Appearance (Clear) Urine pH (5.0-8.0) Ur Specific [place] (1.001-1.035) Urine Protein (Negative) Urine Glucose (UA) (Negative) Urine Ketones (Negative) Urine Blood (Negative) Urine Nitrite (Negative) Urine Bilirubin (Negative) Urine Urobilinogen (<2.0) mg/dL Ur Leukocyte Esterase (Negative) Urine RBC (0-5) /hpf Urine WBC (0-5) /hpf Urine WBC Clumps (None) /hpf Ur Squamous Epith Cells (0-4) /hpf Urine Bacteria (None) /hpf Salicylates mg/dL Urine Opiates Screen (NotDetected) Ur Oxycodone Screen (NotDetected) Urine Methadone Screen (NotDetected) Ur Propoxyphene Screen (NotDetected) Acetaminophen ug/mL Ur Barbiturates Screen (NotDetected) U Tricyclic Antidepress (NotDetected) Ur Phencyclidine Scrn (NotDetected) Ur Amphetamines Screen (NotDetected) U Methamphetamines Scrn (NotDetected) U Benzodiazepines Scrn (NotDetected) Urine Cocaine Screen (NotDetected) U Marijuana (THC) Screen (NotDetected) Serum Alcohol mg/dL 05/12/20 05/12/20 05/12/20 Range/Units 22:45 22:45 22:45 WBC (3.8-10.6) k/uL RBC (3.80-5.40) m/uL Hgb (11.4-16.0) gm/dL Hct (34.0-46.0) % MCV (80.0-100.0) fL MCH (25.0-35.0) pg MCHC (31.0-37.0) g/dL RDW (11.5-15.5) % Plt Count (150-450) k/uL Neutrophils % % Lymphocytes % % Monocytes % % Eosinophils % % Basophils % % Neutrophils # (1.3-7.7) k/uL Lymphocytes # (1.0-4.8) k/uL Monocytes # (0-1.0) k/uL Eosinophils # (0-0.7) k/uL Basophils # (0-0.2) k/uL Poikilocytosis Anisocytosis Macrocytosis PT (9.0-12.0) sec INR (<1.2) APTT (22.0-30.0) sec VBG pH (7.31-7.41) VBG pCO2 (37-51) mmHg VBG HCO3 (24-28) mmol/L Sodium 129 L (137-145) mmol/L Potassium 3.6 (3.5-5.1) mmol/L Chloride 99 (98-107) mmol/L Carbon Dioxide <5 L* (22-30) mmol/L Anion Gap mmol/L BUN 67 H (7-17) mg/dL Creatinine 4.26 H (0.52-1.04) mg/dL Est GFR (CKD-EPI)AfAm 13 (>60 ml/min/1.73 sqM) Est GFR (CKD-EPI)NonAf 11 (>60 ml/min/1.73 sqM) Glucose 115 H (74-99) mg/dL POC Glucose (mg/dL) (75-99) mg/dL POC Glu Acid Operator ID Osmolality (280-301) mosm/kg Plasma Lactic Acid Edil 0.9 (0.7-2.0) mmol/L Calcium 5.5 L* (8.4-10.2) mg/dL Total Bilirubin 0.3 (0.2-1.3) mg/dL AST 29 (14-36) U/L ALT 8 (4-34) U/L Alkaline Phosphatase 134 H (38-126) U/L Ammonia (<30) umol/L Troponin I <0.012 (0.000-0.034) ng/mL Total Protein 5.7 L (6.3-8.2) g/dL Albumin 2.9 L (3.5-5.0) g/dL TSH (0.465-4.680) mIU/L Urine Color Urine Appearance (Clear) Urine pH (5.0-8.0) Ur Specific [place] (1.001-1.035) Urine Protein (Negative) Urine Glucose (UA) (Negative) Urine Ketones (Negative) Urine Blood (Negative) Urine Nitrite (Negative) Urine Bilirubin (Negative) Urine Urobilinogen (<2.0) mg/dL Ur Leukocyte Esterase (Negative) Urine RBC (0-5) /hpf Urine WBC (0-5) /hpf Urine WBC Clumps (None) /hpf Ur Squamous Epith Cells (0-4) /hpf Urine Bacteria (None) /hpf Salicylates mg/dL Urine Opiates Screen (NotDetected) Ur Oxycodone Screen (NotDetected) Urine Methadone Screen (NotDetected) Ur Propoxyphene Screen (NotDetected) Acetaminophen ug/mL Ur Barbiturates Screen (NotDetected) U Tricyclic Antidepress (NotDetected) Ur Phencyclidine Scrn (NotDetected) Ur Amphetamines Screen (NotDetected) U Methamphetamines Scrn (NotDetected) U Benzodiazepines Scrn (NotDetected) Urine Cocaine Screen (NotDetected) U Marijuana (THC) Screen (NotDetected) Serum Alcohol mg/dL 05/12/20 05/12/20 05/12/20 Range/Units 23:05 23:05 23:05 WBC (3.8-10.6) k/uL RBC (3.80-5.40) m/uL Hgb (11.4-16.0) gm/dL Hct (34.0-46.0) % MCV (80.0-100.0) fL MCH (25.0-35.0) pg MCHC (31.0-37.0) g/dL RDW (11.5-15.5) % Plt Count (150-450) k/uL Neutrophils % % Lymphocytes % % Monocytes % % Eosinophils % % Basophils % % Neutrophils # (1.3-7.7) k/uL Lymphocytes # (1.0-4.8) k/uL Monocytes # (0-1.0) k/uL Eosinophils # (0-0.7) k/uL Basophils # (0-0.2) k/uL Poikilocytosis Anisocytosis Macrocytosis PT (9.0-12.0) sec INR (<1.2) APTT (22.0-30.0) sec VBG pH (7.31-7.41) VBG pCO2 (37-51) mmHg VBG HCO3 (24-28) mmol/L Sodium (137-145) mmol/L Potassium (3.5-5.1) mmol/L Chloride (98-107) mmol/L Carbon Dioxide (22-30) mmol/L Anion Gap mmol/L BUN (7-17) mg/dL Creatinine (0.52-1.04) mg/dL Est GFR (CKD-EPI)AfAm (>60 ml/min/1.73 sqM) Est GFR (CKD-EPI)NonAf (>60 ml/min/1.73 sqM) Glucose (74-99) mg/dL POC Glucose (mg/dL) (75-99) mg/dL POC Glu Acid Operator ID Osmolality 281 (280-301) mosm/kg Plasma Lactic Acid Edil (0.7-2.0) mmol/L Calcium (8.4-10.2) mg/dL Total Bilirubin (0.2-1.3) mg/dL AST (14-36) U/L ALT (4-34) U/L Alkaline Phosphatase (38-126) U/L Ammonia (<30) umol/L Troponin I (0.000-0.034) ng/mL Total Protein (6.3-8.2) g/dL Albumin (3.5-5.0) g/dL TSH 0.368 L (0.465-4.680) mIU/L Urine Color Yellow Urine Appearance Cloudy H (Clear) Urine pH 6.0 (5.0-8.0) Ur Specific [place] 1.015 (1.001-1.035) Urine Protein 2+ (Negative) Urine Glucose (UA) Negative (Negative) Urine Ketones 1+ (Negative) Urine Blood Small (Negative) Urine Nitrite Negative (Negative) Urine Bilirubin Negative (Negative) Urine Urobilinogen <2.0 (<2.0) mg/dL Ur Leukocyte Esterase Large (Negative) Urine RBC 79 H (0-5) /hpf Urine WBC >182 H (0-5) /hpf Urine WBC Clumps Many H (None) /hpf Ur Squamous Epith Cells 3 (0-4) /hpf Urine Bacteria Moderate H (None) /hpf Salicylates 1.1 mg/dL Urine Opiates Screen Not Detected (NotDetected) Ur Oxycodone Screen Not Detected (NotDetected) Urine Methadone Screen Not Detected (NotDetected) Ur Propoxyphene Screen Not Detected (NotDetected) Acetaminophen <10.0 ug/mL Ur Barbiturates Screen Not Detected (NotDetected) U Tricyclic Antidepress Not Detected (NotDetected) Ur Phencyclidine Scrn Not Detected (NotDetected) Ur Amphetamines Screen Not Detected (NotDetected) U Methamphetamines Scrn Not Detected (NotDetected) U Benzodiazepines Scrn Not Detected (NotDetected) Urine Cocaine Screen Not Detected (NotDetected) U Marijuana (THC) Screen Not Detected (NotDetected) Serum Alcohol mg/dL 05/12/20 05/12/20 05/13/20 Range/Units 23:05 23:47 00:44 WBC (3.8-10.6) k/uL RBC (3.80-5.40) m/uL Hgb (11.4-16.0) gm/dL Hct (34.0-46.0) % MCV (80.0-100.0) fL MCH (25.0-35.0) pg MCHC (31.0-37.0) g/dL RDW (11.5-15.5) % Plt Count (150-450) k/uL Neutrophils % % Lymphocytes % % Monocytes % % Eosinophils % % Basophils % % Neutrophils # (1.3-7.7) k/uL Lymphocytes # (1.0-4.8) k/uL Monocytes # (0-1.0) k/uL Eosinophils # (0-0.7) k/uL Basophils # (0-0.2) k/uL Poikilocytosis Anisocytosis Macrocytosis PT (9.0-12.0) sec INR (<1.2) APTT (22.0-30.0) sec VBG pH 6.99 L* (7.31-7.41) VBG pCO2 21 L (37-51) mmHg VBG HCO3 5 L* (24-28) mmol/L Sodium (137-145) mmol/L Potassium (3.5-5.1) mmol/L Chloride (98-107) mmol/L Carbon Dioxide (22-30) mmol/L Anion Gap mmol/L BUN (7-17) mg/dL Creatinine (0.52-1.04) mg/dL Est GFR (CKD-EPI)AfAm (>60 ml/min/1.73 sqM) Est GFR (CKD-EPI)NonAf (>60 ml/min/1.73 sqM) Glucose (74-99) mg/dL POC Glucose (mg/dL) (75-99) mg/dL POC Glu Acid Operator ID Osmolality (280-301) mosm/kg Plasma Lactic Acid Edil (0.7-2.0) mmol/L Calcium (8.4-10.2) mg/dL Total Bilirubin (0.2-1.3) mg/dL AST (14-36) U/L ALT (4-34) U/L Alkaline Phosphatase (38-126) U/L Ammonia 55 H (<30) umol/L Troponin I (0.000-0.034) ng/mL Total Protein (6.3-8.2) g/dL Albumin (3.5-5.0) g/dL TSH (0.465-4.680) mIU/L Urine Color Urine Appearance (Clear) Urine pH (5.0-8.0) Ur Specific [place] (1.001-1.035) Urine Protein (Negative) Urine Glucose (UA) (Negative) Urine Ketones (Negative) Urine Blood (Negative) Urine Nitrite (Negative) Urine Bilirubin (Negative) Urine Urobilinogen (<2.0) mg/dL Ur Leukocyte Esterase (Negative) Urine RBC (0-5) /hpf Urine WBC (0-5) /hpf Urine WBC Clumps (None) /hpf Ur Squamous Epith Cells (0-4) /hpf Urine Bacteria (None) /hpf Salicylates mg/dL Urine Opiates Screen (NotDetected) Ur Oxycodone Screen (NotDetected) Urine Methadone Screen (NotDetected) Ur Propoxyphene Screen (NotDetected) Acetaminophen ug/mL Ur Barbiturates Screen (NotDetected) U Tricyclic Antidepress (NotDetected) Ur Phencyclidine Scrn (NotDetected) Ur Amphetamines Screen (NotDetected) U Methamphetamines Scrn (NotDetected) U Benzodiazepines Scrn (NotDetected) Urine Cocaine Screen (NotDetected) U Marijuana (THC) Screen (NotDetected) Serum Alcohol <10 mg/dL Critical Care Time Critical Care Time: Yes (45 minutes) <Costa Sethi - Last Filed: 05/13/20 02:11> Disposition - Out of Hospital Transfer - Req. Specs Out of Hospital Transfer - Requested Specifics: Other Emergency Center <Costa Sethi - Last Filed: 05/13/20 02:11> <Jovan Farooq - Last Filed: 05/13/20 20:52> Clinical Impression: Delirium due to general medical condition, Sepsis, UTI (urinary tract infection), Pneumonia, Acute renal failure, Hypocalcemia, Lactic acidosis Disposition: OTHER INSTITUTION NOT DEFINED Condition: Critical Referrals: Zana Meade MD [Primary Care Provider] - 1-2 days
[2020-05-12 23:34] LABS: Acetaminophen <10.0 ug/mL; Bacteria,Urine Moderate /hpf; RBC,Urine 79 /hpf (0-5); Salicylate 1.1 mg/dL; Squamous Epithelial Cell,Urine 3 /hpf (0-4); WBC,Urine >182 /hpf (0-5)
[2020-05-12 23:35] LABS: Appearance,Urine Cloudy (Clear); Bilirubin,Urine Negative (Negative); Color,Urine Yellow; Glucose,Urine (UA) Negative (Negative); Ketones,Urine 1+ (Negative); Protein,Urine 2+ (Negative); Specific Gravity,Urine 1.015 (1.001-1.035)
[2020-05-12 23:36] LABS: Blood,Urine Small (Negative); Leukocyte Esterase,Urine Large (Negative); Nitrite,Urine Negative (Negative); Urobilinogen,Urine <2.0 mg/dL (<2.0)
--- NOTE | 2020-05-12 23:39 | CT ---
EXAMINATION TYPE: CT brain wo con for TPA DATE OF EXAM: 05/12/2020 COMPARISON: 07/06/2019 HISTORY: Altered mental status. CT DLP: 1049.2 mGycm Automated exposure control for dose reduction was used. Ventricles and sulci appear normal. There is no mass effect nor midline shift. There is no sign of in tracranial hemorrhage. The calvarium is intact. Skull base is intact. There is no evidence of cerebra l edema. IMPRESSION: Negative unenhanced head CT scan. No change.
[2020-05-12 23:40] LABS: Amphetamine Screen,Urine Not Detected (NotDetected); Barbiturate Screen,Urine Not Detected (NotDetected); Benzodiazepines Screen,Urine Not Detected (NotDetected); Cocaine Screen,Urine Not Detected (NotDetected); Methadone Screen, Urine Not Detected (NotDetected); Opiate Screen,Urine Not Detected (NotDetected); Oxycodone Screen, Urine Not Detected (NotDetected); Phencyclidine Screen,Urine Not Detected (NotDetected); Tricyclic Antidepressant,Urine Not Detected (NotDetected); Urn Cannabinoid Scrn Not Detected (NotDetected)
[2020-05-12] MEDS ORDERED: SODIUM CHLORIDE 0.9% 1,000 ML IV ONE (23:50)
[2020-05-12] MEDS ORDERED: SODIUM CHLORIDE 0.9% 500 ML 500 ML IV STA (23:50)
[2020-05-12 23:58] LABS: VBG PH 6.99 (7.31-7.41)
--- NOTE | 2020-05-13 00:02 | CT ---
EXAMINATION TYPE: CT angio head neck DATE OF EXAM: 05/12/2020 COMPARISON: None HISTORY: Altered mental status. CT DLP: 212.9 mGycm Automated exposure control for dose reduction was used. CONTRAST: Performed with IV Contrast, patient injected with 65ml mL of Isovue 370. Images were obtained from the aortic arch to the vertex of the brain with IV contrast. There are 3-D post processed images. There is normal branching pattern of the great vessels on the aortic arch. There is bilateral arteria l flow in the subclavian arteries. There is bilateral arterial flow in the vertebral arteries. There is arterial flow in the vertebrobasilar artery system. There is arterial flow in the common internal and external carotid arteries bilaterally. There is bilateral wide patency of the carotid artery bifu rcations. There is arterial flow in the anterior middle and posterior cerebral arteries. There is normal contra st opacification of the venous sinuses. I see no evidence of intracranial aneurysm or neovascularity. I see no evidence of intracranial arterial stenosis. There is no pathologic enhancement. There is no mass effect. IMPRESSION: Negative CT angiogram of the neck. Negative CT angiogram of the brain.
[2020-05-13] MEDS ORDERED: CALCIUM GLUCONATE 1 GM in SODIUM CHLORIDE 0.9% 100 ML IVPB ONE (00:09)
[2020-05-13] MEDS ORDERED: DEXTROSE 5% IN WATER 1,000 ML with SODIUM BICARB (1 MEQ/ML) 150 ML IV SCH (00:15)
--- NOTE | 2020-05-13 00:23 | XR ---
EXAMINATION TYPE: XR chest 1V portable DATE OF EXAM: 05/12/2020 COMPARISON: 07/01/2019 HISTORY: Fever TECHNIQUE: Single view FINDINGS: Heart and mediastinum are normal. There is some diffuse interstitial infiltrate in the left lung. Right lung is clear. There is no pleural effusion. There are chest leads. Costophrenic angles are clear. IMPRESSION: Left-sided interstitial pneumonia is new compared to old exam. No heart failure seen.
[2020-05-13 00:51] VITALS: RESP 18
[2020-05-13] MEDS ORDERED: levETIRAcetam IV 1,000 MG in SALINE 1 100ML.BAG IVPB STA (01:29)
[2020-05-13 01:58] VITALS: BP 151/81; PULSE 70; TEMP 97.5
[2020-05-13] MEDS ORDERED: AZITHROMYCIN 500 MG in SODIUM CHLORIDE 0.9% 250 ML IVPB SCH (09:00)
== END 2020-05-13 03:05 | disposition other institution (70) ==
LOC: EC 22:14
DX: F05 Delirium due to known physiological condition (principal); A41.9 Sepsis, unspecified organism; N39.0 Urinary tract infection, site not specified; N17.9 Acute kidney failure, unspecified; J18.9 Pneumonia, unspecified organism; E87.2 Acidosis; F17.200 Nicotine dependence, unspecified, uncomplicated; I10 Essential (primary) hypertension; I25.2 Old myocardial infarction; F41.9 Anxiety disorder, unspecified; F31.9 Bipolar disorder, unspecified; Z79.899 Other long term (current) drug therapy; Z88.2 Allergy status to sulfonamides; Z96.653 Presence of artificial knee joint, bilateral; Z98.84 Bariatric surgery status; Z91.14 Patient's other noncompliance with medication regimen
CPT/HCPCS: 99291 ×2; 96365 ×2; 96367 ×3; 96368 ×2; 96361 ×2; 96375 ×2; 36415; 93005; 83930; 80053; 82140; 82803; 83605; 84443; 84484; 85025; 85610; 85730; 81001; 87040; 80306; 83520; 87086; 87077; 87186; 71045; 70496; 70450; 70498; G0480 ×2; J2310; J0456; J0696; J0610; J1953; Q9967; 80320; 80329

== ENCOUNTER → 2020-09-11 | Outpatient (CLI) | payer MEDICARE, OTHER ==
--- NOTE | 2020-09-11 15:52 | US ---
EXAMINATION TYPE: US kidneys/renal and bladder DATE OF EXAM: 09/11/2020 COMPARISON: None CLINICAL HISTORY: 55-year-old female N39.0 Urinary tract infection, site unspecified. TECHNIQUE: Multiple sonographic images of the kidneys and bladder are obtained. FINDINGS: EXAM MEASUREMENTS: Right Kidney: 10.7 x 4.2 x 4.2 cm Left Kidney: 10.9 x 5.6 x 4.1 cm Right Kidney: No hydronephrosis. Left Kidney: No hydronephrosis. Benign cyst in the upper pole measures 2.5 x 1.9 x 2.0 cm. Bladder: wnl Bilateral Jets seen: no IMPRESSION: No hydronephrosis. A benign 2.5 cm left upper pole renal cyst.
== END | disposition home or self-care (01) ==
LOC: RADUSWWP 15:00
PROVIDERS: ATTEND Family Medicine
DX: N28.1 Cyst of kidney, acquired (principal)
CPT/HCPCS: 76770

== ENCOUNTER 2020-10-17 09:46 | Day surgery (SDC) | payer MEDICARE, OTHER ==
--- NOTE | 2020-10-17 08:47 | P.GSHP ---
History of Present Illness H&P Date: 10/17/20 CHIEF COMPLAINT: GERD and colon screen HISTORY OF PRESENT ILLNESS: The patient is a 55-year-old female who presents with gastroesophageal reflux disease and need for colon screen. Upper and lower endoscopy were offered for further evaluation and management. PAST MEDICAL HISTORY: Please see list. PAST SURGICAL HISTORY: Please see list. MEDICATIONS: Please see list. ALLERGIES: Please see list. SOCIAL HISTORY: No illicit drug use FAMILY HISTORY: No reports of Crohn disease or ulcerative colitis. REVIEW OF ORGAN SYSTEMS: CONSTITUTIONAL: No reports of fevers or chills. GI: Denies any blood in stools or constipation. PHYSICAL EXAM: VITAL SIGNS: Stable GENERAL: Well-developed pleasant in no acute distress. HEENT: No scleral icterus. Extraocular movements grossly intact. Moist buccal mucosa. NECK: Supple without lymphadenopathy. CHEST: Unlabored respirations. Equal bilateral excursions. CARDIOVASCULAR: Regular rate and rhythm. Distal 2+ pulses. ABDOMEN: Soft, nondistended. MUSCULOSKELETAL: No clubbing, cyanosis, or edema. ASSESSMENT: 1. Gastroesophageal reflux disease 2. Colon screen. PLAN: 1. Recommend proceeding with an upper and lower endoscopy Past Medical History Past Medical History: Chest Pain / Angina, Hypertension, Myocardial Infarction ([place]), Seizure Disorder Additional Past Medical History / Comment(s): CAME TO [facility] ON 05/12/ED FOR LOWER GI BLEED, TRANSFERRED TO [facility], HAD 3 UNITS PC (SHE HAS NOT HAD A RECENT HGB PER PATIENT). KNEE CAP DISPLACED ON LEFT KNEE (PER PATIENT). Arthritis. LOWER BACK PAIN RUPTURED ULCER. Fibromyalgia. Osteoporosis. Hernia Last Myocardial Infarction Date:: 2013 History of Any Multi-Drug Resistant Organisms: None Reported Past Surgical History: Bariatric Surgery Additional Past Surgical History / Comment(s): STOMACH perforation 06/08/19. Cataracts removed RT/Lt eyes. 2011 Darrell-en- y. "They took part of my RIGHT kidney OUT, they thought is was cancer but came back not cancer". Bilateral knee replacements. PRolapsed rectum repair. Past Anesthesia/Blood Transfusion Reactions: Motion Sickness Additional Past Anesthesia/Blood Transfusion Reaction / Comment(s): 3 UNITS PACKED CELL IN APRIL 2020, NO REACTIONS Past Psychological History: Anxiety, Bipolar, Depression Smoking Status: Current every day smoker Past Alcohol Use History: None Reported Additional Past Alcohol Use History / Comment(s): Trying to quit smoking, Was smoking 3ppd, down to 5 cigarettes daily, has smoked since age 10 Past Drug Use History: None Reported - Past Family History Father Family Medical History: Cancer Additional Family Medical History / Comment(s): lung, AAA Mother Family Medical History: CVA/TIA Medications and Allergies Home Medications Medication Instructions Recorded Confirmed Type Cyclobenzaprine [Flexeril] 10 mg PO HS 01/25/18 10/12/20 History Ergocalciferol [Vitamin D2 50,000 unit PO TU 01/25/18 10/12/20 History (ANDRE)] ALPRAZolam [Xanax] 1 mg PO TID PRN 04/30/19 10/12/20 History Dextroamphetamine/Amphetamine 20 mg PO QAM 04/30/19 10/12/20 History [Adderall] HYDROcodone/APAP 10-325MG [[place] 1 tab PO TID PRN 04/30/19 10/12/20 History 10-325] Vortioxetine Hydrobromide 20 mg PO HS 04/30/19 10/12/20 History [Trintellix] Zolpidem [Ambien] 5 mg PO HS 04/30/19 10/12/20 History rOPINIRole HCL [Requip] 0.5 mg PO HS 04/30/19 10/12/20 History Donepezil [Aricept] 20 mg PO HS 05/25/19 10/12/20 History Montelukast [Singulair] 10 mg PO QAM 05/25/19 10/12/20 History Pantoprazole [Protonix] 40 mg PO BID #60 tablet. 06/09/19 10/12/20 Rx bisacodyL [Dulcolax] 10 mg RECTAL DAILY PRN supp 06/18/19 10/12/20 Rx ALPRAZolam [Xanax] 0.25 mg PO DAILY PRN #2 tab 07/01/19 10/12/20 Rx diphenhydrAMINE HCL [Benadryl] 50 mg PO ONCE PRN 07/01/19 10/12/20 History levETIRAcetam [Keppra] 750 mg PO Q12HR #14 tab 01/14/20 10/12/20 Rx Lurasidone [Latuda] 80 mg PO HS 10/12/20 10/12/20 History Allergies Allergy/AdvReac Type Severity Reaction Status Date / Time Sulfa (Sulfonamide Allergy blisters Verified 10/12/20 10:25 Antibiotics) over body sulfamethoxazole Allergy vasculitis, Verified 10/12/20 10:25 [From Bactrim] swelling trimethoprim [From Bactrim] Allergy vasculitis, Verified 10/12/20 10:25 swelling
[~2020-10-17 09:46] MED LIST changes: +LACTATED RINGERS 1,000 ML IV SCH; -LIDOCAINE 1% 20 ML VIAL (10MG/ML) FOR IV START INTRADERMA PRN; +ONDANSETRON 4 MG/2 ML VIAL IVP PRN
[2020-10-17 10:09] VITALS: TEMP 97.3
[2020-10-17] MEDS ORDERED: LIDOCAINE 1% (10MG/ML) FOR IV START INTRADERMA ONE (10:09)
[2020-10-17] MEDS ORDERED: ONDANSETRON 4 MG/2 ML VIAL ONE (10:16)
[2020-10-17] MEDS ORDERED: LIDOCAINE 1% INJ 10MG/ML (20 ML MDV) ONE (10:20)
[2020-10-17] MEDS ORDERED: PROPOFOL 10 MG/ML 20 ML VIAL IV ONE (10:20)
--- NOTE | 2020-10-17 11:08 | P.PCN ---
Date of Procedure: 10/17/20 Description of Procedure: PREOPERATIVE DIAGNOSES: 1. Epigastric abdominal pain. 2. Nausea and vomiting. 3. History of gastric bypass. 4. History of perforated gastrojejunal ulcer 5. Tobacco abuse disorder 6. Medical noncompliance POSTOPERATIVE DIAGNOSES: 1. Acute and chronic gastrojejunal ulcers 2. Nausea and vomiting. 3. History of gastric bypass. 4. History of perforated gastrojejunal ulcer 5. Tobacco abuse disorder 6. Medical noncompliance PROCEDURE PERFORMED: Esophagogastrojejunoscopy. SURGEON: Gloria Wilson MD ANESTHESIA: MAC. INDICATIONS: The patient is a 55-year-old female with prior history of Darrell-en-Y gastric bypass including perforated gastrojejunal ulcer. She reports epigastric abdominal pain as she continues to smoke despite medical advice. With her history of Darrell-en-Y gastric bypass, upper endoscopy was offered for further evaluation and management. DESCRIPTION: Patient was brought to the endoscopy suite and laid in the left lateral decubitus position. After adequate IV sedation, a bite block was placed. An Olympus gastroscope was passed along the posterior oropharynx down to the distal esophagus where the squamocolumnar junction was found at approximately 38 cm from the incisors. Evidence of active gastrojejunal ulcerations were encountered. The GI tract was desufflated. The patient tolerated the procedure well. FINDINGS: 1. Acute on chronic gastrojejunal ulceration. 2. No foreign body found along the anastomosis. PLAN: 1. Continue Protonix 40 mg daily 2. Carafate 1 g twice a day Plan - Discharge Summary Discharge Rx Participant: No New Discharge Prescriptions: New Sucralfate [Carafate] 1 gm PO BID #60 tablet Continue Ergocalciferol [Vitamin D2 (DRISDOL)] 50,000 unit PO TU Cyclobenzaprine [Flexeril] 10 mg PO HS HYDROcodone/APAP 10-325MG [[place] 10-325] 1 tab PO TID PRN PRN Reason: Pain Vortioxetine Hydrobromide [Trintellix] 20 mg PO HS rOPINIRole HCL [Requip] 0.5 mg PO HS Dextroamphetamine/Amphetamine [Adderall] 20 mg PO QAM Zolpidem [Ambien] 5 mg PO HS ALPRAZolam [Xanax] 1 mg PO TID PRN PRN Reason: Anxiety Montelukast [Singulair] 10 mg PO QAM Donepezil [Aricept] 20 mg PO HS Pantoprazole [Protonix] 40 mg PO BID #60 tablet. bisacodyL [Dulcolax] 10 mg RECTAL DAILY PRN supp PRN Reason: Constipation diphenhydrAMINE HCL [Benadryl] 50 mg PO ONCE PRN PRN Reason: Allergy Symptoms ALPRAZolam [Xanax] 0.25 mg PO DAILY PRN #2 tab PRN Reason: Anxiety levETIRAcetam [Keppra] 750 mg PO Q12HR #14 tab Lurasidone [Latuda] 80 mg PO HS Discharge Medication List Cyclobenzaprine [Flexeril] 10 mg PO HS 01/25/18 [History] Ergocalciferol [Vitamin D2 (DRISDOL)] 50,000 unit PO TU 01/25/18 [History] ALPRAZolam [Xanax] 1 mg PO TID PRN 04/30/19 [History] Dextroamphetamine/Amphetamine [Adderall] 20 mg PO QAM 04/30/19 [History] HYDROcodone/APAP 10-325MG [[place] 10-325] 1 tab PO TID PRN 04/30/19 [History] Vortioxetine Hydrobromide [Trintellix] 20 mg PO HS 04/30/19 [History] Zolpidem [Ambien] 5 mg PO HS 04/30/19 [History] rOPINIRole HCL [Requip] 0.5 mg PO HS 04/30/19 [History] Donepezil [Aricept] 20 mg PO HS 05/25/19 [History] Montelukast [Singulair] 10 mg PO QAM 05/25/19 [History] Pantoprazole [Protonix] 40 mg PO BID #60 tablet. 06/09/19 [Rx] bisacodyL [Dulcolax] 10 mg RECTAL DAILY PRN supp 06/18/19 [Rx] ALPRAZolam [Xanax] 0.25 mg PO DAILY PRN #2 tab 07/01/19 [Rx] diphenhydrAMINE HCL [Benadryl] 50 mg PO ONCE PRN 07/01/19 [History] levETIRAcetam [Keppra] 750 mg PO Q12HR #14 tab 02/22/20 [Rx] Lurasidone [Latuda] 80 mg PO HS 10/12/20 [History] Sucralfate [Carafate] 1 gm PO BID #60 tablet 10/17/20 [Rx] Follow up Appointment(s)/Referral(s): Gloria Wilson MD [STAFF PHYSICIAN] - 10/30/20 Patient Instructions/Handouts: Peptic Ulcer (DC), Colorectal Polyps (GEN), Diverticulosis Diet (GEN), Diverticulosis (DC), Constipation (DC) Activity/Diet/Wound Care/Special Instructions: Repeat colonoscopy 3 years, 2022. Recommend one-week bowel prep Discharge Disposition: HOME SELF-CARE
[2020-10-17 11:21] VITALS: PULSE 60
--- NOTE | 2020-10-17 11:32 | P.PCN ---
Date of Procedure: 10/17/20 Description of Procedure: PREOPERATIVE DIAGNOSIS: Diverticulitis POSTOPERATIVE DIAGNOSIS: Severe constipation Diverticulosis Mid transverse colon polyp OPERATION: Colonoscopy to the ileocecal valve and cecum Colonoscopy with hot snare polypectomy SURGEON: Gloria Wilson MD. ANESTHESIA: MAC. INDICATIONS: The patient is an 55-year-old female who reports change in bowel habits and diverticulitis. Last colonoscopy 5 years. Benefits and risks were described and informed consent was obtained. DESCRIPTION OF PROCEDURE: The patient had undergone MiraLAX prep.She had been brought into the operating room and laid in the left lateral decubitus position. After adequate intravenous sedation, the rectum was examined with 2% lidocaine jelly. The prostate was unremarkable. No external hemorrhoids were encountered. The rectal tone was within normal limits. No lesions were palpated in the rectal vault. An Olympus colonoscope was advanced until the cecum, ileocecal valve and were clearly viewed. The prep was poor with moderate liquid stool prohibiting full view of colonic mucosa. The colon was moderately redundant. Few sigmoid diverticulosis was encountered. Midtransverse colon polyp was snare polypectomy. No evidence of focal colitis was found. Retroflexion of the scope demonstrated grade 2 internal hemorrhoids without active bleeding or inflammation. The colon was desufflated. The patient had tolerated the procedure well. Withdrawal time was over 6 minutes. FINDINGS: Aronchick preparation quality scale 4 (1-5) Internal hemorrhoids, grade 2 No external hemorrhoids No arteriovenous malformations Sigmoid diverticulosis Removal of 1 polyps: - Snare polypectomy midtransverse colon, 5 mm tubulovillous adenoma polyp. Extremely poor bowel prep prohibiting full view of colon mucosa No focal colitis. RECOMMENDATIONS: Repeat colonoscopy in 3 years, 2022
[2020-10-17 11:42] VITALS: BP 137/84; RESP 16
== END 2020-10-17 12:15 | disposition home or self-care (01) ==
LOC: ORWHC2ENDO 09:46
PROVIDERS: ATTEND Surgery Plastic and Reconstructive Surgery
DX: K63.5 Polyp of colon (principal); K64.1 Second degree hemorrhoids; K57.30 Diverticulosis of large intestine without perforation or abscess without bleeding; K28.3 Acute gastrojejunal ulcer without hemorrhage or perforation; K28.7 Chronic gastrojejunal ulcer without hemorrhage or perforation; I48.91 Unspecified atrial fibrillation; I25.2 Old myocardial infarction; I10 Essential (primary) hypertension; F17.210 Nicotine dependence, cigarettes, uncomplicated; G40.909 Epilepsy, unspecified, not intractable, without status epilepticus; M19.90 Unspecified osteoarthritis, unspecified site; M79.7 Fibromyalgia; M81.0 Age-related osteoporosis without current pathological fracture; F41.9 Anxiety disorder, unspecified; F31.9 Bipolar disorder, unspecified; Z96.653 Presence of artificial knee joint, bilateral; Z79.899 Other long term (current) drug therapy; Z98.84 Bariatric surgery status; Z88.2 Allergy status to sulfonamides; Z98.41 Cataract extraction status, right eye; Z91.14 Patient's other noncompliance with medication regimen; Z98.42 Cataract extraction status, left eye; Z80.1 Family history of malignant neoplasm of trachea, bronchus and lung; Z82.49 Family history of ischemic heart disease and other diseases of the circulatory system
CPT/HCPCS: 88305; 45385; 43235; J2405; J2001; J2704

== ENCOUNTER → 2020-10-30 | Outpatient (CLI) | payer MEDICARE, OTHER ==
--- NOTE | 2020-10-30 15:53 | US ---
EXAMINATION TYPE: US transvaginal DATE OF EXAM: 10/30/2020 COMPARISON: NONE CLINICAL HISTORY: N93.9 Abnormal vaginal bleeding. TECHNIQUE: Transvaginal (TV). Date of LMP: Patient states no cycles for 8 to 10 years then started spotting 7 days ago. EXAM MEASUREMENTS: Uterus: 6.6 x 4.1 x 3.9 cm Endometrial Stripe: 1.7 cm. This is thickened. Right Ovary: 2.6 x 1.5 x 2.3 cm Left Ovary: 2.8 x 1.0 x 3.2 cm 1. Uterus: Retroverted heterogeneous echotexture 2. Endometrium: thickened and irregular. 3. Right Ovary: wnl 4. Left Ovary: wnl 5. Bilateral Adnexa: wnl 6. Posterior cul-de-sac: no free fluid IMPRESSION: 1. Thickening and somewhat irregular endometrial canal. Additional workup is recommended.
== END | disposition home or self-care (01) ==
LOC: RADUSWWP 15:00
PROVIDERS: ATTEND Family Medicine
DX: R93.89 Abnormal findings on diagnostic imaging of other specified body structures (principal)
CPT/HCPCS: 76830

== ENCOUNTER 2020-12-05 08:00 | Day surgery (SDC) | payer MEDICARE, OTHER ==
[2020-11-30 12:16] VITALS: BMI 24.8
[~2020-12-05 08:00] MED LIST changes: -ONDANSETRON 4 MG/2 ML VIAL IVP PRN
[2020-12-05 08:37] VITALS: TEMP 97.9
--- NOTE | 2020-12-05 08:42 | P.GSHP ---
History of Present Illness H&P Date: 12/05/20 CHIEF COMPLAINT: GERD HISTORY OF PRESENT ILLNESS: The patient is a 55-year-old female who presents reports gastroesophageal reflux disease. Upper endoscopy was offered for further evaluation and management. PAST MEDICAL HISTORY: Please see list. PAST SURGICAL HISTORY: Please see list. MEDICATIONS: Please see list. ALLERGIES: Please see list. SOCIAL HISTORY: No illicit drug use FAMILY HISTORY: No reports of Crohn disease or ulcerative colitis. REVIEW OF ORGAN SYSTEMS: CONSTITUTIONAL: No reports of fevers or chills. GI: Denies any blood in stools or constipation. PHYSICAL EXAM: VITAL SIGNS: Stable GENERAL: Well-developed and pleasant in no acute distress. HEENT: No scleral icterus. Extraocular movements grossly intact. Moist buccal mucosa. NECK: Supple without lymphadenopathy. CHEST: Unlabored respirations. Equal bilateral excursions. CARDIOVASCULAR: Regular rate and rhythm. Distal 2+ pulses. ABDOMEN: Soft, nondistended. MUSCULOSKELETAL: No clubbing, cyanosis, or edema. ASSESSMENT: 1. Gastroesophageal reflux disease PLAN: 1. Recommend proceeding with an upper endoscopy Past Medical History Past Medical History: Chest Pain / Angina, Fibromyalgia, Hypertension, Myocardial Infarction ([place]), Osteoarthritis ([place]), Seizure Disorder Additional Past Medical History / Comment(s): Hx. LOWER GI BLEED 05/12, TRANSFERRED TO [facility], HAD 3 UNITS PC, KNEE CAP DISPLACED ON LEFT KNEE (PER PATIENT). LOWER BACK PAIN RUPTURED ULCER. Osteoporosis, Hernia, last seizure >6 months ago, Hx sepsis-UTI in Jul. Last Myocardial Infarction Date:: 2013 History of Any Multi-Drug Resistant Organisms: None Reported Past Surgical History: Bariatric Surgery, Joint Replacement Additional Past Surgical History / Comment(s): STOMACH perforation 06/08/19. Cataracts removed, 2011 Darrell-en- y. "They took part of my RIGHT kidney OUT, they thought is was cancer but came back not cancer". Bilateral knee replacements, Prolapsed rectum repair. ORIF left hip, colonoscopy Past Anesthesia/Blood Transfusion Reactions: Motion Sickness, Postoperative Nausea & Vomiting (PONV) Additional Past Anesthesia/Blood Transfusion Reaction / Comment(s): 3 UNITS PACKED CELL IN APRIL 2020, NO REACTIONS Smoking Status: Former smoker - Past Family History Father Family Medical History: Cancer Additional Family Medical History / Comment(s): lung, AAA Mother Family Medical History: CVA/TIA Medications and Allergies Home Medications Medication Instructions Recorded Confirmed Type Cyclobenzaprine [Flexeril] 10 mg PO HS 01/25/18 12/05/20 History Ergocalciferol [Vitamin D2 50,000 unit PO TU 01/25/18 12/05/20 History (ANDRE)] ALPRAZolam [Xanax] 1 mg PO TID PRN 04/30/19 12/05/20 History Dextroamphetamine/Amphetamine 20 mg PO QAM 04/30/19 12/05/20 History [Adderall] HYDROcodone/APAP 10-325MG [[place] 1 tab PO TID PRN 04/30/19 12/05/20 History 10-325] Vortioxetine Hydrobromide 20 mg PO HS 04/30/19 12/05/20 History [Trintellix] Zolpidem [Ambien] 5 mg PO HS 04/30/19 12/05/20 History rOPINIRole HCL [Requip] 0.5 mg PO HS 04/30/19 12/05/20 History Donepezil [Aricept] 20 mg PO HS 05/25/19 12/05/20 History Montelukast [Singulair] 10 mg PO QAM 05/25/19 12/05/20 History Pantoprazole [Protonix] 40 mg PO BID #60 tablet. 06/09/19 12/05/20 Rx diphenhydrAMINE HCL [Benadryl] 50 mg PO DAILY PRN 07/01/19 12/05/20 History levETIRAcetam [Keppra] 750 mg PO Q12HR #14 tab 01/14/20 12/05/20 Rx Lurasidone [Latuda] 80 mg PO HS 10/12/20 12/05/20 History Sucralfate [Carafate] 1 gm PO BID #60 tablet 10/17/20 12/05/20 Rx Triamterene-Hctz 37.5-25Mg 1 cap PO DAILY 11/30/20 12/05/20 History [Dyazide 37.5-25 Capsule] Wellbutrin(Unknown Dose) 1 tab PO DAILY 11/30/20 12/05/20 History Allergies Allergy/AdvReac Type Severity Reaction Status Date / Time Sulfa (Sulfonamide Allergy blisters Verified 12/05/20 08:31 Antibiotics) over body sulfamethoxazole Allergy vasculitis, Verified 12/05/20 08:31 [From Bactrim] swelling trimethoprim [From Bactrim] Allergy vasculitis, Verified 12/05/20 08:31 swelling Surgical - Exam Vital Signs Temp Pulse Resp BP Pulse Ox 97.9 F 77 18 185/86 99 12/05/20 08:35 12/05/20 08:35 12/05/20 08:35 12/05/20 08:35 12/05/20 08:35
[2020-12-05] MEDS ORDERED: LIDOCAINE 1% (10MG/ML) FOR IV START INTRADERMA ONE (08:45)
[2020-12-05] MEDS ORDERED: PROPOFOL 10 MG/ML 20 ML VIAL IV ONE (09:09)
[2020-12-05 09:29] VITALS: RESP 16
--- NOTE | 2020-12-05 09:34 | P.PCN ---
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 SURGEON: Gloria Wilson MD ANESTHESIA: MAC. INDICATIONS: The patient is a 55-year-old female who presents with a history of gastrojejunal ulcers and strictures. Benefits and risks of the procedure were described. Informed consent was obtained. DESCRIPTION: The patient was brought into the endoscopy suite and laid in the left lateral decubitus position. After a timeout was confirmed, the procedure was initiated. An Olympus gastroscope was passed along the posterior oropharynx down to the distal esophagus where the squamocolumnar junction was unremarkable. The gastric pouch was entered. A gastrojejunal stricture of 15 mm was found as the adult gastroscope was 9.5 mm in size. A [employer] balloon dilator was placed through the scope. Final insufflation up to 20 mm was performed with a total of 2 minutes. The scope was advanced up to 60 cm from the incisors into the Darrell limb. The mucosa of the gastrojejunal anastomosis was intact. However chronic gastrojejunal marginal ulcer was encountered. No full-thickness injury was encountered. The GI tract was desufflated. The patient tolerated the procedure well. FINDINGS: Squamocolumnar junction unremarkable at 37 cm. Stricture of approximately 15 mm encountered. Chronic gastrojejunal ulceration encountered. Successful balloon dilatation to 20 mm. Gastric pouch 4 cm. Tertiary contractions along the esophagus consistent with presbyesophagus RECOMMENDATIONS: Continue tobacco sensation Continue Carafate and Protonix for 4 weeks Plan - Discharge Summary Discharge Rx Participant: No New Discharge Prescriptions: Continue Ergocalciferol [Vitamin D2 (DRISDOL)] 50,000 unit PO TU Cyclobenzaprine [Flexeril] 10 mg PO HS HYDROcodone/APAP 10-325MG [[place] 10-325] 1 tab PO TID PRN PRN Reason: Pain Vortioxetine Hydrobromide [Trintellix] 20 mg PO HS rOPINIRole HCL [Requip] 0.5 mg PO HS Dextroamphetamine/Amphetamine [Adderall] 20 mg PO QAM Zolpidem [Ambien] 5 mg PO HS ALPRAZolam [Xanax] 1 mg PO TID PRN PRN Reason: Anxiety Montelukast [Singulair] 10 mg PO QAM Donepezil [Aricept] 20 mg PO HS Pantoprazole [Protonix] 40 mg PO BID #60 tablet. diphenhydrAMINE HCL [Benadryl] 50 mg PO DAILY PRN PRN Reason: Allergy Symptoms levETIRAcetam [Keppra] 750 mg PO Q12HR #14 tab Lurasidone [Latuda] 80 mg PO HS Sucralfate [Carafate] 1 gm PO BID #60 tablet Triamterene-Hctz 37.5-25Mg [Dyazide 37.5-25 Capsule] 1 cap PO DAILY Wellbutrin(Unknown Dose) 1 tab PO DAILY Discharge Medication List Cyclobenzaprine [Flexeril] 10 mg PO HS 01/25/18 [History] Ergocalciferol [Vitamin D2 (DRISDOL)] 50,000 unit PO TU 01/25/18 [History] ALPRAZolam [Xanax] 1 mg PO TID PRN 04/30/19 [History] Dextroamphetamine/Amphetamine [Adderall] 20 mg PO QAM 04/30/19 [History] HYDROcodone/APAP 10-325MG [[place] 10-325] 1 tab PO TID PRN 04/30/19 [History] Vortioxetine Hydrobromide [Trintellix] 20 mg PO HS 04/30/19 [History] Zolpidem [Ambien] 5 mg PO HS 04/30/19 [History] rOPINIRole HCL [Requip] 0.5 mg PO HS 04/30/19 [History] Donepezil [Aricept] 20 mg PO HS 05/25/19 [History] Montelukast [Singulair] 10 mg PO QAM 05/25/19 [History] Pantoprazole [Protonix] 40 mg PO BID #60 tablet. 06/09/19 [Rx] diphenhydrAMINE HCL [Benadryl] 50 mg PO DAILY PRN 07/01/19 [History] levETIRAcetam [Keppra] 750 mg PO Q12HR #14 tab 01/14/20 [Rx] Lurasidone [Latuda] 80 mg PO HS 10/12/20 [History] Sucralfate [Carafate] 1 gm PO BID #60 tablet 10/17/20 [Rx] Triamterene-Hctz 37.5-25Mg [Dyazide 37.5-25 Capsule] 1 cap PO DAILY 11/30/20 [History] Wellbutrin(Unknown Dose) 1 tab PO DAILY 11/30/20 [History] Follow up Appointment(s)/Referral(s): Gloria Wilson MD [STAFF PHYSICIAN] - 12/18/20 Patient Instructions/Handouts: Peptic Ulcer (DC), Diet for Stomach Ulcers and Gastritis (ED), Esophageal Dilation (DC) Activity/Diet/Wound Care/Special Instructions: Diet as tolerated Discharge Disposition: HOME SELF-CARE
[2020-12-05 09:42] VITALS: BP 160/88; PULSE 86
== END 2020-12-05 09:53 | disposition home or self-care (01) ==
LOC: ORWHC2ENDO 08:00
PROVIDERS: ATTEND Surgery Plastic and Reconstructive Surgery
DX: K28.7 Chronic gastrojejunal ulcer without hemorrhage or perforation (principal); K91.89 Other postprocedural complications and disorders of digestive system; K31.89 Other diseases of stomach and duodenum; K22.8 Other specified diseases of esophagus; I25.2 Old myocardial infarction; I25.10 Atherosclerotic heart disease of native coronary artery without angina pectoris; I10 Essential (primary) hypertension; F32.9 Major depressive disorder, single episode, unspecified; G40.909 Epilepsy, unspecified, not intractable, without status epilepticus; M81.0 Age-related osteoporosis without current pathological fracture; M79.7 Fibromyalgia; M19.90 Unspecified osteoarthritis, unspecified site; Z79.899 Other long term (current) drug therapy; Z88.2 Allergy status to sulfonamides; Z98.84 Bariatric surgery status; Z96.653 Presence of artificial knee joint, bilateral; Z98.49 Cataract extraction status, unspecified eye; Z98.890 Other specified postprocedural states; Z87.891 Personal history of nicotine dependence; Z82.49 Family history of ischemic heart disease and other diseases of the circulatory system; Z80.1 Family history of malignant neoplasm of trachea, bronchus and lung
CPT/HCPCS: 43249; J2704

== ENCOUNTER → 2021-01-14 | Outpatient (CLI) | payer MEDICARE, OTHER ==
[2021-01-14 15:48] LABS: Anisocytosis Slight; Basophils # (A) 0.1 k/uL (0-0.2); Basophils % (A) 1 %; Eosinophils # (A) 0.2 k/uL (0-0.7); Eosinophils % (A) 4 %; HCT 33.1 % (34.0-46.0); HGB 10.2 gm/dL (11.4-16.0); Hypochromasia Moderate; Lymphocytes # (A) 1.4 k/uL (1.0-4.8); Lymphocytes % (A) 26 %; MCH 29.1 pg (25.0-35.0); MCHC 30.8 g/dL (31.0-37.0); MCV 94.6 fL (80.0-100.0); Macrocytosis Slight; Mean Platelet Volume 6.6; Monocytes # (A) 0.4 k/uL (0-1.0); Monocytes % (A) 7 %; Neutrophils # (A) 3.2 k/uL (1.3-7.7); Neutrophils % (A) 60 %; Platelet Count 436 k/uL (150-450); RDW 18.8 % (11.5-15.5); WBC 5.4 k/uL (3.8-10.6)
== END | disposition home or self-care (01) ==
LOC: LABPAT 14:56
PROVIDERS: ATTEND Obstetrics & Gynecology
DX: Z01.818 Encounter for other preprocedural examination (principal)
CPT/HCPCS: 36415; 85025; 93005

== ENCOUNTER → 2021-01-25 | Outpatient (CLI) | payer MEDICARE, OTHER ==
--- NOTE | 2021-01-25 11:53 | CT ---
EXAMINATION TYPE: CT abdomen pelvis wo con DATE OF EXAM: 01/25/2021 HISTORY: Incisional hernia with pain. CT DLP: 349.10 mGycm. Automated Exposure Control for Dose Reduction was Utilized. TECHNIQUE: CT scan of the abdomen and pelvis is performed without oral or IV contrast. COMPARISON: CT abdomen and pelvis June 08, 2019 FINDINGS: Within the limitations of a non-contrast study, the following observations are made. LUNG BASES: No significant abnormality is appreciated. LIVER/GB: Stable prominent right hepatic lobe. PANCREAS: No significant abnormality is seen. SPLEEN: No significant abnormality is seen. ADRENALS: Stable in size 3.2 cm low dense left adrenal mass consistent with benign lipid rich adenoma . KIDNEYS: No renal stones or hydronephrosis. Simple appearing 2.1 cm thin-walled cyst upper pole left kidney. BOWEL: Demonstration of surgical changes from gastric bypass procedure. Additional suture and the low er abdomen/upper pelvis just left of midline redemonstrated. Suboptimal evaluation of bowel without e nteric contrast. No suspicious bowel dilatation. GENITAL ORGANS: Slightly retroflexed uterus extending to left of midline. Occasional scattered tiny p elvic phlebolith. LYMPH NODES: No greater than 1cm abdominal or pelvic lymph nodes are appreciated. OSSEOUS STRUCTURES: Metallic hardware through healed left proximal femur fracture partially imaged. I nterval fracture through the right superior and inferior pelvic ramus at level of pubic symphysis tanja pected subacute or chronic in age with diffuse sclerotic well-defined fracture fragment. There is int erval vertebroplasty at the L3 vertebra with extension of cement material into the L2-L3 disc space. Stable straightened alignment. Mild height loss L3 vertebra and superior L2 endplate redemonstrated. OTHER: Vertical incision scar in the lower abdomen is present. Slight eventration of the fat along th e left aspect of the incision scar on axial image 51 noted without daily defect in the overlying line ar density. This extends to skin surface. IMPRESSION: New vertical incision scar in the midline of the lower abdomen with focal eventration nikolay ng the left aspect containing fat, no hernia defect clearly seen.
== END ==
LOC: RADCTMAIN 10:39
PROVIDERS: ATTEND Surgery Plastic and Reconstructive Surgery
DX: R10.9 Unspecified abdominal pain (principal)
CPT/HCPCS: 74176

== ENCOUNTER → 2021-03-20 | Outpatient (CLI) | payer MEDICARE, OTHER ==
[2021-03-20 13:03] VITALS: BP 145/90; PULSE 87; RESP 18; TEMP 99.6; BMI 28.5
--- NOTE | 2021-03-20 14:19 | P.PN ---
Subjective Progress Note Date: 03/20/21 DATE OF SERVICE: 03/20/2021 CHIEF COMPLAINT: Status post gastric bypass HISTORY OF PRESENT ILLNESS: Jen Nobles is a 55-year-old female who had a gastric bypass in 2011. She is 9 years out. She had multiple complications due to smoking including gastric perforation x 3 with peritonitis from continued tobacco abuse disorder. She had recent perforation over 2 years ago with open exploratory laparotomy. She comes in with new multiple abdominal wall hernia. Her lowest weight was 97 pounds. She has gained moderate weight over 50 pounds in 3 years. She also reports severe skin infections along her pannus and breast. She has chronic lower abdominal pain exacerbated by her pannus. She has troubles with hygiene and grooming as a result of her pannus. She reports intermittent abdominal pain from her hernia. She presents in consultation for treatment of her panniculitis and hernia. Her initial weight was 258 pounds with a body mass index of 52.2. Today she comes in weighing 141 pound from 122 pounds, 3 years ago. She has gained 19 pounds in 3 years. Her body mass index today is 28.5 from her lowest 97 pounds with BMI 19.6. Her ideal body weight is 123 pounds. Her lifetime percent excess weight loss is 87 %. She is still smoking. PAST MEDICAL HISTORY: 1. Morbid obesity, now resolved, BMI 52.2 initial 2. Insulin-dependent type 2, poorly controlled, resolved. 3. Chronic pain syndrome. 4. Gastroesophageal reflux disease, resolved. 5. Hypertension. 6. Chronic pain syndrome. 7. Osteoarthritis of the lower back. 8. Hypercholesterolemia, resolved. 9. Neuropathy. 10. Chronic constipation. 11. Seizure disorder. 12. Myocardial infraction. 13. Kidney neoplasm. 14. Anxiety. 15. Depression. 16. Osteoporosis 17. Dementia PAST SURGICAL HISTORY: 1. Gastric bypass. 2. Nephrectomy. 3. Cataract surgery. 4. EGD. 5. Colonoscopy. 6. Repair of perforated gastric ulcer x 3 MEDICATIONS: Home Medications Medication Instructions Recorded Confirmed Cyclobenzaprine [Flexeril] 10 mg PO HS PRN 01/25/18 03/25/21 Ergocalciferol [Vitamin D2 50,000 unit PO WE 01/25/18 03/25/21 (DRISDOL)] Dextroamphetamine/Amphetamine 20 mg PO DAILY 04/30/19 03/25/21 [Adderall] Zolpidem [Ambien] 5 mg PO HS PRN 04/30/19 03/25/21 rOPINIRole HCL [Requip] 0.5 mg PO TID 04/30/19 03/25/21 ALPRAZolam [Xanax] 2 mg PO BID PRN 03/25/21 03/25/21 Alendronate Sodium [Fosamax] 70 mg PO WE 03/25/21 03/25/21 Aspirin/Acetaminophen/Caffeine 2 tab PO Q6H PRN 03/25/21 03/25/21 [Excedrin Migraine Caplet] Cetirizine HCl 10 mg PO DAILY 03/25/21 03/25/21 Diclofenac Sodium Gel [Voltaren 2 gm TOPICAL QID PRN 03/25/21 03/25/21 Gel] Donepezil HCl [Aricept] 5 mg PO DAILY 03/25/21 03/25/21 Megestrol Acetate 200 mg PO DAILY 03/25/21 03/25/21 Omeprazole 20 mg PO BID 03/25/21 03/25/21 Sucralfate [Carafate] 1 gm PO BID 03/25/21 03/25/21 buPROPion HCL [Wellbutrin SR] 150 mg PO Q12H 03/25/21 03/25/21 diphenhydrAMINE [Benadryl] 50 mg PO BID PRN 03/25/21 03/25/21 Previous Rx's Medication Instructions Recorded levETIRAcetam [Keppra] 750 mg PO Q12HR #14 tab 01/14/20 Aspirin [Children's Aspirin] 81 mg PO DAILY #90 tab.chew 04/02/21 Atorvastatin Calcium [Lipitor] 40 mg PO DAILY 30 Days #30 tablet 04/02/21 Gabapentin [Neurontin] 300 mg PO TID #90 cap 04/02/21 Metoprolol Tartrate 25 mg PO BID 30 Days #60 tab 04/02/21 oxyCODONE HCL/ACETAMINOPHEN 1 - 2 tab PO Q4HR PRN #42 tab 04/02/21 [Percocet 5-325 mg] ALLERGIES: Allergies Allergy/AdvReac Type Severity Reaction Status Date / Time Sulfa (Sulfonamide Allergy blisters Verified 03/25/21 17:04 Antibiotics) over body sulfamethoxazole Allergy vasculitis, Verified 03/25/21 17:04 [From Bactrim] swelling trimethoprim [From Bactrim] Allergy vasculitis, Verified 03/25/21 17:04 swelling SOCIAL HISTORY: Lifelong tobacco user. FAMILY HISTORY: Lung cancer. REVIEW OF SYSTEMS: CONSTITUTIONAL: Her initial weight was 258 pounds with a body mass index of 52.2. Lowest weight was 97 pounds with BMI 19.6. HEENT: Denies any active trouble with vision or hearing. ENDOCRINE: Diabetes type 2, resolved. No reports of thyroid disorders. CARDIOVASCULAR: Hypercholesterolemia, resolved. Has heart attack and chest pain. RESPIRATORY: Sleep apnea resolved. No previous pneumonia. GASTROINTESTINAL: Had moderate to severe gastroesophageal reflux disease, resolved. Has known history of chronic constipation. MUSCULOSKELETAL: Has degenerative joint disease of the lumbar spine. NEUROLOGIC: Has multipe strokes. No seizure disorders. Has neuropathy. PSYCH: Reports of active depression or suicidal ideation. HEMATOLOGIC: Denies any easy bruising or bleeding. Denies any known family history of DVT. GENITOURINARY: Past kidney neoplasm. No current blood in urine. SKIN: No cancer. Has rash. PHYSICAL EXAM: VITAL SIGNS: 4 feet 11 inches, 141 pounds. Body mass index 28.5. Vital Signs Temp 99.6 F 03/20/21 12:55 Pulse 87 03/20/21 12:55 Resp 18 03/20/21 12:55 BP 145/90 03/20/21 12:55 Pulse Ox GENERAL: Well-developed female in no acute distress. HEENT: No scleral icterus. Extraocular movements grossly intact. Moist buccal mucosa. Has hoarse voice. NECK: Supple without lymphadenopathy. CHEST: Nonlabored respirations with equal bilateral excursions. CARDIOVASCULAR: Regular rate and rhythm. Palpable 2+ radial pulses. ABDOMEN: Has multiple abdominal wall hernias over 15-cm midline. No peritonitis. Moderate panniculitis. Grade III panniculosis. MUSCULOSKELETAL: No clubbing, cyanosis, or edema. NEURO: No focal or lateralizing signs. Cranial nerves II through XII grossly wi thin normal limits. PSYCH: Appropriate affect. Alert and oriented to person, place, and time. SKIN: Good skin turgor. Warm perfused. Severe redness along breast and abdomen skin folds. STUDIES: CT of the abdomen and pelvis report demonstrates fat containing ventral hernia. ASSESSMENT: 1. Morbid obesity due to excess caloric intake, now resolved 2. Body mass index reduced from 52.1 down to 28.5 3. Dietary surveillance and counseling. 4. Chronic pain syndrome. 5. Chronic tobacco use. 6. Diabetes type 2, insulin-dependent, poorly controlled, resolved. 7. Osteoarthritis of the lower back. 8. Osteoarthritis of the knee. 9. History of kidney neoplasm. 10. Familial history of lung cancer. 11. Personal history of panniculitis. 12. Hypercholesterolemia, resolved. 13. History of neuropathy. 14. Dysphagia. 15. Chronic constipation. 16. Hypertensive heart disease. 17. Raynaud phenomenon. 18. Chronic constipation. 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 21. Tobacco abuse disorder 22. Incisional hernia 23. Panniculitis PLAN: 1. She has multiple new abdominal wall hernias and has moderate sized incisional hernia. Recommend abdominal wall reconstruction with panniculectomy. 2. Recommend urine nicotine screen. Strict tobacco cessation and counseling advised and described for over 3 minutes. 3. She has moderate weight regain and recommend dietary surveillance and counseling with high protein, low carbohydrate diet. 4. She has moderate to severe panniculitis. Recommend referral to dermatology. 5. Recommend complete cardiac risk assessment. 6. In the interim, robotic incisional hernia repair may be of benefit to expedite repair. 7. Recommend bariatric labs. 8. Overall, she elevated risk for complications due to persistent tobacco abuse disorder. Objective - Vital Signs Vital signs: Vital Signs Temp 99.6 F 03/20/21 12:55 Pulse 87 03/20/21 12:55 Resp 18 03/20/21 12:55 BP 145/90 03/20/21 12:55 Pulse Ox Intake & Output 03/19/21 03/20/21 03/20/21 18:59 06:59 18:59 Weight 64.047 kg
== END | disposition home or self-care (01) ==
LOC: BARWHC3 12:32
PROVIDERS: ATTEND Surgery Plastic and Reconstructive Surgery
DX: Z71.3 Dietary counseling and surveillance (principal); G89.4 Chronic pain syndrome; I11.9 Hypertensive heart disease without heart failure; M79.3 Panniculitis, unspecified; I73.00 Raynaud's syndrome without gangrene; K59.09 Other constipation; F17.200 Nicotine dependence, unspecified, uncomplicated; E11.9 Type 2 diabetes mellitus without complications; M47.9 Spondylosis, unspecified; M17.10 Unilateral primary osteoarthritis, unspecified knee; Z80.1 Family history of malignant neoplasm of trachea, bronchus and lung; Z85.528 Personal history of other malignant neoplasm of kidney; Z98.84 Bariatric surgery status; Z68.28 Body mass index [BMI] 28.0-28.9, adult; Z86.69 Personal history of other diseases of the nervous system and sense organs; K28.7 Chronic gastrojejunal ulcer without hemorrhage or perforation; K43.2 Incisional hernia without obstruction or gangrene; A63.0 Anogenital (venereal) warts; F32.9 Major depressive disorder, single episode, unspecified; F41.9 Anxiety disorder, unspecified; I25.2 Old myocardial infarction; Z79.82 Long term (current) use of aspirin; Z79.899 Other long term (current) drug therapy; Z88.2 Allergy status to sulfonamides
CPT/HCPCS: 99211

== ENCOUNTER 2021-03-25 15:35 | Inpatient (IN) | payer OTHER, MEDICARE ==
[2021-03-25 15:55] LABS: Glucose,Whole Blood 159 mg/dL (75-99)
[2021-03-25 16:08] LABS: Anisocytosis Slight; Basophils % (A) 0 %; Eosinophils # (A) 0.1 k/uL (0-0.7); Eosinophils % (A) 1 %; HCT 33.6 % (34.0-46.0); HGB 10.9 gm/dL (11.4-16.0); Hypochromasia Slight; Lymphocytes # (A) 1.2 k/uL (1.0-4.8); Lymphocytes % (A) 11 %; MCH 26.1 pg (25.0-35.0); MCHC 32.6 g/dL (31.0-37.0); Mean Platelet Volume 6.9; Microcytosis Slight; Monocytes # (A) 0.5 k/uL (0-1.0); Monocytes % (A) 4 %; Neutrophils # (A) 8.9 k/uL (1.3-7.7); Neutrophils % (A) 83 %; Platelet Count 345 k/uL (150-450); RDW 18.3 % (11.5-15.5); WBC 10.8 k/uL (3.8-10.6)
[2021-03-25 16:17] LABS: ALT 14 U/L (4-34); AST 29 U/L (14-36); African American GFR (CKD) >90 (>60 ml/min/1.73 sqM); Albumin 4.6 g/dL (3.5-5.0); Alcohol <10 mg/dL; Alkaline Phosphatase 79 U/L (38-126); Anion Gap 17 mmol/L; Blood Urea Nitrogen 14 mg/dL (7-17); Calcium 9.3 mg/dL (8.4-10.2); Carbon Dioxide 13 mmol/L (22-30); Chloride 107 mmol/L (98-107); Creatine Kinase 69 U/L (30-135); Glucose 143 mg/dL (74-99); Non-African American GFR(CKD) >90 (>60 ml/min/1.73 sqM); Potassium 4.1 mmol/L (3.5-5.1); Sodium 137 mmol/L (137-145); Total Bilirubin 0.3 mg/dL (0.2-1.3); Total Protein 7.3 g/dL (6.3-8.2)
[2021-03-25 16:22] LABS: Lactic Acid, Venous 4.9 mmol/L (0.7-2.0)
--- NOTE | 2021-03-25 16:26 | CT ---
EXAMINATION TYPE: CT brain wo con DATE OF EXAM: 03/25/2021 HISTORY: AMS CT DLP: 1131.4 mGycm. Automated Exposure Control for Dose Reduction was Utilized. TECHNIQUE: CT scan of the head is performed without contrast. COMPARISON: CT brain May 12, 2020. FINDINGS: There is no acute intracranial hemorrhage or midline shift identified. There is mild diff use ventricular and sulcal prominence consistent with diffuse age-related cerebral atrophy. Garnica-whit e matter differentiation fairly well-maintained. The globes are intact and the visualized sinuses ar e clear. IMPRESSION: No acute intracranial hemorrhage or midline shift. There is mild diffuse age-related ce rebral atrophy redemonstrated. No significant change from prior.
[2021-03-25 16:29] LABS: Partial Thromboplastin Time 22.6 sec (22.0-30.0); Prothrombin Time 10.3 sec (9.0-12.0)
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
[2021-03-25 17:18] LABS: Appearance,Urine Clear (Clear); Bilirubin,Urine Negative (Negative); Blood,Urine Trace (Negative); Color,Urine Yellow; Glucose,Urine (UA) Negative (Negative); Hyaline Casts,Urine 1 /lpf (0-2); Ketones,Urine 1+ (Negative); Leukocyte Esterase,Urine Negative (Negative); Mucus,Urine Rare /hpf; Nitrite,Urine Negative (Negative); Protein,Urine 2+ (Negative); RBC,Urine 1 /hpf (0-5); Specific Gravity,Urine 1.019 (1.001-1.035); Squamous Epithelial Cell,Urine <1 /hpf (0-4); Urobilinogen,Urine <2.0 mg/dL (<2.0); WBC,Urine 4 /hpf (0-5)
[2021-03-25 17:24] LABS: Cocaine Screen,Urine Not Detected (NotDetected); Opiate Screen,Urine Not Detected (NotDetected); Phencyclidine Screen,Urine Not Detected (NotDetected); Urn Cannabinoid Scrn Detected (NotDetected)
[2021-03-25 17:25] LABS: Amphetamine Screen,Urine Not Detected (NotDetected); Barbiturate Screen,Urine Not Detected (NotDetected); Benzodiazepines Screen,Urine Not Detected (NotDetected); Methadone Screen, Urine Not Detected (NotDetected); Oxycodone Screen, Urine Not Detected (NotDetected); Tricyclic Antidepressant,Urine Detected (NotDetected)
[2021-03-25] MEDS ORDERED: MORPHINE SULFATE 4 MG/ML SYRINGE IVP STA (17:29)
[2021-03-25] MEDS ORDERED: SODIUM CHLORIDE 0.9% 1,000 ML IV ONE (17:37)
[2021-03-25] MEDS ORDERED: NALOXONE 0.4 MG/ML 1 ML VIAL IV PRN ×2 (17:40→23:19)
[2021-03-25] MEDS ORDERED: levETIRAcetam IV 750 MG in SODIUM CHLORIDE 0.9% 100 ML IVPB STA (17:50)
[2021-03-25] MEDS ORDERED: ASPIRIN 325 MG TAB PO STA (19:27)
[2021-03-25] MEDS: ALPRAZolam 1 MG TAB PO PRN (20:20)
[2021-03-25] MEDS ORDERED: diphenhydrAMINE 25 MG CAP PO PRN (21:36)
[2021-03-25] MEDS: HYDROcodone/APAP 10-325MG 1 EACH TAB PO PRN (22:05)
[2021-03-25] MEDS: ZOLPIDEM 5 MG TAB PO PRN (22:05)
[2021-03-25] MEDS: SUCRALFATE 1 GM TAB PO SCH (22:05)
[2021-03-25] MEDS: PANTOPRAZOLE 40 MG TABLET PO SCH (22:05)
[2021-03-25] MEDS: CYCLOBENZAPRINE 10 MG TAB PO PRN (22:05)
[2021-03-25] MEDS: buPROPion SR 150 MG TABLET.ER PO SCH (22:05)
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
[2021-03-26 02:52] LABS: Anisocytosis Slight; Basophils % (A) 1 %; Eosinophils # (A) 0.1 k/uL (0-0.7); Eosinophils % (A) 1 %; HCT 32.3 % (34.0-46.0); HGB 9.9 gm/dL (11.4-16.0); Hypochromasia Marked; Lymphocytes # (A) 1.2 k/uL (1.0-4.8); Lymphocytes % (A) 18 %; MCH 25.2 pg (25.0-35.0); MCHC 30.6 g/dL (31.0-37.0); MCV 82.3 fL (80.0-100.0); Monocytes # (A) 0.5 k/uL (0-1.0); Monocytes % (A) 7 %; Neutrophils # (A) 4.9 k/uL (1.3-7.7); Neutrophils % (A) 72 %; Platelet Count 284 k/uL (150-450); RBC 3.92 m/uL (3.80-5.40); RDW 18.1 % (11.5-15.5); WBC 6.8 k/uL (3.8-10.6)
[2021-03-26 02:58] LABS: Cholesterol 166 mg/dL (<200); HDL Cholesterol 64 mg/dL (40-60); LDL Cholesterol,Calculated 88 mg/dL (0-99); Triglycerides 71 mg/dL (<150)
[2021-03-26 03:00] LABS: African American GFR (CKD) >90 (>60 ml/min/1.73 sqM); Anion Gap 6 mmol/L; Blood Urea Nitrogen 14 mg/dL (7-17); Calcium 8.7 mg/dL (8.4-10.2); Carbon Dioxide 19 mmol/L (22-30); Chloride 113 mmol/L (98-107); Glucose 92 mg/dL (74-99); Non-African American GFR(CKD) >90 (>60 ml/min/1.73 sqM); Potassium 4.1 mmol/L (3.5-5.1); Sodium 138 mmol/L (137-145)
[2021-03-26] MEDS: HYDROcodone/APAP 10-325MG 1 EACH TAB PO PRN ×3 (06:08→22:56)
[2021-03-26] MEDS: PANTOPRAZOLE 40 MG TABLET PO SCH (06:42)
[2021-03-26] MEDS: SODIUM CHLORIDE 0.9% 1,000 ML IV SCH ×2 (07:00→20:29)
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
[2021-03-26] MEDS: ASPIRIN 81 MG PO SCH (08:41)
[2021-03-26] MEDS: LORATADINE 10 MG TAB PO SCH (08:41)
[2021-03-26] MEDS: SUCRALFATE 1 GM TAB PO SCH ×2 (08:41→20:34)
[2021-03-26] MEDS: ALPRAZolam 1 MG TAB PO PRN ×2 (08:41→22:56)
[2021-03-26] MEDS: ATORVASTATIN 40 MG TAB PO SCH (08:41)
[2021-03-26] MEDS: buPROPion SR 150 MG TABLET.ER PO SCH ×2 (08:42→20:34)
[2021-03-26] MEDS: DONEPEZIL 5 MG TAB PO SCH (08:42)
[2021-03-26] MEDS ORDERED: HEPARIN SODIUM 1,000 UN/ML (10ML VL) IV PRN (08:45)
[2021-03-26] MEDS: METOPROLOL TARTRATE 25 MG TAB PO SCH (08:52)
[2021-03-26] MEDS: HEPARIN SOD,PORK IN 0.45% NACL 25,000 UNIT in 0.45% NACL 1 250ML.BAG IV SCH (08:53)
[2021-03-26] MEDS ORDERED: Dextroamphetamine/Amphetamine [Adderall] PO SCH (09:00)
[2021-03-26 10:05] LABS: Partial Thromboplastin Time 22.3 sec (22.0-30.0); Prothrombin Time 10.3 sec (9.0-12.0)
--- NOTE | 2021-03-26 11:13 | ECHOF ---
Referral Reason:elevated troponin MEASUREMENTS -------- HEIGHT: 149.9 cm WEIGHT: 59.4 kg BP: 140/78 RVIDd: 3.2 cm (< 3.3) IVSd: 1.4 cm (0.6 - 1.1) LVIDd: 3.3 cm (3.9 - 5.3) LVPWd: 1.4 cm (0.6 - 1.1) IVSs: 2.1 cm LVIDs: 1.5 cm LVPWs: 2.1 cm LAESV Index (A-L): 18.13 ml/m Ao Diam: 3.0 cm (2.0 - 3.7) AV Cusp: 2.3 cm (1.5 - 2.6) MV EXCURSION: 13.622 mm (> 18.000) MV EF SLOPE: 44 mm/s (70 - 150) EPSS: 0.5 cm MV E Augie: 0.48 m/s MV DecT: 279 ms MV A Augie: 0.87 m/s MV E/A Ratio: 0.55 AR PHT: 700 ms RAP: 5.00 mmHg RVSP: 28.84 mmHg FINDINGS -------- Sinus rhythm. This was a technically adequate study. The left ventricular size is normal. There is moderate concentric left ventricular hypertrophy. O verall left ventricular systolic function is low-normal with, an EF between 50 - 55 %. Apical later al LV wall motion is hypokinetic. The right ventricle is normal in size. Normal LA size by volume 22+/-6 ml/m2. The right atrium was not well visualized. Interatrial and interventricular septum intact. The aortic valve is trileaflet and appears structurally normal. There is mild aortic regurgitation. There is no evidence of aortic stenosis. The mitral valve is normal. Mild mitral regurgitation is present. The tricuspid valve appears structurally normal. Mild tricuspid regurgitation present. Right vent ricular systolic pressure is normal at < 35 mmHg. The right ventricular systolic pressure, as measu red by Doppler, is 28.84mmHg. There is no pulmonic regurgitation present. The aortic root size is normal. IVC Not well visulized. There is no pericardial effusion. CONCLUSIONS -------- 1. There is moderate concentric left ventricular hypertrophy. 2. Overall left ventricular systolic function is low-normal with, an EF between 50 - 55 %. 3. Apical lateral LV wall motion is hypokinetic. 4. Normal LA size by volume 22+/-6 ml/m2. 5. There is mild aortic regurgitation. 6. Mild mitral regurgitation is present. 7. Mild tricuspid regurgitation present. FLATWORK ASSEMBLER: Breanna Frank RDCS
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
[2021-03-26] MEDS ORDERED: NITROGLYCERIN SL TABS 0.4 MG TAB SUBLINGUAL PRN (14:22)
--- NOTE | 2021-03-26 14:45 | US ---
EXAMINATION TYPE: US carotid duplex BILAT DATE OF EXAM: 03/26/2021 COMPARISON: NONE CLINICAL HISTORY: seizure vs syncope. Syncope EXAM MEASUREMENTS: RIGHT: Peak Systolic Velocity (PSV) cm/sec ----- Right CCA: 65.4 ----- Right ICA: 74.5 ----- Right ECA: 49.3 ICA/CCA ratio: 1.1 RIGHT: End Diastole cm/sec ----- Right CCA: 21.8 ----- Right ICA: 29.3 ----- Right ECA: 13.9 LEFT: Peak Systolic Velocity (PSV) cm/sec ----- Left CCA: 79.7 ----- Left ICA: 104 ----- Left ECA: 49.8 ICA/CCA ratio: 1.3 LEFT: End Diastole cm/sec ----- Left CCA: 24.2 ----- Left ICA: 35.6 ----- Left ECA: 15.4 VERTEBRALS (direction of flow): Right Vertebral: Antegrade Left Vertebral: Antegrade Rhythm: Normal No significant stenosis seen IMPRESSION: No significant flow-limiting stenosis. Criteria for Assigning % of Stenosis / Diameter reduction (Estimation based on the indirect measurements of the internal carotid artery velocities (ICA PSV). 1. Normal (no stenosis)=ICA PSV < 125 cm/s: ratio < 2.0: ICA EDV<40 cm/s. 2. Less than 50% stenosis=ICA PSV < 125 cm/s: ratio < 2.0: ICA EDV<40 cm/s. 3. 50 to 69% stenosis=ICA PSV of 125 to 230 cm/s: ration 2.0 ? 4.0: ICA EDV 40-100 cm/s. 4. Greater than 70% stenosis to near occlusion= ICA PSV > 230 cm/s: ratio > 4.0: ICA EDV > 100 cm/s. 5. Near occlusion= ICA PSV velocities may be low or undetectable: variable ratio and ICA EDV. 6. Total occlusion=unable to detect flow.
[2021-03-26] MEDS ORDERED: LORazepam 2 MG/ML INJ IV PRN ×3 (15:56)
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
--- NOTE | 2021-03-26 16:50 | EEG ---
ELECTROENCEPHALOGRAM REPORT DATE OF SERVICE: 03/26/2021 PREAMBLE: This is a 55-year-old female with history of seizure disorder who had a breakthrough seizure. This study is performed to evaluate for epileptiform activity. EEG FINDINGS: This is a 21-channel routine EEG recording in a patient utilizing 10/20 international system with referential and bipolar montages. Background consists of well developed, well regulated, moderate voltage activity in 9 to 10 hertz alpha mixed with low-voltage fast frequency beta activity. Background seems to be minimally reactive to eye opening and closing. Photic driving response was seen with some flash frequencies. Different stages of sleep were not seen. No focal or generalized epileptiform activity was seen. EKG channel showed no arrhythmia. IMPRESSION: This is a normal awake EEG. The presence of excessive low-voltage fast frequency beta activity is suggestive of medication effect. No epileptiform activity was seen. MMSHINEL / ANNA: [id number] /
[2021-03-26] MEDS: THIAMINE 100 MG TAB PO SCH (17:25)
[2021-03-26] MEDS: ASPIRIN-ACET-CAFF 250-250-65MG 1 EACH TAB PO PRN (18:22)
[2021-03-26] MEDS: CYCLOBENZAPRINE 10 MG TAB PO PRN (21:23)
[2021-03-26] MEDS: ZOLPIDEM 5 MG TAB PO PRN (21:23)
[2021-03-27] MEDS: SODIUM CHLORIDE 0.9% 1,000 ML IV SCH ×4 (05:53→23:50)
[2021-03-27] MEDS: ATORVASTATIN 40 MG TAB PO SCH (06:34)
[2021-03-27] MEDS: ASPIRIN 81 MG PO SCH (06:35)
[2021-03-27] MEDS: PANTOPRAZOLE 40 MG TABLET PO SCH (06:36)
[2021-03-27] MEDS: SUCRALFATE 1 GM TAB PO SCH ×2 (06:36→20:35)
[2021-03-27] MEDS: THIAMINE 100 MG TAB PO SCH ×2 (06:36→17:20)
[2021-03-27] MEDS: LORATADINE 10 MG TAB PO SCH (06:36)
[2021-03-27] MEDS: DONEPEZIL 5 MG TAB PO SCH (06:36)
[2021-03-27] MEDS: buPROPion SR 150 MG TABLET.ER PO SCH (06:36)
[2021-03-27] MEDS: METOPROLOL TARTRATE 25 MG TAB PO SCH (06:36)
[2021-03-27] MEDS ORDERED: HEPARIN SODIUM,PORCINE 10,000 UNIT in SODIUM CHLORIDE 0.9% 1,000 ML IRRIGATION PRN (07:00)
[2021-03-27] MEDS ORDERED: HEPARIN SODIUM,PORCINE 2,500 UNIT in SODIUM CHLORIDE 0.9% 250 ML IRRIGATION PRN (07:00)
[2021-03-27 07:52] LABS: Anisocytosis Slight; Basophils % (A) 1 %; Eosinophils # (A) 0.3 k/uL (0-0.7); Eosinophils % (A) 6 %; HCT 30.2 % (34.0-46.0); HGB 9.7 gm/dL (11.4-16.0); Hypochromasia Marked; Lymphocytes # (A) 0.8 k/uL (1.0-4.8); Lymphocytes % (A) 17 %; MCH 26.4 pg (25.0-35.0); MCV 82.5 fL (80.0-100.0); Microcytosis Slight; Monocytes # (A) 0.3 k/uL (0-1.0); Monocytes % (A) 7 %; Neutrophils # (A) 3.4 k/uL (1.3-7.7); Neutrophils % (A) 69 %; Platelet Count 263 k/uL (150-450); RBC 3.66 m/uL (3.80-5.40); RDW 18.5 % (11.5-15.5)
[2021-03-27 08:04] LABS: INR 0.9 (<1.2); Partial Thromboplastin Time 39.7 sec (22.0-30.0); Prothrombin Time 10.1 sec (9.0-12.0)
[2021-03-27 08:09] LABS: African American GFR (CKD) >90 (>60 ml/min/1.73 sqM); Anion Gap 7 mmol/L; Blood Urea Nitrogen 13 mg/dL (7-17); Calcium 7.7 mg/dL (8.4-10.2); Carbon Dioxide 19 mmol/L (22-30); Chloride 113 mmol/L (98-107); Glucose 67 mg/dL (74-99); Non-African American GFR(CKD) 89 (>60 ml/min/1.73 sqM); Potassium 3.9 mmol/L (3.5-5.1); Sodium 139 mmol/L (137-145)
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
[2021-03-27] MEDS: ALPRAZolam 1 MG TAB PO PRN ×2 (08:24→22:04)
[2021-03-27] MEDS: HYDROcodone/APAP 10-325MG 1 EACH TAB PO PRN ×3 (08:24→22:04)
--- NOTE | 2021-03-27 09:22 | P.PN ---
Progress Note - Text Progress Note Date: 03/27/21 CT of Lumbar spine reviewed. Post surgical changes of L3 with cement placement and extravasation into the disc space. New L1 and L2 fractures. L1 fx may propogate into posterior elements making it unstable. MRI ordered to evaluate for PLC edema. CT of T spine also ordered. Pt may need stabilizaion of this fx. Would recommend TLSO in the interium and await further imaging.
--- NOTE | 2021-03-27 10:28 | CT ---
EXAMINATION TYPE: CT lumbar spine wo con DATE OF EXAM: 03/27/2021 8:06 AM COMPARISON: Lumbar spine x-ray from yesterday. CT lumbar spine 2012 HISTORY: Fracture CT DLP: 684.3 mGycm Automated exposure control for dose reduction was used. Unenhanced CT of the lumbar spine was performed. Bone and soft tissue window settings are submitted as well as coronal and sagittal reconstructions. There are 5 lumbar type vertebra redemonstrated. Osseous structures are redemonstrated demineralized. Mild to moderate height loss or chronic compression fracture L3 level is identified with vertebropla sty, there is extension superiorly into the L2-L3 disc space CEMENT material. There is persistent mil d chronic compression fracture deformity involving the L2 vertebra redemonstrated. Correlating with x -ray there is no horizontal linear lucency with anterior to posterior component sagittal image 33 and transverse component coronal image 36 through the upper to midportion of the L1 vertebral. Slight ef facement of the anterior thecal sac at superior L1 level due to slight posterior retropulsion sagitta l image 33 measures under 2 mm. There is slightly more prominent effacement of the anterior thecal sa c at the superior L3 level same sagittal image. Alignment is stable and satisfactory. Axial images at L2-L3 level show mild to moderate broad disc bulge effacing anterior thecal sac on im age 29 a site of prior vertebroplasty. Axial images at L4-L5 level show moderate facet arthropathy and ligamentum flavum hypertrophy bilater ally. Similar [id number] findings noted at L5-S1 level. Visualized liver is somewhat prominent in size. There is mild/moderate calcified plaque of the distal abdominal aorta extending into iliac branch vessels. IMPRESSION: Confirmation of acute mild compression type fracture L1 level with minimal posterior retr opulsion of the superior portion L1 vertebra. Alignment stable and satisfactory. Chronic compression type fractures at L2 and L3 levels are also confirmed
[2021-03-27] MEDS ORDERED: HEPARIN SODIUM 1,000 UN/ML (10ML VL) ONE (10:47)
[2021-03-27] MEDS ORDERED: VERAPAMIL 2.5 MG/ML 2 ML AMP ONE (10:48)
[2021-03-27] MEDS ORDERED: LIDOCAINE 1% INJ 10MG/ML (20 ML MDV) ONE (10:48)
[2021-03-27] MEDS ORDERED: IV FLUID CONTINUATION 100 ML IV ONE (11:10)
[2021-03-27] MEDS ORDERED: MIDAZOLAM 2 MG/2 ML VIAL IVP ONE (11:15)
[2021-03-27] MEDS ORDERED: LIDOCAINE 1% INJ 10MG/ML (20 ML MDV) SQ ONE (11:16)
--- NOTE | 2021-03-27 11:28 | P.PN ---
Progress Note - Text Progress Note Date: 03/27/21 Patient presents with right ankle pain. Neurovascular status intact. Minimal ecchymosis, tenderness to palpation over ventral aspect of foot wear avulsion fracture is noted. X-ray showed avulsion fracture superior, anterior talus. At this time no surgical intervention is recommended. plan: Long cam walker boot will be ordered and patient will be instructed to use this. weight-bear as tolerated
[2021-03-27] MEDS ORDERED: SODIUM CHLORIDE 0.9% 1,000 ML IV ONE (11:45)
[2021-03-27] MEDS ORDERED: IOPAMIDOL-370 100ML BTL INJ ONE (11:45)
--- NOTE | 2021-03-27 12:42 | P.PN ---
Subjective We recommended the patient undergo a cardiac catheterization today. Neurology note reviewed, Patient underwent EEG which revealed normal awake EEG. Presence of excessive low voltage fast frequency bit activity suggestive of medication effect. No epileptiform activity was seen. Echocardiogram revealed left ventricular systolic function is low normal with an EF between 50-55%, apical lateral wall hypokinetic, mild mitral regurgitation, mild tricuspid regurgitation, mild aortic regurgitation. Patient is agreeable with cardiac catheterization with Dr. Zee today. I have discussed the risks, benefits and alternative therapies for the above-mentioned procedure and for both sedation/analgesia as well as necessary blood product administration, if indicated, as they pertain to this patient. The patient has indicated understanding and acceptance of the risks and procedures discussed. Questions have been answered appropriately and he is agreeable to move forward with the above-stated procedure. Objective - Vital Signs Vital signs: Vital Signs Temp 98.1 F 03/27/21 09:15 Pulse 61 03/27/21 09:15 Resp 20 03/27/21 09:15 BP 118/68 03/27/21 09:15 Pulse Ox 97 03/27/21 09:15 Intake & Output 03/26/21 03/27/21 03/27/21 18:59 06:59 18:59 Intake Total 743.857 72.59 164.686 Balance 743.857 72.59 164.686 Weight 83.1 kg Intake: IV 75 Intake, IV Titration 59.857 72.59 89.686 Amount Heparin Sod,Pork in 0.45% 59.857 72.59 89.686 NaCl 25,000 unit In 0.45 % NaCl 1 250ml.bag @ 12 UNITS/KG/HR 7.14 mls/hr IV .Q24H [facility] Rx#: [id number] Oral 684 Other: Voiding Method Bedside Commode # Voids 2 2 - Labs CBC & Chem 7: 03/27/21 07:04 03/27/21 07:04 Labs: Abnormal Lab Results - Last 24 Hours (Table) 03/26/21 03/27/21 03/27/21 Range/Units 23:07 07:04 07:04 RBC 3.66 L (3.80-5.40) m/uL Hgb 9.7 L (11.4-16.0) gm/dL Hct 30.2 L (34.0-46.0) % RDW 18.5 H (11.5-15.5) % Lymphocytes # 0.8 L (1.0-4.8) k/uL APTT 39.4 H (22.0-30.0) sec Chloride 113 H (98-107) mmol/L Carbon Dioxide 19 L (22-30) mmol/L Glucose 67 L (74-99) mg/dL Calcium 7.7 L (8.4-10.2) mg/dL 03/27/21 Range/Units 07:04 RBC (3.80-5.40) m/uL Hgb (11.4-16.0) gm/dL Hct (34.0-46.0) % RDW (11.5-15.5) % Lymphocytes # (1.0-4.8) k/uL APTT 39.7 H (22.0-30.0) sec Chloride (98-107) mmol/L Carbon Dioxide (22-30) mmol/L Glucose (74-99) mg/dL Calcium (8.4-10.2) mg/dL
--- NOTE | 2021-03-27 12:52 | CC ---
CARDIAC CATHETERIZATION REPORT DATE OF SERVICE: 03/27/2021. PROCEDURE: Left heart catheterization and coronary angiography. PERFORMED BY: Dr. Sapphire Zee. Moderate conscious sedation time was 26 minutes. Patient was administered Versed. Oxygen saturation, hemodynamics and EKG were monitored closely. CLINICAL INFORMATION: Mrs. Jen Nobles is a 55-year-old lady with a known history of hypertension and hyperlipidemia who presented to the hospital with episode of what seemed like a seizure episode. Following this, she went on to have a troponin elevation with a nonspecific ST-segment changes. There was also some wall motion abnormality on the echocardiogram and therefore given her presentation suggestive of non-ST elevation OH she was advised cardiac catheterization after due discussion regarding risks, benefits, and options. PROCEDURE NOTE: Under local anesthesia and strict aseptic precautions, I tried to gain access from the right radial. I was able to get the decent blood return, but I could not advance the wire. After a couple of attempts, I abandoned and went to the right femoral approach. Under local anesthesia and strict aseptic precautions, a 6-Telugu introducer was placed in the right femoral artery. Using standard Nevaeh catheters, I performed coronary angiography and the same right catheter was used to check LV pressure but LV gram was not performed. The sheath was taken out and Angio-Seal device used to secure hemostasis and she was sent to the room in stable condition. CARDIAC CATHETERIZATION FINDINGS: Left ventricular end-diastolic pressure was 8 mmHg without any gradient across aortic valve. CORONARY ANGIOGRAPHY FINDINGS: RIGHT CORONARY ARTERY: Dominant vessel has about a 30% to 35% narrowing in the mid segment. Mild calcification. Distally bifurcates into PDA and PLV, both of which have some mild diffuse disease. LEFT MAIN CORONARY ARTERY: Short patent disease-free vessel that bifurcates into LAD and circumflex. LEFT ANTERIOR DESCENDING CORONARY ARTERY: Good caliber vessel extends along the anterior wall, gives off septal and diagonal branches runs all the way to the apex supplying a sizable amount of myocardium. There is no significant disease in the LAD system which is of a good caliber and good distribution. LEFT POSTERIOR CIRCUMFLEX CORONARY ARTERY: Technically nondominant vessel. Good caliber, good distribution. Gives off 2 good-sized obtuse marginals that run laterally are tortuous have minor irregularities and no significant disease. LEFT VENTRICULOGRAM: Left ventriculogram was not performed. FINAL IMPRESSION: This patient has a right dominant system, normal filling pressures, no gradient. There is a 30% to 35% lesion involving the mid RCA with mild calcification. Circumflex and LAD have minor irregularities. LV gram was not performed. RECOMMENDATIONS: Findings were discussed with the patient and daughter. Continued medical therapy with risk factor modification advised. Patient can be discharged tomorrow and I will see her in the office in 1 week. MMODL / IJN: [id number] /
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
--- NOTE | 2021-03-27 17:55 | P.PN ---
Subjective Progress Note Date: 03/27/21 Patient was seen for a follow-up. Patient is laying comfortably in the bed. Offers no complaints. Patient had undergone cardiac catheterization today. It revealed right dominant system, normal filling pressures. No gradient. There is a 30-35% lesion involving the mid RCA, with mild calcification. Circumflex and LAD have minor irregularities. Recommended medical treatment. Patient is probably undergoing kyphoplasty in a.m. Also followed up with orthopedic surgery. No further seizures. Objective - Vital Signs Vital signs: Vital Signs Temp 98.6 F 03/27/21 15:45 Pulse 67 03/27/21 16:45 Resp 20 03/27/21 16:45 BP 117/59 03/27/21 16:45 Pulse Ox 94 L 03/27/21 15:45 Intake & Output 03/26/21 03/27/21 03/27/21 18:59 06:59 18:59 Intake Total 743.857 72.59 864.686 Balance 743.857 72.59 864.686 Weight 83.1 kg Intake: IV 75 Intake, IV Titration 59.857 72.59 789.686 Amount Heparin Sod,Pork in 0.45% 59.857 72.59 89.686 NaCl 25,000 unit In 0.45 % NaCl 1 250ml.bag @ 12 UNITS/KG/HR 7.14 mls/hr IV .Q24H [facility] Rx#: [id number] Sodium Chloride 0.9% 1, 700 000 ml @ 100 mls/hr IV . Q10H [facility] Rx#:[id number] Oral 684 Other: Voiding Method Bedside Commode # Voids 2 2 - Exam Patient's mental status, speech and language functions are normal. Detail testing deferred. - Labs CBC & Chem 7: 03/27/21 07:04 03/27/21 07:04 Labs: Abnormal Lab Results - Last 24 Hours (Table) 03/26/21 03/27/21 03/27/21 Range/Units 23:07 07:04 07:04 RBC 3.66 L (3.80-5.40) m/uL Hgb 9.7 L (11.4-16.0) gm/dL Hct 30.2 L (34.0-46.0) % RDW 18.5 H (11.5-15.5) % Lymphocytes # 0.8 L (1.0-4.8) k/uL APTT 39.4 H (22.0-30.0) sec Chloride 113 H (98-107) mmol/L Carbon Dioxide 19 L (22-30) mmol/L Glucose 67 L (74-99) mg/dL Calcium 7.7 L (8.4-10.2) mg/dL 03/27/21 Range/Units 07:04 RBC (3.80-5.40) m/uL Hgb (11.4-16.0) gm/dL Hct (34.0-46.0) % RDW (11.5-15.5) % Lymphocytes # (1.0-4.8) k/uL APTT 39.7 H (22.0-30.0) sec Chloride (98-107) mmol/L Carbon Dioxide (22-30) mmol/L Glucose (74-99) mg/dL Calcium (8.4-10.2) mg/dL Assessment and Plan Assessment: * Breakthrough seizure, likely multifactorial due to reasons mentioned below #1 benzo withdrawal, as patient was on Xanax 2 mg 2-3 times a day, stopped taking it 2 days prior to her seizure. Urine drug screen negative for benzo indicating withdrawal of benzodiazepine. #2 stopping Keppra 2 weeks ago. #3 lower seizure threshold from Wellbutrin. * Acute mild compression type fracture L1 level with minimal posterior retropulsion of the superior portion of L1 vertebra. Chronic compression type fracture at L2 and L3 level. Plan: * Patient undergoing kyphoplasty in the morning. * EEG from 03/26/2021, which is normal. No epileptiform activity was seen. Sl ightly excessive low voltage fast frequency beta activity suggestive of medication effect. * Carotid Doppler was performed, which revealed no significant stenosis. Antegrade flow in both vertebral arteries. * 2-D echo showed moderate concentric LVH. EF is 50-55%. Apical lateral LV wall motion is hypokinetic. Normal left atrial size. Mild AR. * Patient has stopped taking Xanax 2 mg twice a day few days ago, which probably led to the breakthrough seizure. Patient was recommended to avoid abrupt withdrawal of benzodiazepine, as it can lead to withdrawal seizure. * Resume Keppra 750 mg twice a day. * Discontinue Wellbutrin * Continue aspirin 81 mg and Lipitor. * Patient informed of [place] state law of no driving unless seizure free for 6 months, climbing ladders, operate dangerous machinery or unsupervised swimming.
[2021-03-27] MEDS: HEPARIN SOD,PORK IN 0.45% NACL 25,000 UNIT in 0.45% NACL 1 250ML.BAG IV SCH (19:46)
[2021-03-27] MEDS: CYCLOBENZAPRINE 10 MG TAB PO PRN (20:35)
[2021-03-27] MEDS: ZOLPIDEM 5 MG TAB PO PRN (20:35)
[2021-03-27] MEDS ORDERED: NON FORMULARY DRUG (Alendronate Sodium [Fosamax] 70 MG Tablet) PO SCH (21:36)
[2021-03-28 07:47] LABS: Anisocytosis Slight; HCT 28.5 % (34.0-46.0); HGB 9.4 gm/dL (11.4-16.0); Hypochromasia Moderate; MCH 26.7 pg (25.0-35.0); MCHC 32.8 g/dL (31.0-37.0); MCV 81.5 fL (80.0-100.0); Mean Platelet Volume 6.8; Microcytosis Slight; Platelet Count 249 k/uL (150-450); RDW 18.6 % (11.5-15.5); WBC 4.7 k/uL (3.8-10.6)
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
[2021-03-28 08:13] LABS: African American GFR (CKD) >90 (>60 ml/min/1.73 sqM); Anion Gap 6 mmol/L; Blood Urea Nitrogen 7 mg/dL (7-17); Carbon Dioxide 19 mmol/L (22-30); Chloride 114 mmol/L (98-107); Glucose 72 mg/dL (74-99); Magnesium 1.9 mg/dL (1.6-2.3); Non-African American GFR(CKD) >90 (>60 ml/min/1.73 sqM); Potassium 3.8 mmol/L (3.5-5.1); Sodium 139 mmol/L (137-145)
[2021-03-28] MEDS: HYDROcodone/APAP 10-325MG 1 EACH TAB PO PRN ×3 (10:09→23:03)
[2021-03-28] MEDS: SODIUM CHLORIDE 0.9% 1,000 ML IV SCH ×2 (10:10→20:14)
[2021-03-28] MEDS: DONEPEZIL 5 MG TAB PO SCH (10:11)
[2021-03-28] MEDS: ATORVASTATIN 40 MG TAB PO SCH (10:11)
[2021-03-28] MEDS: THIAMINE 100 MG TAB PO SCH ×2 (10:11→15:22)
[2021-03-28] MEDS: SUCRALFATE 1 GM TAB PO SCH ×2 (10:11→20:14)
[2021-03-28] MEDS: ASPIRIN 81 MG PO SCH (10:12)
[2021-03-28] MEDS: LORATADINE 10 MG TAB PO SCH (10:12)
[2021-03-28] MEDS: METOPROLOL TARTRATE 25 MG TAB PO SCH (10:12)
[2021-03-28] MEDS: PANTOPRAZOLE 40 MG TABLET PO SCH (10:12)
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
[2021-03-28] MEDS ORDERED: LORazepam 2 MG/ML INJ IV STA (12:43)
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
[2021-03-28] MEDS: HEPARIN SODIUM,PORCINE/PF 5,000 UNIT/0.5 ML SYRINGE SQ SCH ×2 (15:23→23:02)
--- NOTE | 2021-03-28 16:05 | P.PN ---
Progress Note - Text Progress Note Date: 03/28/[address] reviewed. There is an AO A3 burst fracture of L1 that is likely acute on chronic. There is new compression of L2 which is <20%. There is previous cement placement in L3 with extravasation into L2-3 disc space. The fracture at L1 appears to extend to the pedicles and include the lateral recess bilaterally. The PLC is still intact. Pt has been in a brace and not toerating well and still having pain. There is mild compression at L1-2 region. No severe stenosis noted. Due to the multiple fractures in close proximity and a/c nature as well as acute nature of L2 fracture I do feel surgical intervention is warrented in the form of a T12-L2 stabilization as well as cement fixation of screws and L1 fx. We will discuss this with the patient and her wishes. We can likely do this through an MIS approach to limit trauma. As long as pt is stable for surgery and agrees with plan we will try and get her boarded for Thu or Thursday. Maintain brace when up and about continue pain meds Medical clearance Cardio clearance Plan OR 03/30 or 03/31 depending on availability
--- NOTE | 2021-03-28 16:18 | CT ---
EXAMINATION TYPE: CT thoracic spine wo con DATE OF EXAM: 03/28/2021 COMPARISON: HISTORY: surgical planning CT DLP: 560.3 mGycm Automated exposure control for dose reduction was used. Images obtained from T1 to T12 without contrast. There is generalized osteopenia. There is mild anterior wedging of numerous thoracic vertebra up to 1 5%. There is L1 compression fracture 25% with irregular superior cortex. This could be an acute fract ure. This is not completely evaluated. There is no thoracic paraspinal mass. I see no focal bone destruction. The posterior elements appear intact. IMPRESSION: Multiple osteoporotic type mild thoracic compression fractures involving T11 and T10 and T8 and T7 an d T6 and T5 and T4 vertebra. There is also slight wedging of T3. There is L1 compression fracture whi ch could BE an acute fracture. L1 fracture appears new compared to old CT scan. Multiple other thorac ic compression deformities slightly increased compared to old exam.
[2021-03-28] MEDS: CYCLOBENZAPRINE 10 MG TAB PO PRN (20:14)
[2021-03-28] MEDS: ZOLPIDEM 5 MG TAB PO PRN (20:14)
[2021-03-28] MEDS: ASPIRIN-ACET-CAFF 250-250-65MG 1 EACH TAB PO PRN (20:22)
[2021-03-28] MEDS: ALPRAZolam 1 MG TAB PO PRN (23:02)
[2021-03-29] MEDS: PANTOPRAZOLE 40 MG TABLET PO SCH (06:39)
[2021-03-29] MEDS: THIAMINE 100 MG TAB PO SCH ×2 (06:39→15:31)
[2021-03-29] MEDS: ATORVASTATIN 40 MG TAB PO SCH (08:56)
[2021-03-29] MEDS: HYDROcodone/APAP 10-325MG 1 EACH TAB PO PRN ×3 (08:56→23:33)
[2021-03-29] MEDS: LORATADINE 10 MG TAB PO SCH (08:57)
[2021-03-29] MEDS: DONEPEZIL 5 MG TAB PO SCH (08:57)
[2021-03-29] MEDS: ASPIRIN 81 MG PO SCH (08:57)
[2021-03-29] MEDS: METOPROLOL TARTRATE 25 MG TAB PO SCH (08:57)
[2021-03-29] MEDS: HEPARIN SODIUM,PORCINE/PF 5,000 UNIT/0.5 ML SYRINGE SQ SCH ×3 (08:57→23:32)
[2021-03-29] MEDS: SUCRALFATE 1 GM TAB PO SCH ×2 (08:57→21:28)
--- NOTE | 2021-03-29 10:34 | P.PN ---
Progress Note - Text Progress Note Date: 03/29/21 Patient was evaluated today at bedside, she is resting in her hospital bed. Patient states that she's still having discomfort throughout the low back. Dr. Mccain was available yesterday to review the MRI results of her lumbar spine. Plan at this time is to proceed with a T12 to L2 posterior fusion and kyphoplasty of L1. Cement will be used for screw fixation. We will be attempting to do this procedure via a minimally invasive approach. We discussed this with the patient today at bedside. Obtain consent Nothing by mouth night before surgery Pain control, continue current medications Medical recommendations We'll continue to follow patient during inpatient stay
[2021-03-29] MEDS: ASPIRIN-ACET-CAFF 250-250-65MG 1 EACH TAB PO PRN ×2 (11:54→23:51)
[2021-03-29] MEDS: SODIUM CHLORIDE 0.9% 1,000 ML IV SCH ×2 (11:56→23:52)
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
[2021-03-29] MEDS: CYCLOBENZAPRINE 10 MG TAB PO PRN (21:28)
[2021-03-29] MEDS: ZOLPIDEM 5 MG TAB PO PRN (21:28)
[2021-03-29] MEDS: ALPRAZolam 1 MG TAB PO PRN (23:32)
[2021-03-30] MEDS: THIAMINE 100 MG TAB PO SCH ×2 (07:01→16:53)
[2021-03-30] MEDS: PANTOPRAZOLE 40 MG TABLET PO SCH (07:01)
[2021-03-30] MEDS ORDERED: ONDANSETRON 4 MG/2 ML VIAL ONE (07:44)
[2021-03-30] MEDS ORDERED: LIDOCAINE 1% INJ 10MG/ML (20 ML MDV) ONE (07:44)
[2021-03-30] MEDS ORDERED: PROPOFOL 10 MG/ML 20 ML VIAL IV ONE (07:44)
[2021-03-30] MEDS ORDERED: TRANEXAMIC ACID 1,000 MG/10 ML VIAL ONE (07:44)
[2021-03-30] MEDS ORDERED: HYDROmorphone (PF) 1 MG/ML ONE (07:44)
[2021-03-30] MEDS ORDERED: MIDAZOLAM 2 MG/2 ML VIAL ONE (07:44)
[2021-03-30] MEDS ORDERED: PHENYLEPHRINE-0.9% NACL SYG 1,000 MCG/10 ML SYRINGE ONE (07:44)
[2021-03-30] MEDS ORDERED: SODIUM CHLORIDE 0.9% 100 ML BAG ONE ×2 (07:44)
[2021-03-30] MEDS ORDERED: ceFAZolin 1,000 MG VIAL ONE (07:44)
[2021-03-30] MEDS ORDERED: NEOSTIGMINE 1 MG/ML 10 ML VIAL ONE (07:44)
[2021-03-30] MEDS ORDERED: fentaNYL (PF) 50 MCG/ML 2 ML AMP ONE (07:44)
[2021-03-30] MEDS ORDERED: GLYCOPYRROLATE 0.2 MG/ML 2 ML VIAL ONE (07:44)
[2021-03-30] MEDS ORDERED: ROCURONIUM 10 MG/ML (5 ML VIAL) IV ONE (07:44)
[2021-03-30] MEDS ORDERED: SUCCINYLCHOLINE CHLORIDE 100 MG/5 ML SYR IV ONE (07:44)
--- NOTE | 2021-03-30 08:26 | P.PN ---
Progress Note - Text Progress Note Date: 03/30/21 Patient was evaluated today at bedside, she is resting in her hospital bed and eating breakfast. I discussed with patient that she will be nothing by mouth after midnight tonight. Patient states that she's still having pain in low back. Patient is understanding and ready to go forth with surgery tomorrow morning. Surgery planned is a T12 to L2 posterior fusion and kyphoplasty of L1. Cement will be used for screw fixation. Procedure is planned with a minimally invasive approach. We discussed this with the patient today at bedside. Obtain consent Nothing by mouth night before surgery Pain control, continue current medications Medical recommendations We'll continue to follow patient during inpatient stay
[2021-03-30 08:37] LABS: Anisocytosis Slight; HCT 30.3 % (34.0-46.0); HGB 9.8 gm/dL (11.4-16.0); Hypochromasia Moderate; MCH 26.3 pg (25.0-35.0); MCHC 32.2 g/dL (31.0-37.0); MCV 81.9 fL (80.0-100.0); Mean Platelet Volume 7.9; Microcytosis Slight; Platelet Count 254 k/uL (150-450); RBC 3.71 m/uL (3.80-5.40); RDW 18.6 % (11.5-15.5); WBC 4.2 k/uL (3.8-10.6)
[2021-03-30 08:56] LABS: African American GFR (CKD) >90 (>60 ml/min/1.73 sqM); Anion Gap 5 mmol/L; Blood Urea Nitrogen 6 mg/dL (7-17); Calcium 7.9 mg/dL (8.4-10.2); Carbon Dioxide 21 mmol/L (22-30); Chloride 112 mmol/L (98-107); Glucose 97 mg/dL (74-99); Non-African American GFR(CKD) >90 (>60 ml/min/1.73 sqM); Potassium 3.5 mmol/L (3.5-5.1); Sodium 138 mmol/L (137-145)
[2021-03-30] MEDS: HEPARIN SODIUM,PORCINE/PF 5,000 UNIT/0.5 ML SYRINGE SQ SCH (09:47)
[2021-03-30] MEDS: SUCRALFATE 1 GM TAB PO SCH ×2 (09:47→21:25)
[2021-03-30] MEDS: METOPROLOL TARTRATE 25 MG TAB PO SCH (09:47)
[2021-03-30] MEDS: LORATADINE 10 MG TAB PO SCH (09:47)
[2021-03-30] MEDS: ASPIRIN 81 MG PO SCH ×2 (09:47→11:32)
[2021-03-30] MEDS: ATORVASTATIN 40 MG TAB PO SCH (09:47)
[2021-03-30] MEDS: HYDROcodone/APAP 10-325MG 1 EACH TAB PO PRN ×2 (09:47→16:54)
[2021-03-30] MEDS: ALPRAZolam 1 MG TAB PO PRN (11:38)
[2021-03-30] MEDS: DONEPEZIL 5 MG TAB PO SCH (11:43)
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
[2021-03-30] MEDS: SODIUM CHLORIDE 0.9% 1,000 ML IV SCH (16:55)
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
[2021-03-30] MEDS: ZOLPIDEM 5 MG TAB PO PRN (21:24)
[2021-03-30] MEDS: CYCLOBENZAPRINE 10 MG TAB PO PRN (21:25)
[2021-03-31] MEDS: ALPRAZolam 1 MG TAB PO PRN ×2 (00:05→21:25)
[2021-03-31] MEDS: HYDROcodone/APAP 10-325MG 1 EACH TAB PO PRN ×3 (00:05→19:43)
[2021-03-31] MEDS: SODIUM CHLORIDE 0.9% 1,000 ML IV SCH ×3 (04:48→22:43)
[2021-03-31] MEDS ORDERED: TRANEXAMIC ACID 1,000 MG in SODIUM CHLORIDE 0.9% 100 ML IVPB PRN ×4 (05:00)
[2021-03-31] MEDS ORDERED: SODIUM CHLORIDE 0.9% 1,000 ML IV ONE (07:44)
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
[2021-03-31] MEDS ORDERED: BUPIVACAINE (PF) 0.5% 30 ML VIAL SQ ONE (08:11)
[2021-03-31] MEDS ORDERED: BUPIVACAIN-EPI 0.5%-1:200,000 30 ML VIAL SQ ONE (08:11)
[2021-03-31] MEDS ORDERED: VANCOMYCIN 1,000 MG VIAL MISCELLANE ONE (08:11)
[2021-03-31] MEDS ORDERED: GELATIN SPONGE,ABSORB (LARGE) 1 EACH SPONGE TOPICAL ONE (08:12)
[2021-03-31] MEDS ORDERED: THROMBIN (BOVINE) 5,000 UNIT VIAL TOPICAL ONE (08:12)
[2021-03-31] MEDS ORDERED: LACTATED RINGERS 1,000 ML IV ONE (09:17)
--- NOTE | 2021-03-31 10:43 | FL ---
Fluoroscopy INDICATION: Pain FINDINGS: Fluoroscopy time: 2 minutes 28 seconds. Images obtained: 9. IMPRESSIONS: 1. Documentation of fluoroscopy.
--- NOTE | 2021-03-31 10:43 | XR ---
Fluoroscopy INDICATION: Pain FINDINGS: Fluoroscopy time: 2 Minute 28 seconds. Images obtained: 9. IMPRESSIONS: 1. Documentation of fluoroscopy.
[2021-03-31] MEDS: HYDROmorphone 1 MG/ML 1 ML SYRINGE IVP ONE ×2 (11:05→11:10)
[2021-03-31] MEDS: PANTOPRAZOLE 40 MG TABLET PO SCH (12:18)
[2021-03-31] MEDS: SUCRALFATE 1 GM TAB PO SCH ×2 (12:18→19:43)
[2021-03-31] MEDS: METOPROLOL TARTRATE 25 MG TAB PO SCH (12:18)
[2021-03-31] MEDS: LORATADINE 10 MG TAB PO SCH (12:18)
[2021-03-31] MEDS: ATORVASTATIN 40 MG TAB PO SCH (12:18)
[2021-03-31] MEDS: THIAMINE 100 MG TAB PO SCH ×2 (12:19→16:58)
[2021-03-31 12:37] LABS: Anisocytosis Slight; HCT 30.9 % (34.0-46.0); HGB 9.8 gm/dL (11.4-16.0); Hypochromasia Marked; MCH 26.2 pg (25.0-35.0); MCHC 31.8 g/dL (31.0-37.0); MCV 82.2 fL (80.0-100.0); Mean Platelet Volume 7.2; Microcytosis Slight; Platelet Count 267 k/uL (150-450); RBC 3.75 m/uL (3.80-5.40); RDW 18.6 % (11.5-15.5); WBC 8.2 k/uL (3.8-10.6)
[2021-03-31 12:41] LABS: African American GFR (CKD) >90 (>60 ml/min/1.73 sqM); Anion Gap 7 mmol/L; Blood Urea Nitrogen 5 mg/dL (7-17); Calcium 7.9 mg/dL (8.4-10.2); Carbon Dioxide 21 mmol/L (22-30); Chloride 112 mmol/L (98-107); Glucose 107 mg/dL (74-99); Non-African American GFR(CKD) >90 (>60 ml/min/1.73 sqM); Potassium 4.1 mmol/L (3.5-5.1); Sodium 140 mmol/L (137-145)
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
[2021-03-31] MEDS ORDERED: ONDANSETRON 4 MG/2 ML VIAL IVP PRN (14:15)
[2021-03-31] MEDS: DONEPEZIL 5 MG TAB PO SCH (14:18)
[2021-03-31] MEDS: HYDROmorphone 0.2 MG/1 ML SYRINGE IVP PRN ×2 (16:03→21:49)
--- NOTE | 2021-03-31 16:11 | P.PN ---
Subjective Progress Note Date: 03/28/21 Patient was seen for a follow-up. Patient is laying comfortably in the bed. Offers no complaints. Patient had undergone kyphoplasty today. States her back is sore. No further seizures or syncopal spells. Patient also had undergone cardiac catheterization, which revealed right dominant system, normal filling pressures. No gradient. There is a 30-35% lesion involving the mid RCA, with mild calcification. Circumflex and LAD have minor irregularities. Recommended medical treatment.s. Objective - Vital Signs Vital signs: Vital Signs Temp 98.5 F 03/28/21 15:15 Pulse 71 03/28/21 15:15 Resp 18 03/28/21 15:15 BP 146/82 03/28/21 15:15 Pulse Ox 99 03/28/21 15:15 Intake & Output 03/28/21 03/28/21 03/29/21 06:59 18:59 06:59 Intake Total 480 Output Total 200 Balance 280 Weight 63.5 kg Intake: Oral 480 Output: Urine 200 Other: Voiding Method Bedside Commode Bedside Commode # Voids 2 2 - Exam Patient's mental status, speech and language functions are normal. Detail testing deferred, because of recent surgery - Labs CBC & Chem 7: 03/31/21 12:17 03/31/21 12:17 Labs: Abnormal Lab Results - Last 24 Hours (Table) 03/28/21 03/28/21 Range/Units 06:59 06:59 RBC 3.50 L (3.80-5.40) m/uL Hgb 9.4 L (11.4-16.0) gm/dL Hct 28.5 L (34.0-46.0) % RDW 18.6 H (11.5-15.5) % Chloride 114 H (98-107) mmol/L Carbon Dioxide 19 L (22-30) mmol/L Glucose 72 L (74-99) mg/dL Calcium 8.0 L (8.4-10.2) mg/dL Assessment and Plan Assessment: * Breakthrough seizure, likely multifactorial due to reasons mentioned below #1 benzo withdrawal, as patient was on Xanax 2 mg 2-3 times a day, stopped taking it 2 days prior to her seizure. Urine drug screen negative for benzo indicating withdrawal of benzodiazepine. #2 stopping Keppra 2 weeks ago. #3 lower seizure threshold from Wellbutrin. * Acute mild compression type fracture L1 level with minimal posterior ret ropulsion of the superior portion of L1 vertebra. Chronic compression type fracture at L2 and L3 level. * Osteoporosis. Plan: * Patient is status post kyphoplasty. * EEG from 03/26/2021, which is normal. No epileptiform activity was seen. Slightly excessive low voltage fast frequency beta activity suggestive of medication effect. * Carotid Doppler was performed, which revealed no significant stenosis. Antegrade flow in both vertebral arteries. * 2-D echo showed moderate concentric LVH. EF is 50-55%. Apical lateral LV wall motion is hypokinetic. Normal left atrial size. Mild AR. * Patient has stopped taking Xanax 2 mg twice a day few days ago, which probably led to the breakthrough seizure. Patient was recommended to avoid abrupt withdrawal of benzodiazepine, as it can lead to withdrawal seizure. * Continue Keppra 750 mg twice a day. * Discontinue Wellbutrin * Continue aspirin 81 mg and Lipitor. * Patient informed of [place] state law of no driving unless seizure free for 6 months, climbing ladders, operate dangerous machinery or unsupervised swimming. * Neurology will sign off. Please reconsult neurology if any concerns.
[2021-03-31] MEDS: CYCLOBENZAPRINE 10 MG TAB PO PRN (19:43)
[2021-03-31] MEDS: ZOLPIDEM 5 MG TAB PO PRN (21:25)
[2021-04-01] MEDS: HYDROmorphone 0.2 MG/1 ML SYRINGE IVP PRN (02:28)
[2021-04-01] MEDS: HYDROcodone/APAP 10-325MG 1 EACH TAB PO PRN (04:52)
[2021-04-01] MEDS ORDERED: oxyCODONE-APAP 5-325MG 1 EACH TAB PO PRN (08:25)
[2021-04-01] MEDS: PANTOPRAZOLE 40 MG TABLET PO SCH (08:27)
[2021-04-01] MEDS: THIAMINE 100 MG TAB PO SCH ×2 (08:27→17:14)
[2021-04-01] MEDS: ATORVASTATIN 40 MG TAB PO SCH (08:27)
[2021-04-01] MEDS: METOPROLOL TARTRATE 25 MG TAB PO SCH (08:27)
[2021-04-01] MEDS: SUCRALFATE 1 GM TAB PO SCH ×2 (08:27→21:37)
[2021-04-01] MEDS: LORATADINE 10 MG TAB PO SCH (08:27)
[2021-04-01] MEDS: DONEPEZIL 5 MG TAB PO SCH (08:27)
[2021-04-01] MEDS: ALPRAZolam 1 MG TAB PO PRN (08:31)
[2021-04-01] MEDS: DEXAMETHASONE SOD PHOSPHATE 4 MG/ML 1 ML VIAL IV SCH ×3 (09:24→17:14)
[2021-04-01] MEDS: GABAPENTIN 300 MG CAP PO SCH ×3 (09:24→21:37)
[2021-04-01] MEDS: oxyCODONE-APAP 5-325MG 1 EACH TAB PO PRN ×4 (09:24→23:17)
--- NOTE | 2021-04-01 10:43 | P.PN ---
Subjective Progress Note Date: 04/01/21 Principal diagnosis: Postoperative day# 1 status post T12 to L2 posterior instrumented fusion, kyphoplasty L1, Patient was evaluated tablets I, Dr. Mccain was also available to examine the patient. Patient was lying in bed resting. Patient states she is having quite a bit of pain in her low back. She has ambulated very minimally at this time. The flores catheter is still in place. Patient denies any loss of bowel or bladder function at this time. She denies any significant lower extremity paresthesias or weakness. She is utilizing both oral and IV pain medications time. She denies any headaches, lightheadedness, chest pain or shortness of breath. Objective - Vital Signs Vital signs: Vital Signs Temp 98.9 F 04/01/21 05:00 Pulse 88 04/01/21 05:00 Resp 14 04/01/21 05:00 BP 149/80 04/01/21 05:00 Pulse Ox 100 04/01/21 05:00 Intake & Output 03/31/21 04/01/21 04/01/21 18:59 06:59 18:59 Intake Total 1450 725 Output Total 1950 1200 Balance -500 -475 Intake: IV 1450 Intake, IV Titration 725 Amount Sodium Chloride 0.9% 1, 725 000 ml @ 75 mls/hr IV . [id number] [facility] Rx#:[id number] Output: Urine 1900 1200 Uretheral (Flores) 1200 Estimated Blood Loss 50 Other: Voiding Method Indwelling Catheter Indwelling Catheter - Exam Gen: AOx3, NAD VSS stable at this time Integument: Postoperative bandages are in good position and condition. There is no obvious drainage present. Palpation: Mild tenderness to palpation throughout the midline and paraspinal regions of the lower thoracic and upper lumbar spine region. No areas of fluctuance are appreciated ROM: Range of motion in all major muscle groups of the bilateral upper extremities are intact Range of motion in all major muscle groups of the bilateral lower extremity is intact Sensory Exam: Senory exam to light touch is intact C5-T1 Senosry exam to light touch is intact L2-S1 Motor: 55 strength in the bilateral upper extremities with shoulder abduction, elbow flexion, elbow extension, wrist flexion, wrist extension 55 strength in the bilateral lower extremities with hip flexion, knee extension, knee flexion, plantar flexion, dorsiflexion, EHL, FHL Reflexes: [2/4 in all UE and LE] Negative Sofía's bilaterally Negative Babinski bilaterally Negative clonus bilaterally - Labs CBC & Chem 7: 03/31/21 12:17 03/31/21 12:17 Labs: Abnormal Lab Results - Last 24 Hours (Table) 03/31/21 03/31/21 Range/Units 12:17 12:17 RBC 3.75 L (3.80-5.40) m/uL Hgb 9.8 L (11.4-16.0) gm/dL Hct 30.9 L (34.0-46.0) % RDW 18.6 H (11.5-15.5) % Chloride 112 H (98-107) mmol/L Carbon Dioxide 21 L (22-30) mmol/L BUN 5 L (7-17) mg/dL Glucose 107 H (74-99) mg/dL Calcium 7.9 L (8.4-10.2) mg/dL Assessment and Plan Assessment: Postoperative day 1 status post T12 to L2 posterior instrumented fusion, kyphoplasty L1 vertebra Plan: Pain control, we did adjust medication. The [place] 10 mg/325 mg was discontinued. 1-2 Percocet 5 mg every 4 hours as needed. Try to limit IV Dilaudid at this time. We did add 4 mg IV push every 6 hours of Decadron GI and DVT prophylaxis, heparin 5000 units every 12 will be started today, continue to utilize during inpatient stay Wound care: Plan for bandage changes tomorrow at bedside PT/OT evaluation, patient will need to be out of bed multiple times per day. Patient will utilize the brace while up and about utilizing a walker with ambulation Other program medical director recommendations Discharge planning: Patient may need subacute rehab versus home health care for discharge, we'll continue to follow during inpatient stay Time with Patient: Less than 30
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
[2021-04-01] MEDS: HEPARIN SODIUM,PORCINE/PF 5,000 UNIT/0.5 ML SYRINGE SQ SCH ×2 (12:24→21:36)
[2021-04-01] MEDS: SODIUM CHLORIDE 0.9% 1,000 ML IV SCH (12:26)
[2021-04-01] MEDS: CYCLOBENZAPRINE 10 MG TAB PO PRN (21:40)
[2021-04-02] MEDS: ZOLPIDEM 5 MG TAB PO PRN (00:36)
[2021-04-02] MEDS: ALPRAZolam 1 MG TAB PO PRN (00:36)
[2021-04-02] MEDS: DEXAMETHASONE SOD PHOSPHATE 4 MG/ML 1 ML VIAL IV SCH ×3 (00:39→12:43)
--- NOTE | 2021-04-02 07:49 | P.PN ---
Subjective Progress Note Date: 04/02/21 Principal diagnosis: Postoperative day# 1 status post T12 to L2 posterior instrumented fusion, kyphoplasty L1, Patient was evaluated at bedside, she was sleeping upon arrival. She was easily awoken. She states that the pain is better controlled today. She was able to move about the room a little bit yesterday. Patient denies any loss of bowel or bladder function at this time. She denies any significant lower extremity paresthesias or weakness. She is utilizing both oral and IV pain medications time. She denies any headaches, lightheadedness, chest pain or shortness of breath. Objective - Vital Signs Vital signs: Vital Signs Temp 97.9 F 04/02/21 05:00 Pulse 60 04/02/21 05:00 Resp 20 04/02/21 05:00 BP 146/90 04/02/21 05:00 Pulse Ox 95 04/02/21 05:00 Intake & Output 04/01/21 04/02/21 04/02/21 18:59 06:59 18:59 Intake Total 900 100 Output Total 500 1 Balance 400 99 Intake: Intake, IV Titration 900 Amount Sodium Chloride 0.9% 1, 900 000 ml @ 75 mls/hr IV . [id number] [facility] Rx#:[id number] Oral 100 Output: Urine 500 1 Other: Voiding Method Indwelling Catheter Bedside Commode # Voids 1 - Exam Gen: AOx3, NAD VSS stable at this time Integument: Dressing was changed at bedside today, the incisions are clean, dry and intact. The sutures are in good position and condition. Obvious drainage is appreciated. Palpation: Mild tenderness to palpation throughout the midline and paraspinal regions of the lower thoracic and upper lumbar spine region. No areas of fluctuance are appreciated ROM: Range of motion in all major muscle groups of the bilateral upper extremities are intact Range of motion in all major muscle groups of the bilateral lower extremity is intact Sensory Exam: Senory exam to light touch is intact C5-T1 Senosry exam to light touch is intact L2-S1 Motor: 55 strength in the bilateral upper extremities with shoulder abduction, elbow flexion, elbow extension, wrist flexion, wrist extension 55 strength in the bilateral lower extremities with hip flexion, knee extension, knee flexion, plantar flexion, dorsiflexion, EHL, FHL Reflexes: 2/4 in all UE and LE Negative Sofía's bilaterally Negative Babinski bilaterally Negative clonus bilaterally - Labs CBC & Chem 7: 03/31/21 12:17 03/31/21 12:17 Assessment and Plan Assessment: Postoperative day #2 status post T12 to L2 posterior instrumented fusion, kyphoplasty L1 vertebra Plan: Pain control, continue current medication at this time. Try to avoid IV Dilaud id at this time. GI and DVT prophylaxis, heparin 5000 units every 12 will be started today, continue to utilize during inpatient stay Wound care: Dressing changes done today at bedside Continue with PT/OT. Continue weight-bear as tolerated with walker, utilizing the brace when ambulating Other medical technologist hematology recommendations Discharge planning: hopeful discharge home today Time with Patient: Less than 30
[2021-04-02] MEDS: DONEPEZIL 5 MG TAB PO SCH (08:15)
[2021-04-02] MEDS: THIAMINE 100 MG TAB PO SCH (08:15)
[2021-04-02] MEDS: GABAPENTIN 300 MG CAP PO SCH (08:15)
[2021-04-02] MEDS: METOPROLOL TARTRATE 25 MG TAB PO SCH (08:16)
[2021-04-02] MEDS: PANTOPRAZOLE 40 MG TABLET PO SCH (08:16)
[2021-04-02] MEDS: ATORVASTATIN 40 MG TAB PO SCH (08:16)
[2021-04-02] MEDS: oxyCODONE-APAP 5-325MG 1 EACH TAB PO PRN ×2 (08:16→12:43)
[2021-04-02] MEDS: SUCRALFATE 1 GM TAB PO SCH (08:17)
[2021-04-02] MEDS: HEPARIN SODIUM,PORCINE/PF 5,000 UNIT/0.5 ML SYRINGE SQ SCH (08:17)
[2021-04-02] MEDS: LORATADINE 10 MG TAB PO SCH (08:17)
[2021-04-02] MEDS: SODIUM CHLORIDE 0.9% 1,000 ML IV SCH (08:18)
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
[2021-04-02 11:39] VITALS: BP 135/83; PULSE 64; TEMP 98.6
[2021-04-02 11:44] VITALS: RESP 18
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
[2021-04-02 15:08] VITALS: BMI 29.1
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
== END 2021-04-02 16:05 | disposition home health service (06) | DRG 459 ==
LOC: EC 15:35 → 3SCARD 17:40 → 5NMEDONC 03-31 01:49
PROVIDERS: ADMIT Internal Medicine; ATTEND Internal Medicine
PROC: 4A023N7 Measurement of Cardiac Sampling and Pressure, Left Heart, Percutaneous Approach (ICD-10-PCS; 2021-03-27)
PROC: B2111ZZ Fluoroscopy of Multiple Coronary Arteries using Low Osmolar Contrast (ICD-10-PCS; 2021-03-27)
PROC: 0QS03ZZ Reposition Lumbar Vertebra, Percutaneous Approach (ICD-10-PCS; 2021-03-31)
PROC: 0QU03JZ Supplement Lumbar Vertebra with Synthetic Substitute, Percutaneous Approach (ICD-10-PCS; 2021-03-31)
PROC: 0RGA071 Fusion of Thoracolumbar Vertebral Joint with Autologous Tissue Substitute, Posterior Approach, Posterior Column, Open Approach (ICD-10-PCS; principal; 2021-03-31 07:30)
PROC: 0SG0071 Fusion of Lumbar Vertebral Joint with Autologous Tissue Substitute, Posterior Approach, Posterior Column, Open Approach (ICD-10-PCS; 2021-03-31 07:30)
DX: S32.011A Stable burst fracture of first lumbar vertebra, initial encounter for closed fracture (principal); I21.4 Non-ST elevation (NSTEMI) myocardial infarction; G93.40 Encephalopathy, unspecified; E87.2 Acidosis; F13.239 Sedative, hypnotic or anxiolytic dependence with withdrawal, unspecified; G40.909 Epilepsy, unspecified, not intractable, without status epilepticus; Z86.73 Personal history of transient ischemic attack (TIA), and cerebral infarction without residual deficits; Z88.1 Allergy status to other antibiotic agents; Z88.2 Allergy status to sulfonamides; Z20.822 Contact with and (suspected) exposure to COVID-19; F41.9 Anxiety disorder, unspecified; F31.9 Bipolar disorder, unspecified; Z96.653 Presence of artificial knee joint, bilateral; F12.10 Cannabis abuse, uncomplicated; I25.2 Old myocardial infarction; I10 Essential (primary) hypertension; E78.5 Hyperlipidemia, unspecified; I25.10 Atherosclerotic heart disease of native coronary artery without angina pectoris; S92.151A Displaced avulsion fracture (chip fracture) of right talus, initial encounter for closed fracture; M79.7 Fibromyalgia; V43.52XA Car driver injured in collision with other type car in traffic accident, initial encounter; M81.0 Age-related osteoporosis without current pathological fracture; Z98.1 Arthrodesis status; G89.29 Other chronic pain; D64.9 Anemia, unspecified; F10.10 Alcohol abuse, uncomplicated; F17.200 Nicotine dependence, unspecified, uncomplicated; Z79.83 Long term (current) use of bisphosphonates; Z87.440 Personal history of urinary (tract) infections; Z91.14 Patient's other noncompliance with medication regimen; Z91.81 History of falling; Z79.899 Other long term (current) drug therapy
CPT/HCPCS: 36415; 70450; 72020; 72100; 72128; 72131; 72148; 80048; 80053; 80061; 80177; 80306; 80320; 81001; 82140; 82550; 83605; 83735; 84484; 85025; 85027; 85610; 85730; 87636; 88307; 88311; 93005; 93306; 93458; 93880; 95816; 96374; 99285

== ENCOUNTER → 2021-03-25 | Outpatient (CLI) | payer MEDICARE, OTHER ==
[2021-03-25 18:40] LABS: HCT 34.6 % (37.2-46.3); HGB 10.5 g/dL (12.0-15.0); MCH 25.1 pg (27.0-32.0); MCHC 30.3 g/dL (32.0-37.0); MCV 82.8 fL (80.0-97.0); Platelet Count 361 X 10*3/uL (140-440); RBC 4.18 X 10*6/uL (4.10-5.20); RDW 18.6 % (11.5-14.5); WBC 6.98 X 10*3/uL (4.50-10.00)
[2021-03-25 21:01] LABS: % Iron Saturation 4.38 (12.00-45.00); Albumin 5.1 g/dL (3.80-4.90); Albumin/Globulin Ratio 1.96 (1.60-3.17); Anion Gap 8.4 mmol/L (4.00-12.00); BUN/Creat Ratio 21.43 Ratio (12.00-20.00); Calcium 9.3 mg/dL (8.7-10.3); Carbon Dioxide 21.6 mmol/L (21.6-31.8); Chol/HDL Ratio 2.68; Ferritin 8.1 ng/mL (10.0-291.0); Folate, Serum 14.8 ng/mL; Globulin 2.6 g/dL (1.6-3.3); LDL Cholesterol,Calculated 102.6 mg/dL (0.0-131.0); Magnesium 1.9 mg/dL (1.5-2.4); Non-African American GFR(CKD) 97.5 (60.0-200.0); Phosphorus 4.2 mg/dL (2.4-5.1); Potassium 4.6 mmol/L (3.5-5.5); Total Bilirubin 0.4 mg/dL (0.3-1.2); Total Protein 7.7 g/dL (6.2-8.2); VLDL Calculation 20.4 mg/dL (5.00-40.00)
[2021-03-25 21:21] LABS: Hemoglobin A1C 5.3 % (4.0-6.0)
[2021-03-25 22:44] LABS: INR 0.94 (0.90-1.11); Partial Thromboplastin Time 26.9 sec (23.5-31.0); Prothrombin Time 10.3 sec (9.9-11.9)
[2021-03-26 12:23] LABS: Zinc, Serum 37 ug/dL (60-130)
[2021-03-27 06:45] LABS: Vit B1(Thiamine) 72 ug/L (38-122)
[2021-03-27 08:38] LABS: Vitamin A 42 ug/dL (38-106)
[2021-03-27 14:56] LABS: Anabasine Urine <2.0 ng/mL (<2.0)
== END | disposition home or self-care (01) ==
LOC: LABWHC1 12:43
PROVIDERS: ATTEND Surgery Plastic and Reconstructive Surgery
DX: E66.01 Morbid (severe) obesity due to excess calories (principal); D50.8 Other iron deficiency anemias; K90.89 Other intestinal malabsorption; E55.9 Vitamin D deficiency, unspecified; K74.1 Hepatic sclerosis; N19 Unspecified kidney failure; K50.90 Crohn's disease, unspecified, without complications; E89.1 Postprocedural hypoinsulinemia; Z98.84 Bariatric surgery status; Z71.51 Drug abuse counseling and surveillance of drug abuser
CPT/HCPCS: 84255; 84134; 84425; 80061; 80053; 82607; 82728; 82525; 82746; 83540; 83550; 83735; 84100; 84443; 84590; 84630; 85027; 85610; 85730; 82306; 83970; 83036; 80307; 36415; G0480; G0482; 80323

== ENCOUNTER → 2021-07-05 | Outpatient (CLI) | payer OTHER ==
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
== END | disposition home or self-care (01) ==
LOC: RADMRIMAIN 13:13
PROVIDERS: ATTEND Orthopaedic Surgery
DX: M19.011 Primary osteoarthritis, right shoulder (principal)

== ENCOUNTER 2021-07-12 06:51 | Day surgery (SDC) | payer MEDICARE, OTHER ==
[2021-07-09 17:09] VITALS: BMI 25.8
[~2021-07-12 06:51] MED LIST changes: +DEXAMETHASONE SOD PHOSPHATE 4 MG/ML 1 ML VIAL IV ONE; +HYDROmorphone 0.5 MG/0.5 ML SYRINGE IVP PRN; -LACTATED RINGERS 1,000 ML IV SCH; +LIDOCAINE 1% (10MG/ML) FOR IV START INTRADERMA PRN; +MIDAZOLAM 2 MG/2 ML VIAL IV PRN; +ONDANSETRON 4 MG/2 ML VIAL IVP ONE; +Pre Op ABX Message 1 EACH MISC MISCELLANE ONE
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
[2021-07-12] MEDS: LACTATED RINGERS 1,000 ML IV SCH ×2 (07:09→07:25)
[2021-07-12 07:19] VITALS: RESP 16
[2021-07-12 07:48] LABS: Anisocytosis Marked; Basophils % (A) 1 %; Eosinophils # (A) 0.3 k/uL (0-0.7); Eosinophils % (A) 4 %; HCT 32.4 % (34.0-46.0); HGB 10.2 gm/dL (11.4-16.0); Hypochromasia Moderate; Lymphocytes # (A) 1.2 k/uL (1.0-4.8); Lymphocytes % (A) 16 %; MCH 31.7 pg (25.0-35.0); MCHC 31.4 g/dL (31.0-37.0); MCV 100.7 fL (80.0-100.0); Macrocytosis Marked; Mean Platelet Volume 7.3; Monocytes # (A) 0.4 k/uL (0-1.0); Monocytes % (A) 6 %; Neutrophils # (A) 5.2 k/uL (1.3-7.7); Neutrophils % (A) 72 %; Platelet Count 386 k/uL (150-450); RBC 3.22 m/uL (3.80-5.40); WBC 7.2 k/uL (3.8-10.6)
[2021-07-12 07:49] LABS: RDW 27.3 % (11.5-15.5)
[2021-07-12] MEDS ORDERED: fentaNYL (PF) 50 MCG/ML 2 ML AMP ONE (07:59)
[2021-07-12] MEDS ORDERED: LIDOCAINE 1% INJ 10MG/ML (20 ML MDV) ONE (07:59)
[2021-07-12] MEDS ORDERED: SUCCINYLCHOLINE CHLORIDE 100 MG/5 ML SYR IV ONE (07:59)
[2021-07-12] MEDS ORDERED: KETOROLAC 15 MG/ML 1 ML VIAL ONE (07:59)
[2021-07-12] MEDS ORDERED: PROPOFOL 10 MG/ML 20 ML VIAL IV ONE (07:59)
[2021-07-12 08:01] LABS: ALT 10 U/L (4-34); AST 22 U/L (14-36); African American GFR (CKD) >90 (>60 ml/min/1.73 sqM); Alkaline Phosphatase 84 U/L (38-126); Anion Gap 9 mmol/L; Blood Urea Nitrogen 14 mg/dL (7-17); Calcium 8.7 mg/dL (8.4-10.2); Carbon Dioxide 19 mmol/L (22-30); Chloride 110 mmol/L (98-107); Glucose 87 mg/dL (74-99); Non-African American GFR(CKD) >90 (>60 ml/min/1.73 sqM); Potassium 4.4 mmol/L (3.5-5.1); Sodium 138 mmol/L (137-145); Total Bilirubin 0.2 mg/dL (0.2-1.3); Total Protein 6.4 g/dL (6.3-8.2)
--- NOTE | 2021-07-12 08:43 | P.OP ---
Date of Procedure: 07/12/21 Preoperative Diagnosis: 1. Postmenopausal bleeding Postoperative Diagnosis: 1. Postmenopausal bleeding Procedure(s) Performed: D&C hysteroscopy Anesthesia: BARTOLO Surgeon: America Solano Estimated Blood Loss (ml): 1 IV fluids (ml): 200 Urine output (ml): 75 Pathology: other (Endometrial curettings) Condition: stable Disposition: PACU Operative Findings: Uterus sounded to 7 cm. Both ostia visualized. Smooth contour of the uterus, atrophic endometrium noted Description of Procedure: Patient is taken the operating room where general anesthesia was obtained without difficulty. She is prepped and draped in normal sterile fashion dorsal lithotomy position, legs placed in Stirrups. Bladder was drained of all urine. Weighted speculum placed in vagina the anterior lip the cervix was grasped with single-tooth tenaculum. The cervix was dilated to #8 Hegar dilator. Hysteroscopy was performed, both ostia visualized, atrophic endometrium noted the jarvis appeared pink and white no endometrial tissue seen. Sharp curet was then used to attempt to obtain any endometrial tissue. Allis was removed from the vagina. Patient tolerated procedure well, sponge initial counts correct 2. She was taken to recovery in stable condition.
[2021-07-12 09:00] VITALS: TEMP 98.8
[2021-07-12 09:29] VITALS: BP 122/74; PULSE 77
[2021-07-12 10:05] LABS: Poikilocytosis (M) Present
== END 2021-07-12 09:37 | disposition home or self-care (01) ==
LOC: OR 06:51
PROVIDERS: ATTEND Obstetrics & Gynecology
DX: N85.8 Other specified noninflammatory disorders of uterus (principal); N95.0 Postmenopausal bleeding; R93.89 Abnormal findings on diagnostic imaging of other specified body structures; J44.9 Chronic obstructive pulmonary disease, unspecified; M79.7 Fibromyalgia; H91.90 Unspecified hearing loss, unspecified ear; E61.1 Iron deficiency; K21.9 Gastro-esophageal reflux disease without esophagitis; M81.0 Age-related osteoporosis without current pathological fracture; I10 Essential (primary) hypertension; M19.90 Unspecified osteoarthritis, unspecified site; F32.9 Major depressive disorder, single episode, unspecified; G40.909 Epilepsy, unspecified, not intractable, without status epilepticus; G47.30 Sleep apnea, unspecified; Z98.1 Arthrodesis status; I25.2 Old myocardial infarction; Z98.49 Cataract extraction status, unspecified eye; F17.210 Nicotine dependence, cigarettes, uncomplicated; Z96.653 Presence of artificial knee joint, bilateral; Z98.890 Other specified postprocedural states; Z88.2 Allergy status to sulfonamides; Z90.5 Acquired absence of kidney; Z98.84 Bariatric surgery status; Z80.1 Family history of malignant neoplasm of trachea, bronchus and lung; Z82.3 Family history of stroke; Z82.49 Family history of ischemic heart disease and other diseases of the circulatory system; Z79.899 Other long term (current) drug therapy; Z79.82 Long term (current) use of aspirin
CPT/HCPCS: 58558; 88305; 80053; 85025; J2250; J1100; J2405; J2001; J3010; J1885; J0330; J2704

== ENCOUNTER → 2021-08-23 | Outpatient (CLI) | payer MEDICARE, OTHER ==
[2021-08-23 22:28] LABS: HCT 40.6 % (37.2-46.3); MCV 106.3 fL (80.0-97.0); Platelet Count 216 X 10*3/uL (140-440); RBC 3.82 X 10*6/uL (4.10-5.20); RDW 15.4 % (11.5-14.5); WBC 5.96 X 10*3/uL (4.50-10.00)
[2021-08-24 02:50] LABS: % Iron Saturation 14.23 (12.00-45.00); Ferritin 99.2 ng/mL (10.0-291.0)
== END | disposition home or self-care (01) ==
LOC: LABWHC1 15:02
PROVIDERS: ATTEND Surgery Plastic and Reconstructive Surgery
DX: E66.01 Morbid (severe) obesity due to excess calories (principal); K50.90 Crohn's disease, unspecified, without complications; D50.9 Iron deficiency anemia, unspecified; K91.2 Postsurgical malabsorption, not elsewhere classified; Z71.51 Drug abuse counseling and surveillance of drug abuser
CPT/HCPCS: 82728; 83540; 83550; 84630; 85027; 36415; G0480; 80323

== ENCOUNTER 2021-09-12 07:38 | Day surgery (SDC) | payer MEDICARE, OTHER ==
[2021-09-05 16:14] VITALS: BMI 25.2
[~2021-09-12 07:38] MED LIST changes: +LACTATED RINGERS 1,000 ML IV SCH; -Pre Op ABX Message 1 EACH MISC MISCELLANE ONE
[2021-09-12] MEDS ORDERED: INDOCYANINE GREEN 25 MG VIAL IV STA (07:46)
[2021-09-12] MEDS ORDERED: SCOPOLAMINE 1.5MG/72HR PATCH TRANSDERM STA (07:46)
[2021-09-12] MEDS ORDERED: HEPARIN SODIUM,PORCINE/PF 5,000 UNIT/0.5 ML SYRINGE SQ STA (07:46)
[2021-09-12] MEDS ORDERED: ACETAMINOPHEN TAB 500 MG TAB PO STA (07:46)
--- NOTE | 2021-09-12 07:46 | P.GSHP ---
History of Present Illness H&P Date: 09/12/21 CHIEF COMPLAINT: Cholecystitis HISTORY OF PRESENT ILLNESS: The patient is a 56-year-old female who presents with history of epigastric including right upper quadrant abdominal pain. She underwent diagnostic studies for her gallbladder. Separately her clinical picture was consistent with cholecystitis. Now she presents for surgical intervention. PAST MEDICAL HISTORY: Please see list PAST SURGICAL HISTORY: Please see list MEDICATIONS: Please see list ALLERGIES: Please see list SOCIAL HISTORY: Please see list FAMILY HISTORY: Please see list REVIEW OF ORGAN SYSTEMS: CONSTITUTIONAL: No reports of fevers or chills. HEENT: Denies any troubles with the vision or hearing. PHYSICAL EXAM: VITAL SIGNS: Afebrile vital signs stable GENERAL: Well-developed pleasant in no acute distress. HEENT: No scleral icterus. Extraocular movements grossly intact. Moist buccal mucosa. NECK: Supple without lymphadenopathy. CHEST: Unlabored respirations. Equal bilateral excursions. CARDIOVASCULAR: Regular rate regular rhythm rhythm. Distal 2+ pulses. ABDOMEN: Soft, nondistended. Tender along the epigastrium and right upper quadrant. MUSCULOSKELETAL: No clubbing, cyanosis, or edema. NEURO: Cranial nerves II to XII within normal limits. No focal or lateralizing signs. PSYCH: Alert and oriented to person, place and time. SKIN: Well-perfused good skin turgor. ASSESSMENT: 1. Epigastric and right upper quadrant abdominal pain 2. Chronic cholecystitis 3. Symptomatic gallstones. PLAN: 1. Will need a robotic cholecystectomy possible open. Benefits and risks were described. 2. Heparin for DVT prophylaxis 5000 units. 3. Antibiotic prophylaxis. Past Medical History Past Medical History: Chest Pain / Angina, Fibromyalgia, Hypertension, Myocardial Infarction ([place]), Osteoarthritis (OA), Seizure Disorder Additional Past Medical History / Comment(s): iron transfusions,Hx. LOWER GI BLEED 05/12, TRANSFERRED TO [facility], HAD 3 UNITS PC, KNEE CAP DISPLACED ON LEFT KNEE (PER PATIENT). LOWER BACK PAIN RUPTURED ULCER. Osteoporosis, Hernia, last seizure March 25-2020, Hx sepsis-UTI in Jul 2020 Last Myocardial Infarction Date:: 2013 History of Any Multi-Drug Resistant Organisms: None Reported Past Surgical History: Bariatric Surgery, Joint Replacement Additional Past Surgical History / Comment(s): STOMACH perforation 06/08/19. Cataracts removed, 2011 Darrell-en- y. "They took part of my RIGHT kidney OUT, they thought is was cancer but came back not cancer". Bilateral knee replacements, Prolapsed rectum repair. ORIF left hip, colonoscopy Past Anesthesia/Blood Transfusion Reactions: Motion Sickness, Postoperative Nausea & Vomiting (PONV) Additional Past Anesthesia/Blood Transfusion Reaction / Comment(s): 3 UNITS PACKED CELL IN APRIL 2020, NO REACTIONS Smoking Status: Former smoker - Past Family History Father Family Medical History: Cancer Additional Family Medical History / Comment(s): lung, AAA Mother Family Medical History: CVA/TIA Medications and Allergies Home Medications Medication Instructions Recorded Confirmed Type Cyclobenzaprine [Flexeril] 10 mg PO HS PRN 01/25/18 09/05/21 History Ergocalciferol [Vitamin D2 50,000 unit PO WE 01/25/18 09/05/21 History (DRISDOL)] Dextroamphetamine/Amphetamine 20 mg PO DAILY 04/30/19 09/05/21 History [Adderall] Zolpidem [Ambien] 5 mg PO HS PRN 04/30/19 09/05/21 History rOPINIRole HCL [Requip] 0.5 mg PO TID 04/30/19 09/05/21 History levETIRAcetam [Keppra] 750 mg PO Q12HR #14 tab 01/14/20 09/05/21 Rx ALPRAZolam [Xanax] 2 mg PO BID PRN 03/25/21 09/05/21 History Alendronate Sodium [Fosamax] 70 mg PO WE 03/25/21 09/05/21 History Aspirin/Acetaminophen/Caffeine 2 tab PO Q6H PRN 03/25/21 09/05/21 History [Excedrin Migraine Caplet] Cetirizine HCl 10 mg PO DAILY 03/25/21 09/05/21 History Donepezil HCl [Aricept] 5 mg PO QAM 03/25/21 09/05/21 History Megestrol Acetate 200 mg PO DAILY 03/25/21 09/05/21 History Omeprazole 20 mg PO BID 03/25/21 09/05/21 History Sucralfate [Carafate] 1 gm PO BID 03/25/21 09/05/21 History buPROPion HCL [Wellbutrin SR] 150 mg PO Q12H 03/25/21 09/05/21 History Aspirin [Children's Aspirin] 81 mg PO DAILY #90 tab.chew 04/02/21 09/05/21 Rx Atorvastatin Calcium [Lipitor] 40 mg PO DAILY 30 Days #30 tablet 04/02/21 09/05/21 Rx Cariprazine HCl [Vraylar] 3 mg PO AC-SUPPER 07/09/21 09/05/21 History Montelukast [Singulair] 10 mg PO HS 07/09/21 09/05/21 History Sertraline [Zoloft] 100 mg PO HS 07/09/21 09/05/21 History amLODIPine BESYLATE 10 mg PO QAM 07/09/21 09/05/21 History oxyCODONE-APAP 10-325MG [Percocet 1 tab PO Q6HR PRN 07/09/21 09/05/21 History 10-325 mg] Allergies Allergy/AdvReac Type Severity Reaction Status Date / Time Sulfa (Sulfonamide Allergy blisters Verified 09/05/21 16:02 Antibiotics) over body sulfamethoxazole Allergy vasculitis, Verified 09/05/21 16:02 [From Bactrim] swelling trimethoprim [From Bactrim] Allergy vasculitis, Verified 09/05/21 16:02 swelling
[2021-09-12 08:29] LABS: Glucose,Whole Blood 82 mg/dL (75-99)
[2021-09-12] MEDS ORDERED: fentaNYL (PF) 50 MCG/ML 2 ML AMP ONE (08:45)
[2021-09-12] MEDS ORDERED: INDOCYANINE GREEN 25 MG VIAL IV ONE (08:45)
[2021-09-12] MEDS ORDERED: PROPOFOL 10 MG/ML 20 ML VIAL IV ONE (08:45)
[2021-09-12] MEDS ORDERED: GLYCOPYRROLATE 0.2 MG/ML 2 ML VIAL ONE (08:45)
[2021-09-12] MEDS ORDERED: ROCURONIUM 10 MG/ML (5 ML VIAL) IV ONE (08:45)
[2021-09-12] MEDS ORDERED: KETOROLAC 15 MG/ML 1 ML VIAL ONE (08:45)
[2021-09-12] MEDS ORDERED: HYDROmorphone (PF) 1 MG/ML ONE (08:45)
[2021-09-12] MEDS ORDERED: MIDAZOLAM 2 MG/2 ML VIAL ONE (08:45)
[2021-09-12] MEDS ORDERED: NEOSTIGMINE 1 MG/ML 10 ML VIAL ONE (08:45)
[2021-09-12] MEDS ORDERED: LABETALOL 5 MG/ML VIAL MDV ONE (08:45)
[2021-09-12] MEDS ORDERED: SUCCINYLCHOLINE CHLORIDE 100 MG/5 ML SYR IV ONE (08:45)
[2021-09-12] MEDS ORDERED: LIDOCAINE 1% INJ 10MG/ML (20 ML MDV) ONE (08:45)
[2021-09-12] MEDS ORDERED: LIDOCAINE 1%-EPI 1:100,000 20 ML VIAL SQ ONE (08:47)
[2021-09-12 09:58] VITALS: TEMP 97.5
--- NOTE | 2021-09-12 10:10 | P.OP ---
Date of Procedure: 09/12/21 Description of Procedure: SURGEON: GLEN MARQUEZ MD PREOPERATIVE DIAGNOSES: 1. Symptomatic gallstones 2. Right upper quadrant abdominal pain 3. Dietary surveillance and counseling. 4. Chronic pain syndrome. 5. Chronic tobacco use in remission 6. Diabetes type 2, insulin-dependent 7. Osteoarthritis of the lower back. 8. Osteoarthritis of the knee. 9. History of kidney neoplasm. 10. Familial history of lung cancer. 11. Personal history of panniculitis. 12. Hypercholesterolemia, resolved. 13. History of neuropathy. 14. Dysphagia. 15. Chronic constipation. 16. Hypertensive heart disease. 17. Raynaud phenomenon. 18. Chronic gastric jejunal ulceration. 19. Incisional hernia 20. History of gastric bypass POSTOPERATIVE DIAGNOSES: 1. Symptomatic gallstone 2. Right upper quadrant abdominal pain 3. Chronic cholecystitis 4. Peritoneal adhesions, right upper quadrant 5. Chronic tobacco use in remission 6. Diabetes type 2, insulin-dependent 7. Osteoarthritis of the lower back. 8. Osteoarthritis of the knee. 9. History of kidney neoplasm. 10. Familial history of lung cancer. 11. Personal history of panniculitis. 12. Hypercholesterolemia, resolved. 13. History of neuropathy. 14. Dysphagia. 15. Chronic constipation. 16. Hypertensive heart disease. 17. Raynaud phenomenon. 18. Chronic gastric jejunal ulceration. 19. Incisional hernia 20. History of gastric bypass 21. Dietary surveillance and counseling. 22. Chronic pain syndrome. OPERATION: 1. Robotic-assisted da Luna Xi laparoscopic lysis of adhesions 2. Robotic-assisted da Luna Xi laparoscopic cholecystectomy, multiport with FIREFLY ESTIMATED BLOOD LOSS: 5 mL. SPECIMENS REMOVED: Gallbladder. COMPLICATIONS: None. OPERATIVE FINDINGS: 1. Moderate scarring over entire gallbladder with peritoneal adhesions, pericholecystic with features of chronic cholecystitis 2. Large incisional hernia over 20 cm x 20 cm along midline indentified. INDICATIONS: The patient is a 56-year-old female who presents with symptomatic gallstones. Robotic assisted laparoscopic approach was described. Benefits and risks of the procedure including but not limited to bleeding, infection, injury to the biliary tree was described. Informed consent was obtained. DESCRIPTION OF PROCEDURE: Patient was brought to the operating room, placed in supine position. After general induction, the abdomen had been prepped and draped in standard sterile fashion. The robotic da Luna XI system was primed. After a timeout protocol was performed, the patient had been prepped and draped in standard sterile fashion. The patient was injected with indocyanine green. A 5 mm 0 degrees laparoscopic trocar entry was performed along the left upper quadrant. The abdomen insufflated to 15 mmHg pressure which was tolerated well. Diagnostic laparoscopy demonstrated no injury to bowel viscera or mesentery. The liver surface was unremarkable. Next, two 8 mm robotic ports were placed along the right upper abdomen. The camera 8-mm port was maintained along the epigastrium. Another 8 mm port was placed along the left upper abdominal wall. Please note that the ports were placed at least 10 to 15 cm away from the target anatomy of the gallbladder. Additional findings include large incisional hernia over 20 cm x 20 cm of the midline, undisturbed. The robot was docked along the left lateral abdomen. The patient was repositioned in reverse Trendelenburg position. Using a grasper for arm 3, a grasper for arm 4, including hook cautery for arm 1, the robotic system was docked and primed as described. Instruments were interchanged by the assistant floor covering printer including hook cautery, Bovie cautery and clip appliers. I had sat at the console. The gallbladder was scarred with peritoneal adhesions. Lysis of adhesions was performed to free the gallbladder from the surrounding tissues. The gallbladder was freed from the fundus to the infundibulum using electrobovie cautery. Next attention was brought to the infundibulum and cystic structures. The infundibulum and cystic duct were dissected free from surrounding tissues. The cystic duct was isolated. FIREFLY was used to identify the cystic artery and cystic structures. A critical view of safety was obtained. Large PLASTIC clips were used throughout the entire case. Using a clip bag machine set up operator, 2 clips were placed at the junction of the infundibulum and cystic duct. The cystic duct was divided between clips. Next, the cystic artery was cauterized. Hemostasis was checked and found to be adequate. The robot was undocked. I re-scrubbed into the case. Using a 10 mm Endo Catch bag via the left upper quadrant incision, the specimen was removed from the abdominal cavity. All pneumoperitoneum instruments were evacuated from the abdominal cavity. The incisions were reapproximated using 4-0 Monocryl in an interrupted subcuticular fashion. Fascial defects were less than 8 mm in size. Please note along the trocar sites, local anesthetic was placed as a field block prior to insertion of all instruments. Liquid glue was applied to the skin. At the end of the procedure needle, sponge, and instrument count had been verified correct by the surgical processor. The patient was transferred to postanesthesia care unit in stable condition. Intraoperative films were shared with the patient's family. Plan - Discharge Summary Discharge Rx Participant: No New Discharge Prescriptions: New Simethicone [Gas-X] 125 mg PO AC-TID PRN #20 cap PRN Reason: Pain Acetaminophen [Tylenol] 650 mg PO Q4H #30 tab Continue Ergocalciferol [Vitamin D2 (DRISDOL)] 50,000 unit PO WE Cyclobenzaprine [Flexeril] 10 mg PO HS PRN PRN Reason: MUSCLE SPASMS rOPINIRole HCL [Requip] 0.5 mg PO TID Dextroamphetamine/Amphetamine [Adderall] 20 mg PO DAILY Zolpidem [Ambien] 5 mg PO HS PRN PRN Reason: Insomnia levETIRAcetam [Keppra] 750 mg PO Q12HR #14 tab ALPRAZolam [Xanax] 2 mg PO BID PRN PRN Reason: Anxiety Megestrol Acetate 200 mg PO DAILY Donepezil HCl [Aricept] 5 mg PO QAM Cariprazine HCl [Vraylar] 3 mg PO AC-SUPPER oxyCODONE-APAP 10-325MG [Percocet 10-325 mg] 1 tab PO Q6HR PRN PRN Reason: Pain Sertraline [Zoloft] 100 mg PO HS amLODIPine BESYLATE 10 mg PO QAM Alendronate Sodium [Fosamax] 70 mg PO WE Sucralfate [Carafate] 1 gm PO BID Omeprazole 20 mg PO BID buPROPion HCL [Wellbutrin SR] 150 mg PO Q12H Cetirizine HCl 10 mg PO DAILY Atorvastatin Calcium [Lipitor] 40 mg PO DAILY 30 Days #30 tablet Montelukast [Singulair] 10 mg PO HS Discontinued Aspirin/Acetaminophen/Caffeine [Excedrin Migraine Caplet] 2 tab PO Q6H PRN PRN Reason: Migraine Headache Aspirin [Children's Aspirin] 81 mg PO DAILY #90 tab.chew Discharge Medication List Cyclobenzaprine [Flexeril] 10 mg PO HS PRN 01/25/18 [History] Ergocalciferol [Vitamin D2 (DRISDOL)] 50,000 unit PO WE 01/25/18 [History] Dextroamphetamine/Amphetamine [Adderall] 20 mg PO DAILY 04/30/19 [History] Zolpidem [Ambien] 5 mg PO HS PRN 04/30/19 [History] rOPINIRole HCL [Requip] 0.5 mg PO TID 04/30/19 [History] levETIRAcetam [Keppra] 750 mg PO Q12HR #14 tab 01/14/20 [Rx] ALPRAZolam [Xanax] 2 mg PO BID PRN 03/25/21 [History] Alendronate Sodium [Fosamax] 70 mg PO WE 03/25/21 [History] Cetirizine HCl 10 mg PO DAILY 03/25/21 [History] Donepezil HCl [Aricept] 5 mg PO QAM 03/25/21 [History] Megestrol Acetate 200 mg PO DAILY 03/25/21 [History] Omeprazole 20 mg PO BID 03/25/21 [History] Sucralfate [Carafate] 1 gm PO BID 03/25/21 [History] buPROPion HCL [Wellbutrin SR] 150 mg PO Q12H 03/25/21 [History] Atorvastatin Calcium [Lipitor] 40 mg PO DAILY 30 Days #30 tablet 04/02/21 [Rx] Cariprazine HCl [Vraylar] 3 mg PO AC-SUPPER 07/09/21 [History] Montelukast [Singulair] 10 mg PO HS 07/09/21 [History] Sertraline [Zoloft] 100 mg PO HS 07/09/21 [History] amLODIPine BESYLATE 10 mg PO QAM 07/09/21 [History] oxyCODONE-APAP 10-325MG [Percocet 10-325 mg] 1 tab PO Q6HR PRN 07/09/21 [History] Acetaminophen [Tylenol] 650 mg PO Q4H #30 tab 09/12/21 [Rx] Simethicone [Gas-X] 125 mg PO AC-TID PRN #20 cap 09/12/21 [Rx] [facility] [place] [place] [facility] Patient Instructions/Handouts: Laparoscopic Cholecystectomy (DC), Low Fat Diet (ED), *Surgery [facility] - Managing Your Pain After Surgery Without Opioids Activity/Diet/Wound Care/Special Instructions: Recommend low-fat diet for the next 2 days. No lifting over 10 pounds in 2 weeks until September 26. March shower. No bath tub soaks for two weeks until September 26. Diet as tolerated. Use Tylenol, simethicone scheduled for the next 24-48 hours for best pain relief. Use ice along incisions for today to prevent swelling. Discharge Disposition: HOME SELF-CARE
[2021-09-12 10:39] LABS: ALT 13 U/L (4-34); AST 23 U/L (14-36); African American GFR (CKD) >90 (>60 ml/min/1.73 sqM); Albumin 3.8 g/dL (3.5-5.0); Alkaline Phosphatase 76 U/L (38-126); Anion Gap 8 mmol/L; Blood Urea Nitrogen 16 mg/dL (7-17); Calcium 8.6 mg/dL (8.4-10.2); Carbon Dioxide 22 mmol/L (22-30); Chloride 104 mmol/L (98-107); Glucose 87 mg/dL (74-99); Non-African American GFR(CKD) >90 (>60 ml/min/1.73 sqM); Potassium 4.3 mmol/L (3.5-5.1); Sodium 134 mmol/L (137-145); Total Bilirubin 0.4 mg/dL (0.2-1.3); Total Protein 6.5 g/dL (6.3-8.2)
[2021-09-12 11:20] VITALS: BP 134/86; PULSE 72; RESP 16
== END 2021-09-12 11:48 | disposition home or self-care (01) ==
LOC: OR 07:38
PROVIDERS: ATTEND Surgery Plastic and Reconstructive Surgery
DX: K80.10 Calculus of gallbladder with chronic cholecystitis without obstruction (principal); K43.2 Incisional hernia without obstruction or gangrene; E11.9 Type 2 diabetes mellitus without complications; I11.9 Hypertensive heart disease without heart failure; F17.201 Nicotine dependence, unspecified, in remission; M47.816 Spondylosis without myelopathy or radiculopathy, lumbar region; M17.10 Unilateral primary osteoarthritis, unspecified knee; K59.09 Other constipation; I73.00 Raynaud's syndrome without gangrene; K28.7 Chronic gastrojejunal ulcer without hemorrhage or perforation; G89.4 Chronic pain syndrome; R13.10 Dysphagia, unspecified; Z98.84 Bariatric surgery status; Z71.3 Dietary counseling and surveillance; Z80.1 Family history of malignant neoplasm of trachea, bronchus and lung
CPT/HCPCS: 88304; 80053; 47562; J2250; J1100; J2710; J0690; J2405; J2001; J3010; J1170; J1885; J0330; J2704; J1644

== ENCOUNTER 2021-10-21 06:50 | Day surgery (SDC) | payer MEDICARE, OTHER ==
[2021-10-15 14:24] VITALS: BMI 28.3
[~2021-10-21 06:50] MED LIST changes: -DEXAMETHASONE SOD PHOSPHATE 4 MG/ML 1 ML VIAL IV ONE; -HYDROmorphone 0.5 MG/0.5 ML SYRINGE IVP PRN; -MIDAZOLAM 2 MG/2 ML VIAL IV PRN; -ONDANSETRON 4 MG/2 ML VIAL IVP ONE
[2021-10-21 07:12] VITALS: TEMP 97.7
[2021-10-21] MEDS ORDERED: ONDANSETRON 4 MG/2 ML VIAL ONE (07:24)
[2021-10-21] MEDS ORDERED: ONDANSETRON 4 MG/2 ML VIAL IVP ONE (07:25)
[2021-10-21] MEDS ORDERED: PROPOFOL 10 MG/ML 20 ML VIAL IV ONE (07:32)
--- NOTE | 2021-10-21 07:40 | P.GSHP ---
History of Present Illness H&P Date: 10/21/21 CHIEF COMPLAINT: GERD HISTORY OF PRESENT ILLNESS: The patient is a 56-year-old female who presents reports gastroesophageal reflux disease. Upper endoscopy was offered for further evaluation and management. PAST MEDICAL HISTORY: Please see list. PAST SURGICAL HISTORY: Please see list. MEDICATIONS: Please see list. ALLERGIES: Please see list. SOCIAL HISTORY: No illicit drug use FAMILY HISTORY: No reports of Crohn disease or ulcerative colitis. REVIEW OF ORGAN SYSTEMS: CONSTITUTIONAL: No reports of fevers or chills. GI: Denies any blood in stools or constipation. PHYSICAL EXAM: VITAL SIGNS: Stable GENERAL: Well-developed and pleasant in no acute distress. HEENT: No scleral icterus. Extraocular movements grossly intact. Moist buccal mucosa. NECK: Supple without lymphadenopathy. CHEST: Unlabored respirations. Equal bilateral excursions. CARDIOVASCULAR: Regular rate and rhythm. Distal 2+ pulses. ABDOMEN: Soft, nondistended. MUSCULOSKELETAL: No clubbing, cyanosis, or edema. ASSESSMENT: 1. Gastroesophageal reflux disease PLAN: 1. Recommend proceeding with an upper endoscopy Past Medical History Past Medical History: Chest Pain / Angina, Fibromyalgia, Hypertension, Myocardial Infarction (IN), Osteoarthritis (OA), Seizure Disorder Additional Past Medical History / Comment(s): iron transfusions,Hx. LOWER GI BLEED 05/12, TRANSFERRED TO [facility], HAD 3 UNITS PC, KNEE CAP DISPLACED ON LEFT KNEE (PER PATIENT). LOWER BACK PAIN RUPTURED ULCER. Osteoporosis, Hernia, last seizure March 25-2020, Hx sepsis-UTI in Jul 2020 Last Myocardial Infarction Date:: 2013 History of Any Multi-Drug Resistant Organisms: None Reported Past Surgical History: Bariatric Surgery, Cholecystectomy, Joint Replacement Additional Past Surgical History / Comment(s): STOMACH perforation 06/08/19. Cataracts removed, 2011 Darrell-en- y. "They took part of my RIGHT kidney OUT, they thought is was cancer but came back not cancer". Bilateral knee replacements, Prolapsed rectum repair. ORIF left hip, colonoscopy Past Anesthesia/Blood Transfusion Reactions: Motion Sickness, Postoperative Nausea & Vomiting (PONV) Additional Past Anesthesia/Blood Transfusion Reaction / Comment(s): 3 UNITS PACKED CELL IN APRIL 2020, NO REACTIONS Smoking Status: Former smoker - Past Family History Father Family Medical History: Cancer Additional Family Medical History / Comment(s): lung, AAA Mother Family Medical History: CVA/TIA Medications and Allergies Home Medications Medication Instructions Recorded Confirmed Type Cyclobenzaprine [Flexeril] 10 mg PO HS PRN 01/25/18 10/21/21 History Ergocalciferol [Vitamin D2 50,000 unit PO WE 01/25/18 10/21/21 History (DRISDOL)] Dextroamphetamine/Amphetamine 20 mg PO DAILY 04/30/19 10/21/21 History [Adderall] Zolpidem [Ambien] 5 mg PO HS PRN 04/30/19 10/21/21 History rOPINIRole HCL [Requip] 0.5 mg PO TID 04/30/19 10/21/21 History levETIRAcetam [Keppra] 750 mg PO Q12HR #14 tab 01/14/20 10/21/21 Rx ALPRAZolam [Xanax] 2 mg PO BID PRN 03/25/21 10/21/21 History Alendronate Sodium [Fosamax] 70 mg PO WE 03/25/21 10/21/21 History Cetirizine HCl 10 mg PO DAILY 03/25/21 10/21/21 History Donepezil HCl [Aricept] 5 mg PO QAM 03/25/21 10/21/21 History Megestrol Acetate 200 mg PO DAILY 03/25/21 10/21/21 History Omeprazole 20 mg PO BID 03/25/21 10/21/21 History buPROPion HCL [Wellbutrin SR] 150 mg PO Q12H 03/25/21 10/21/21 History Atorvastatin Calcium [Lipitor] 40 mg PO DAILY 30 Days #30 tablet 04/02/21 10/21/21 Rx Cariprazine HCl [Vraylar] 3 mg PO AC-SUPPER 07/09/21 10/21/21 History Montelukast [Singulair] 10 mg PO HS 07/09/21 10/21/21 History Sertraline [Zoloft] 100 mg PO HS 07/09/21 10/21/21 History amLODIPine BESYLATE 10 mg PO QAM 07/09/21 10/21/21 History oxyCODONE-APAP 10-325MG [Percocet 1 tab PO Q6HR PRN 07/09/21 10/21/21 History 10-325 mg] Folic Acid 1 mg PO BID 10/15/21 10/21/21 History Vitamin B12 Injection 1 injection IJ QMONTHLY 10/15/21 10/21/21 History Vitamin B12(Dose Unknown) 1 tab PO DAILY 10/15/21 10/21/21 History Aspirin 81 mg PO DAILY 10/21/21 10/21/21 History Allergies Allergy/AdvReac Type Severity Reaction Status Date / Time Sulfa (Sulfonamide Allergy blisters Verified 10/21/21 07:18 Antibiotics) over body sulfamethoxazole Allergy vasculitis, Verified 10/21/21 07:18 [From Bactrim] swelling trimethoprim [From Bactrim] Allergy vasculitis, Verified 10/21/21 07:18 swelling Surgical - Exam Vital Signs Temp Pulse Resp BP Pulse Ox 97.7 F 89 18 146/88 95 10/21/21 07:11 10/21/21 07:11 10/21/21 07:11 10/21/21 07:11 10/21/21 07:11
--- NOTE | 2021-10-21 07:54 | P.PCN ---
Date of Procedure: 10/21/21 Description of Procedure: PREOPERATIVE DIAGNOSIS: Dysphagia. Gastroesophageal reflux disease History of gastrojejunal stricture POSTOPERATIVE DIAGNOSIS: Hiatal hernia Gastrojejunal stricture Gastroesophageal reflux disease OPERATION: Esophagogastrojejunoscopy with balloon dilatation from 15 to 20 mm. SURGEON: Gloria Wilson MD ANESTHESIA: MAC. INDICATIONS: The patient is a 56-year-old female who presents with a history of dysphagia and gastric stenosis. Benefits and risks of the procedure were described. Informed consent was obtained. DESCRIPTION: The patient was brought into the endoscopy suite and laid in the left lateral decubitus position. After a timeout was confirmed, the procedure was initiated. An Olympus gastroscope was passed along the posterior oropharynx down to the distal esophagus where the squamocolumnar junction was unremarkable. The gastric pouch was entered. A gastrojejunal stricture of 15 mm was found as the adult gastroscope was 9.5 mm in size. A Simtrol balloon dilator was placed through the scope. Final insufflation up to 20 mm was performed with a total of 2 minutes. The scope was advanced up to 60 cm from the incisors into the Darrell limb. The mucosa of the gastrojejunal anastomosis was intact. No gastrojejunal marginal ulcer was encountered. No full-thickness injury was encountered. The GI tract was desufflated. The patient tolerated the procedure well. FINDINGS: Squamocolumnar junction unremarkable at 35 cm. Stricture of approximately 15 mm encountered. No chronic gastrojejunal ulceration encountered. Successful balloon dilatation to 20 mm. Diaphragmatic hiatus at 40 cm. Hiatal hernia 5 cm Gastric pouch 7 cm. RECOMMENDATIONS: May adjust medication from omeprazole to Carafate Plan - Discharge Summary New Discharge Prescriptions: New Sucralfate [Carafate] 1 gm PO BID #30 tablet Continue Ergocalciferol [Vitamin D2 (DRISDOL)] 50,000 unit PO WE Cyclobenzaprine [Flexeril] 10 mg PO HS PRN PRN Reason: MUSCLE SPASMS rOPINIRole HCL [Requip] 0.5 mg PO TID Dextroamphetamine/Amphetamine [Adderall] 20 mg PO DAILY Zolpidem [Ambien] 5 mg PO HS PRN PRN Reason: Insomnia levETIRAcetam [Keppra] 750 mg PO Q12HR #14 tab ALPRAZolam [Xanax] 2 mg PO BID PRN PRN Reason: Anxiety Megestrol Acetate 200 mg PO DAILY Donepezil HCl [Aricept] 5 mg PO QAM Cariprazine HCl [Vraylar] 3 mg PO AC-SUPPER oxyCODONE-APAP 10-325MG [Percocet 10-325 mg] 1 tab PO Q6HR PRN PRN Reason: Pain Sertraline [Zoloft] 100 mg PO HS amLODIPine BESYLATE 10 mg PO QAM Folic Acid 1 mg PO BID Vitamin B12 Injection 1 injection IJ QMONTHLY Aspirin 81 mg PO DAILY Alendronate Sodium [Fosamax] 70 mg PO WE Omeprazole 20 mg PO BID buPROPion HCL [Wellbutrin SR] 150 mg PO Q12H Cetirizine HCl 10 mg PO DAILY Atorvastatin Calcium [Lipitor] 40 mg PO DAILY 30 Days #30 tablet Montelukast [Singulair] 10 mg PO HS Vitamin B12(Dose Unknown) 1 tab PO DAILY Discharge Medication List Cyclobenzaprine [Flexeril] 10 mg PO HS PRN 01/25/18 [History] Ergocalciferol [Vitamin D2 (DRISDOL)] 50,000 unit PO WE 01/25/18 [History] Dextroamphetamine/Amphetamine [Adderall] 20 mg PO DAILY 04/30/19 [History] Zolpidem [Ambien] 5 mg PO HS PRN 04/30/19 [History] rOPINIRole HCL [Requip] 0.5 mg PO TID 04/30/19 [History] levETIRAcetam [Keppra] 750 mg PO Q12HR #14 tab 01/14/20 [Rx] ALPRAZolam [Xanax] 2 mg PO BID PRN 03/25/21 [History] Alendronate Sodium [Fosamax] 70 mg PO WE 03/25/21 [History] Cetirizine HCl 10 mg PO DAILY 03/25/21 [History] Donepezil HCl [Aricept] 5 mg PO QAM 03/25/21 [History] Megestrol Acetate 200 mg PO DAILY 03/25/21 [History] Omeprazole 20 mg PO BID 03/25/21 [History] buPROPion HCL [Wellbutrin SR] 150 mg PO Q12H 03/25/21 [History] Atorvastatin Calcium [Lipitor] 40 mg PO DAILY 30 Days #30 tablet 04/02/21 [Rx] Cariprazine HCl [Vraylar] 3 mg PO AC-SUPPER 07/09/21 [History] Montelukast [Singulair] 10 mg PO HS 07/09/21 [History] Sertraline [Zoloft] 100 mg PO HS 07/09/21 [History] amLODIPine BESYLATE 10 mg PO QAM 07/09/21 [History] oxyCODONE-APAP 10-325MG [Percocet 10-325 mg] 1 tab PO Q6HR PRN 07/09/21 [History] Folic Acid 1 mg PO BID 10/15/21 [History] Vitamin B12 Injection 1 injection IJ QMONTHLY 10/15/21 [History] Vitamin B12(Dose Unknown) 1 tab PO DAILY 10/15/21 [History] Aspirin 81 mg PO DAILY 10/21/21 [History] Sucralfate [Carafate] 1 gm PO BID #30 tablet 10/21/21 [Rx] [facility]ment(s[facility]Ref[facility] [place] [facility] Patient Instructions/Handouts: Esophageal Dilation (GEN), Hiatal Hernia (DC) Activity/Diet/Wound Care/Special Instructions: Diet as tolerated. Use Carafat when Omeprazole is finished Discharge Disposition: HOME SELF-CARE
[2021-10-21 08:06] VITALS: BP 140/85; PULSE 69; RESP 16
== END 2021-10-21 08:37 | disposition home or self-care (01) ==
LOC: ORWHC2ENDO 06:50
PROVIDERS: ATTEND Surgery Plastic and Reconstructive Surgery
DX: K95.89 Other complications of other bariatric procedure (principal); K21.9 Gastro-esophageal reflux disease without esophagitis; K44.9 Diaphragmatic hernia without obstruction or gangrene; M79.7 Fibromyalgia; I10 Essential (primary) hypertension; I25.2 Old myocardial infarction; I48.0 Paroxysmal atrial fibrillation; E11.9 Type 2 diabetes mellitus without complications; Z97.2 Presence of dental prosthetic device (complete) (partial); M19.90 Unspecified osteoarthritis, unspecified site; G40.909 Epilepsy, unspecified, not intractable, without status epilepticus; M81.0 Age-related osteoporosis without current pathological fracture; M54.50 Low back pain, unspecified; Z90.49 Acquired absence of other specified parts of digestive tract; Z96.653 Presence of artificial knee joint, bilateral; Z98.49 Cataract extraction status, unspecified eye; Z98.890 Other specified postprocedural states; Z87.891 Personal history of nicotine dependence; Z80.1 Family history of malignant neoplasm of trachea, bronchus and lung; I71.4 Abdominal aortic aneurysm, without rupture; Z82.49 Family history of ischemic heart disease and other diseases of the circulatory system; Z79.82 Long term (current) use of aspirin; Z79.83 Long term (current) use of bisphosphonates; Z79.899 Other long term (current) drug therapy; Z88.2 Allergy status to sulfonamides
CPT/HCPCS: 43249; J2405; J2704; C1726

== ENCOUNTER → 2021-11-05 | Outpatient (CLI) | payer MEDICARE, OTHER ==
--- NOTE | 2021-11-06 07:23 | CTL ---
EXAMINATION TYPE: CT Low Dose Lung DATE OF EXAM ORDERED: 11/05/2021 HISTORY: Long-term tobacco use. Lung cancer screening CT DLP: 74.[address] CTDI: 2.2 mGy Automated exposure control for dose reduction was used. SCREENING VISIT: Baseline COMPARISON: None TECHNIQUE: Low dose computed tomography scan was performed through the chest at 1 mm thick sections a nd reconstructed images in multiple planes at 1 mm and [address] DIAGNOSTIC QUALITY: Satisfactory FINDINGS: LUNG NODULES: None. LUNGS: COPD: Severity: Mild Fibrosis: Severity: Mild Lymph nodes: No greater than 1 cm Other findings: Prominent pulmonary arteries suggesting underlying pulmonary hypertension. Ectatic as cending aorta up to 3.8 cm in size. RIGHT PLEURAL SPACE: Effusion: None Calcification: None Thickening: None Pneumothorax: None LEFT PLEURAL SPACE: Effusion: None Calcification: None Thickening: None Pneumothorax: None HEART: Heart Size: Normal Coronary Calcification: Mild to moderate Pericardial Effusion: Normal OTHER FINDINGS: Upper abdomen: Surgical changes from gastric bypass. Bony thorax: Surgical change to the thoracolumbar spine partially imaged. Evidence of fusion and vert ebroplasty noted beginning at T12 level. Exaggerated thoracic kyphosis with mild/moderate multilevel spurring. Supraclavicular region: None Other: None IMPRESSION: Mild emphysematous change without suspicious nodules. CT LUNG RAD AND CT CHEST RECOMMENDATION: Lung-Rad 1 Negative: Continue annual screening with LDCT in 12 months. S Modifier (other clinically significant findings): None
== END | disposition home or self-care (01) ==
LOC: RADCTMAIN 16:50
PROVIDERS: ATTEND Internal Medicine
DX: Z12.2 Encounter for screening for malignant neoplasm of respiratory organs (principal); J43.9 Emphysema, unspecified; Z87.891 Personal history of nicotine dependence
CPT/HCPCS: 71271

== ENCOUNTER → 2021-11-07 | Outpatient (CLI) | payer MEDICARE, OTHER ==
--- NOTE | 2021-11-07 14:07 | FL ---
SINGLE CONTRAST ESOPHAGRAM: CLINICAL HISTORY: 56-year-old female R13.10, dysphagia. Patient with history of Darrell-en-Y gastric by pass 10 years ago. Intermittent vomiting, worsening 8 months ago. COMPARISON: 06/10/2019 TECHNIQUE: Single contrast exam esophagram performed with thin barium. Total fluoroscopy time: 1 minute 52 seconds. Total images: 42. FINDINGS: The patient oral contrast without difficulty or delay. There is normal course and caliber of the thor acic esophagus but with moderate tertiary peristaltic contractions. There is also a patulous portion along the right lateral aspect of the distal third esophagus which was present back on the 06/10/2019 exam as well, possible broad-based diverticulum. There is prompt passage of contrast from the esophagus into the stomach. The gastric pouch appears no rmal size. There is no hiatal hernia. There is prompt passage across the gastrojejunostomy status post Darrell-en-Y gastric bypass. No abnormal narrowing is seen here. Partially visualized lumbar vertebral plasty change and posterior lumbar fusion hardware. IMPRESSION: Moderate tertiary peristaltic contractions suggests some degree of presbyesophagus. Status post Darrell- en-Y gastric bypass. No hiatal hernia or stricture.
== END | disposition home or self-care (01) ==
LOC: RADUSWWP 08:54
PROVIDERS: ATTEND Surgery Plastic and Reconstructive Surgery
DX: K22.89 Other specified disease of esophagus (principal); Z98.84 Bariatric surgery status
CPT/HCPCS: 74220

== ENCOUNTER 2021-11-29 19:54 | Emergency (ER) | payer MEDICARE, OTHER ==
[2021-11-29 20:07] VITALS: TEMP 97.7
[2021-11-29] MEDS ORDERED: LORazepam 2 MG/ML INJ IV STA (20:30)
--- NOTE | 2021-11-29 20:36 | ED ---
General Adult HPI - General Chief complaint: Anxiety Stated complaint: Chest Pain Time Seen by Provider: 11/29/21 20:11 Source: patient, EMS Mode of arrival: EMS Limitations: no limitations - History of Present Illness Initial comments: Jen is a 56yo F who presents to the ER today via ambulance. Per EMS the patient complained of intermittent headache and advised that she had high blood pressure. The patient was quite anxious. Patient advised the nurse that she had epigastric discomfort and a history of a perforated gastric ulcer as well as a hiatal hernia. Patient also reported that she could not feel her feet but had normal strength in her legs. Upon my arrival in the patient's room the patient was curled on her left side in position and appeared to be seizing. She was unresponsive incontinent of urine she had removed her cardiac leads and IV from her arm. - Related Data Home Medications Medication Instructions Recorded Confirmed Cyclobenzaprine [Flexeril] 10 mg PO HS PRN 01/25/18 10/30/21 Ergocalciferol [Vitamin D2 50,000 unit PO WE 01/25/18 10/30/21 (DRISDOL)] Dextroamphetamine/Amphetamine 20 mg PO DAILY 04/30/19 10/30/21 [Adderall] Zolpidem [Ambien] 5 mg PO HS PRN 04/30/19 10/30/21 rOPINIRole HCL [Requip] 0.5 mg PO TID 04/30/19 10/30/21 ALPRAZolam [Xanax] 2 mg PO BID PRN 03/25/21 10/30/21 Alendronate Sodium [Fosamax] 70 mg PO WE 03/25/21 10/30/21 Cetirizine HCl 10 mg PO DAILY 03/25/21 10/30/21 Donepezil HCl [Aricept] 5 mg PO QAM 03/25/21 10/30/21 Megestrol Acetate 200 mg PO DAILY 03/25/21 10/30/21 Omeprazole 20 mg PO BID 03/25/21 10/30/21 buPROPion HCL [Wellbutrin SR] 150 mg PO Q12H 03/25/21 10/30/21 Cariprazine HCl [Vraylar] 3 mg PO AC-SUPPER 07/09/21 10/30/21 Montelukast [Singulair] 10 mg PO HS 07/09/21 10/30/21 Sertraline [Zoloft] 100 mg PO HS 07/09/21 10/30/21 amLODIPine BESYLATE 10 mg PO QAM 07/09/21 10/30/21 oxyCODONE-APAP 10-325MG [Percocet 1 tab PO Q6HR PRN 07/09/21 10/30/21 10-325 mg] Folic Acid 1 mg PO BID 10/15/21 10/30/21 Vitamin B12 Injection 1 injection IJ QMONTHLY 10/15/21 10/30/21 Vitamin B12(Dose Unknown) 1 tab PO DAILY 10/15/21 10/30/21 Aspirin 81 mg PO DAILY 10/21/21 10/30/21 Previous Rx's Medication Instructions Recorded levETIRAcetam [Keppra] 750 mg PO Q12HR #14 tab 01/14/20 Atorvastatin Calcium [Lipitor] 40 mg PO DAILY 30 Days #30 tablet 04/02/21 Sucralfate [Carafate] 1 gm PO BID #30 tablet 10/21/21 Allergies Allergy/AdvReac Type Severity Reaction Status Date / Time Sulfa (Sulfonamide Allergy blisters Verified 10/30/21 15:38 Antibiotics) over body sulfamethoxazole Allergy vasculitis, Verified 10/30/21 15:38 [From Bactrim] swelling trimethoprim [From Bactrim] Allergy vasculitis, Verified 10/30/21 15:38 swelling Review of Systems ROS Statement: Those systems with pertinent positive or pertinent negative responses have been documented in the HPI. ROS Other: All systems not noted in ROS Statement are negative. Past Medical History Past Medical History: Chest Pain / Angina, Fibromyalgia, Hypertension, Myocardial Infarction ([place]), Osteoarthritis (OA), Seizure Disorder Additional Past Medical History / Comment(s): iron transfusions,Hx. LOWER GI B LEED 05/12, TRANSFERRED TO [facility], HAD 3 UNITS PC, KNEE CAP DISPLACED ON LEFT KNEE (PER PATIENT). LOWER BACK PAIN RUPTURED ULCER. Osteoporosis, Hernia, last seizure March 25-2020, Hx sepsis-UTI in Jul 2020 Last Myocardial Infarction Date:: 2013 History of Any Multi-Drug Resistant Organisms: None Reported Past Surgical History: Bariatric Surgery, Cholecystectomy, Joint Replacement Additional Past Surgical History / Comment(s): STOMACH perforation 06/08/19. Cataracts removed, 2011 Darrell-en- y. "They took part of my RIGHT kidney OUT, they thought is was cancer but came back not cancer". Bilateral knee replacements, Prolapsed rectum repair. ORIF left hip, colonoscopy Past Anesthesia/Blood Transfusion Reactions: Motion Sickness, Postoperative Nausea & Vomiting (PONV) Additional Past Anesthesia/Blood Transfusion Reaction / Comment(s): 3 UNITS PACKED CELL IN APRIL 2020, NO REACTIONS Past Psychological History: Anxiety, Bipolar, Depression Smoking Status: Former smoker Past Alcohol Use History: None Reported Past Drug Use History: Marijuana - Past Family History Father Family Medical History: Cancer Additional Family Medical History / Comment(s): lung, AAA Mother Family Medical History: CVA/TIA General Exam Limitations: altered mental status (Patient unresponsive) General appearance: other (Unresponsive) Head exam: Present: atraumatic Eye exam: Present: PERRL (Pupils were 3 mm and reactive) ENT exam: Present: mucous membranes moist Respiratory exam: Absent: respiratory distress, wheezes Cardiovascular Exam: Present: regular rate GI/Abdominal exam: Present: soft, other (Bedside ultrasound with no free fluid in the abdomen noted) External exam: Present: normal external exam Extremities exam: Present: other (No obvious trauma) Neurological exam: Present: other (Unresponsive) Skin exam: Present: pallor Course Vital Signs 11/29/21 11/29/21 19:59 20:08 Temperature 97.7 F Pulse Rate 59 L Pulse Rate [ 82 Demo Coordinator ] Respiratory 16 Rate Blood Pressure 213/40 O2 Sat by Pulse 100 Oximetry EKG Findings - EKG Comments: EKG Findings:: EKG was obtained at 2013, rate is 83 rhythm is sinus there is normal intervals, ND 1:30, QRS 74, QTC 472. There are no acute ST elevations or depressions no evidence of acute ischemia or infarction. Procedures - FAST Exam Fluid in Morison's pouch: No Fluid in Splenorenal Junction: No Fluid around bladder, Transverse view: No Fluid around bladder, Sagittal view: No Limited Echocardiogram view: parasternal, subxiphoid Fluid in Pericardial Sac: No Gross Wall Motion Abnormality: No Study normal for this patient: Yes Images saved for further review: No - Intubation Laryngoscope: Pham Size: 4 ET Tube Size: 7 ET Tube Uncuffed: No Tube Placement Confirmation: visualized tube passing through cords, equal breath sounds bilaterally Intubation Complications: none - IO Left Consent Obtained: emergent situation IO Instrument Used to Penetrate the Cortex: battery powered IO drill Complications: none Medical Decision Making - Medical Decision Making Patient had arrived via EMS with initial complaint was listed as anxiety, patient initial vital signs were noted to be hypertensive. Patient's EKG was presented to me and was unremarkable. Apparently the patient had been quite anxious and tachypneic on arrival, she had yelled out to the nurse that she felt like she was dying, the nurse left the room and met me in the hallway as I was walking into the room. Upon walking back in the room the patient had began seizing and was unresponsive. Patient was taken to the resuscitation bay, she did have a history of seizures she did appear to be seizing she was treated with some Ativan. At that time she did begin moving her arms but not making any purposeful movements. She was maintaining oxygen saturations in her normal respirations. Her pupils were not dilated. At that time was provided with the patient's history and complaints of pain through her mid abdomen and chest, as well as feeling like she could not feel her legs, in addition patient was noted be hypertensive. I was concern for possible dissection or rupture Bedside ultrasound revealed no free fluid in the abdomen, no obvious pericardial effusion Patient continued to maintain her airway and oxygen saturations. She was taken to CT for computed tomography scan of the head to evaluate for her altered mental status in the dissection study of the chest abdomen and pelvis CT of the head was obtained, CTA was obtained but of little quality likely related to the hypotension, bradycardia, patient became bradycardic in the CT suite she was treated with atropine with momentary improvement in her heart rate however she then again became bradycardic and was treated with push dose epinephrine, she had again a transient improvement in her heart rate but once again became bradycardic and then pulseless. Resuscitation was initiated in the CT suite and continued into the trauma bay. Patient was intubated with 7.0 ET tube with first pass success, no pulmonary edema noted High quality CPR was continued I reviewed the patient's computed tomography scan which shows a widened mediastinum with a very large likely hemorrhage into the mediastinum and pleural space I suspect the patient experienced either a aortic rupture or rupture of the ventricle. I do not feel this is a survivable injury. Patient is asystole despite resuscitation attempts. Time of was called at 9:33 PM, the patient's daughter was notified and family came to bedside, patient's primary care provider was paged via [employer], certified medical transcriptionist was notified patient was released from the certified medical transcriptionist release #[id number]. - Lab Data Result diagrams: 11/29/21 21:07 11/29/21 21:07 Lab Results 11/29/21 11/29/21 11/29/21 Range/Units 20:40 21:07 21:07 WBC 6.5 (3.8-10.6) k/uL RBC 4.03 (3.80-5.40) m/uL Hgb 13.2 (11.4-16.0) gm/dL Hct 42.7 (34.0-46.0) % MCV 105.8 H (80.0-100.0) fL MCH 32.8 (25.0-35.0) pg MCHC 31.0 (31.0-37.0) g/dL RDW 13.5 (11.5-15.5) % Plt Count 330 (150-450) k/uL MPV 7.3 Neutrophils % 68 % Lymphocytes % 25 % Monocytes % 3 % Eosinophils % 1 % Basophils % 1 % Neutrophils # 4.4 (1.3-7.7) k/uL Lymphocytes # 1.6 (1.0-4.8) k/uL Monocytes # 0.2 (0-1.0) k/uL Eosinophils # 0.1 (0-0.7) k/uL Basophils # 0.0 (0-0.2) k/uL Hypochromasia Moderate Macrocytosis Moderate PT 11.3 (9.0-12.0) sec INR 1.1 (<1.2) APTT 23.6 (22.0-30.0) sec Sodium (137-145) mmol/L Potassium (3.5-5.1) mmol/L Chloride (98-107) mmol/L Carbon Dioxide (22-30) mmol/L Anion Gap mmol/L BUN (7-17) mg/dL Creatinine (0.52-1.04) mg/dL Est GFR (CKD-EPI)AfAm (>60 ml/min/1.73 sqM) Est GFR (CKD-EPI)NonAf (>60 ml/min/1.73 sqM) Glucose (74-99) mg/dL POC Glucose (mg/dL) 191 H (75-99) mg/dL POC Glu Bottom Worker ID Annalisa Ortez Calcium (8.4-10.2) mg/dL Total Bilirubin (0.2-1.3) mg/dL AST (14-36) U/L ALT (4-34) U/L Alkaline Phosphatase (38-126) U/L Total Protein (6.3-8.2) g/dL Albumin (3.5-5.0) g/dL 11/29/21 Range/Units 21:07 WBC (3.8-10.6) k/uL RBC (3.80-5.40) m/uL Hgb (11.4-16.0) gm/dL Hct (34.0-46.0) % MCV (80.0-100.0) fL MCH (25.0-35.0) pg MCHC (31.0-37.0) g/dL RDW (11.5-15.5) % Plt Count (150-450) k/uL MPV Neutrophils % % Lymphocytes % % Monocytes % % Eosinophils % % Basophils % % Neutrophils # (1.3-7.7) k/uL Lymphocytes # (1.0-4.8) k/uL Monocytes # (0-1.0) k/uL Eosinophils # (0-0.7) k/uL Basophils # (0-0.2) k/uL Hypochromasia Macrocytosis PT (9.0-12.0) sec INR (<1.2) APTT (22.0-30.0) sec Sodium 137 (137-145) mmol/L Potassium 4.5 (3.5-5.1) mmol/L Chloride 109 H (98-107) mmol/L Carbon Dioxide 5 L* (22-30) mmol/L Anion Gap 23 mmol/L BUN 15 (7-17) mg/dL Creatinine 0.81 (0.52-1.04) mg/dL Est GFR (CKD-EPI)AfAm >90 (>60 ml/min/1.73 sqM) Est GFR (CKD-EPI)NonAf 82 (>60 ml/min/1.73 sqM) Glucose 221 H (74-99) mg/dL POC Glucose (mg/dL) (75-99) mg/dL POC Glu Bottom Worker ID Calcium 9.1 (8.4-10.2) mg/dL Total Bilirubin 0.6 (0.2-1.3) mg/dL AST 26 (14-36) U/L ALT 19 (4-34) U/L Alkaline Phosphatase 105 (38-126) U/L Total Protein 7.3 (6.3-8.2) g/dL Albumin 4.4 (3.5-5.0) g/dL Critical Care Time Critical Care Time: Yes Total Critical Care Time: 30 Critical Care Time: Critical care time was exclusive of separately billable procedures and treating other patients and teaching time. Critical care was necessary to treat or prevent imminent or life-threatening deterioration. Given the critical condition in which the patient arrived, the patient was immediately assessed by myself and the nurse, and cardiac monitoring initiated due to the potential for rapid decompensation of the patient's clinical condition. During the course of the patients stay, I spent a considerable amount of time at the bedside performing serial re-evaluations of the patient's hemodynamic and clinical status because of the recognized potential threat to life or limb in this condition. I then had a chance to review not only all of the available current laboratory and radiographic studies obtained today, but I also reviewed old records available to me at the time. Additionally, any ancillary information available including telecommunications line installer records were reviewed. Sequential vital signs were obtained. Disposition Clinical Impression: Cardiopulmonary arrest Disposition: Is patient prescribed a controlled substance at d/c from ED?: No Referrals: Zana Meade MD [Primary Care Provider] - 1-2 days Preliminary Cause of : Cardiopulmonary arrest
[2021-11-29 20:41] LABS: Glucose,Whole Blood 191 mg/dL (75-99)
[2021-11-29] MEDS ORDERED: SODIUM CHLORIDE 0.9% 500 ML 500 ML IV SCH (20:45)
--- NOTE | 2021-11-29 21:17 | CT ---
EXAMINATION TYPE: CT brain wo con DATE OF EXAM: 11/29/2021 COMPARISON: 03/25/2021 HISTORY: AMS, seizures, legs pain CT DLP: 1094.4 mGycm Automated exposure control for dose reduction was used. There is mild cerebral atrophy. There is no mass effect or midline shift. There is no sign of intracr anial hemorrhage. Calvarium is intact. There is no evidence of cerebral edema. IMPRESSION: Mild atrophy. No acute intracranial abnormality. No change.
[2021-11-29 21:24] LABS: INR 1.1 (<1.2); Partial Thromboplastin Time 23.6 sec (22.0-30.0); Prothrombin Time 11.3 sec (9.0-12.0)
[2021-11-29 21:31] LABS: Basophils % (A) 1 %; Eosinophils # (A) 0.1 k/uL (0-0.7); Eosinophils % (A) 1 %; HCT 42.7 % (34.0-46.0); HGB 13.2 gm/dL (11.4-16.0); Hypochromasia Moderate; Lymphocytes # (A) 1.6 k/uL (1.0-4.8); Lymphocytes % (A) 25 %; MCH 32.8 pg (25.0-35.0); MCV 105.8 fL (80.0-100.0); Macrocytosis Moderate; Mean Platelet Volume 7.3; Monocytes # (A) 0.2 k/uL (0-1.0); Monocytes % (A) 3 %; Neutrophils # (A) 4.4 k/uL (1.3-7.7); Neutrophils % (A) 68 %; Platelet Count 330 k/uL (150-450); RBC 4.03 m/uL (3.80-5.40); RDW 13.5 % (11.5-15.5); WBC 6.5 k/uL (3.8-10.6)
[2021-11-29 21:35] LABS: ALT 19 U/L (4-34); AST 26 U/L (14-36); African American GFR (CKD) >90 (>60 ml/min/1.73 sqM); Albumin 4.4 g/dL (3.5-5.0); Alkaline Phosphatase 105 U/L (38-126); Anion Gap 23 mmol/L; Blood Urea Nitrogen 15 mg/dL (7-17); Calcium 9.1 mg/dL (8.4-10.2); Chloride 109 mmol/L (98-107); Glucose 221 mg/dL (74-99); Non-African American GFR(CKD) 82 (>60 ml/min/1.73 sqM); Potassium 4.5 mmol/L (3.5-5.1); Sodium 137 mmol/L (137-145); Total Bilirubin 0.6 mg/dL (0.2-1.3); Total Protein 7.3 g/dL (6.3-8.2)
[2021-11-29 21:37] LABS: Carbon Dioxide 5 mmol/L (22-30)
--- NOTE | 2021-11-29 21:58 | CT ---
EXAMINATION TYPE: CT angio thor/abd pel aorta DATE OF EXAM: 11/29/2021 COMPARISON: None HISTORY: unresponsive CT DLP: 2126 mGycm Automated exposure control for dose reduction was used. CONTRAST: Performed with IV Contrast, patient injected with 200 mL of Isovue 370. Images obtained from the thoracic inlet to the mid pelvis with IV contrast. The contrast is only prob ably in the venous system. The patient apparently had cardiac arrest during the exam and there was no contrast in the arterial circulation. There is a moderate size left pleural effusion. There is poste rior pulmonary interstitial edema. There is consolidation left lower lobe. There appears to be a nela yifan pull-through procedure with surgical clips at the esophageal hiatus. There is no mediastinal miguelina opathy. Liver shows no focal defect. There is contrast pooling in the hepatic veins in the posterior liver. S pleen is intact. There is no pancreatic mass. There is no free fluid in the pelvis. There is no evide nce of abdominal free air. There is left hip nailing noted. There is no evidence of a pelvic mass. Th ere is some retained fecal material in the large bowel. There are some distended gas-filled small bow el loops that measure up to 3 cm and consistent with ileus. There is posterior fusion surgery in the thoracolumbar junction. There is multilevel lumbar vertebroplasty noted at L3 L2 L1 and T12 levels. IMPRESSION: Pleural effusions and pulmonary infiltrates as above. Very low cardiac output with pooling of the con trast in the venous system. Small bowel ileus. The angiographic exam is nondiagnostic for evaluation of the arterial system. Ther e are multiple compression fractures which have progressed compared to 03/27/2021 CT scan.
[2021-11-30 02:21] VITALS: BP 139/79; PULSE 72; RESP 12
== END 2021-11-30 02:35 | disposition expired ==
LOC: EC 19:54
DX: I46.9 Cardiac arrest, cause unspecified (principal); I10 Essential (primary) hypertension; I25.2 Old myocardial infarction; M19.90 Unspecified osteoarthritis, unspecified site; G40.909 Epilepsy, unspecified, not intractable, without status epilepticus; F41.9 Anxiety disorder, unspecified; F31.9 Bipolar disorder, unspecified; F12.90 Cannabis use, unspecified, uncomplicated; Z87.891 Personal history of nicotine dependence; Z79.82 Long term (current) use of aspirin
CPT/HCPCS: 36415; 80053; 85025; 85610; 85730; 70450; 71275; 74174; 31500; 99291; 96374; J2060; Q9967